=== PATIENT | female | born 1975 | race Caucasian/White ===

== ENCOUNTER 2018-03-07 06:03 | Emergency (ER) | payer OTHER ==
--- OUTSIDE RECORDS SUMMARY | 2018-03-07 06:05 | XMS REPORT ---
:1975 [facility] Address [address] [place] [address] Dr. Ryan [address] [place] [id number] Care Team Providers Name Role Phone ROGELIO ARAYA Primary Care Provider Unavailable Problems This patient has no known problems. Allergies, Adverse Reactions, Alerts This patient has no known allergies or adverse reactions. Medications This patient has no known medications. Encounters Start End Encounter Admission Attending Care Care Encounter Date/Time Date/Time Type Type Clinicians Facility Department ID 2015-05-23 Inpatient C [facility] MED [id number] 13:51:00
--- NOTE | 2018-03-07 06:51 | EKG ---
Test Date: 2018-03-07 Test Time: 06:44:45 Fireman Helper: TIM MEASUREMENT RESULTS: Intervals: Rate: 87 NE: 162 QRSD: 90 QT: 380 QTc: 457 [place]: P: 62 NE: 162 QRS: 17 T: 48 INTERPRETIVE STATEMENTS: Normal sinus rhythm Low voltage QRS Borderline ECG Compared to ECG 12/09/2013 10:42:51 Low QRS voltage now present Electronically Signed On 03-07-18 06:50:21 CDT by Oumar Moeller
[2018-03-07] MEDS ORDERED: DIPHENHYDRAMINE 50 MG/ML VIAL ONE (06:59)
[2018-03-07] MEDS ORDERED: NA CHLORIDE 0.9% 1,000 ML ONE (06:59)
[2018-03-07] MEDS ORDERED: KETOROLAC 30 MG/ML INJ ONE (07:02)
[2018-03-07 07:22] LABS: Absolute Lymphocytes (CBC) 2.7 K/uL (0.7-4.9); Absolute Monocytes 0.5 K/uL (0.1-1.3); Absolute Neutrophil 2.8 K/uL (1.8-8.0); Eosinophils % 2.1 % (0-4.4); Hematocrit 40.7 % (36.0-45.0); MCH 32.5 pg (27.0-35.0); MCV 93.9 fL (80-100); MPV 8.6 fL (7.6-11.3); Monocytes % 8.5 % (3.3-12.3); RBC Red Blood Cell Count 4.33 M/uL (3.86-4.86)
--- NOTE | 2018-03-07 08:05 | EDPHYS ---
Physician Documentation [facility] Name: Suzette Judge Age: 42 yrs Sex: Female : 1975 Arrival Date: 03/07/2018 Time: 06:07 Bed 13 Private MD: ED Physician Tu Nava HPI: 03/07 06:35 This 42 yrs old Female presents to ER via Ambulatory with complaints of Hand cp Pain, Hand Swelling. 06:35 The patient or guardian reports pain, swelling, tenderness, numbness/tingling. The cp complaints affect the right hand and left hand. 06:35 Context: resulted from an unknown cause. Onset: The symptoms/episode began/occurred for cp weeks. Modifying factors: the symptoms are aggravated by nothing. Associated signs and symptoms: Pertinent negatives: cyanosis distally, fever. Severity of symptoms: in the emergency department the symptoms are unchanged, despite home interventions. 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 - Social history:: Smoking status: Patient uses tobacco products, smokes one-half pack cigarettes per day. - Ebola Screening: : No symptoms or risks identified at this time. ROS: 06:40 Constitutional: Negative for body aches, chills, fever, poor PO intake. cp 06:40 Eyes: Negative for injury, pain, redness, and discharge. cp 06:40 ENT: Negative for drainage from ear(s), ear pain, sore throat, difficulty swallowing, difficulty handling secretions. 06:40 Cardiovascular: Negative for chest pain, edema, palpitations. 06:40 Respiratory: Negative for cough, shortness of breath, wheezing. 06:40 Abdomen/GI: Negative for abdominal pain, nausea, vomiting, and diarrhea, constipation. 06:40 Back: Negative for pain at rest, pain with movement, radiated pain. 06:40 MS/extremity: Positive for pain, paresthesias, swelling, tenderness, of the right hand and left hand, Negative for injury or acute deformity, decreased range of motion. 06:40 Skin: Negative for cellulitis, rash. 06:40 All other systems are negative. Exam: 06:45 Constitutional: The patient appears in no acute distress, alert, awake, non-toxic, well cp developed, well nourished. 06:45 Head/Face: Normocephalic, atraumatic. cp 06:45 Eyes: Periorbital structures: appear normal, Conjunctiva: normal, no exudate, no injection, Sclera: no appreciated abnormality, Lids and lashes: appear normal, bilaterally. 06:45 ENT: External ear(s): are unremarkable, Nose: is normal, Mouth: Lips: moist, Oral mucosa: moist, Posterior pharynx: is normal, airway is patent, no erythema, no exudate. 06:45 Chest/axilla: Inspection: normal. 06:45 Cardiovascular: Rate: normal, Rhythm: regular, Edema: is not appreciated, JVD: is not appreciated. 06:45 Respiratory: the patient does not display signs of respiratory distress, Respirations: normal, no use of accessory muscles, no splinting, no tachypnea, labored breathing, is not present. 06:45 Abdomen/GI: Exam negative for discomfort, distension, guarding, Inspection: abdomen appears normal. 06:45 Back: pain, is absent, ROM is normal. 06:45 Musculoskeletal/extremity: Extremities: grossly normal except: noted in the right hand and left hand: pain, There is no evidence of decreased ROM, deformity, injury. 06:45 Skin: cellulitis, is not appreciated, no rash present. 06:53 ECG was reviewed by the Attending Physician. cp Vital Signs: 06:19 BP 114 / 74; Pulse 94; Resp 18; Temp 97.7; Pulse Ox 100% on R/A; Weight 68.04 kg; aa1 Height 5 ft. 11 in. (180.34 cm); Pain 10/10; 07:17 BP 103 / 60; Pulse 72; Resp 18; Pulse Ox 100% on R/A; dh3 08:15 BP 100 / 64; Pulse 80; Resp 16; Pulse Ox 100% on R/A; Pain 6/10; rb1 06:19 Body Mass Index 20.92 (68.04 kg, 180.34 cm) aa1 MDM: 06:16 Patient medically screened. cp 06:40 Differential diagnosis: tendonitis, cellulitis, carpal tunnel, peripheral neuropathy. cp 08:04 Data reviewed: vital signs, nurses notes, lab test result(s), and as a result, I will cp discharge patient. 08:04 Counseling: I had a detailed discussion with the patient and/or guardian regarding: the cp historical points, exam findings, and any diagnostic results supporting the discharge/admit diagnosis, lab results, the need for outpatient follow up, a family practitioner, to return to the emergency department if symptoms worsen or persist or if there are any questions or concerns that arise at home. Response to treatment: the patient's symptoms have markedly improved after treatment, and as a result, I will discharge patient. 03/07 06:33 Order name: CBC with Diff; Complete Time: 07:38 03/07 07:39 Interpretation: Reviewed. 03/07 06:33 Order name: BMP; Complete Time: 07:38 cp 03/07 07:39 Interpretation: Normal except: GLUC 116; BUN 23; GFR 79. cp 03/07 06:52 Order name: Test, Serum; Complete Time: 07:49 aa1 08 07:49 Interpretation: Reviewed. 03/07 07:14 Order name: Urine Dipstick--Ancillary (enter results) [facility] 03/07 06:33 Order name: EKG; Complete Time: 06:33 03/07 06:33 Order name: EKG - Nurse/Tech; Complete Time: 06:52 03/07 06:33 Order name: Urine Dipstick-Ancillary (obtain specimen); Complete Time: 07:09 EC:53 Rate is 87 beats/min. Rhythm is regular. IA interval is normal. QRS interval is normal. cp QT interval is normal. No ST changes noted. Interpreted by me. Reviewed by me. Administered Medications: 06:55 Drug: NS 0.9% 1000 ml Route: IV; Rate: 1 bolus; Site: right jugular; aa1 08:02 Follow up: IV Status: Completed infusion rb1 06:55 Drug: TORadol 30 mg Route: IVP; Site: right jugular; aa1 07:12 Follow up: Response: No adverse reaction; Pain is decreased rb1 06:55 Drug: Benadryl 25 mg Route: IVP; Site: right jugular; aa1 07:12 Follow up: Response: No adverse reaction rb1 Disposition: 13:59 Co-signature as Attending Physician, Tu Nava MD I agree with the assessment and [facility] plan of care. Disposition: 03/07/18 08:05 Discharged to Home. Impression: Pain in unspecified hand - Bilateral. - Condition is Stable. - Discharge Instructions: Hand Pain. - Prescriptions for ketorolac 10 mg Oral tablet - take 1 tablet by ORAL route every 6 hours not to exceed 40 mg in 24hrs; 15 tablet. - Medication Reconciliation Form, Thank You Letter, Antibiotic Education, Prescription Opioid Use form. - Follow up: Private Physician; When: 2 - 3 days; Reason: Recheck today's complaints. - Problem is new. - Symptoms have improved. Signatures: Dispatcher [employer] EDFaith Brown RN RN aa1 Tu Nava MD MD cha Page, Corey, PA PA Patricia Velez, RN RN rb1 Corrections: (The following items were deleted from the chart) 06:52 06:33 Urine Test ordered. cp aa1 08:16 08:05 03/07/2018 08:05 Discharged to Home. Impression: Pain in unspecified hand - rb1 Bilateral. Condition is Stable. Forms are Medication Reconciliation Form, Thank You Letter, Antibiotic Education, Prescription Opioid Use. Follow up: Private Physician; When: 2 - 3 days; Reason: Recheck today's complaints. Problem is new. Symptoms have improved. cp
--- NOTE | 2018-03-07 08:05 | ER ---
Nurse's Notes [facility] Name: Suzette Judge Age: 42 yrs Sex: Female : 1975 Arrival Date: 03/07/2018 Time: 06:07 Bed 13 Private MD: Diagnosis: Pain in unspecified hand-Bilateral Presentation: 03/07 06:14 Presenting complaint: Patient states: she has been having swelling in the fingers of aa1 both hands for past few weeks. States, "It happens every time I go to sleep and sometimes it happens in the day too." Pt continuously shaking hands above her head and states that is the only way to get the swelling to go down. Transition of care: patient was not received from another setting of care. Onset of symptoms was January 2018. Risk Assessment: Do you want to hurt yourself or someone else? Patient reports no desire to harm self or others. Initial Sepsis Screen: Does the patient meet any 2 criteria? No. Patient's initial sepsis screen is negative. Does the patient have a suspected source of infection? No. Patient's initial sepsis screen is negative. Care prior to arrival: None. 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 - Social history:: Smoking status: Patient uses tobacco products, smokes one-half pack cigarettes per day. - Ebola Screening: : No symptoms or risks identified at this time. Screenin:21 Abuse screen: Denies threats or abuse. Denies injuries from another. Nutritional aa1 screening: No deficits noted. Tuberculosis screening: No symptoms or risk factors identified. Fall Risk None identified. Assessment: 06:21 General: Appears in no apparent distress. uncomfortable, Behavior is cooperative, aa1 restless. Pain: Complains of pain in right hand and left hand Pain began several weeks ago. Neuro: Level of Consciousness is awake, alert, obeys commands, Oriented to person, place, time, situation, Moves all extremities. Respiratory: Airway is patent Respiratory effort is even, unlabored, Respiratory pattern is regular, symmetrical. GI: No signs and/or symptoms were reported involving the gastrointestinal system. : No signs and/or symptoms were reported regarding the genitourinary system. EENT: No signs and/or symptoms were reported regarding the EENT system. Derm: Skin is intact, is healthy with good turgor, Skin is pink, warm \\T\\ dry. Musculoskeletal: Circulation, motion, and sensation intact. Capillary refill < 3 seconds, Range of motion: intact in all extremities, pt reports swelling in fingers on morgan hands. Mild swelling noted at this time. 07:00 Reassessment: Patient appears in no apparent distress at this time. No changes from rb1 previously documented assessment. I agree with the above assessment. Call light within reach. 08:00 Reassessment: Patient appears in no apparent distress at this time. Patient and/or rb1 family updated on plan of care and expected duration. Pain level reassessed. Patient is alert, oriented x 3, equal unlabored respirations, skin warm/dry/pink. Vital Signs: 06:19 BP 114 / 74; Pulse 94; Resp 18; Temp 97.7; Pulse Ox 100% on R/A; Weight 68.04 kg; aa1 Height 5 ft. 11 in. (180.34 cm); Pain 10/10; 07:17 BP 103 / 60; Pulse 72; Resp 18; Pulse Ox 100% on R/A; dh3 08:15 BP 100 / 64; Pulse 80; Resp 16; Pulse Ox 100% on R/A; Pain 6/10; rb1 06:19 Body Mass Index 20.92 (68.04 kg, 180.34 cm) aa1 ED Course: 06:07 Patient arrived in ED. al2 06:13 Arm band placed on right wrist. Patient placed in an exam room, on a stretcher. aa1 06:14 Tu Sullivan PA is PHCP. cp 06:14 Tu Nava MD is Attending Physician. cp 06:15 Patient has correct armband on for positive identification. Bed in low position. Call aa1 light in reach. Pulse ox on. NIBP on. 06:18 Triage completed. aa1 06:40 Missed attempt(s): 24 gauge in right upper arm. Bleeding controlled, band aid applied, aa1 catheter tip intact. 06:45 EKG done, by ED staff, reviewed by Tu Nava MD. aa1 06:50 Initial lab(s) drawn, by ma, sent to lab. Inserted saline lock: 20 gauge in right EJ, aa1 using aseptic technique. Blood collected. 07:04 Urine collected: clean catch specimen, ney colored. aa1 07:26 Patricia Dasilva, RN is Primary Nurse. rb1 08:16 No provider procedures requiring assistance completed. IV discontinued, intact, rb1 bleeding controlled, No redness/swelling at site. Pressure dressing applied. Administered Medications: 06:55 Drug: NS 0.9% 1000 ml Route: IV; Rate: 1 bolus; Site: right jugular; aa1 08:02 Follow up: IV Status: Completed infusion rb1 06:55 Drug: TORadol 30 mg Route: IVP; Site: right jugular; aa1 07:12 Follow up: Response: No adverse reaction; Pain is decreased rb1 06:55 Drug: Benadryl 25 mg Route: IVP; Site: right jugular; aa1 07:12 Follow up: Response: No adverse reaction rb1 Outcome: 08:05 Discharge ordered by . cp 08:16 Patient left the ED. rb1 08:16 Discharged to home ambulatory, with family. rb1 08:16 Condition: stable 08:16 Discharge instructions given to patient, Instructed on discharge instructions, follow up and referral plans. medication usage, Demonstrated understanding of instructions, follow-up care, medications, Prescriptions given X 1. Signatures: Faith Ro RN RN aa1 Tu Sullivan PA PA cp Patricia Dasilva, RN RN rb1 Kalli Goldberg formerly [facility] Cindy Vazquez
[2018-03-07 08:26] LABS: Urine Blood TRACE (NEG); Urine Glucose NEGATIVE (NEG); Urine Protein NEGATIVE (NEG)
[2018-03-07 08:31] VITALS: TEMP 97.7; O2SAT 100
[2018-03-07 08:33] VITALS: BP 100/64
== END 2018-03-07 08:16 | disposition home or self-care (01) ==
LOC: ER 06:03
DX: M79.641 Pain in right hand (principal); F31.9 Bipolar disorder, unspecified; F32.9 Major depressive disorder, single episode, unspecified; F43.10 Post-traumatic stress disorder, unspecified; F17.210 Nicotine dependence, cigarettes, uncomplicated; Z88.2 Allergy status to sulfonamides; Z88.6 Allergy status to analgesic agent; Z88.8 Allergy status to other drugs, medicaments and biological substances
CPT/HCPCS: 36415; 80048; 81003; 84703; 85025; 93005; 96361; 96374; 96375; 99284; J7030

== ENCOUNTER 2018-10-31 15:35 | Emergency (ER) | payer OTHER ==
--- OUTSIDE RECORDS SUMMARY | 2018-10-31 15:37 | XMS REPORT ---
:1975 [facility] Address [address] [place] [address] [address] Care Team Providers Name Role Phone ROGELIO ARAYA Primary Care Provider Unavailable Problems This patient has no known problems. Allergies, Adverse Reactions, Alerts This patient has no known allergies or adverse reactions. Medications This patient has no known medications. Encounters Start End Encounter Admission Attending Care Care Encounter Date/Time Date/Time Type Type Clinicians Facility Department ID 2015-05-23 Inpatient C [facility] MED [id number] 13:51:00
--- NOTE | 2018-10-31 16:15 | EDPHYS ---
Physician Documentation [facility] Name: Suzette Judge Age: 43 yrs Sex: Female : 1975 Arrival Date: 10/31/2018 Time: 15:37 Bed 12 Private MD: WALT Physician Tu Nava HPI: 10/31 16:08 This 43 yrs old Female presents to ER via Ambulatory with complaints of jmm Medication Refill. 16:08 The patient presents to the emergency department requesting refill(s) for: Klonopin, jmm Prozac. The patient chronically suffers from depression, anxiety, PTD. Patient states she is waiting for her psychiatric evaluation. Patient states her MD from [place] called in a prescription in August. patient states she has not had her medication in 2 weeks. Patient denies SI or HI. . 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 - Social history:: Smoking status: . - Ebola Screening: : Patient denies travel to an Ebola-affected area in the 21 days before illness onset. ROS: 16:08 Constitutional: Negative for fever, chills, and weight loss, Cardiovascular: Negative jmm for chest pain, palpitations, and edema, Respiratory: Negative for shortness of breath, cough, wheezing, and pleuritic chest pain. 16:08 Psych: Positive for anxiety, Negative for auditory hallucinations, visual hallucinations, homicidal ideation, suicidal ideation. 16:08 All other systems are negative. Exam: 16:08 Head/Face: atraumatic. Eyes: EOMI, no conjunctival erythema appreciated ENT: Moist jmm Mucus Membranes Neck: Trachea midline, Supple Chest/axilla: Normal chest wall appearance and motion. Cardiovascular: Regular rate and rhythm. No edema appreciated Respiratory: Normal respirations, no respiratory distress appreciated Abdomen/GI: Non distended, soft Back: Normal ROM Skin: General appearance color normal MS/ Extremity: Moves all extremities, no obvious deformities appreciated, no edema noted to the lower extremities Neuro: Awake and alert, normal gait 16:08 Constitutional: The patient appears alert, awake, anxious. 16:08 Psych: Behavior/mood is pleasant, cooperative, anxious, Patient has no thoughts/intents to harm self or others. Judgement / Insight is normal. Vital Signs: 15:55 BP 137 / 103; Pulse 69; Resp 19; Temp 96.8(TE); Pulse Ox 98% on R/A; Weight 73.94 kg tw2 (R); Height 5 ft. 11 in. (180.34 cm); Pain 0/10; 15:55 Body Mass Index 22.73 (73.94 kg, 180.34 cm) tw2 MDM: 16:08 Patient medically screened. dara 16:08 ED course: I discussed with the patient the need to follow up with pcp for continuity jm of care. Patient does not appear to express signs of SI or HI. . 16:13 Data reviewed: vital signs, nurses notes. Counseling: I had a detailed discussion with jmm the patient and/or guardian regarding: the historical points, exam findings, and any diagnostic results supporting the discharge/admit diagnosis, lab results, the need for outpatient follow up, to return to the emergency department if symptoms worsen or persist or if there are any questions or concerns that arise at home. Administered Medications: No medications were administered Disposition: 11/01 07:14 Co-signature as Attending Physician, Tu Nava MD I agree with the assessment and [facility] plan of care. Disposition: 10/31/18 16:15 Discharged to Home. Impression: Encounter for issue of repeat prescription. - Condition is Stable. - Discharge Instructions: Medicine Refill at the Emergency Department. - Prescriptions for Klonopin 1 mg Oral Tablet - take 1 tablet by ORAL route every 12 hours As needed; 12 tablet. Prozac 20 mg Oral Capsule - take 1 capsule by ORAL route once daily; 10 capsule. - Medication Reconciliation Form, Thank You Letter, Antibiotic Education, Prescription Opioid Use form. - Follow up: Private Physician; When: 2 - 3 days; Reason: Recheck today's complaints, Continuance of care, Re-evaluation by your physician. Signatures: Yolette Mckenzie RN RN aj1 Tu Nava MD MD cha Mickail, Joel, PA PA jmm Wise, Tara RN RN tw2 Corrections: (The following items were deleted from the chart) 10/31 16:35 16:15 10/31/2018 16:15 Discharged to Home. Impression: Encounter for issue of repeat aj1 prescription. Condition is Stable. Forms are Medication Reconciliation Form, Thank You Letter, Antibiotic Education, Prescription Opioid Use. Follow up: Private Physician; When: 2 - 3 days; Reason: Recheck today's complaints, Continuance of care, Re-evaluation by your physician. yanira
--- NOTE | 2018-10-31 16:15 | ER ---
Nurse's Notes [facility] Name: Suzette Judge Age: 43 yrs Sex: Female : 1975 Arrival Date: 10/31/2018 Time: 15:37 Bed 12 Private MD: Diagnosis: Encounter for issue of repeat prescription Presentation: 10/31 15:53 Presenting complaint: Patient states: i am a long time diagnosed bipolar pt, i need tw2 something for my anxiety and my prozac refilled, i am on the waiting list in [place], but i just need something for my anxiety. Transition of care: patient was not received from another setting of care. Onset of symptoms was October 31, 2018. Risk Assessment: Do you want to hurt yourself or someone else? Patient reports no desire to harm self or others. Initial Sepsis Screen: Does the patient meet any 2 criteria? No. Patient's initial sepsis screen is negative. Does the patient have a suspected source of infection? No. Patient's initial sepsis screen is negative. Care prior to arrival: None. 15:53 Method Of Arrival: Ambulatory tw2 15:53 Acuity: LORI 4 tw2 Triage Assessment: 15:56 General: Appears in no apparent distress. Behavior is anxious. Pain: Denies pain. tw2 DIRECTOR MARKETING: 15:55 LMP 10/16/2018 tw Historical: - Allergies: 15:57 Haldol; tw2 15:57 Sulfa; tw2 15:57 Compazine; tw2 - Home Meds: 15:57 Prozac 20 mg Oral cap 1 cap 2 times per day [Active]; Klonopin 2 mg Oral tab 1 tab 3 tw2 times per day [Active]; amitriptyline 100 mg Oral tab 1 tab once daily [Active]; - PMHx: 15:57 Anxiety; Bipolar disorder; Crohn's; Depression; PTSD; tw2 - PSHx: 15:57 Knee surgery; tw2 - Immunization history:: Adult Immunizations. - Social history:: Smoking status: . - Ebola Screening: : Patient denies travel to an Ebola-affected area in the 21 days before illness onset. Screenin:34 Abuse screen: Denies threats or abuse. Denies injuries from another. Nutritional aj1 screening: No deficits noted. Tuberculosis screening: No symptoms or risk factors identified. 16:35 Fall Risk None identified. aj1 Assessment: 16:34 General: Appears in no apparent distress. comfortable, Behavior is cooperative, aj1 anxious. Pain: Denies pain. Neuro: Level of Consciousness is awake, alert, obeys commands, Oriented to person, place, time, situation. Cardiovascular: Patient's skin is warm and dry. Respiratory: Airway is patent Respiratory effort is even, unlabored, Respiratory pattern is regular, symmetrical. GI: No signs and/or symptoms were reported involving the gastrointestinal system. : No signs and/or symptoms were reported regarding the genitourinary system. EENT: No signs and/or symptoms were reported regarding the EENT system. Derm: No signs and/or symptoms reported regarding the dermatologic system. Skin is pink, warm \T\ dry. normal. Musculoskeletal: No signs and/or symptoms reported regarding the musculoskeletal system. Circulation, motion, and sensation intact. Vital Signs: 15:55 BP 137 / 103; Pulse 69; Resp 19; Temp 96.8(TE); Pulse Ox 98% on R/A; Weight 73.94 kg tw2 (R); Height 5 ft. 11 in. (180.34 cm); Pain 0/10; 15:55 Body Mass Index 22.73 (73.94 kg, 180.34 cm) tw2 ED Course: 15:37 Patient arrived in ED. mr 15:55 Triage completed. tw2 15:55 Arm band placed on. tw2 15:59 [facility]endoza [facility] 15:59 Tu Nava MD is Attending Physician. [facility] 16:34 Yolette Mckenzie RN is Primary Nurse. aj1 16:34 Patient has correct armband on for positive identification. aj1 16:34 No provider procedures requiring assistance completed. aj1 16:35 Patient did not have IV access during this emergency room visit. aj1 Administered Medications: No medications were administered Outcome: 16:15 Discharge ordered by . [facility] 16:34 Discharged to home ambulatory. aj1 16:34 Condition: good 16:34 Discharge instructions given to patient, Instructed on discharge instructions, follow up and referral plans. medication usage, Demonstrated understanding of instructions, follow-up care, medications, Prescriptions given X 2. 16:35 Patient left the ED. aj1 Signatures: Yolette Mckenzie RN RN aj1 Antione Mendoza PA PA jmm Rivera, Ramonita mr Hanna Lechuga, RN RN tw2
[2018-11-01 05:52] VITALS: BP 137/103; TEMP 96.8; O2SAT 98
== END 2018-10-31 16:35 | disposition home or self-care (01) ==
LOC: ER 15:35
DX: Z76.0 Encounter for issue of repeat prescription (principal); F41.9 Anxiety disorder, unspecified; F32.9 Major depressive disorder, single episode, unspecified; F31.9 Bipolar disorder, unspecified; F43.10 Post-traumatic stress disorder, unspecified; Z88.2 Allergy status to sulfonamides; Z88.5 Allergy status to narcotic agent; Z88.8 Allergy status to other drugs, medicaments and biological substances
CPT/HCPCS: 99282

== ENCOUNTER 2018-11-03 04:42 | Observation (INO) | payer OTHER ==
[2018-11-03] MEDS ORDERED: METHYLPREDNISOLONE 125 MG INJ ONE (05:26)
[2018-11-03] MEDS ORDERED: MORPHINE 4 MG/ML SYR ONE ×2 (05:27→06:58)
[2018-11-03] MEDS ORDERED: NA CHLORIDE 0.9% 1,000 ML ONE (05:27)
[2018-11-03] MEDS ORDERED: ONDANSETRON 4 MG/2 ML VIAL ONE ×2 (05:27→06:58)
[2018-11-03 05:40] LABS: Urine Blood 2+ (NEG); Urine Glucose NEGATIVE (NEG); Urine Protein NEGATIVE (NEG)
[2018-11-03 05:58] LABS: Absolute Monocytes 0.6 K/uL (0.1-1.3); Absolute Neutrophil 3.8 K/uL (1.8-8.0); Basophils % 0.6 % (0-1.3); Eosinophils % 0.8 % (0-4.4); Hematocrit 40.6 % (36.0-45.0); Lymphocytes % 30.7 % (15.3-44.8); MPV 7.9 fL (7.6-11.3); Monocytes % 9.2 % (3.3-12.3); RBC Red Blood Cell Count 4.52 M/uL (3.86-4.86)
[2018-11-03 06:06] LABS: Bilirubin Direct 0.1 mg/dL (0-0.2); Bilirubin Total 0.4 mg/dL (0.2-1.0); Potassium 3.6 mmol/L (3.5-5.1); Protein, Total 7.4 g/dL (6.4-8.2)
--- NOTE | 2018-11-03 06:48 | EDPHYS ---
Physician Documentation [facility] Name: Suzette Judge Age: 43 yrs Sex: Female : 1975 Arrival Date: 11/03/2018 Time: 04:47 Bed 15 Private MD: ED Physician Sharon Bang HPI: 11/03 04:57 This 43 yrs old Female presents to ER via Unassigned with complaints of ma2 Abdominal Pain. 04:57 The patient presents with abdominal pain. Onset: The symptoms/episode began/occurred ma2 gradually, 2 month(s) ago. Associated signs and symptoms: Pertinent negatives: anorexia, chest pain, constipation, fever, vaginal discharge, vomiting blood. The symptoms are described as achy. Severity of pain: At its worst the pain was moderate in the emergency department the pain is unchanged. The patient has experienced similar episodes in the past. hx of crohns disease here with similar pain unchanged with diarrhea . 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 - Social history:: Patient/guardian denies using alcohol, street drugs, The patient lives with family, Smoking status: Patient uses tobacco products, vape, Patient uses street drugs, marijuana, Patient/guardian denies using alcohol. - Family history:: not pertinent. - Ebola Screening: : Patient negative for fever greater than or equal to 101.5 degrees Fahrenheit, and additional compatible Ebola Virus Disease symptoms Patient denies exposure to infectious person Patient denies travel to an Ebola-affected area in the 21 days before illness onset. ROS: 04:57 Constitutional: Negative for fever, chills, and weight loss. ma2 04:57 Abdomen/GI: Positive for abdominal pain, Negative for nausea and vomiting, diarrhea, anorexia, rectal pain, bowel incontinence. 04:57 All other systems are negative. Exam: 04:57 Constitutional: This is a well developed, well nourished patient who is awake, alert, ma2 and in no acute distress. Chest/axilla: Normal chest wall appearance and motion. Nontender with no deformity. No lesions are appreciated. Cardiovascular: Regular rate and rhythm with a normal S1 and S2. No gallops, murmurs, or rubs. Normal PMI, no JVD. No pulse deficits. Respiratory: Lungs have equal breath sounds bilaterally, clear to auscultation and percussion. No rales, rhonchi or wheezes noted. No increased work of breathing, no retractions or nasal flaring. 04:57 MS/ Extremity: Pulses equal, no cyanosis. Neurovascular intact. Full, normal range of motion. 04:57 Abdomen/GI: Inspection: abdomen appears normal, scar(s), are noted in the right lower quadrant, Bowel sounds: normal, Palpation: abdomen is soft and non-tender, soft, Rectal exam: Vital Signs: 05:05 BP 107 / 77; Pulse 108; Resp 19; Temp 98.2; Pulse Ox 98% ; Weight 73.94 kg; Height 5 rr5 ft. 11 in. (180.34 cm); Pain 9/10; 05:51 BP 105 / 73; Pulse 95; Resp 17; Pulse Ox 99% ; rr5 06:00 BP 108 / 65; Pulse 90; Resp 19; Pulse Ox 98% ; rr5 06:00 Pain 0/10; rr5 06:30 BP 105 / 76; Pulse 88; Resp 17; Pulse Ox 100% ; Pain 10/10; rr5 06:50 BP 111 / 87; Pulse 93; Resp 17; Pulse Ox 99% ; rr5 08:00 BP 114 / 87; Pulse 103; Resp 16; Pulse Ox 97% ; bp 08:47 BP 112 / 79; Pulse 96; Resp 14; Pulse Ox 97% ; bp 05:05 Body Mass Index 22.73 (73.94 kg, 180.34 cm) rr5 MDM: 04:51 Patient medically screened. ma2 04:57 Differential diagnosis: gastritis, gastroesophageal reflux disease, crohns disease. ma2 05:50 ED course: patient has passive SI for the last few weeks unchanged seen yesterday at [address] in [place] by psych and was released and started on prozac no si now no plan never had plan no gun at home, no active si. now . 06:45 Data reviewed: vital signs, nurses notes. Counseling: I had a detailed discussion with [facility] the patient and/or guardian regarding: the historical points, exam findings, and any diagnostic results supporting the discharge/admit diagnosis, the presence of at least one elevated blood pressure reading (>120/80) during this emergency department visit, the need for outpatient follow up. Response to treatment: the patient's symptoms have mildly improved after treatment. ED course: will admit for intractable pain discussed with dr. mtz. 11/03 04:52 Order name: Basic Metabolic Panel; Complete Time: 06:41 [facility] 11/03 04:52 Order name: CBC with Diff; Complete Time: 06:41 [facility] 11/03 04:52 Order name: Creatinine for Radiology; Complete Time: 06:41 fl11/03 04:52 Order name: Hepatic Function; Complete Time: 06:41 fl11/03 04:52 Order name: Lipase; Complete Time: 06:41 fl11/03 05:18 Order name: Urine Dipstick--Ancillary (enter results); Complete Time: 06:41 cm6 11/03 05:18 Order name: Urine --Ancillary (enter results); Complete Time: 06:41 cm6 11/03 06:58 Order name: CT Abd/Pelvis - W/Contrast [facility] 11/03 04:52 Order name: IV Saline Lock; Complete Time: 05:39 fl11/03 04:52 Order name: Labs collected and sent; Complete Time: 05:39 fl11/03 04:52 Order name: Urine Dipstick-Ancillary (obtain specimen); Complete Time: 05:14 [facility] Administered Medications: 05:28 Drug: NS 0.9% 1000 ml Route: IV; Rate: 1 bolus; Site: left upper arm; rr5 07:00 Follow up: IV Status: Completed infusion; IV Intake: 1000ml bp 05:35 Drug: Zofran 4 mg Route: IVP; Site: left upper arm; rr5 06:56 Follow up: Response: No adverse reaction rr5 05:37 Drug: MethylPrednisoLONE 125 mg Route: IVP; Site: left upper arm; rr5 06:57 Follow up: Response: No adverse reaction rr5 05:38 Drug: morphine 4 mg Route: IVP; Site: left upper arm; rr5 06:56 Follow up: Response: No adverse reaction rr5 06:50 Drug: Zofran 4 mg Route: IVP; Site: left upper arm; rr5 07:14 Follow up: Response: Pain is decreased bp 06:52 Drug: morphine 4 mg Route: IVP; Site: left upper arm; rr5 07:13 Follow up: Response: Pain is decreased bp Disposition: 11/03/18 06:47 Hospitalization ordered by Dieter Mtz for Observation. Preliminary diagnosis is Crohn's disease of both small and large intestine. - Bed requested for Telemetry/MedSurg (observation). - Status is Observation. bp - Condition is Stable. - Problem is new. - Symptoms are unchanged. UTI on Admission? No Signatures: Dispatcher [employer] [facility] Titus Skinner, RN RN bp Sharon Bang MD MD ma2 Radha Elizalde Raymond RN RN rr5 Corrections: (The following items were deleted from the chart) 05:47 04:53 TEST, SERUM+SC.LAB.BRZ ordered. [facility] 07:47 06:47 Hospitalization Ordered by Dieter Mtz DO for Observation. Preliminary eb diagnosis is Crohn's disease of both small and large intestine. Bed requested for Telemetry/MedSurg (observation). Status is Observation. Condition is Stable. Problem is new. Symptoms are unchanged. UTI on Admission? No. ma2 08:56 07:47 11/03/2018 06:47 Hospitalization Ordered by Dieter Mtz DO for Observation. bp Preliminary diagnosis is Crohn's disease of both small and large intestine. Bed requested for Telemetry/MedSurg (observation). Status is Observation. Condition is Stable. Problem is new. Symptoms are unchanged. UTI on Admission? No. eb
--- NOTE | 2018-11-03 06:48 | ER ---
Nurse's Notes [facility] Name: Suzette Judge Age: 43 yrs Sex: Female : 1975 Arrival Date: 11/03/2018 Time: 04:47 Bed 15 Private MD: Diagnosis: Crohn's disease of both small and large intestine Presentation: 11/03 04:55 Presenting complaint: EMS states: complaints of abdominal pain 9/10 pain score. rr5 associated with nausea. patient came here with the same chief complaint and got discharge. 04:55 Transition of care: patient was not received from another setting of care. Onset of rr5 symptoms was November 03, 2018. Risk Assessment: Do you want to hurt yourself or someone else? Patient reports desire/thoughts of hurting themselves or someone else. Provider notified. Initial Sepsis Screen: Does the patient meet any 2 criteria? No. Patient's initial sepsis screen is negative. Does the patient have a suspected source of infection? No. Patient's initial sepsis screen is negative. Note patient verbalized if the pain will not go away I'm thinking to hurt myself. im having unbearable abdominal pain right now. Care prior to arrival: None. 04:55 Method Of Arrival: EMS: [facility] rr5 04:55 Acuity: LORI 2 rr5 Triage Assessment: 07:00 General: Appears in no apparent distress. uncomfortable, Behavior is cooperative, bp appropriate for age, anxious. 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 - Social history:: Patient/guardian denies using alcohol, street drugs, The patient lives with family, Smoking status: Patient uses tobacco products, vape, Patient uses street drugs, marijuana, Patient/guardian denies using alcohol. - Family history:: not pertinent. - Ebola Screening: : Patient negative for fever greater than or equal to 101.5 degrees Fahrenheit, and additional compatible Ebola Virus Disease symptoms Patient denies exposure to infectious person Patient denies travel to an Ebola-affected area in the 21 days before illness onset. Screenin:51 Abuse screen: Denies threats or abuse. Denies injuries from another. Nutritional rr5 screening: No deficits noted. Tuberculosis screening: No symptoms or risk factors identified. Fall Risk IV access (20 points). Total Peterson Fall Scale indicates No Risk (0-24 pts). Assessment: 05:00 General: Appears in no apparent distress. uncomfortable, Behavior is calm, cooperative, rr5 appropriate for age. Pain: Complains of pain in abdomen Pain does not radiate. Pain currently is 9 out of 10 on a pain scale. Quality of pain is described as aching, Pain began gradually, Is intermittent. 05:00 Neuro: Level of Consciousness is awake, alert, obeys commands, Oriented to person, rr5 place, time, situation, Appropriate for age Reports suicidal ideation noted. thinking that she will hurt herself if the pain will not go away.ED provider aware.. Cardiovascular: Capillary refill < 3 seconds Patient's skin is warm and dry. Respiratory: Airway is patent Respiratory effort is even, unlabored, Respiratory pattern is regular, symmetrical. GI: Abdomen is round Bowel sounds present X 4 quads. Abd is soft and non tender Guarding noted in right upper quadrant Reports upper abdominal pain, diarrhea, nausea. : No signs and/or symptoms were reported regarding the genitourinary system. EENT: No signs and/or symptoms were reported regarding the EENT system. Derm: Skin is intact, Skin temperature is warm Wound noted right forearm Wound is cut wound at right forearm noted history suicide. plastic object used to cut herself as verbalized by the patient. Musculoskeletal: No signs and/or symptoms reported regarding the musculoskeletal system. 05:40 Reassessment: reexamine by the ED provider patient went to [facility] yesterday for the rr5 chief complaint of suicidal ideation, prescription given and discharge. she is passive suicidal patient as per ED provider. 06:03 Reassessment: Patient appears in no apparent distress at this time. asleep on bed rr5 comfortably. 06:35 Reassessment: suddenly woke up and complaint of severe abdominal pain. ED provider rr5 aware and assess the patient with order made and carried out. 06:53 Reassessment: dr. roldan at bedside assessing the patient for admission. rr5 07:00 Reassessment: RECD REPORT FROM NUBIA VALENTINO. 43YO WF P/W ABD PAIN. SEEN TWICE FOR SAME bp WITHIN 24 HR. H/O [facility] ADMIT IN PROCESS. Vital Signs: 05:05 BP 107 / 77; Pulse 108; Resp 19; Temp 98.2; Pulse Ox 98% ; Weight 73.94 kg; Height 5 rr5 ft. 11 in. (180.34 cm); Pain 9/10; 05:51 BP 105 / 73; Pulse 95; Resp 17; Pulse Ox 99% ; rr5 06:00 BP 108 / 65; Pulse 90; Resp 19; Pulse Ox 98% ; rr5 06:00 Pain 0/10; rr5 06:30 BP 105 / 76; Pulse 88; Resp 17; Pulse Ox 100% ; Pain 10/10; rr5 06:50 BP 111 / 87; Pulse 93; Resp 17; Pulse Ox 99% ; rr5 08:00 BP 114 / 87; Pulse 103; Resp 16; Pulse Ox 97% ; bp 08:47 BP 112 / 79; Pulse 96; Resp 14; Pulse Ox 97% ; bp 05:05 Body Mass Index 22.73 (73.94 kg, 180.34 cm) rr5 ED Course: 04:47 Patient arrived in ED. fc 04:51 Sharon Bang MD is Attending Physician. ma2 04:59 Nubia Ordonez, RN is Primary Nurse. rr5 05:00 Patient has correct armband on for positive identification. Placed in gown. Bed in low rr5 position. Call light in reach. Side rails up X2. Pulse ox on. NIBP on. 05:02 Triage completed. rr5 05:03 Arm band placed on. rr5 05:25 Inserted saline lock: 22 gauge in left upper arm, using aseptic technique. Blood rr5 collected. 06:46 Dieter Lim DO is Hospitalizing Provider. ma2 07:04 Primary Nurse role handed off by Nubia Ordonez, RN bp 07:04 Titus Skinner, RN is Primary Nurse. bp 07:[address] via stretcher. sj 07:41 CT completed. Patient tolerated procedure well. Patient moved back from CT. sj 07:45 CT Abd/Pelvis - W/Contrast In Process Unspecified. EDMS 08:46 No provider procedures requiring assistance completed. Patient admitted, IV remains in bp place. Administered Medications: 05:28 Drug: NS 0.9% 1000 ml Route: IV; Rate: 1 bolus; Site: left upper arm; rr5 07:00 Follow up: IV Status: Completed infusion; IV Intake: 1000ml bp 05:35 Drug: Zofran 4 mg Route: IVP; Site: left upper arm; rr5 06:56 Follow up: Response: No adverse reaction rr5 05:37 Drug: MethylPrednisoLONE 125 mg Route: IVP; Site: left upper arm; rr5 06:57 Follow up: Response: No adverse reaction rr5 05:38 Drug: morphine 4 mg Route: IVP; Site: left upper arm; rr5 06:56 Follow up: Response: No adverse reaction rr5 06:50 Drug: Zofran 4 mg Route: IVP; Site: left upper arm; rr5 07:14 Follow up: Response: Pain is decreased bp 06:52 Drug: morphine 4 mg Route: IVP; Site: left upper arm; rr5 07:13 Follow up: Response: Pain is decreased bp Intake: 07:00 IV: 1000ml; Total: 1000ml. bp Outcome: 06:47 Decision to Hospitalize by Provider. ma2 08:46 Admitted to Med/surg accompanied by tech, via wheelchair, room 422, with chart, Report bp called to OUSMANE VALENTINO 08:46 Condition: stable 08:46 Instructed on the need for admit. 08:56 Patient left the ED. bp Signatures: Dispatcher [employer] Zara Vivar Felicia, RN CHELSY Titus Skinner, RN RN Sharon Bailey MD MD mt2 Nubia Ordonez, RN RN rr5
--- NOTE | 2018-11-03 08:10 | RAD REPORT ---
EXAM DESCRIPTION: CT - Abdomen Pelvis W Contrast - 11/03/2018 7:45 am CLINICAL HISTORY: Abdominal pain with nausea. COMPARISON: 2014 TECHNIQUE: Computed axial tomography of the abdomen pelvis was obtained. 100 cc Isovue-300 was admin istered intravenously. Oral contrast was not requested which limits evaluation of bowel. All CT scans are performed using dose optimization technique as appropriate and may include automated exposure control or mA/KV adjustment according to patient size. FINDINGS: The liver, spleen, pancreas, adrenal and kidneys appear unremarkable. There is no evidence of diverticulitis. A 2 centimeter right ovarian cyst without significant free fluid IMPRESSION: A 2 centimeter right ovarian cyst without significant free fluid .
[2018-11-03] MEDS ORDERED: ACETAMINOPHEN 650MG/RECT SUPP PR PRN (09:04)
[2018-11-03] MEDS ORDERED: HYDROCODONE/APAP 7.5/325 MG TAB PO PRN (09:04)
[2018-11-03] MEDS ORDERED: ACETAMINOPHEN 500 MG TAB PO PRN (09:04)
[2018-11-03] MEDS: THIAMINE 200 MG/2 ML INJ IVP SCH (09:04)
[2018-11-03] MEDS: ENOXAPARIN 40 MG/0.4 ML SQ SCH ×2 (09:04→09:53)
[2018-11-03] MEDS ORDERED: TRAMADOL HCL 50 MG TAB PO PRN (09:04)
[2018-11-03] MEDS ORDERED: FOLIC ACID 5 MG/ML VIAL IVP SCH (09:04)
[2018-11-03 09:41] VITALS: BMI 22.7
[2018-11-03] MEDS: FOLIC ACID 1 MG in NA CHLORIDE 0.9% 50 ML IV SCH (09:51)
[2018-11-03] MEDS: NA CHLORIDE 0.9% 1,000 ML IV SCH ×2 (09:51→21:02)
[2018-11-03] MEDS: FLUOXETINE 20 MG CAP PO SCH (09:52)
[2018-11-03] MEDS: FAMOTIDINE 20 MG/2 ML VIAL IV SCH ×2 (09:52→21:04)
[2018-11-03] MEDS: ONDANSETRON 4 MG/2 ML VIAL IV PRN ×2 (09:53→16:10)
[2018-11-03] MEDS: METHYLPREDNISOLONE 40 MG INJ IV SCH ×2 (09:57→18:00)
[2018-11-03] MEDS: MORPHINE 2 MG/ML SYR IV PRN ×2 (09:58→16:10)
[2018-11-03 12:39] LABS: Urine Appearance CLEAR; Urine Bilirubin NEGATIVE (NEG); Urine Blood NEGATIVE (NEG); Urine Color YELLOW; Urine Glucose NEGATIVE (NEG); Urine Protein NEGATIVE (NEG); Urine Specific Gravity >=1.030 (1.005-1.030); Urine Urobilinogen 0.2 mg/dL (0.2-1.0); Urine pH 7.5 (5.0-7.0)
[2018-11-03] MEDS: LORazepam 2 MG/ML VIAL IV PRN ×2 (12:40→22:18)
[2018-11-03 12:45] LABS: Urine Microscopic Reflex NO UMIC
--- NOTE | 2018-11-03 14:18 | P.HP ---
Certification for Inpatient Patient admitted to: Observation With expected LOS: <2 Midnights Patient will require the following post-hospital care: None Practitioner: I am a practitioner with admitting privileges, knowledge of patient current condition, hospital course, and medical plan of care. Services: Services provided to patient in accordance with Admission requirements found in Title 42 Section 412.3 of the Code of Federal Regulations Patient History Date of Service: 11/03/18 Primary Care Provider: Al[place] Reason for admission: Nausea, vomiting, abdominal pain History of Present Illness: 43-year-old female presented to the emergency room with nausea, vomiting and abdominal pain. Patient was evaluated the emergency room. Patient reported increased nausea, vomiting and abdominal pain. Abdominal pain was diffuse. This started last night. She also reported some loose diarrhea. Patient reports a history of Crohn's. This was diagnosed in 1997. She is from the [place] area. She has been here in the area since May. In the ER patient evaluated. She was given multiple doses of medication for nausea, pain. Also given IV steroids. No significant change. Patient was admitted for further evaluation. On lab white count 6.5, hemoglobin 14. Urinalysis unremarkable. Sodium 142, potassium 3.6, BUN of 20, creatinine 0.8 with a GFR 72. Glucose 84. CT abdomen showed no acute abdominal abnormality. Patient admitted for observation. When I saw the patient ER, she appeared comfortable. Patient with history of Crohn's use and anxiety. Patient takes Prozac and Klonopin. Patient was requesting medication for anxiety. Allergies haloperidol [From Haldol] Allergy (Verified 12/09/13 20:26) Unknown haloperidol lactate [From Haldol] Allergy (Verified 12/09/13 20:26) Unknown prochlorperazine [From Compazine] Allergy (Verified 11/03/18 09:36) Unknown prochlorperazine edisylate [From Compazine] Allergy (Verified 12/09/13 20:28) Unknown prochlorperazine maleate [From Compazine] Allergy (Verified 12/09/13 20:28) Unknown Sulfa (Sulfonamide Antibiotics) Allergy (Verified 12/09/13 20:25) Unknown SULFA (SULFONAMIDES) Allergy (Uncoded 12/16/13 05:25) Unknown Home medications list reviewed: Yes Home Medications: Amitriptyline HCl 100 mg PO DAILY 11/03/18 Fluoxetine HCl [Prozac] 20 mg PO BID 11/03/18 clonazePAM [Klonopin] 2 tab PO TIDP PRN 11/03/18 - Past Medical/Surgical History Diabetic: No -: Crohn's colitis -: Depression with anxiety -: Right ovarian cyst -: Tubal Ligation -: Appy -: chrons sx -: Hemhrroid removal -: tonsillectomy -: bilateral knee sx Psychosocial/ Personal History: Patient is . She has 3 children. She does not work. She collects disability - Family History Family History: Reviewed- Non-Contributory - Social History Smoking Status: Former smoker Alcohol use: No CD- Drugs: Yes Caffeine use: Yes Place of Residence: Home Review of Systems General: As per HPI Eyes: Unremarkable ENT: Unremarkable Respiratory: Unremarkable Cardiovascular: Unremarkable Gastrointestinal: Nausea, Vomiting, Abdominal Pain, Diarrhea, As per HPI Genitourinary: Unremarkable Musculoskeletal: Unremarkable Integumentary: Unremarkable Neurological: As per HPI Lymphatics: Unremarkable Physical Examination - Vital Signs Temperature: 98.8 F Blood Pressure: 117/67 Pulse: 94 Respirations: 18 Pulse Ox (%): 98 - Physical Exam General: Alert, In no apparent distress, Oriented x3, Cooperative, Other ( Patient with increased anxiety.) HEENT: Atraumatic, Other (Dry mucous membranes) Neck: Supple, No Thyromegaly Respiratory: Clear to auscultation bilaterally, Normal air movement Cardiovascular: Normal pulses, Regular rate/rhythm Gastrointestinal: Normal bowel sounds, Soft and benign, Non-distended, No masses , No rebound, No guarding, Tenderness (Patient reports tenderness to palpation) Musculoskeletal: No erythema, No tenderness, No warmth Integumentary: No tenderness/swelling, No erythema, No warmth, No cyanosis Neurological: Normal speech, Normal strength at 5/5 x4 extr, Normal tone, Abnormal affect (Increased anxiety.) - Studies Laboratory Data (last 24 hrs) 11/03/18 05:35: Creatinine 0.84 11/03/18 05:35: WBC 6.5, Hgb 14.0, Hct 40.6, Plt Count 350 11/03/18 05:35: Sodium 142, Potassium 3.6, BUN 20 H, Creatinine 0.87, Glucose 84 , Total Bilirubin 0.4, AST 12 L, ALT 17, Alkaline Phosphatase 70, Lipase 95 Assessment and Plan - Plan Impression: Nausea, vomiting, abdominal pain, and diarrhea likely related to Crohn's flare up GERD Depression with anxiety Mild dehydration Plan: Nausea, vomiting, abdominal pain, and diarrhea likely related to Crohn's flare up: Will continue with IV fluids. Will also continue with IV steroids. GI consulted to further evaluate. Will slowly advance diet. Anticipate discharge in the next 24 hr. Will limit IV pain medication as the patient may be drug- seeking. Will check stool for C diff. No need for antibiotics at this time. Will discuss with GI. Will check urine drug screen. GERD: Will provide PPI. Depression with anxiety: Will restart Prozac. Will provide Ativan as needed for anxiety. Patient was requesting higher doses of Klonopin. Patient may be drug-seeking. This appears abnormal. Will check urine drug screen. Mild dehydration: Continue IV fluids. Discharge Plan: Home Plan to discharge in: 24 Hours - Advance Directives Does patient have a Living Will: Yes Does patient have a Durable POA for Healthcare: Yes - Code Status/Comfort Care Code Status Assessed: Yes (Patient full code.) Time Spent Managing Pts Care (In Minutes): 55
[2018-11-03] MEDS ORDERED: KETOROLAC 30 MG/ML INJ IV PRN (17:41)
[2018-11-03] MEDS ORDERED: FENTANYL 75 MCG/PATCH TD SCH (20:37)
[2018-11-03] MEDS: Rifaximin 550 MG Tab PO SCH (21:00)
[2018-11-03] MEDS: SIMETHICONE 80 MG TAB PO SCH (21:04)
[2018-11-03] MEDS ORDERED: METHYLPRED NA SUC 40 MG in NA CHLORIDE 0.9% 200 ML IV SCH (23:00)
[2018-11-04] MEDS ORDERED: METHYLPREDNISOLONE 40 MG INJ ONE (00:26)
[2018-11-04] MEDS ORDERED: NA CHLORIDE 0.9% 100 ML IV ONE (00:27)
[2018-11-04] MEDS ORDERED: NA CHLORIDE 0.9% 100 ML ONE (00:27)
[2018-11-04 04:42] LABS: Absolute Lymphocytes (CBC) 1.8 K/uL (0.7-4.9); Absolute Monocytes 0.5 K/uL (0.1-1.3); Absolute Neutrophil 8.3 K/uL (1.8-8.0); Basophils % 0.4 % (0-1.3); Hematocrit 38.1 % (36.0-45.0); Lymphocytes % 17.1 % (15.3-44.8); MPV 7.7 fL (7.6-11.3); Monocytes % 5.1 % (3.3-12.3); RBC Red Blood Cell Count 4.19 M/uL (3.86-4.86)
[2018-11-04 05:01] LABS: Magnesium 2.1 mg/dL (1.8-2.4); Potassium 4.1 mmol/L (3.5-5.1)
[2018-11-04] MEDS: NA CHLORIDE 0.9% 1,000 ML IV SCH (05:04)
[2018-11-04] MEDS: LORazepam 2 MG/ML VIAL IV PRN ×2 (06:08→13:17)
[2018-11-04] MEDS: Rifaximin 550 MG Tab PO SCH (09:00)
[2018-11-04] MEDS ORDERED: GABAPENTIN 300 MG CAP PO SCH (09:00)
[2018-11-04] MEDS ORDERED: METHYLPREDNISOLONE 40 MG INJ IV SCH ×2 (09:00)
[2018-11-04] MEDS: FAMOTIDINE 20 MG/2 ML VIAL IV SCH (10:11)
[2018-11-04] MEDS: FOLIC ACID 1 MG in NA CHLORIDE 0.9% 50 ML IV SCH (10:11)
--- NOTE | 2018-11-04 10:11 | P.DS ---
Admission Date: 11/03/18 Discharge Date: 11/04/18 Primary Care Provider: Alva OK Disposition: ROUTINE DISCHARGE Discharge Condition: GOOD Reason for Admission: Nausea, vomiting, abdominal pain Consultations: GI-Dr. Matias Procedures: CT scan: FINDINGS: The liver, spleen, pancreas, adrenal and kidneys appear unremarkable. There is no evidence of diverticulitis. A 2 centimeter right ovarian cyst without significant free fluid IMPRESSION: A 2 centimeter right ovarian cyst without significant free fluid . Medical problem list: Nausea, vomiting, and abdominal pain likely secondary to Crohn's flare up Depression with anxiety with history of PTSD Chronic pain GERD Brief History of Present Illness: 43-year-old female presented to the emergency room with nausea, vomiting and abdominal pain. Patient was evaluated the emergency room. Patient reported increased nausea, vomiting and abdominal pain. Abdominal pain was diffuse. This started last night. She also reported some loose diarrhea. Patient reports a history of Crohn's. This was diagnosed in 1997. She is from the [place] area. She has been here in the area since May. In the ER patient evaluated. She was given multiple doses of medication for nausea, pain. Also given IV steroids. No significant change. Patient was admitted for further evaluation. On lab white count 6.5, hemoglobin 14. Urinalysis unremarkable. Sodium 142, potassium 3.6, BUN of 20, creatinine 0.8 with a GFR 72. Glucose 84. CT abdomen showed no acute abdominal abnormality. Patient admitted for observation. When I saw the patient ER, she appeared comfortable. Patient with history of Crohn's use and anxiety. Patient takes Prozac and Klonopin. Patient was requesting medication for anxiety. Hospital Course: Patient presented with nausea, vomiting and abdominal pain. Patient with history of Crohn's. Patient is new to the area since May 2018. CT scan unremarkable. Lab unremarkable. Patient had intractable nausea and vomiting therefore patient was admitted for observation. GI consulted to further evaluate. Patient started on steroid medication and Xifaxan. Patient has improved. No significant nausea, vomiting or abdominal pain at discharge. Patient tolerating her current diet. At discharge she will continue with a GI soft diet. At discharge, patient will continue with prednisone 10 mg daily for 7 days along with Xifaxan 550 mg 1 pill twice daily for 14 days. Patient may continue with simethicone 3 times a day as needed. Recommend to follow up with GI in 1-2 weeks to follow up this hospitalization. Patient will likely require colonoscopy in the near future to further evaluate and address her Crohn's disease. Patient with depression with anxiety also with history of PTSD. Patient takes medication-Prozac, amitriptyline and Klonopin. She reports that she has been getting medication refills from the ER. Patient was requesting higher doses of benzodiazepine. Recommend to establish care with psychiatry or PCP. Will provide contact information to PCPs and psychiatry in the area to establish care. Recommend to continue with Prozac, amitriptyline and Klonopin. Will recommend to taper off Klonopin over time. Patient would benefit with counseling. Patient plans to look to [place] to establish care with psychiatry. Options given. Benzodiazepine abuse education provided. Patient with GERD. Patient will continue with Protonix 40 mg daily. Recommend follow up with GI as directed. Patient reports history of chronic pain. Patient requested multiple changes in pain medication during her stay. Appropriate adjustments in pain medication was addressed. Recommend no further use of narcotic medication due to her GI related issues. Patient has taking gabapentin in the past. Gabapentin restarted. Recommend to continue with gabapentin 600 mg 1 pill twice daily. Patient may also take Tylenol as needed for pain. Recommend to establish care with pain management to further monitor and evaluate. Narcotic abuse education provided. Vital Signs/Physical Exam: Temp Pulse Resp BP Pulse Ox 98.2 F 98 H 16 134/64 96 11/04/18 08:00 11/04/18 08:00 11/04/18 08:00 11/04/18 08:00 11/04/18 08:00 General: Alert, In no apparent distress, Oriented x3, Cooperative HEENT: Atraumatic Neck: Supple Respiratory: Clear to auscultation bilaterally, Normal air movement Cardiovascular: Normal pulses, Regular rate/rhythm Gastrointestinal: Normal bowel sounds, Soft and benign, Non-distended Musculoskeletal: No erythema, No tenderness, No warmth Integumentary: No erythema, No warmth, No cyanosis Neurological: Normal speech, Normal strength at 5/5 x4 extr, Normal tone, Normal affect Laboratory Data at Discharge: WBC 10.7 K/uL (4.3-10.9) D 11/04/18 04:25 Hgb 12.9 g/dL (12.0-15.0) 11/04/18 04:25 Hct 38.1 % (36.0-45.0) 11/04/18 04:25 Plt Count 377 K/uL (152-406) 11/04/18 04:25 Sodium 143 mmol/L (136-145) 11/04/18 04:25 Potassium 4.1 mmol/L (3.5-5.1) 11/04/18 04:25 BUN 12 mg/dL (7-18) 11/04/18 04:25 Creatinine 0.78 mg/dL (0.55-1.3) 11/04/18 04:25 Glucose 119 mg/dL (74-106) H 11/04/18 04:25 Magnesium 2.1 mg/dL (1.8-2.4) 11/04/18 04:25 Total Bilirubin 0.4 mg/dL (0.2-1.0) 11/03/18 05:35 AST 12 U/L (15-37) L 11/03/18 05:35 ALT 17 U/L (12-78) 11/03/18 05:35 Alkaline Phosphatase 70 U/L (45-117) 11/03/18 05:35 Lipase 95 U/L (73-393) 11/03/18 05:35 Home Medications: Amitriptyline HCl 100 mg PO DAILY 11/03/18 Fluoxetine HCl [Prozac*] 20 mg PO BID 11/03/18 clonazePAM [Klonopin*] 2 tab PO TIDP PRN 11/03/18 Famotidine [Pepcid] 20 mg PO BID #60 tab 11/04/18 Gabapentin 600 mg PO BID #30 tablet 11/04/18 Rifaximin [Xifaxan] 550 mg PO BID #28 tablet 11/04/18 Simethicone [Mylicon*] 80 mg PO TID #30 tab 11/04/18 predniSONE [Deltasone*] 10 mg PO DAILY #7 tab 11/04/18 New Medications: Famotidine [Pepcid] 20 mg PO BID #60 tab Gabapentin 600 mg PO BID #30 tablet predniSONE [Deltasone*] 10 mg PO DAILY #7 tab Rifaximin [Xifaxan] 550 mg PO BID #28 tablet Simethicone [Mylicon*] 80 mg PO TID #30 tab Patient Discharge Instructions: 1. Patient will follow up with a PCP to establish care. 2. Patient presented with nausea, vomiting and abdominal pain. Patient with history of Crohn's. Patient is new to the area since May 2018. CT scan unremarkable. Lab unremarkable. Patient started on steroid medication and Xifaxan. Patient has improved. No significant nausea, vomiting or abdominal pain at discharge. Patient tolerating her current diet. At discharge she will continue with a GI soft diet. At discharge, patient will continue with prednisone 10 mg daily for 7 days along with Xifaxan 550 mg 1 pill twice daily for 14 days. Patient may continue with simethicone 3 times a day as needed. Recommend to follow up with GI in 1-2 weeks to follow up this hospitalization. Patient will likely require colonoscopy in the near future to further evaluate and address her Crohn's disease. 3. Patient with depression with anxiety also with history of PTSD. Patient takes medication-Prozac, amitriptyline and Klonopin. Recommend to establish care with psychiatry or PCP. Will provide contact information to PCPs and psychiatry in the area to establish care. Recommend to continue with Prozac, amitriptyline and Klonopin. Will recommend to taper off Klonopin over time. Patient would benefit with counseling. Patient plans to look to [place] to establish care with psychiatry. Options given. Benzodiazepine abuse education provided. 4. Patient with GERD. Patient will continue with Pepcid 20 mg 1 pill twice daily. Recommend follow up with GI as directed. 5. Patient reports history of chronic pain. Recommend no further use of narcotic medication due to her GI related issues. Patient has taking gabapentin in the past. Gabapentin restarted. Recommend to continue with gabapentin 600 mg 1 pill twice daily. Patient may also take Tylenol as needed for pain. Recommend to establish care with pain management to further monitor and evaluate. Narcotic abuse education provided. Diet: GI soft diet Activity: Ad gianni Time spent managing pt's care (in minutes): 55
[2018-11-04] MEDS: SIMETHICONE 80 MG TAB PO SCH (10:12)
[2018-11-04] MEDS: ENOXAPARIN 40 MG/0.4 ML SQ SCH (10:12)
[2018-11-04] MEDS: FLUOXETINE 20 MG CAP PO SCH (10:12)
[2018-11-04] MEDS: THIAMINE 200 MG/2 ML INJ IVP SCH (11:04)
[2018-11-04 12:12] VITALS: BP 103/51; TEMP 98.4
[2018-11-04 12:31] VITALS: O2SAT 96
== END 2018-11-04 13:42 | disposition home or self-care (01) ==
LOC: ER 04:42 → 4TH 06:56
PROVIDERS: ADMIT Family Medicine; ATTEND Family Medicine
DX: R11.2 Nausea with vomiting, unspecified (principal); R19.7 Diarrhea, unspecified; K50.90 Crohn's disease, unspecified, without complications; K21.9 Gastro-esophageal reflux disease without esophagitis; F41.8 Other specified anxiety disorders; E86.0 Dehydration; F43.10 Post-traumatic stress disorder, unspecified; Z88.2 Allergy status to sulfonamides; Z88.8 Allergy status to other drugs, medicaments and biological substances; Z87.891 Personal history of nicotine dependence
CPT/HCPCS: 36415; 74177; 80048; 80076; 81003; 81025; 82274; 83690; 83735; 84145; 85025; 86038; 87040; 87045; 87046; 87177; 87209; 87493; 96361; 96374; 96375; 99285; G0378; J1650; J2270; J2405; J2920; J2930; J3411; J7030; Q9967

== ENCOUNTER 2019-01-08 20:25 | Emergency (ER) | payer OTHER ==
--- OUTSIDE RECORDS SUMMARY | 2019-01-08 20:47 | XMS REPORT ---
:1975 [facility] Address [address] [place] [address] [address] Care Team Providers Name Role Phone ROGELIO ARAYA Primary Care Provider Unavailable Problems This patient has no known problems. Allergies, Adverse Reactions, Alerts This patient has no known allergies or adverse reactions. Medications This patient has no known medications. Encounters Start End Encounter Admission Attending Care Care Encounter Date/Time Date/Time Type Type Clinicians Facility Department ID 2015-05-23 Inpatient [facility] [id number] 13:51:00 2018-11-07 2018-11-07 Emergency E [id number] 21:39:00 21:39:00
[2019-01-08 21:37] LABS: Urine Specific Gravity >1.030 (1.005-1.030)
[2019-01-08 21:38] LABS: Urine Blood 2+ (NEG); Urine Glucose NEGATIVE (NEG); Urine Protein 1+ (NEG); Urine Specific Gravity >1.030 (1.005-1.030)
[2019-01-08 22:15] LABS: Hematocrit 41.8 % (36.0-45.0)
[2019-01-08 22:16] LABS: Absolute Lymphocytes (CBC) 1.8 K/uL (0.7-4.9); Absolute Monocytes 0.5 K/uL (0.1-1.3); Absolute Neutrophil 4.3 K/uL (1.8-8.0); Basophils % 0.5 % (0-1.3); Eosinophils % 0.5 % (0-4.4); Lymphocytes % 26.6 % (15.3-44.8); MPV 8.3 fL (7.6-11.3); Monocytes % 7.6 % (3.3-12.3)
[2019-01-08 22:29] LABS: Potassium 3.7 mmol/L (3.5-5.1)
--- NOTE | 2019-01-08 23:06 | EDPHYS ---
Physician Documentation [facility] Name: Suzette Judge Age: 43 yrs Sex: Female : 1975 Arrival Date: 01/08/2019 Time: 20:27 Bed 18 Private MD: ED Physician Sharon Bang HPI: 01/08 21:10 This 43 yrs old Female presents to ER via Ambulatory with complaints of kb Urinary Retention. 21:10 Onset: The symptoms/episode began/occurred 3 day(s) ago. Modifying factors: The kb symptoms are alleviated by nothing, the symptoms are aggravated by nothing. Associated signs and symptoms: Pertinent positives: abdominal pain. Severity of symptoms: At their worst the symptoms were moderate, in the emergency department the symptoms are unchanged. The patient has not experienced similar symptoms in the past. The patient has not recently seen a physician. Pt reports suprapubic and bilateral flank pain, difficulty urinating, weakness and decreased appetite for a few days. . Historical: - Allergies: 20:42 Compazine; aj 20:42 Haldol; aj 20:42 Sulfa; aj - Immunization history:: Adult Immunizations not up to date. - Social history:: Smoking status: Patient uses tobacco products, denies chronic smoking, but will smoke occasionally. - Ebola Screening: : No symptoms or risks identified at this time. ROS: 21:09 Constitutional: Negative for fever, chills, and weight loss, Neck: Negative for injury, kb pain, and swelling, Cardiovascular: Negative for chest pain, palpitations, and edema, Respiratory: Negative for shortness of breath, cough, wheezing, and pleuritic chest pain, Back: Negative for injury and pain, MS/Extremity: Negative for injury and deformity, Skin: Negative for injury, rash, and discoloration. 21:09 Abdomen/GI: Positive for abdominal pain, Negative for nausea, vomiting, and diarrhea. 21:09 : Positive for flank pain, difficulty urinating. 21:09 Neuro: Positive for weakness. Exam: 21:09 Constitutional: This is a well developed, well nourished patient who is awake, alert, kb and in no acute distress. Head/Face: Normocephalic, atraumatic. Chest/axilla: Normal chest wall appearance and motion. Nontender with no deformity. No lesions are appreciated. Cardiovascular: Regular rate and rhythm with a normal S1 and S2. No gallops, murmurs, or rubs. Normal PMI, no JVD. No pulse deficits. Respiratory: Lungs have equal breath sounds bilaterally, clear to auscultation and percussion. No rales, rhonchi or wheezes noted. No increased work of breathing, no retractions or nasal flaring. Skin: Warm, dry with normal turgor. Normal color with no rashes, no lesions, and no evidence of cellulitis. MS/ Extremity: Pulses equal, no cyanosis. Neurovascular intact. Full, normal range of motion. Neuro: Awake and alert, GCS 15, oriented to person, place, time, and situation. Cranial nerves II-XII grossly intact. Motor strength 5/5 in all extremities. Sensory grossly intact. Cerebellar exam normal. Normal gait. 21:09 Abdomen/GI: Inspection: abdomen appears normal, Bowel sounds: normal, in all quadrants, Palpation: soft, nontender, in all quadrants, mild abdominal tenderness, in the suprapubic area. Vital Signs: 20:42 BP 95 / 51; Pulse 87; Resp 20; Temp 97.8; Pulse Ox 99% on R/A; Weight 72.57 kg; Height aj 5 ft. 11 in. (180.34 cm); 21:15 BP 113 / 61; Pulse 65; Resp 18 S; Temp 98(O); Pulse Ox 100% on R/A; cc3 22:15 BP 102 / 55; Pulse 79; Resp 18 S; Temp 98(O); Pulse Ox 100% on R/A; cc3 23:00 BP 110 / 57; Pulse 75; Resp 16 S; Temp 98(O); Pulse Ox 100% on R/A; cc3 20:42 Body Mass Index 22.32 (72.57 kg, 180.34 cm) aj MDM: 20:50 Patient medically screened. kb 21:09 Data reviewed: vital signs, nurses notes. Data interpreted: Pulse oximetry: on room air kb is 99 %. Interpretation: normal. 23:04 Counseling: I had a detailed discussion with the patient and/or guardian regarding: the kb historical points, exam findings, and any diagnostic results supporting the discharge/admit diagnosis, lab results, radiology results, the need for outpatient follow up, a family practitioner, an OB/Gyne specialist, to return to the emergency department if symptoms worsen or persist or if there are any questions or concerns that arise at home. ED course: Educated pt on results. Pt wants to go home. Does not want fluids or toradol. States "I will be more comfortable at home.". 01/08 21:02 Order name: CBC with Diff; Complete Time: 22:19 kb 01/08 21:02 Order name: Basic Metabolic Panel; Complete Time: 22:30 kb 01/08 21:02 Order name: CT Stone Protocol kb 01/08 21:23 Order name: Urine Dipstick--Ancillary (enter results); Complete Time: 21:40 oe 01/08 21:24 Order name: Urine --Ancillary (enter results); Complete Time: 21:40 oe 01/08 21:02 Order name: Urine Dipstick-Ancillary (obtain specimen); Complete Time: 22:12 kb 01/08 21:02 Order name: Urine Test (obtain specimen); Complete Time: 22:12 kb 01/08 21:02 Order name: IV Start; Complete Time: 22:12 kb Administered Medications: 23:15 Not Given (Patient Refused): NS 0.9% 1000 ml IV at 1000 ml once cc3 23:15 Not Given (Patient Refused): TORadol 30 mg IVP once cc3 Disposition: 01/09 02:19 Co-signature as Attending Physician, Sharon Bang MD. ma2 Disposition: 01/08/19 23:05 Discharged to Home. Impression: Other ovarian cysts. - Condition is Stable. - Discharge Instructions: Ovarian Cyst, [id number]. - Medication Reconciliation Form, Thank You Letter, Antibiotic Education, Prescription Opioid Use form. - Follow up: Private Physician; When: 2 - 3 days; Reason: Recheck today's complaints, Continuance of care, Re-evaluation by your physician. Follow up: Emergency Department; When: As needed; Reason: Worsening of condition. Signatures: Dispatcher [employer] Ileana Hylton, JEMIMAC JAVIER-Josephine Fam RN RN aj Alzahri, Mohammad, MD MD ma2 Obdulia Cotton cc3 Corrections: (The following items were deleted from the chart) 01/08 23:18 23:05 01/08/2019 23:05 Discharged to Home. Impression: Other ovarian cysts. Condition cc3 is Stable. Forms are Medication Reconciliation Form, Thank You Letter, Antibiotic Education, Prescription Opioid Use. Follow up: Private Physician; When: 2 - 3 days; Reason: Recheck today's complaints, Continuance of care, Re-evaluation by your physician. Follow up: Emergency Department; When: As needed; Reason: Worsening of condition. kb
--- NOTE | 2019-01-08 23:06 | ER ---
Nurse's Notes [facility] Name: Suzette Judge Age: 43 yrs Sex: Female : 1975 Arrival Date: 01/08/2019 Time: 20:27 Bed 18 Private MD: Diagnosis: Other ovarian cysts Presentation: 01/08 20:41 Presenting complaint: Patient states: Urinary retention and "trickling" urine for 4 aj days. Transition of care: patient was not received from another setting of care. Onset of symptoms was January 04, 2019. Risk Assessment: Do you want to hurt yourself or someone else? Patient reports no desire to harm self or others. Initial Sepsis Screen: Does the patient meet any 2 criteria? Systolic BP < 90 mmHg. Does the patient have a suspected source of infection? No. Patient's initial sepsis screen is negative. Care prior to arrival: None. 20:41 Method Of Arrival: Ambulatory aj 20:41 Acuity: LORI 3 aj Triage Assessment: 20:42 General: Appears in no apparent distress. comfortable, Behavior is calm, cooperative, aj appropriate for age. Pain: Denies pain. Neuro: Level of Consciousness is awake, alert, obeys commands, Oriented to person, place, time, situation, Appropriate for age. Respiratory: Airway is patent Respiratory effort is even, unlabored, Respiratory pattern is regular, symmetrical. : Reports inability to void. Derm: Skin is intact, is healthy with good turgor, Skin is pink, warm \\T\\ dry. normal. Historical: - Allergies: 20:42 Compazine; aj 20:42 Haldol; aj 20:42 Sulfa; aj - Immunization history:: Adult Immunizations not up to date. - Social history:: Smoking status: Patient uses tobacco products, denies chronic smoking, but will smoke occasionally. - Ebola Screening: : No symptoms or risks identified at this time. Screenin:45 Abuse screen: Denies threats or abuse. Denies injuries from another. Nutritional cc3 screening: No deficits noted. Tuberculosis screening: No symptoms or risk factors identified. Fall Risk Ambulatory Aid- None/Bed Rest/Nurse Assist (0 pts). Gait- Normal/Bed Rest/Wheelchair (0 pts) Mental Status- Oriented to own ability (0 pts). Assessment: 20:45 General: Appears in no apparent distress. uncomfortable, Behavior is calm, cooperative, cc3 appropriate for age. Pain: Complains of pain in suprapubic area. Neuro: Level of Consciousness is awake, alert, obeys commands, Oriented to person, place, time, situation, Appropriate for age. Cardiovascular: Denies chest pain, Patient's skin is warm and dry. Respiratory: Airway is patent Respiratory effort is even, unlabored, Respiratory pattern is regular, symmetrical. GI: Abdomen is flat. : Reports urinary retention. EENT: No signs and/or symptoms were reported regarding the EENT system. Derm: Skin is intact, is healthy with good turgor, Skin is pink, warm \\T\\ dry. normal. Musculoskeletal: Circulation, motion, and sensation intact. Range of motion: intact in all extremities. 21:18 Reassessment: Patient appears in no apparent distress at this time. Patient and/or cc3 family updated on plan of care and expected duration. Pain level reassessed. Patient is alert, oriented x 3, equal unlabored respirations, skin warm/dry/pink. 22:45 Reassessment: Patient appears in no apparent distress at this time. Patient and/or cc3 family updated on plan of care and expected duration. Pain level reassessed. Patient is alert, oriented x 3, equal unlabored respirations, skin warm/dry/pink. Patient complains of back and lower abdominal pain, BRYAN Tejeda informed. 23:05 Reassessment: Patient appears in no apparent distress at this time. Patient and/or cc3 family updated on plan of care and expected duration. Pain level reassessed. Patient is alert, oriented x 3, equal unlabored respirations, skin warm/dry/pink. After BRYAN Tejeda explained to the patient her condition the patient refused for pain medication and further treatment, wants her IV cannula be removed and demands to go home; BRYAN Tejeda and charge nurse Laura informed and ordered the patient for discharge home. 23:10 Reassessment: IV cannula removed and patient left ER vitally stable and ambulatory cc3 without signing and refused to take her discharge papers charge nurse Laura and BRYAN Tejeda informed. Vital Signs: 20:42 BP 95 / 51; Pulse 87; Resp 20; Temp 97.8; Pulse Ox 99% on R/A; Weight 72.57 kg; Height aj 5 ft. 11 in. (180.34 cm); 21:15 BP 113 / 61; Pulse 65; Resp 18 S; Temp 98(O); Pulse Ox 100% on R/A; cc3 22:15 BP 102 / 55; Pulse 79; Resp 18 S; Temp 98(O); Pulse Ox 100% on R/A; cc3 23:00 BP 110 / 57; Pulse 75; Resp 16 S; Temp 98(O); Pulse Ox 100% on R/A; cc3 20:42 Body Mass Index 22.32 (72.57 kg, 180.34 cm) aj ED Course: 20:27 Patient arrived in ED. es 20:41 Triage completed. aj 20:42 Arm band placed on right wrist. Patient placed in an exam room. aj 20:45 Obdulia Cotton is Primary Nurse. cc3 20:45 Patient has correct armband on for positive identification. Bed in low position. Call cc3 light in reach. Side rails up X 1. Pulse ox on. NIBP on. 20:50 Ileana Leyva FNP-C is PHCP. kb 20:50 Sharon Bang MD is Attending Physician. kb 21:30 Missed attempt(s): 20 gauge in left antecubital area. cc3 21:56 CT Stone Protocol In Process Unspecified. EDMS 22:00 Initial lab(s) drawn, by me, sent to lab. Inserted 18 gauge 10 cm midline to right fc upper basilic vein on first attempt. Line with good blood return and flushes well. 23:10 No provider procedures requiring assistance completed. IV discontinued, intact, cc3 bleeding controlled, No redness/swelling at site. Pressure dressing applied. Administered Medications: 23:15 Not Given (Patient Refused): NS 0.9% 1000 ml IV at 1000 ml once cc3 23:15 Not Given (Patient Refused): TORadol 30 mg IVP once cc3 Outcome: 23:05 Discharge ordered by . kb 23:10 Discharged to home ambulatory. cc3 23:10 Condition: stable 23:10 Discharge instructions given to patient, Instructed on discharge instructions, follow up and referral plans. Demonstrated understanding of instructions, Patient left without signing her discharge papers. 23:18 Patient left the ED. cc3 Signatures: Dispatcher [employer] EDID Ileana Leyva FNP-C FNP-Ckb Myers, Amanda RN RN Estelle Chin Felicia, RN RN fc Cordel, Charlene cc3 Corrections: (The following items were deleted from the chart) 22:43 22:30 BP 96 / 60; Pulse 84bpm; Resp 18bpm; Spontaneous; Pulse Ox 100% RA; Temp 98F cc3 Oral; cc3 01/09 00:58 06 22:35 Reassessment: Patient appears in no apparent distress at this time. Patient cc3 and/or family updated on plan of care and expected duration. Pain level reassessed. Patient is alert, oriented x 3, equal unlabored respirations, skin warm/dry/pink. cc3
[2019-01-08] MEDS ORDERED: NA CHLORIDE 0.9% 0 ML ONE (23:18)
[2019-01-08] MEDS ORDERED: KETOROLAC 30 MG/ML INJ ONE (23:18)
[2019-01-09 05:50] VITALS: TEMP 98; O2SAT 100
[2019-01-09 05:52] VITALS: BP 102/55
--- NOTE | 2019-01-09 10:58 | RAD REPORT ---
EXAM DESCRIPTION: CT - Stone Protocol - 01/09/2019 1:16 am CLINICAL HISTORY: The patient is 43 years old and is Female; FLANK PAIN TECHNIQUE: Axial computed tomography images of the abdomen and pelvis without intravenous contrast. Sagittal and coronal reformatted images were created and reviewed. This CT exam was performed usi ng one or more of the following dose reduction techniques: automated exposure control, adjustment o f the mA and/or kV according to patient size, and/or use of iterative reconstruction technique. COMPARISON: CT abdomen and pelvis with IV contrast dated November 03, 2018. FINDINGS: LUNG BASES: Unremarkable. No mass. No consolidation. ABDOMEN: LIVER: Unremarkable. GALLBLADDER AND BILE DUCTS: Unremarkable. No calcified stones. No ductal dilation. PANCREAS: Unremarkable. No ductal dilation. SPLEEN: Unremarkable. No splenomegaly. ADRENALS: Unremarkable. No mass. KIDNEYS AND URETERS: Unremarkable. No obstructing stones. No hydronephrosis. STOMACH AND BOWEL: Unremarkable. No obstruction. No mucosal thickening. PELVIS: APPENDIX: The appendix is seen and is within normal limits. BLADDER: Unremarkable. No stones. REPRODUCTIVE: 2.9 cm right ovarian cyst. ABDOMEN and PELVIS: INTRAPERITONEAL SPACE: Unremarkable. No free air. No significant fluid collection. BONES/JOINTS: Straightening of lumbar lordosis. No acute fracture. No dislocation. SOFT TISSUES: Unremarkable. VASCULATURE: Unremarkable. No abdominal aortic aneurysm. LYMPH NODES: Unremarkable. No enlarged lymph nodes. IMPRESSION: 1. No acute abdominal or pelvic abnormality. No obstructive uropathy. 2. 2.9 cm right ovarian cyst. No follow-up imaging is recommended. Reference: US recommendations based on Radiology 2010 Sep;256(3):943-54; CT/MR recommendations based on J Am Narciso Radiol 2013;10:675-681. Electronically signed by: Dev Johnson DO 01/08/2019 10:12 PM CDT Due to temporary technical issues with the PACS/Fluency reporting system, reports are being signed by the in house radiologist as a courtesy to ensure prompt reporting. The interpreting radiologist is ailyn simon responsible for the content of the report.
== END 2019-01-08 23:18 | disposition home or self-care (01) ==
LOC: ER 20:25
DX: N83.299 Other ovarian cyst, unspecified side (principal); Z72.0 Tobacco use; Z88.2 Allergy status to sulfonamides; Z88.5 Allergy status to narcotic agent; Z88.8 Allergy status to other drugs, medicaments and biological substances
CPT/HCPCS: 36415; 74176; 76377; 80048; 81003; 81025; 85025; 99284; J7030

== ENCOUNTER 2019-06-11 05:41 | Emergency (ER) | payer OTHER, SELFPAY ==
[2019-06-11 06:33] LABS: Absolute Lymphocytes (CBC) 1.9 K/uL (0.7-4.9); Basophils % 1.2 % (0-1.3); Hematocrit 40.3 % (36.0-45.0); Lymphocytes % 43.2 % (15.3-44.8); RBC Red Blood Cell Count 4.49 M/uL (3.86-4.86)
[2019-06-11] MEDS ORDERED: NA CHLORIDE 0.9% 1,000 ML ONE (06:37)
[2019-06-11] MEDS ORDERED: FENTANYL CITR 100 MCG/2 ML ONE ×2 (06:37→07:09)
[2019-06-11] MEDS ORDERED: ONDANSETRON 4 MG/2 ML VIAL ONE (06:37)
[2019-06-11 06:51] LABS: Albumin 3.9 g/dL (3.4-5.0); Bilirubin Direct 0.1 mg/dL (0-0.2); Bilirubin Total 0.5 mg/dL (0.2-1.0); Potassium 4.4 mmol/L (3.5-5.1)
--- OUTSIDE RECORDS SUMMARY | 2019-06-11 07:26 | XMS REPORT ---
:1975 [facility] Address [address] [place] [address] Dr. Ryan [address] [place] [id number] Care Team Providers Name Role Phone ROGELIO ARAYA Primary Care Provider Unavailable Problems This patient has no known problems. Allergies, Adverse Reactions, Alerts This patient has no known allergies or adverse reactions. Medications This patient has no known medications. Encounters Start End Encounter Admission Attending Care Care Encounter Date/Time Date/Time Type Type Clinicians Facility Department ID 2015-05-23 Inpatient C [facility] [id number] 13:51:00 2018-11-07 2018-11-07 Emergency E [id number] 21:39:00 21:39:00
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
[2019-06-11] MEDS ORDERED: MORPHINE 4 MG/ML SYR ONE ×2 (07:37→09:08)
--- NOTE | 2019-06-11 08:09 | RAD REPORT ---
EXAM DESCRIPTION: CTAbdomen Pelvis W Contrast - 06/11/2019 7:23 am CLINICAL HISTORY: Abdominal pain. ABD PAIN COMPARISON: Abdomen Pelvis W Contrast dated 11/03/2018; CT ABD PELVIS W CONTRAST dated 06/07/2015; CT ABD PELVIS W CONTRAST dated 11/27/2013; CT ABD PELVIS W CONTRAST dated 10/04/2013 TECHNIQUE: Biphasic CT imaging of the abdomen and pelvis was performed with 100 ml non-ionic IV cont rast. All CT scans are performed using dose optimization technique as appropriate and may include automated exposure control or mA/KV adjustment according to patient size. FINDINGS: The lung bases are clear. The liver, spleen, pancreas, adrenal glands and kidneys are within normal limits. No bowel obstruction, free air, free fluid or abscess. Moderate stool is present throughout the colon . The appendix is not identified as a discrete structure, however, no secondary findings of appendici tis are identified. No evidence of significant lymphadenopathy. No suspicious bony findings. IMPRESSION: No acute intra-abdominal or pelvic finding. Moderate fecal retention in the colon.
--- NOTE | 2019-06-11 08:56 | EDPHYS ---
Physician Documentation [facility] Name: Suzette Judge Age: 43 yrs Sex: Female : 1975 Arrival Date: 06/11/2019 Time: 05:43 Bed 8 Private MD: ED Physician Yrn Glass HPI: 06/11 06:42 This 43 yrs old Female presents to ER via Ambulatory with complaints of kb Vomiting/Diarrhea. 06:42 This 43 yrs old Female presents to ER via Ambulatory with complaints of kb Abdominal Pain. 06:43 The patient presents with abdominal pain in the right upper quadrant, right lower kb quadrant. Onset: The symptoms/episode began/occurred last night. The symptoms do not radiate. The symptoms are described as constant, sharp. Modifying factors: The symptoms are alleviated by nothing, the symptoms are aggravated by nothing. Severity of pain: At its worst the pain was moderate severe in the emergency department the pain is unchanged. The patient has experienced similar episodes in the past, chronically. The patient has not recently seen a physician. 06:43 Associated signs and symptoms: Pertinent positives: nausea, vomiting, and diarrhea. Pt kb reports "crohn's flare" that started last night. Feels similar to previous flares.. 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 - Social history:: Smoking status: Patient/guardian denies using tobacco, Patient/guardian denies using alcohol, street drugs. - Ebola Screening: : Patient negative for fever greater than or equal to 101.5 degrees Fahrenheit, and additional compatible Ebola Virus Disease symptoms Patient denies exposure to infectious person Patient denies travel to an Ebola-affected area in the 21 days before illness onset. ROS: 06:44 Constitutional: Negative for fever, chills, and weight loss, ENT: Negative for injury, kb pain, and discharge, Neck: Negative for injury, pain, and swelling, Cardiovascular: Negative for chest pain, palpitations, and edema, Respiratory: Negative for shortness of breath, cough, wheezing, and pleuritic chest pain, Back: Negative for injury and pain, : Negative for injury, bleeding, discharge, and swelling, MS/Extremity: Negative for injury and deformity, Skin: Negative for injury, rash, and discoloration, Neuro: Negative for headache, weakness, numbness, tingling, and seizure. 06:44 Abdomen/GI: Positive for abdominal pain, nausea, vomiting, and diarrhea. Exam: 07:10 Head/Face: Normocephalic, atraumatic. Neck: Trachea midline, no thyromegaly or masses kb palpated, and no cervical lymphadenopathy. Supple, full range of motion without nuchal rigidity, or vertebral point tenderness. No Meningismus. Chest/axilla: Normal chest wall appearance and motion. Nontender with no deformity. No lesions are appreciated. Cardiovascular: Regular rate and rhythm with a normal S1 and S2. No gallops, murmurs, or rubs. Normal PMI, no JVD. No pulse deficits. Respiratory: Lungs have equal breath sounds bilaterally, clear to auscultation and percussion. No rales, rhonchi or wheezes noted. No increased work of breathing, no retractions or nasal flaring. Abdomen/GI: Soft, non-tender, with normal bowel sounds. No distension or tympany. No guarding or rebound. No evidence of tenderness throughout. Back: No spinal tenderness. No costovertebral tenderness. Full range of motion. Skin: Warm, dry with normal turgor. Normal color with no rashes, no lesions, and no evidence of cellulitis. MS/ Extremity: Pulses equal, no cyanosis. Neurovascular intact. Full, normal range of motion. Neuro: Awake and alert, GCS 15, oriented to person, place, time, and situation. Cranial nerves II-XII grossly intact. Motor strength 5/5 in all extremities. Sensory grossly intact. Cerebellar exam normal. Normal gait. 07:11 Constitutional: The patient appears alert, awake, uncomfortable. kb Vital Signs: 05:54 BP 102 / 78; Pulse 82; Resp 19; Temp 98.7; Pulse Ox 100% ; Weight 79.83 kg; Height 5 rr5 ft. 11 in. (180.34 cm); Pain 10/10; 06:27 BP 105 / 67; Pulse 76; Resp 16; Pulse Ox 98% ; rr5 07:39 BP 114 / 75; Pulse 71; Resp 17; Pulse Ox 99% ; Pain 9/10; tw2 07:59 Pain 8/10; tw2 08:30 BP 106 / 74; Pulse 63; Resp 17; Pulse Ox 96% on R/A; tw2 09:05 BP 128 / 64; Pulse 70; Resp 16 S; Pulse Ox 99% on R/A; aa5 05:54 Body Mass Index 24.55 (79.83 kg, 180.34 cm) rr5 MDM: 05:56 Patient medically screened. kb 06:42 Data reviewed: vital signs, nurses notes. Data interpreted: Pulse oximetry: on room air kb is 98 %. Interpretation: normal. 08:49 Counseling: I had a detailed discussion with the patient and/or guardian regarding: the kb historical points, exam findings, and any diagnostic results supporting the discharge/admit diagnosis, lab results, radiology results, the need for outpatient follow up, an ENT specialist, a family practitioner, to return to the emergency department if symptoms worsen or persist or if there are any questions or concerns that arise at home. 08:54 ED course: Pt reports she is feeling better. Educated to follow up with [facility] for crohns kb treatment. 06/11 05:56 Order name: Basic Metabolic Panel; Complete Time: 06:52 kb 06/11 05:56 Order name: CBC with Diff; Complete Time: 06:35 kb 06/11 05:56 Order name: Hepatic Function; Complete Time: 06:52 kb 06/11 05:56 Order name: Lipase; Complete Time: 06:52 kb 06/11 07:02 Order name: CT Abd/Pelvis - IV Contrast Only; Complete Time: 09:05 kb 06/11 05:56 Order name: IV Saline Lock; Complete Time: 06:26 kb 06/11 05:56 Order name: Labs collected and sent; Complete Time: 06:27 kb Administered Medications: 06:40 Drug: NS 0.9% 1000 ml Route: IV; Rate: 1000 ml; Site: left forearm; rr5 08:00 Follow up: Response: No adverse reaction; IV Status: Completed infusion; IV Intake: tw2 1000ml 06:41 Drug: Zofran 4 mg Route: IVP; Site: left forearm; rr5 07:10 Follow up: Response: No adverse reaction tw2 06:43 Drug: fentaNYL (PF) 25 mcg {Note: rass 0.} Route: IVP; Site: left forearm; rr5 07:06 Follow up: Response: No adverse reaction; Pain is unchanged, physician notified; RASS: tw2 Alert and Calm (0) 07:10 Drug: fentaNYL (PF) 25 mcg {Note: RASS 0.} Route: IVP; Site: left forearm; tw2 07:32 Follow up: Response: No adverse reaction; Pain is unchanged, physician notified; RASS: tw2 Alert and Calm (0) 07:38 Drug: morphine 4 mg {Note: RASS 0.} Route: IVP; Site: left forearm; tw2 07:59 Follow up: Pain 8/10 Adult; Response: No adverse reaction; Pain is decreased; RASS: tw2 Alert and Calm (0) 09:00 Drug: SOLU-Medrol 125 mg Route: IVP; Site: left forearm; aa5 09:15 Follow up: Response: No adverse reaction aa5 09:09 Drug: morphine 4 mg Route: IVP; Site: left forearm; aa5 09:15 Follow up: Response: No adverse reaction aa5 Disposition: 06/12 00:29 Co-signature as Attending Physician, Yrn Glass MD I agree with the assessment and tw4 plan of care. Disposition: 06/11/19 08:55 Discharged to Home. Impression: Generalized abdominal pain. - Condition is Stable. - Discharge Instructions: Crohn Disease, Abdominal Pain, Adult, [id number]. - Prescriptions for Bentyl 20 mg Oral Tablet - take 1 tablet by ORAL route every 6 hours As needed; 20 tablet. Zofran 4 mg Oral Tablet - take 1 tablet by ORAL route every 6 hours As needed; 20 tablet. Diclofenac Sodium 75 mg Oral Tablet, Delayed Release (E.C.) - take 1 tablet by ORAL route 2 times per day As needed; 30 tablet. Medrol (Mino) 4 mg Oral Tablets, Dose Pack - take 1 tablet by ORAL route as directed - follow package instructions; 1 packet. - Medication Reconciliation Form, Thank You Letter, Antibiotic Education, Prescription Opioid Use form. - Follow up: Emergency Department; When: As needed; Reason: Worsening of condition. Follow up: Private Physician; When: 2 - 3 days; Reason: Recheck today's complaints, Continuance of care, Re-evaluation by your physician. Signatures: Dispatcher [employer] EDMS Ileana Leyva, JAVIER-Joy BILINGUAL EXECUTIVE ASSISTANT-Emely Morel, RN RN aa5 Hanna Lechuga RN RN tw2 Yrn Glass MD MD tw4 Jerry Ordonez RN RN rr5 Corrections: (The following items were deleted from the chart) 06/11 07:11 07:10 Constitutional: This is a well developed, well nourished patient who is awake, kb alert, and in no acute distress. Head/Face: Normocephalic, atraumatic. Neck: Trachea midline, no thyromegaly or masses palpated, and no cervical lymphadenopathy. Supple, full range of motion without nuchal rigidity, or vertebral point tenderness. No Meningismus. Chest/axilla: Normal chest wall appearance and motion. Nontender with no deformity. No lesions are appreciated. Cardiovascular: Regular rate and rhythm with a normal S1 and S2. No gallops, murmurs, or rubs. Normal PMI, no JVD. No pulse deficits. Respiratory: Lungs have equal breath sounds bilaterally, clear to auscultation and percussion. No rales, rhonchi or wheezes noted. No increased work of breathing, no retractions or nasal flaring. Abdomen/GI: Soft, non-tender, with normal bowel sounds. No distension or tympany. No guarding or rebound. No evidence of tenderness throughout. Back: No spinal tenderness. No costovertebral tenderness. Full range of motion. Skin: Warm, dry with normal turgor. Normal color with no rashes, no lesions, and no evidence of cellulitis. MS/ Extremity: Pulses equal, no cyanosis. Neurovascular intact. Full, normal range of motion. Neuro: Awake and alert, GCS 15, oriented to person, place, time, and situation. Cranial nerves II-XII grossly intact. Motor strength 5/5 in all extremities. Sensory grossly intact. Cerebellar exam normal. Normal gait. kb 09:18 08:55 06/11/2019 08:55 Discharged to Home. Impression: Generalized abdominal pain. aa5 Condition is Stable. Forms are Medication Reconciliation Form, Thank You Letter, Antibiotic Education, Prescription Opioid Use. Follow up: Emergency Department; When: As needed; Reason: Worsening of condition. Follow up: Private Physician; When: 2 - 3 days; Reason: Recheck today's complaints, Continuance of care, Re-evaluation by your physician. kb
--- NOTE | 2019-06-11 08:56 | ER ---
Nurse's Notes [facility] Name: Suzette Judge Age: 43 yrs Sex: Female : 1975 Arrival Date: 06/11/2019 Time: 05:43 Bed 8 Private MD: Diagnosis: Generalized abdominal pain Presentation: 06/11 05:52 Presenting complaint: Patient states: last night started to have severe abdominal pain rr5 with vomiting and diarrhea. pain score of 10/10. i have Crohns' disease since had surgery 3x for blockage and adhesions. Transition of care: patient was not received from another setting of care. Onset of symptoms was June 10, 2019. Risk Assessment: Do you want to hurt yourself or someone else? Patient reports no desire to harm self or others. Initial Sepsis Screen: Does the patient meet any 2 criteria? No. Patient's initial sepsis screen is negative. Does the patient have a suspected source of infection? No. Patient's initial sepsis screen is negative. Care prior to arrival: None. 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 - Social history:: Smoking status: Patient/guardian denies using tobacco, Patient/guardian denies using alcohol, street drugs. - Ebola Screening: : Patient negative for fever greater than or equal to 101.5 degrees Fahrenheit, and additional compatible Ebola Virus Disease symptoms Patient denies exposure to infectious person Patient denies travel to an Ebola-affected area in the 21 days before illness onset. Screenin:56 Abuse screen: Denies threats or abuse. Denies injuries from another. Nutritional rr5 screening: No deficits noted. Tuberculosis screening: No symptoms or risk factors identified. Fall Risk None identified. Total Peterson Fall Scale indicates No Risk (0-24 pts). Assessment: 05:57 General: Appears in no apparent distress. uncomfortable, Behavior is calm, cooperative. rr5 Pain: Complains of pain in right lower quadrant Pain does not radiate. Pain currently is 10 out of 10 on a pain scale. Quality of pain is described as aching, Pain began gradually, Is intermittent. Neuro: Level of Consciousness is awake, alert, obeys commands, Oriented to person, place, time, situation, Appropriate for age. Cardiovascular: Capillary refill < 3 seconds Patient's skin is warm and dry. Respiratory: Airway is patent Respiratory effort is even, unlabored, Respiratory pattern is regular, symmetrical. GI: Abdomen is round Abd is soft and non tender Reports lower abdominal pain, diarrhea, vomiting. : No signs and/or symptoms were reported regarding the genitourinary system. EENT: No signs and/or symptoms were reported regarding the EENT system. Derm: Skin is intact, is healthy with good turgor, Skin temperature is warm. Musculoskeletal: Circulation, motion, and sensation intact. Capillary refill < 3 seconds. 06:30 Reassessment: Patient appears in no apparent distress at this time. Patient is alert, rr5 oriented x 3, equal unlabored respirations, skin warm/dry/pink. awaiting for review. Patient states symptoms have improved. 07:39 Reassessment: Patient and/or family updated on plan of care and expected duration. Pain tw2 level reassessed. Patient is alert, oriented x 3, equal unlabored respirations, skin warm/dry/pink. Patient states symptoms have not improved. 08:30 Reassessment: Patient and/or family updated on plan of care and expected duration. Pain tw2 level reassessed. Patient is alert, oriented x 3, equal unlabored respirations, skin warm/dry/pink. Reassessment:. 09:05 Reassessment: Patient is alert, oriented x 3, equal unlabored respirations, skin aa5 warm/dry/pink. Pt states "can I get some more pain medicine for the ride home please?". Pt notified that I will notify WARM IN of request. WARM IN was notified. . 09:15 Reassessment: Patient is alert, oriented x 3, equal unlabored respirations, skin aa5 warm/dry/pink. Vital Signs: 05:54 BP 102 / 78; Pulse 82; Resp 19; Temp 98.7; Pulse Ox 100% ; Weight 79.83 kg; Height 5 rr5 ft. 11 in. (180.34 cm); Pain 10/10; 06:27 BP 105 / 67; Pulse 76; Resp 16; Pulse Ox 98% ; rr5 07:39 BP 114 / 75; Pulse 71; Resp 17; Pulse Ox 99% ; Pain 9/10; tw2 07:59 Pain 8/10; tw2 08:30 BP 106 / 74; Pulse 63; Resp 17; Pulse Ox 96% on R/A; tw2 09:05 BP 128 / 64; Pulse 70; Resp 16 S; Pulse Ox 99% on R/A; aa5 05:54 Body Mass Index 24.55 (79.83 kg, 180.34 cm) rr5 ED Course: 05:43 Patient arrived in ED. ag3 05:44 Jerry Ordonez, RN is Primary Nurse. rr5 05:54 Triage completed. rr5 05:56 Ileana Leyva FNP-C is PHCP. kb 05:56 Yrn Glass MD is Attending Physician. kb 05:56 Arm band placed on right wrist. rr5 05:58 Patient has correct armband on for positive identification. Placed in gown. Bed in low rr5 position. Call light in reach. Side rails up X2. Pulse ox on. NIBP on. 06:09 Missed attempt(s): 20 gauge in right antecubital area. cm6 06:25 Inserted saline lock: 22 gauge in left forearm, using aseptic technique. Blood rr5 collected. 07:01 Primary Nurse role handed off by Jerry Ordonez RN tw2 07:01 Hanna Lechuga RN is Primary Nurse. tw2 07:[address] via wheelchair. md1 07:20 CT completed. Patient tolerated procedure well. md1 07:22 Patient moved back from CT. md1 07:23 CT Abd/Pelvis - IV Contrast Only In Process Unspecified. EDMS 09:13 No provider procedures requiring assistance completed. Pt states "My IV got got with my aa5 jacket so I pulled it out". Catheter intact, no swelling or redness noted to IV site, bleeding controlled. Administered Medications: 06:40 Drug: NS 0.9% 1000 ml Route: IV; Rate: 1000 ml; Site: left forearm; rr5 08:00 Follow up: Response: No adverse reaction; IV Status: Completed infusion; IV Intake: tw2 1000ml 06:41 Drug: Zofran 4 mg Route: IVP; Site: left forearm; rr5 07:10 Follow up: Response: No adverse reaction tw2 06:43 Drug: fentaNYL (PF) 25 mcg {Note: rass 0.} Route: IVP; Site: left forearm; rr5 07:06 Follow up: Response: No adverse reaction; Pain is unchanged, physician notified; RASS: tw2 Alert and Calm (0) 07:10 Drug: fentaNYL (PF) 25 mcg {Note: RASS 0.} Route: IVP; Site: left forearm; tw2 07:32 Follow up: Response: No adverse reaction; Pain is unchanged, physician notified; RASS: tw2 Alert and Calm (0) 07:38 Drug: morphine 4 mg {Note: RASS 0.} Route: IVP; Site: left forearm; tw2 07:59 Follow up: Pain 8/10 Adult; Response: No adverse reaction; Pain is decreased; RASS: tw2 Alert and Calm (0) 09:00 Drug: SOLU-Medrol 125 mg Route: IVP; Site: left forearm; aa5 09:15 Follow up: Response: No adverse reaction aa5 09:09 Drug: morphine 4 mg Route: IVP; Site: left forearm; aa5 09:15 Follow up: Response: No adverse reaction aa5 Intake: 08:00 IV: 1000ml; Total: 1000ml. tw2 Outcome: 08:55 Discharge ordered by . lisa 09:15 Discharged to home ambulatory, with significant other. aa5 09:15 Condition: stable 09:15 Discharge instructions given to patient, Instructed on discharge instructions, follow up and referral plans. medication usage, Demonstrated understanding of instructions, follow-up care, medications, Prescriptions given X 4. 09:18 Patient left the ED. aa5 Signatures: Dispatcher [employer] EDIleana Redmond, JAVIER-C JAVIER-Emely Morel, RN RN aa5 Hanna Lechuga RN RN tw2 Tamiko Ferrari ag3 Jerry Ordonez, RN RN rr5 Hilda Mancia cm6 Munira Espinoza md1 Corrections: (The following items were deleted from the chart) 08:30 07:39 Reassessment: Patient appears in no apparent distress at this time. Patient tw2 and/or family updated on plan of care and expected duration. Pain level reassessed. Patient is alert, oriented x 3, equal unlabored respirations, skin warm/dry/pink. Patient states symptoms have not improved. tw2
[2019-06-11] MEDS ORDERED: METHYLPREDNISOLONE 125 MG INJ ONE (09:00)
[2019-06-11 09:34] VITALS: TEMP 98.7
[2019-06-11 09:48] VITALS: BP 128/64; O2SAT 99
== END 2019-06-11 09:18 | disposition home or self-care (01) ==
LOC: ER 05:41
DX: R10.84 Generalized abdominal pain (principal); F41.9 Anxiety disorder, unspecified; F32.9 Major depressive disorder, single episode, unspecified; Z88.2 Allergy status to sulfonamides; Z88.5 Allergy status to narcotic agent; Z88.8 Allergy status to other drugs, medicaments and biological substances
CPT/HCPCS: 36415; 74177; 80048; 80076; 83690; 85025; 96361; 96374; 96375; 99284; J2405; J2930; J3010; J7030; Q9967

== ENCOUNTER 2019-07-10 10:42 | Emergency (ER) | payer OTHER, SELFPAY ==
--- OUTSIDE RECORDS SUMMARY | 2019-07-10 10:53 | XMS REPORT ---
:1975 [facility] Address [address] [place] [address] Dr. Ryan [address] [place] [id number] Care Team Providers Name Role Phone ROGELIO ARAYA Primary Care Provider Unavailable Problems This patient has no known problems. Allergies, Adverse Reactions, Alerts This patient has no known allergies or adverse reactions. Medications This patient has no known medications. Encounters Start End Encounter Admission Attending Care Care Encounter Date/Time Date/Time Type Type Clinicians Facility Department ID 2015-05-23 Inpatient [facility] [id number] 13:51:00 2018-11-07 2018-11-07 Emergency E [id number] 21:39:00 21:39:00
[2019-07-10] MEDS ORDERED: NA CHLORIDE 0.9% 1,000 ML ONE ×2 (11:24→12:19)
[2019-07-10] MEDS ORDERED: dexAMETHasone 10 MG/ML VIAL ONE (11:24)
[2019-07-10 11:56] LABS: Basophils % 0.5 % (0-1.3); Hematocrit 36.7 % (36.0-45.0); Lymphocytes % 8.5 % (15.3-44.8); MPV 7.9 fL (7.6-11.3); RBC Red Blood Cell Count 4.16 M/uL (3.86-4.86)
[2019-07-10 12:10] LABS: Potassium 3.6 mmol/L (3.5-5.1)
[2019-07-10] MEDS ORDERED: KETOROLAC 30 MG/ML INJ ONE (12:14)
[2019-07-10] MEDS ORDERED: CEFTRIAXONE/SWI 1gm 1 GM/10 ML SYR ONE (12:15)
[2019-07-10] MEDS ORDERED: ACETAMINOPHEN 500 MG TAB ONE (12:40)
--- NOTE | 2019-07-10 13:12 | RAD REPORT ---
EXAM DESCRIPTION: CT - Stone Protocol - 07/10/2019 12:52 pm CLINICAL HISTORY: Difficulty urinating, back and flank pain COMPARISON: CT June 11 TECHNIQUE: Axial 5 mm thick images were obtained without oral or IV contrast. The [id number] span s the entirety of the system partially obscuring uppermost abdomen and lung bases. All CT scans are performed using dose optimization technique as appropriate and may include automated exposure control or mA/KV adjustment according to patient size. FINDINGS: No hydronephrosis is present and no obstructing ureteral calculi. No suspicious renal mass es. Isodense masses and pyelonephritis are not excluded on a stone protocol CT scan. No urinary bladd er suspicious finding. No significant adrenal finding. Imaged portions of the liver, spleen and pancreas show no suspicious findings on non-contrast imaging . No gallbladder or biliary tree abnormality identified. No stomach or small bowel acute finding seen. Large amount of stool fills but does not dilate the col on from cecum through descending colon. An acute colon process is not seen. No hernia, mass or bulky lymphadenopathy noted. No free air, free fluid or inflammatory stranding. No significant bony abnormality. IMPRESSION: Noncontrast CT abdomen and pelvis imaging shows no acute or suspicious finding. Exam is limited by the small amount of intra-abdominal fat, absence of IV contrast, and absence of or al contrast. Isodense masses and pyelonephritis are not excluded on stone protocol technique. Exam does not appear to be significantly different from the June 11 imaging.
[2019-07-10 14:22] LABS: Urine Blood 1+ (NEG); Urine Glucose NEGATIVE (NEG); Urine Protein NEGATIVE (NEG)
[2019-07-10 14:27] LABS: Urine Bacteria >50 /HPF (<20); Urine Culture Reflex Order NOT NEEDED; Urine RBC <5 /HPF (NONE SEEN)
--- NOTE | 2019-07-10 15:13 | RAD REPORT ---
EXAM DESCRIPTION: CT - Soft Tissue Neck W/Contr - 07/10/2019 2:25 pm CLINICAL HISTORY: Difficulty swallowing, throat pain, swelling, positive strep diagnosis TECHNIQUE: During dynamic enhancement using 100 milliliters nonionic IV contrast, axial 5 millimeter thick images of the neck were obtained. All CT scans are performed using dose optimization technique as appropriate and may include automated exposure control or mA/KV adjustment according to patient size. FINDINGS: Motion degradation is present. Contrast bolus is poor. Only a portion of the contrast for received by the patient. Adenoid tissue is prominent up to 13 mm in thickness. Tonsillar tissue is prominent but symmetric. Pe ritonsillar abscess is not suspected. Parapharyngeal fat is normal. No pharyngeal mass or asymmetry i dentified. Soft palate within normal limits. No epiglottis thickening. Laryngeal structures are arcelia l range. Small nonspecific cervical lymph nodes are present. No bulky lymphadenopathy. Parotid, submandibular and thyroid gland tissue show no suspicious findings. IMPRESSION: No retropharyngeal or peritonsillar mass or abscess identifiable. Small nonspecific bilateral cervical lymph nodes.
--- NOTE | 2019-07-10 15:40 | ER ---
Nurse's Notes [facility] Name: Suzette Judge Age: 43 yrs Sex: Female : 1975 Arrival Date: 07/10/2019 Time: 10:43 Bed 13 Private MD: Diagnosis: Streptococcal pharyngitis;Urinary tract infection, site not specified Presentation: 07/10 10:53 Presenting complaint: Sore throat, difficulty swallowing, bilateral hip and low back hb pain x 2 days. Transition of care: patient was not received from another setting of care. Onset of symptoms was July 09, 2019. Risk Assessment: Do you want to hurt yourself or someone else? Patient reports no desire to harm self or others. Initial Sepsis Screen: Does the patient meet any 2 criteria? HR > 90 bpm. No. Patient's initial sepsis screen is negative. Care prior to arrival: None. 10:53 Method Of Arrival: Ambulatory hb 10:53 Acuity: LORI 3 hb 10:55 Initial Sepsis Screen: Does the patient have a suspected source of infection? Yes: rb1 Other: fever. 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 - Ebola Screening: : Patient negative for fever greater than or equal to 101.5 degrees Fahrenheit, and additional compatible Ebola Virus Disease symptoms. Screenin:56 Abuse screen: Denies threats or abuse. Nutritional screening: No deficits noted. rb1 Tuberculosis screening: No symptoms or risk factors identified. Fall Risk None identified. Assessment: 10:56 General: Appears uncomfortable, Behavior is calm, cooperative, Reports chills for fever rb1 for feeling ill for x 2 days. Pain: Complains of pain in throat Pain currently is 10 out of 10 on a pain scale. Pain began 2-3 days ago. Pain: Complains of pain in bilateral hips and low back. Neuro: Level of Consciousness is awake, alert, obeys commands, Oriented to person, place, time, situation. Cardiovascular: Capillary refill < 3 seconds is brisk in bilateral fingers. Respiratory: Reports cough that is Airway is patent Respiratory effort is even, unlabored, Respiratory pattern is regular, symmetrical. GI: No signs and/or symptoms were reported involving the gastrointestinal system. : Reports inability to void, since urinated at 0400 today. EENT: Reports difficulty swallowing pain when swallowing. EENT: Throat is reddened swollen. Derm: Skin is pink, warm \T\ dry. 12:10 Reassessment: Patient appears in no apparent distress at this time. Patient and/or rb1 family updated on plan of care and expected duration. Pain level reassessed. Patient is alert, oriented x 3, equal unlabored respirations, skin warm/dry/pink. 13:00 Reassessment: Pt. is resting with eyes closed, respirations even, unlabored. rb1 14:01 Reassessment: Ambulated the pt. to the restroom and was able to urinate without rb1 difficulty. Vital Signs: 10:55 BP 106 / 62; Pulse 129; Resp 16; Temp 99.8(O); Pulse Ox 100% on R/A; Weight 74.84 kg; hb Height 5 ft. 8 in. (172.72 cm); Pain 7/10; 11:57 BP 134 / 86; Pulse 105; Resp 17; Temp 101.1(O); Pulse Ox 95% on R/A; mh5 13:36 BP 121 / 86; Pulse 105; Resp 17; Temp 98.3(O); Pulse Ox 100% on R/A; rb1 15:17 BP 97 / 57; Pulse 91; Resp 18; Temp 98.2(O); Pulse Ox 100% on R/A; mh5 16:09 BP 109 / 80; Pulse 88; Resp 17; Temp 98.9(O); Pulse Ox 100% on R/A; Pain 6/10; rb1 10:55 Body Mass Index 25.09 (74.84 kg, 172.72 cm) hb ED Course: 10:43 Patient arrived in ED. as 10:44 [facility]le[facility] Leyva, [facility] kb 10:44 Murphy Underwood MD is Attending Physician. kb 10:54 Triage completed. hb 10:55 Arm band placed on. hb 10:59 Patricia Dasilva, RN is Primary Nurse. rb1 11:07 Patient has correct armband on for positive identification. Bed in low position. Call mh5 light in reach. Side rails up X 1. Adult w/ patient. Pulse ox on. NIBP on. 11:07 Bladder scan completed. 365ml. mh5 11:35 Inserted saline lock: 18 gauge in right EJ, using aseptic technique. ,using aseptic rb1 technique. IV inserted by BRYAN Tejeda Blood collected. 12:00 Straight cath inserted, using sterile technique, 16 Fr. Specimen obtained. Returned 600 rb1 ml. Patient tolerated well. 12:48 CT completed. Patient tolerated procedure well. Patient moved to CT via wheelchair. Patient moved back from CT. 12:53 CT Stone Protocol In Process Unspecified. EDMS 14:17 CT completed. Patient tolerated procedure well. Patient moved to CT via wheelchair. Patient moved back from CT. 14:23 CT Soft Tissue Neck W/contr In Process Unspecified. EDMS 14:49 Note: CT TECHS STARTED NEW IV LINE FOR CT SOFT TISSUE NECK, LINE WAS PATENT AND GOOD, sw TECH STOOD IN ROOM WITH PT DURING INJECTION, PT STARTED SCREAMING AND TRYING TO PULL IV LINE OUT, SCAN WAS ABORTED DUE TO PATIENTS INABILITY TO HOLD STILL. BEST IMAGES OBTAINED. THERE WAS NO ABNORMALITY WITH PATIENTS SECOND IV LINE THAT ECHO TECHNICIAN INSERTED FOR SCAN, PT JUST DID NOT LIKE THE LOCATION OF IV LINE. 16:09 No provider procedures requiring assistance completed. IV discontinued, intact, rb1 bleeding controlled, No redness/swelling at site. Pressure dressing applied. Administered Medications: 11:40 Drug: Decadron - Dexamethasone 10 mg Route: IVP; Site: right jugular; rb1 11:55 Follow up: Response: No adverse reaction rb1 11:40 Drug: NS 0.9% 1000 ml Route: IV; Rate: 1000 ml; Site: right jugular; rb1 12:19 Drug: Rocephin 1 grams Route: IV; Rate: calculated rate; Site: right jugular; rb1 13:15 Follow up: Response: No adverse reaction; IV Status: Completed infusion rb1 12:19 Drug: TORadol - Ketorolac 15 mg Route: IVP; Site: right jugular; rb1 12:33 Follow up: Response: No adverse reaction; Pain is unchanged, physician notified rb1 12:30 Drug: NS 0.9% 1000 ml Route: IV; Rate: 1000 ml; Site: right jugular; rb1 12:43 Drug: Tylenol 1000 mg Route: PO; rb1 13:30 Follow up: Response: No adverse reaction; Temperature is decreased rb1 Outcome: 15:40 Discharge ordered by . kb 16:09 Patient left the ED. rb1 16:09 Discharged to home ambulatory, with family. rb1 16:09 Condition: stable 16:09 Discharge instructions given to patient, Instructed on discharge instructions, follow up and referral plans. medication usage, Demonstrated understanding of instructions, follow-up care, medications, Prescriptions given X 2. Addendum: 07/13/2019 07:50 Addendum: Culture Results: Positive urine culture. No further action required. Bacteria s s sensitive to prescribed antibiotic. Signatures: Dispatcher [employer] EDMS Ileana Leyva, CORE RESCUER-C CORE RESCUER-Sheila Powell Shelby, CHELSY RN ss Joseline Marin Rebecca, RN RN rb1 Yesi Meeks RN RN Deirdre Lazar [facility] Corrections: (The following items were deleted from the chart) 12 12:08 11:57 BP 134 / 86; Pulse 105bpm; Resp 17bpm; Pulse Ox 95% RA; [place] [id number] 13:52 13:36 BP 121 / 86; Pulse 105bpm; Resp 17bpm; Pulse Ox 100% RA; [facility] rb1 16:13 16:04 Patient left the ED. rb1 rb1
--- NOTE | 2019-07-10 15:41 | EDPHYS ---
Physician Documentation [facility] Name: Suzette Judge Age: 43 yrs Sex: Female : 1975 Arrival Date: 07/10/2019 Time: 10:43 Bed 13 Private MD: ED Physician Murphy Underwood HPI: 07/10 11:11 This 43 yrs old Female presents to ER via Ambulatory with complaints of Sore kb Throat, Hip Pain, Urinary Retention. 11:11 The patient presents with sore throat. The patient describes throat pain as constant. kb Onset: The symptoms/episode began/occurred 3 day(s) ago. Severity of symptoms: At their worst the symptoms were moderate, in the emergency department the symptoms are unchanged. Modifying factors: The symptoms are alleviated by nothing, the symptoms are aggravated by swallowing, Patient's oral intake status: limited fluid intake, limited food intake. Associated signs and symptoms: Pertinent positives: Sore throat. The patient has not experienced similar symptoms in the past. The patient has not recently seen a physician. Pt reports sore throat and swelling for 3 days. Reports strong urine and decreased urination today. 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 - Ebola Screening: : Patient negative for fever greater than or equal to 101.5 degrees Fahrenheit, and additional compatible Ebola Virus Disease symptoms. ROS: 11:09 Constitutional: Negative for fever, chills, and weight loss, Cardiovascular: Negative kb for chest pain, palpitations, and edema, Respiratory: Negative for shortness of breath, cough, wheezing, and pleuritic chest pain, Abdomen/GI: Negative for abdominal pain, nausea, vomiting, diarrhea, and constipation, Back: Negative for injury and pain, MS/Extremity: Negative for injury and deformity, Skin: Negative for injury, rash, and discoloration, Neuro: Negative for headache, weakness, numbness, tingling, and seizure. 11:09 ENT: Positive for sore throat. 11:09 : Positive for small amounts, difficulty urinating, foul smelling urine. 11:10 Neck: Positive for swollen nodes. kb Exam: 11:09 Constitutional: This is a well developed, well nourished patient who is awake, alert, kb and in no acute distress. Head/Face: Normocephalic, atraumatic. Chest/axilla: Normal chest wall appearance and motion. Nontender with no deformity. No lesions are appreciated. Cardiovascular: Regular rate and rhythm with a normal S1 and S2. No gallops, murmurs, or rubs. Normal PMI, no JVD. No pulse deficits. Respiratory: Lungs have equal breath sounds bilaterally, clear to auscultation and percussion. No rales, rhonchi or wheezes noted. No increased work of breathing, no retractions or nasal flaring. Abdomen/GI: Soft, non-tender, with normal bowel sounds. No distension or tympany. No guarding or rebound. No evidence of tenderness throughout. Back: No spinal tenderness. No costovertebral tenderness. Full range of motion. Skin: Warm, dry with normal turgor. Normal color with no rashes, no lesions, and no evidence of cellulitis. MS/ Extremity: Pulses equal, no cyanosis. Neurovascular intact. Full, normal range of motion. Neuro: Awake and alert, GCS 15, oriented to person, place, time, and situation. Cranial nerves II-XII grossly intact. Motor strength 5/5 in all extremities. Sensory grossly intact. Cerebellar exam normal. Normal gait. 11:09 ENT: External ear(s): are unremarkable, Ear canal(s): are normal, TM's: are normal, Nose: is normal, Mouth: is normal, Posterior pharynx: Airway: normal, no evidence of obstruction, Uvula: edematous, erythema, swelling, that is moderate, erythema, that is moderate, exudate, is not appreciated. 11:10 Neck: Lymph nodes: lymphadenopathy is appreciated, anterior cervical nodes. kb Vital Signs: 10:55 BP 106 / 62; Pulse 129; Resp 16; Temp 99.8(O); Pulse Ox 100% on R/A; Weight 74.84 kg; hb Height 5 ft. 8 in. (172.72 cm); Pain 7/10; 11:57 BP 134 / 86; Pulse 105; Resp 17; Temp 101.1(O); Pulse Ox 95% on R/A; mh5 13:36 BP 121 / 86; Pulse 105; Resp 17; Temp 98.3(O); Pulse Ox 100% on R/A; rb1 15:17 BP 97 / 57; Pulse 91; Resp 18; Temp 98.2(O); Pulse Ox 100% on R/A; mh5 16:09 BP 109 / 80; Pulse 88; Resp 17; Temp 98.9(O); Pulse Ox 100% on R/A; Pain 6/10; rb1 10:55 Body Mass Index 25.09 (74.84 kg, 172.72 cm) hb Procedures: 11:26 Peripheral line: by aseptic technique a peripheral line was placed in the right kb external jugular vein. MDM: 10:50 Patient medically screened. kb 11:09 Data reviewed: vital signs, nurses notes. Data interpreted: Pulse oximetry: on room air kb is 100 %. Interpretation: normal. 15:38 Counseling: I had a detailed discussion with the patient and/or guardian regarding: the kb historical points, exam findings, and any diagnostic results supporting the discharge/admit diagnosis, lab results, radiology results, the need for outpatient follow up, a family practitioner, to return to the emergency department if symptoms worsen or persist or if there are any questions or concerns that arise at home. 15:41 ED course: CT soft tissue neck completed to rule out abscess formation related to kb swelling that pt is complaining of. CT negative for abscess formation or other significant swelling. Pt able to urinate. Will discharge home with antibiotics for strep and UTI. 07/10 10:54 Order name: Strep; Complete Time: 11:43 kb 07/10 10:56 Order name: CBC with Diff; Complete Time: 12:00 kb 07/10 10:56 Order name: Basic Metabolic Panel; Complete Time: 12:12 kb 07/10 12:26 Order name: Urine Culture rb1 07/10 12:26 Order name: Urine Microscopic Only; Complete Time: 14:37 rb1 07/10 12:57 Order name: Urine Dipstick--Ancillary (enter results); Complete Time: 14:22 bd 07/10 12:16 Order name: CT Stone Protocol; Complete Time: 13:15 kb 07/10 12:58 Order name: Urine --Ancillary (enter results); Complete Time: 14:23 bd 07/10 13:54 Order name: CT Soft Tissue Neck W/contr; Complete Time: 15:38 kb 07/10 10:54 Order name: Urine Dipstick-Ancillary (obtain specimen); Complete Time: 12:22 kb 07/10 10:56 Order name: IV Start; Complete Time: 12:22 kb 07/10 10:56 Order name: Bladder Scanner; Complete Time: 11:08 kb 07/10 11:49 Order name: Straight Cath; Complete Time: 12:11 kb Administered Medications: 11:40 Drug: Decadron - Dexamethasone 10 mg Route: IVP; Site: right jugular; rb1 11:55 Follow up: Response: No adverse reaction rb1 11:40 Drug: NS 0.9% 1000 ml Route: IV; Rate: 1000 ml; Site: right jugular; rb1 12:19 Drug: Rocephin 1 grams Route: IV; Rate: calculated rate; Site: right jugular; rb1 13:15 Follow up: Response: No adverse reaction; IV Status: Completed infusion rb1 12:19 Drug: TORadol - Ketorolac 15 mg Route: IVP; Site: right jugular; rb1 12:33 Follow up: Response: No adverse reaction; Pain is unchanged, physician notified rb1 12:30 Drug: NS 0.9% 1000 ml Route: IV; Rate: 1000 ml; Site: right jugular; rb1 12:43 Drug: Tylenol 1000 mg Route: PO; rb1 13:30 Follow up: Response: No adverse reaction; Temperature is decreased rb1 Disposition: 17:00 Co-signature as Attending Physician, Murphy Underwood MD. rn Disposition: 07/10/19 15:40 Discharged to Home. Impression: Streptococcal pharyngitis, Urinary tract infection, site not specified. - Condition is Stable. - Discharge Instructions: Strep Throat, [id number], Urinary Tract Infection, Adult, [id number]. - Prescriptions for Augmentin 875- 125 mg Oral Tablet - take 1 tablet by ORAL route every 12 hours for 10 days; 20 tablet. Prednisone 20 mg Oral Tablet - take 1 tablet by ORAL route once daily for 5 days; 5 tablet. - Medication Reconciliation Form, Thank You Letter, Antibiotic Education, Prescription Opioid Use form. - Follow up: Emergency Department; When: As needed; Reason: Worsening of condition. Follow up: Private Physician; When: 2 - 3 days; Reason: Recheck today's complaints, Continuance of care, Re-evaluation by your physician. Signatures: Dispatcher [employer] EDMS Ileana Leyva, RN RECOVERY-C RN RECOVERY-CkMurphy Madrid MD MD rn Barber, Rebecca, RN RN rb1 Baxter, Heather, RN RN Corrections: (The following items were deleted from the chart) 11:10 11:09 Constitutional: Negative for fever, chills, and weight loss, Neck: Negative for kb injury, pain, and swelling, Cardiovascular: Negative for chest pain, palpitations, and edema, Respiratory: Negative for shortness of breath, cough, wheezing, and pleuritic chest pain, Abdomen/GI: Negative for abdominal pain, nausea, vomiting, diarrhea, and constipation, Back: Negative for injury and pain, MS/Extremity: Negative for injury and deformity, Skin: Negative for injury, rash, and discoloration, Neuro: Negative for headache, weakness, numbness, tingling, and seizure, kb 11:11 11:09 Constitutional: This is a well developed, well nourished patient who is awake, kb alert, and in no acute distress. Head/Face: Normocephalic, atraumatic. Neck: Trachea midline, no thyromegaly or masses palpated, and no cervical lymphadenopathy. Supple, full range of motion without nuchal rigidity, or vertebral point tenderness. No Meningismus. Chest/axilla: Normal chest wall appearance and motion. Nontender with no deformity. No lesions are appreciated. Cardiovascular: Regular rate and rhythm with a normal S1 and S2. No gallops, murmurs, or rubs. Normal PMI, no JVD. No pulse deficits. Respiratory: Lungs have equal breath sounds bilaterally, clear to auscultation and percussion. No rales, rhonchi or wheezes noted. No increased work of breathing, no retractions or nasal flaring. Abdomen/GI: Soft, non-tender, with normal bowel sounds. No distension or tympany. No guarding or rebound. No evidence of tenderness throughout. Back: No spinal tenderness. No costovertebral tenderness. Full range of motion. Skin: Warm, dry with normal turgor. Normal color with no rashes, no lesions, and no evidence of cellulitis. MS/ Extremity: Pulses equal, no cyanosis. Neurovascular intact. Full, normal range of motion. Neuro: Awake and alert, GCS 15, oriented to person, place, time, and situation. Cranial nerves II-XII grossly intact. Motor strength 5/5 in all extremities. Sensory grossly intact. Cerebellar exam normal. Normal gait. kb 16:04 15:40 07/10/2019 15:40 Discharged to Home. Impression: Streptococcal pharyngitis; rb1 Urinary tract infection, site not specified. Condition is Stable. Forms are Medication Reconciliation Form, Thank You Letter, Antibiotic Education, Prescription Opioid Use. Follow up: Emergency Department; When: As needed; Reason: Worsening of condition. Follow up: Private Physician; When: 2 - 3 days; Reason: Recheck today's complaints, Continuance of care, Re-evaluation by your physician. kb
[2019-07-10 19:07] VITALS: O2SAT 100
[2019-07-10 19:09] VITALS: BP 97/57; TEMP 98.2
== END 2019-07-10 16:04 | disposition home or self-care (01) ==
LOC: ER 10:42
PROC: 05HP33Z Insertion of Infusion Device into Right External Jugular Vein, Percutaneous Approach (ICD-10-PCS; principal; 2019-07-10)
DX: J02.0 Streptococcal pharyngitis (principal); N39.0 Urinary tract infection, site not specified; F31.9 Bipolar disorder, unspecified; F43.10 Post-traumatic stress disorder, unspecified; Z88.2 Allergy status to sulfonamides; Z88.5 Allergy status to narcotic agent; Z88.8 Allergy status to other drugs, medicaments and biological substances
CPT/HCPCS: 96365; 87088; 85025; 87086; 80048; 36415; 81025; 87081; 87077; 87186; 70491; 76377; 74176; 51702; 96375; 99284; 36569; Q9967; J1100; J0696; J7030 ×2; 81003; 81015

== ENCOUNTER 2019-07-15 23:19 | Emergency (ER) | payer OTHER ==
--- OUTSIDE RECORDS SUMMARY | 2019-07-15 23:22 | XMS REPORT ---
:1975 [facility] Address [address] [place] [address] [address] [address] Care Team Providers Name Role Phone ROGELIO ARAYA Primary Care Provider Unavailable Problems This patient has no known problems. Allergies, Adverse Reactions, Alerts This patient has no known allergies or adverse reactions. Medications This patient has no known medications. Encounters Start End Encounter Admission Attending Care Care Encounter Date/Time Date/Time Type Type Clinicians Facility Department ID 2015-05-23 Inpatient C [facility] MED [id number] 13:51:00 2018-11-07 2018-11-07 Emergency E [id number] 21:39:00 21:39:00
[2019-07-15] MEDS ORDERED: dexAMETHasone 10 MG/ML VIAL ONE (23:47)
--- NOTE | 2019-07-16 00:01 | ER ---
Nurse's Notes [facility] Name: Suzette Judge Age: 43 yrs Sex: Female : 1975 Arrival Date: 07/15/2019 Time: 23:22 Bed 15 Private MD: Diagnosis: Adverse effect of penicillins Presentation: 07/15 23:35 Presenting complaint: Patient states: SHe was seen in ER a few days ago diagnosed with Strep Throat and prescribed Augmentin. Pt states she developed allergic reaction and now has tongue swelling. Transition of care: patient was not received from another setting of care. Onset of symptoms was July 14, 2019. Risk Assessment: Do you want to hurt yourself or someone else? Patient reports no desire to harm self or others. Initial Sepsis Screen: Does the patient meet any 2 criteria? HR > 90 bpm. Does the patient have a suspected source of infection? No. Patient's initial sepsis screen is negative. Care prior to arrival: None. 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 - Social history:: Smoking status: Patient/guardian denies using tobacco, Patient uses Vape. - Ebola Screening: : Patient negative for fever greater than or equal to 101.5 degrees Fahrenheit, and additional compatible Ebola Virus Disease symptoms Patient denies exposure to infectious person. Screenin:40 Abuse screen: Denies threats or abuse. Denies injuries from another. Nutritional screening: No deficits noted. Tuberculosis screening: No symptoms or risk factors identified. Fall Risk None identified. Assessment: 23:39 General: Appears in no apparent distress. Behavior is calm, cooperative, appropriate wh for age. Pain: Denies pain. Neuro: Level of Consciousness is awake, alert, obeys commands, Oriented to person, place, time, situation, Appropriate for age. Cardiovascular: Heart tones S1 S2. Respiratory: Airway is patent Respiratory effort is even, unlabored, Respiratory pattern is regular, symmetrical, Breath sounds are clear bilaterally. GI: Abdomen is flat, non-distended. : No signs and/or symptoms were reported regarding the genitourinary system. EENT: Tongue swollen. Derm: Skin is intact, is healthy with good turgor, Skin is pink, warm \T\ dry. normal. Musculoskeletal: Circulation, motion, and sensation intact. 07/16 00:18 Reassessment: Patient appears in no apparent distress at this time. No changes from previously documented assessment. Patient and/or family updated on plan of care and expected duration. Pain level reassessed. Patient is alert, oriented x 3, equal unlabored respirations, skin warm/dry/pink. Vital Signs: 07/15 23:42 BP 121 / 88; Pulse 96; Resp 18; Temp 98.2; Pulse Ox 100% ; Weight 72.57 kg; Height 5 wh ft. 11 in. (180.34 cm); 07/16 00:18 BP 125 / 91; Pulse 92; Resp 18; Pulse Ox 99% on R/A; wh 07/15 23:42 Body Mass Index 22.32 (72.57 kg, 180.34 cm) ED Course: 07/15 23:22 Patient arrived in ED. jg7 23:25 Migue Mckeon PA is PHCP. jr8 23:25 Murphy Underwood MD is Attending Physician. jr8 23:32 Rashida Steward is Primary Nurse. 23:37 Triage completed. 23:41 Arm band placed on right wrist. 23:41 Patient has correct armband on for positive identification. Bed in low position. Call light in reach. Side rails up X 1. Pulse ox on. NIBP on. 07/16 00:19 No provider procedures requiring assistance completed. Patient did not have IV access during this emergency room visit. Administered Medications: 07/15 23:50 Drug: Decadron 10 mg Route: IM; Site: left gluteus; 07/16 00:19 Follow up: Response: No adverse reaction Outcome: 07/15 23:59 Discharge ordered by MD. johnston 07/16 00:20 Discharged to home ambulatory, with family. Condition: stable Discharge instructions given to patient, family, Instructed on discharge instructions, follow up and referral plans. medication usage, POC Demonstrated understanding of instructions, follow-up care, medications, POC Prescriptions given X 2. 00:21 Patient left the ED. Signatures: Migue Mckeon PA PA jr8 Rashida Steward Princess Severino jg7 Corrections: (The following items were deleted from the chart) 07/15 23:42 23:35 Initial Sepsis Screen: Does the patient meet any 2 criteria? No. Patient's initial sepsis screen is negative. Does the patient have a suspected source of infection? No. Patient's initial sepsis screen is negative.
--- NOTE | 2019-07-16 00:02 | EDPHYS ---
Physician Documentation [facility] Name: Suzette Judge Age: 43 yrs Sex: Female : 1975 Arrival Date: 07/15/2019 Time: 23:22 Bed 15 Private MD: ED Physician Murphy Underwood HPI: 07/15 23:31 This 43 yrs old Female presents to ER via Unassigned with complaints of jr8 Swelling Of Tongue. 23:31 Onset: The symptoms/episode began/occurred gradually, 3 day(s) ago. Associated signs jr8 and symptoms: The patient has no apparent associated signs or symptoms. Modifying factors: The patient symptoms are alleviated by nothing, the patient symptoms are aggravated by nothing. The patient has not experienced similar symptoms in the past. The patient has been recently seen by a physician:. Patient recently diagnosed with strep throat and was started on augmentin. Stated that a few days ago after starting the abx noticed that her tongue was enlarging. Stated that now it is substantially worsening. 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 - Social history:: Smoking status: Patient/guardian denies using tobacco, Patient uses Vape. - Ebola Screening: : Patient negative for fever greater than or equal to 101.5 degrees Fahrenheit, and additional compatible Ebola Virus Disease symptoms Patient denies exposure to infectious person. ROS: 23:55 Constitutional: Negative for fever, chills, and weight loss. jr8 23:55 ENT: Positive for tongue swelling, Negative for difficulty swallowing, difficulty handling secretions, hoarseness. 23:55 All other systems are negative. Exam: 23:55 Eyes: Pupils equal round and reactive to light, extra-ocular motions intact. Lids and jr8 lashes normal. Conjunctiva and sclera are non-icteric and not injected. Cornea within normal limits. Periorbital areas with no swelling, redness, or edema. ENT: Nares patent. No nasal discharge, no septal abnormalities noted. Tympanic membranes are normal and external auditory canals are clear. Oropharynx with no redness, or masses, exudates, or evidence of obstruction, uvula midline. Mucous membranes moist. Tongue mildly swollen. Neck: Trachea midline, no thyromegaly or masses palpated, and no cervical lymphadenopathy. Supple, full range of motion without nuchal rigidity, or vertebral point tenderness. No Meningismus. Cardiovascular: Regular rate and rhythm with a normal S1 and S2. No gallops, murmurs, or rubs. Normal PMI, no JVD. No pulse deficits. Respiratory: Lungs have equal breath sounds bilaterally, clear to auscultation and percussion. No rales, rhonchi or wheezes noted. No increased work of breathing, no retractions or nasal flaring. Abdomen/GI: Soft, non-tender, with normal bowel sounds. No distension or tympany. No guarding or rebound. No evidence of tenderness throughout. Back: No spinal tenderness. No costovertebral tenderness. Full range of motion. Skin: Warm, dry with normal turgor. Normal color with no rashes, no lesions, and no evidence of cellulitis. MS/ Extremity: Pulses equal, no cyanosis. Neurovascular intact. Full, normal range of motion. Neuro: Awake and alert, GCS 15, oriented to person, place, time, and situation. Cranial nerves II-XII grossly intact. Motor strength 5/5 in all extremities. Sensory grossly intact. Cerebellar exam normal. Normal gait. Vital Signs: 23:42 BP 121 / 88; Pulse 96; Resp 18; Temp 98.2; Pulse Ox 100% ; Weight 72.57 kg; Height 5 wh ft. 11 in. (180.34 cm); 07/16 00:18 BP 125 / 91; Pulse 92; Resp 18; Pulse Ox 99% on R/A; wh 07/15 23:42 Body Mass Index 22.32 (72.57 kg, 180.34 cm) [facility]: 07/15 23:25 Patient medically screened. jr8 23:55 Data reviewed: vital signs, nurses notes, and as a result, I will discharge patient. vickie Data interpreted: Pulse oximetry: on room air is 100 %. Interpretation: normal. Counseling: I had a detailed discussion with the patient and/or guardian regarding: the historical points, exam findings, and any diagnostic results supporting the discharge/admit diagnosis, the need for outpatient follow up, a family practitioner, to return to the emergency department if symptoms worsen or persist or if there are any questions or concerns that arise at home. ED course: Explained to patient that she needed to immediately stop the PCN. Will put her on zithromax for strep throat and steroids for next 5 days. Close return precautions given . Administered Medications: 23:50 Drug: Decadron 10 mg Route: IM; Site: left gluteus; 07/16 00:19 Follow up: Response: No adverse reaction Disposition: 01:22 Co-signature as Attending Physician, Murphy Underwood MD. rn Disposition: 07/15/19 23:59 Discharged to Home. Impression: Adverse effect of penicillins. - Condition is Stable. - Discharge Instructions: Anaphylactic Reaction, Adult. - Prescriptions for Prednisone 20 mg Oral Tablet - take 3 tablet by ORAL route once daily for 5 days; 15 tablet. Zithromax Z- Mino 250 mg Oral Tablet - take 1 tablet by ORAL route as directed for 5 days Day 1 - take two (2) tablets one time. Day 2, 3, 4 , 5 take one (1) tablet once daily.; 6 tablet. - Medication Reconciliation Form, Thank You Letter, Antibiotic Education, Prescription Opioid Use form. - Follow up: Private Physician; When: 2 - 3 days; Reason: Recheck today's complaints, Continuance of care, Re-evaluation by your physician. - Problem is new. - Symptoms have improved. Signatures: Murphy Underwood MD MD rn Migue Mckeon PA PA jr8 Rashida Steward Corrections: (The following items were deleted from the chart) 07/15 23:59 23:55 ED course: Explained to patient that she needed to immediately stop the PCN. Will jr8 put her on zithromax for strep throat and steroids for next 5 days . jr8 07/16 00:21 07/15 23:59 07/15/2019 23:59 Discharged to Home. Impression: Adverse effect of wh penicillins. Condition is Stable. Forms are Medication Reconciliation Form, Thank You Letter, Antibiotic Education, Prescription Opioid Use. Follow up: Private Physician; When: 2 - 3 days; Reason: Recheck today's complaints, Continuance of care, Re-evaluation by your physician. Problem is new. Symptoms have improved. jr8
[2019-07-16 03:36] VITALS: TEMP 98.2
[2019-07-16 04:17] VITALS: BP 125/91; O2SAT 99
== END 2019-07-16 00:21 | disposition home or self-care (01) ==
LOC: ER 23:19
DX: R22.9 Localized swelling, mass and lump, unspecified (principal); T36.0X5A Adverse effect of penicillins, initial encounter; F31.9 Bipolar disorder, unspecified; F43.10 Post-traumatic stress disorder, unspecified; Z88.0 Allergy status to penicillin; Z88.2 Allergy status to sulfonamides; Z88.5 Allergy status to narcotic agent; Z88.8 Allergy status to other drugs, medicaments and biological substances
CPT/HCPCS: 96372; 99283; J1100

== ENCOUNTER 2020-08-17 23:25 | Emergency (ER) | payer OTHER ==
--- OUTSIDE RECORDS SUMMARY | 2020-08-17 23:28 | XMS REPORT | Continuity of Care Document ---
:1975 Author Organization [facility] t Address [address] [place] [address] Care Team Providers Name Role Phone QUIANAThee Primary Care Physician Unavailable Danielle NIÑO, L Attending Clinician Problems This patient has no known problems. Allergies, Adverse Reactions, Alerts This patient has no known allergies or adverse reactions. Medications This patient has no known medications. Procedures This patient has no known procedures. Encounters Start End Encounter Admission Attending Care Care Encounter Source Date/Time Date/Time Type Type Clinicians Facility Department ID 2015-05-23 Inpatient C [facility] MED [id number] [facility] 13:51:00 2020-07-04 2020-07-04 Office DARRYL Santos [id number] 10:14:34 10:52:53 Visit [facility] [id number] Surgical [id number] Specialti [id number] [address] 2018-11-07 2018-11-07 Emergency E [facility] [id number] [facility] 21:39:00 21:39:00 Results This patient has no known results.
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
--- OUTSIDE RECORDS SUMMARY | 2020-08-17 23:28 | XMS REPORT | Summary of Care ---
:1975 Author Organization [facility] - [facility] Address [address] [place] [address] Care Team Providers Name Role Phone Minal Ocasio Primary Care Provider Reason for Referral Radiology Services (Routine) Status Reason Specialty Diagnoses / Referred By Referred To Procedures Contact Contact New Request Diagnostic Diagnoses Pain Jeremy Maza S, Radiology Procedures XR ELBOW >3 VW RIGHT PAC [address] [place] [address] Reason for Visit Reason Comments New Patient Elbow Pain right Encounter Details Date Type Department Care Team Description 07/04/2020 Office Visit [facility] Orthopaedic Alexis Santos ight elbow pain (Primary Dx); Surgery- Adrien Hamilton MD Pain [address], [address] [place] [place] [address] [place] [address] [address] [place], [place] [phone] Allergies Active Allergy Reactions Severity Noted [...] Added automatically from request for pito mariano [id number] Schizoaffective disorder, depressive type 05/14/2015 Drug overdose [...] with No / Unsure 07/04/2020 10:14 AM ECHO TECHNICIAN someone who was confirmed or suspected to have Coronavirus / COVID-19? documented as of this encounter Last Filed Vital Signs Vital Sign Reading Time Taken Comments Blood Pressure 118/80 07/04/2020 10:23 AM ECHO TECHNICIAN Pulse - - Temperature - - Respiratory Rate 18 07/04/2020 10:23 AM ECHO TECHNICIAN Oxygen Saturation - - Inhaled Oxygen Concentration - - Weight 77.1 kg (170 lb) 07/04/2020 10:23 AM ECHO TECHNICIAN Height 180.3 cm (5' 11") 07/04/2020 10:23 AM ECHO TECHNICIAN Body Mass Index 23.71 07/04/2020 10:23 AM ECHO TECHNICIAN documented in this encounter Progress Notes Alexis [...] file Gets together: Not on file Attends christianity service: Not on file Active member of [...] pain [M25.521] Medrol dosepak Follow up prn TECHNICIAN documented in this encounter Plan of Treatment Date Type Specialty Care Team Description 09/24/2020 Office Visit Orthopedic Surgery Manish Brown MD [address] [place] [address] Health Maintenance Due Date Last Done Comments PNEUMOCOCCAL 0-64 YEARS COMBINED SERIES (1 of - 1983 PPSV23) DTaP,Tdap,and Td Vaccines (1 - Tdap) 1996 PAP SMEAR 11/11/2006 11/12/2003 Breast Cancer Screening (MAMMOGRAM) 2017 INFLUENZA VACCINE (#1) 2020 Depression Screening 01/24/2021 01/25/2020 documented as of this encounter Results XR ELBOW >3 VW RIGHT (07/04/2020 10:28 AM ECHO TECHNICIAN) Specimen Narrative Performed At This result has [...] Effective Dates Phone Addre ss Type Group [facility] [id number] 2018-Present Medicaid COMM PLAN - PLUS MANAGED MEDICAID documented as of this encounter
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
[2020-08-18 00:47] LABS: Urine Bacteria >50 /HPF (<20); Urine RBC <5 /HPF (NONE SEEN)
[2020-08-18 00:57] LABS: Absolute Lymphocytes (CBC) 1.9 K/uL (0.7-4.9); Basophils % 1.7 % (0-1.3); Hematocrit 37.9 % (36.0-45.0); Lymphocytes % 33.9 % (15.3-44.8); MPV 7.6 fL (7.6-11.3); RBC Red Blood Cell Count 4.23 M/uL (3.86-4.86)
[2020-08-18 01:12] LABS: ALT/SGPT 18 U/L (12-78); AST/SGOT 15 U/L (15-37); Albumin 3.7 g/dL (3.4-5.0); Alkaline Phosphatase 81 U/L (45-117); BUN Blood Urea Nitrogen 19 mg/dL (7-18); Bicarbonate 27 mmol/L (21-32); Bilirubin Direct 0.1 mg/dL (0-0.2); Bilirubin Total 0.4 mg/dL (0.2-1.0); Glucose Level 140 mg/dL (74-106); Magnesium 2.2 mg/dL (1.8-2.4); NT PRO-BNP 35 pg/mL (<125); Potassium 3.7 mmol/L (3.5-5.1); Protein, Total 6.8 g/dL (6.4-8.2); Sodium Level 142 mmol/L (136-145); Troponin (Emerg Dept Use Only) < 0.02 ng/mL (0.0-0.045)
[2020-08-18 02:48] LABS: Barbiturates NEGATIVE (NEGATIVE); Benzodiazepines NEGATIVE (NEGATIVE); Cocaine NEGATIVE (NEGATIVE); METHAMPHETAM POSITIVE (NEGATIVE); Methadone NEGATIVE (NEGATIVE); Opiates NEGATIVE (NEGATIVE); Phencyclidine NEGATIVE (NEGATIVE); THC Cannibis POSITIVE (NEGATIVE)
--- NOTE | 2020-08-18 03:04 | EDPHYS ---
Physician Documentation [facility] Name: Suzette Judge Age: 45 yrs Sex: Female : 1975 Arrival Date: 08/17/2020 Time: 23:30 Bed 6 Private MD: ED Physician Jarvis Frederick HPI: 08/18 01:35 This 45 yrs old Female presents to ER via Ambulatory with complaints of Leg mh7 Swelling. 01:35 The patient presents with swelling. The complaints affect the right leg and left leg. mh7 Context: The problem was sustained at home, resulted from an unknown cause, the patient can fully bear weight, the patient is able to ambulate, without difficulty. Onset: The symptoms/episode began/occurred 3 day(s) ago. Modifying factors: The symptoms are alleviated by nothing. the symptoms are aggravated by nothing. Associated signs and symptoms: Pertinent negatives calf tenderness, fever, nausea, numbness, rash, tingling, vomiting, warmth, weakness. Treatment prior to arrival includes: no previous treatment. Severity of symptoms: At their worst the symptoms were moderate, yesterday, in the emergency department the symptoms are unchanged. 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 - Social history:: Smoking status: Patient reports the use of cigarette tobacco products, smokes one-half pack cigarettes per day. ROS: 08/18 01:35 Constitutional: Negative for fever, chills, and weight loss, Eyes: Negative for injury, mh7 pain, redness, and discharge, ENT: Negative for injury, pain, and discharge, Neck: Negative for injury, pain, and swelling, Cardiovascular: Negative for chest pain, palpitations, and edema, Respiratory: Negative for shortness of breath, cough, wheezing, and pleuritic chest pain, Abdomen/GI: Negative for abdominal pain, nausea, vomiting, diarrhea, and constipation, Back: Negative for injury and pain, : Negative for injury, bleeding, discharge, and swelling, Skin: Negative for injury, rash, and discoloration, Neuro: Negative for headache, weakness, numbness, tingling, and seizure, Psych: Negative for depression, anxiety, suicide ideation, homicidal ideation, and hallucinations, Allergy/Immunology: Negative for hives, rash, and allergies, Endocrine: Negative for neck swelling, polydipsia, polyuria, polyphagia, and marked weight changes, Hematologic/Lymphatic: Negative for swollen nodes, abnormal bleeding, and unusual bruising. Exam: 01:35 Constitutional: This is a well developed, well nourished patient who is awake, alert, mh7 and in no acute distress. Head/Face: Normocephalic, atraumatic. Eyes: Pupils equal round and reactive to light, extra-ocular motions intact. Lids and lashes normal. Conjunctiva and sclera are non-icteric and not injected. Cornea within normal limits. Periorbital areas with no swelling, redness, or edema. Neck: Trachea midline, no thyromegaly or masses palpated, and no cervical lymphadenopathy. Supple, full range of motion without nuchal rigidity, or vertebral point tenderness. No Meningismus. Chest/axilla: Normal chest wall appearance and motion. Nontender with no deformity. No lesions are appreciated. Cardiovascular: Regular rate and rhythm with a normal S1 and S2. No gallops, murmurs, or rubs. Normal PMI, no JVD. No pulse deficits. Respiratory: Lungs have equal breath sounds bilaterally, clear to auscultation and percussion. No rales, rhonchi or wheezes noted. No increased work of breathing, no retractions or nasal flaring. Abdomen/GI: Soft, non-tender, with normal bowel sounds. No distension or tympany. No guarding or rebound. No evidence of tenderness throughout. Back: No spinal tenderness. No costovertebral tenderness. Full range of motion. Skin: Warm, dry with normal turgor. Normal color with no rashes, no lesions, and no evidence of cellulitis. MS/ Extremity: Pulses equal, no cyanosis. Neurovascular intact. Full, normal range of motion. Neuro: Awake and alert, GCS 15, oriented to person, place, time, and situation. Cranial nerves II-XII grossly intact. Motor strength 5/5 in all extremities. Sensory grossly intact. Cerebellar exam normal. Normal gait. Psych: Awake, alert, with orientation to person, place and time. Behavior, mood, and affect are within normal limits. 03:14 Musculoskeletal/extremity: Compartment Syndrome exam of affected extremity: is normal. [facility] no pain, no numbness, no tingling, no sensation deficit, no palor, no weak pulses, Weight bearing: able to fully bear weight, without difficulty, DVT Exam: no pain, no swelling, no tenderness, negative Homans' sign noted on exam, no appreciated bluish discoloration, no erythema, no increased warmth, Calves: are non-tender, have equal circumference. Vital Signs: 08/17 23:49 BP 124 / 94; Pulse 98; Resp 18; Temp 98.2(TE); Pulse Ox 99% on R/A; Height 5 ft. 11 in. lp1 (180.34 cm); Pain 0/10; 23:59 Weight 72.3 kg (M); lp1 08/18 01:00 BP 105 / 62; Pulse 95; Resp 19; Pulse Ox 99% ; rr5 02:14 BP 110 / 64; Pulse 98; Resp 18; Pulse Ox 100% on R/A; mg2 03:21 BP 100 / 59; Pulse 90; Resp 18; Pulse Ox 100% on R/A; mg2 08/17 23:59 Body Mass Index 22.23 (72.30 kg, 180.34 cm) lp1 MDM: 03:01 Differential diagnosis: contusion, abrasion, Pedal Edema. Data reviewed: vital signs, [facility] nurses notes. Data interpreted: Pulse oximetry: on room air is 100 %. Interpretation: normal. Counseling: I had a detailed discussion with the patient and/or guardian regarding: the historical points, exam findings, and any diagnostic results supporting the discharge/admit diagnosis, lab results, radiology results, the need for outpatient follow up, to return to the emergency department if symptoms worsen or persist or if there are any questions or concerns that arise at home. Response to treatment: the patient's symptoms have markedly improved after treatment. 03:04 Patient medically screened. 7 08/18 00:17 Order name: Urine Culture rr5 08/18 00:17 Order name: Urine Microscopic Only; Complete Time: 01:38 5 08/18 00:19 Order name: Basic Metabolic Panel; Complete Time: 01:38 7 08/18 00:19 Order name: CBC with Diff; Complete Time: 01:38 7 08/18 00:19 Order name: LFT's; Complete Time: 01:38 7 08/18 00:19 Order name: Magnesium; Complete Time: 01:38 7 08/18 00:19 Order name: NT PRO-BNP; Complete Time: 01:38 7 08/18 00:19 Order name: PT-INR; Complete Time: 02:14 7 08/18 00:19 Order name: Troponin (emerg Dept Use Only); Complete Time: 01:38 [facility] 08/18 00:24 Order name: Urine Dipstick--Ancillary (enter results); Complete Time: 03:21 2 08/18 00:24 Order name: Urine --Ancillary (enter results); Complete Time: 03:21 [facility] 08/18 01:40 Order name: UDS; Complete Time: 02:55 7 08/18 01:51 Order name: D-Dimer; Complete Time: 02:14 EDMS 08/18 00:17 Order name: Urine Test (obtain specimen); Complete Time: 00:17 5 08/18 00:17 Order name: Urine Dipstick-Ancillary (obtain specimen); Complete Time: 00:17 [facility] 08/18 00:19 Order name: XRAY Chest (1 view) [facility] 08/18 00:19 Order name: EKG; Complete Time: 00:20 [facility] 08/18 00:19 Order name: Cardiac monitoring; Complete Time: 00:39 [facility] 08/18 00:19 Order name: EKG - Nurse/Tech; Complete Time: 00:39 7 08/18 00:19 Order name: IV Saline Lock; Complete Time: 00:39 [facility] 08/18 00:19 Order name: Labs collected and sent; Complete Time: 00:39 [facility] 08/18 00:19 Order name: O2 Per Protocol; Complete Time: 00:19 7 08/18 00:19 Order name: O2 Sat Monitoring; Complete Time: 00:19 mh7 Administered Medications: No medications were administered Disposition: 08/18/20 03:04 Discharged to Home. Impression: Leg Swelling, UTI, Methamphetamine Abuse, Marijuana Use. - Condition is Stable. - Discharge Instructions: Leg Cramps, Cannabis Use Disorder, Urinary Tract Infection, Adult, [id number], Stimulant Use Disorder-Methamphetamines. - Prescriptions for Cipro 500 mg Oral Tablet - take 1 tablet by ORAL route every 12 hours for 7 days; 14 tablet. - Medication Reconciliation Form, Thank You Letter, Antibiotic Education, Prescription Opioid Use form. - Follow up: Private Physician; When: 1 - 2 days; Reason: Worsening of condition, Recheck today's complaints, Continuance of care, Re-evaluation by your physician. - Problem is new. - Symptoms have improved. Signatures: Dispatcher [employer] [facility] Astrid Billy RN RN lp1 Ant Kumar RN RN mg2 Jerry Ordonez RN RN rr5 Jarvis Frederick MD MD mh7 Corrections: (The following items were deleted from the chart) 01:51 01:40 D-DIMER+COAG.LAB.BRZ ordered. [facility] 03:06 03:04 08/18/2020 03:04 Discharged to Home. Impression: Leg Swelling; UTI. Condition is mh7 Stable. Forms are Medication Reconciliation Form, Thank You Letter, Antibiotic Education, Prescription Opioid Use. Follow up: Private Physician; When: 1 - 2 days; Reason: Worsening of condition, Recheck today's complaints, Continuance of care, Re-evaluation by your physician. Problem is new. Symptoms have improved. [facility] 03:22 03:06 08/18/2020 03:04 Discharged to Home. Impression: Leg Swelling; UTI; mg2 Methamphetamine Abuse; Marijuana Use. Condition is Stable. Forms are Medication Reconciliation Form, Thank You Letter, Antibiotic Education, Prescription Opioid Use. Follow up: Private Physician; When: 1 - 2 days; Reason: Worsening of condition, Recheck today's complaints, Continuance of care, Re-evaluation by your physician. Problem is new. Symptoms have improved. 7
--- NOTE | 2020-08-18 03:04 | ER ---
Nurse's Notes [facility] Name: Suzette Judge Age: 45 yrs Sex: Female : 1975 Arrival Date: 08/17/2020 Time: 23:30 Bed 6 Private MD: Diagnosis: Leg Swelling;UTI;Methamphetamine Abuse;Marijuana Use Presentation: 08/17 23:49 Chief complaint: Patient states: Bilateral leg swelling x 2 days; patient reports hx of lp1 stage 3 renal failure, previously not receiving any treatment by choice, states "I changed my mind"; Denies shortness of breath. Coronavirus screen: Client denies travel out of the [place] in the last 14 days. At this time, the client does not indicate any symptoms associated with coronavirus-19. Ebola Screen: No symptoms or risks identified at this time. Initial Sepsis Screen: Does the patient meet any 2 criteria? No. Patient's initial sepsis screen is negative. Does the patient have a suspected source of infection? No. Patient's initial sepsis screen is negative. Risk Assessment: Do you want to hurt yourself or someone else? Patient reports no desire to harm self or others. Onset of symptoms was August 17, 2020. 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 - Social history:: Smoking status: Patient reports the use of cigarette tobacco products, smokes one-half pack cigarettes per day. Screenin:59 Abuse screen: Denies threats or abuse. Denies injuries from another. Nutritional lp1 screening: No deficits noted. Tuberculosis screening: No symptoms or risk factors identified. Fall Risk None identified. Assessment: 08/18 00:10 General: Appears in no apparent distress. uncomfortable, Behavior is calm, cooperative, rr5 appropriate for age. Pain: Denies pain. Neuro: Level of Consciousness is awake, alert, obeys commands, Oriented to person, place, time. Cardiovascular: Capillary refill < 3 seconds Patient's skin is warm and dry. Respiratory: Airway is patent Respiratory effort is even, unlabored, Respiratory pattern is regular, symmetrical. GI: No signs and/or symptoms were reported involving the gastrointestinal system. : Reports bilateral leg swelling. EENT: No signs and/or symptoms were reported regarding the EENT system. Derm: Skin is intact, is healthy with good turgor, Skin temperature is warm. Musculoskeletal: Circulation, motion, and sensation intact. Capillary refill < 3 seconds. 00:25 Reassessment: patient took her night dose of clonipine ( pt's med). advised to wait for rr5 the provider what is the advised, patient opted to take it right now. 01:28 Reassessment: Patient appears in no apparent distress at this time. Patient is alert, rr5 oriented x 3, equal unlabored respirations, skin warm/dry/pink. 02:14 Reassessment: Barry- (friend)- updated- [id number]. mg2 02:14 Reassessment: patient sleeping now. mg2 02:14 Reassessment: Patient appears in no apparent distress at this time. rr5 03:27 Reassessment: Patient appears in no apparent distress at this time. discharge rr5 instruction given and explained to patient and last inserter without complaints made. Vital Signs: 08/17 23:49 BP 124 / 94; Pulse 98; Resp 18; Temp 98.2(TE); Pulse Ox 99% on R/A; Height 5 ft. 11 in. lp1 (180.34 cm); Pain 0/10; 23:59 Weight 72.3 kg (M); lp1 08/18 01:00 BP 105 / 62; Pulse 95; Resp 19; Pulse Ox 99% ; rr5 02:14 BP 110 / 64; Pulse 98; Resp 18; Pulse Ox 100% on R/A; mg2 03:21 BP 100 / 59; Pulse 90; Resp 18; Pulse Ox 100% on R/A; mg2 08/17 23:59 Body Mass Index 22.23 (72.30 kg, 180.34 cm) lp1 ED Course: 08/17 23:30 Patient arrived in ED. cf2 23:50 Ant Kumar, RN is Primary Nurse. mg2 23:52 Triage completed. lp1 23:52 Arm band placed on. lp1 23:59 Jarvis Frederick MD is Attending Physician. 7 08/18 00:17 Urine collected: clean catch specimen, clear. rr5 00:19 Patient has correct armband on for positive identification. Placed in gown. Bed in low rr5 position. Call light in reach. Side rails up X2. Pulse ox on. NIBP on. 00:39 No provider procedures requiring assistance completed. Inserted saline lock: 22 gauge mg2 in left ,using aseptic technique. thumb Blood collected. by CHELSY Edwards. 00:45 EKG done, by ED staff, reviewed by Jarvis Frederick MD. rr5 01:01 XRAY Chest (1 view) In Process Unspecified. EDMS 03:22 IV discontinued, intact, bleeding controlled, No redness/swelling at site. Pressure mg2 dressing applied. Administered Medications: No medications were administered Outcome: 03:04 Discharge ordered by . [facility] 03:22 Discharged to home via wheelchair. mg2 03:22 Condition: stable 03:22 Discharge instructions given to patient, Instructed on discharge instructions, follow up and referral plans. medication usage, Demonstrated understanding of instructions, follow-up care, medications, Prescriptions given X 1. 03:22 Patient left the ED. mg2 Signatures: Dispatcher [employer] ED[facility] Astrid Billy RN CHELSY lp1 Ant Kumar, CHELSY VALENTINO mg2 Jerry Ordonez RN RN rr5 Patsy Lemus cf2 Jarvis Frederick MD MD [facility]
[2020-08-18 03:12] LABS: Urine Blood 2+ (NEG); Urine Glucose NEGATIVE (NEG); Urine Protein NEGATIVE (NEG); Urine Specific Gravity >1.030 (1.005-1.030)
[2020-08-18 03:28] VITALS: TEMP 98.2
[2020-08-18 03:29] VITALS: O2SAT 100
[2020-08-18 03:30] VITALS: BP 100/59
--- NOTE | 2020-08-18 09:00 | RAD REPORT ---
EXAM DESCRIPTION: RAD - Chest Single View - 08/18/2020 1:01 am CLINICAL HISTORY: SWELLING, shortness of breath COMPARISON: Portable November 2013 TECHNIQUE: AP portable chest image was obtained 08/18/2020 1:01 am . FINDINGS: Lungs are clear. Nipple shadows overlie each lower lung field. Heart and vasculature are n ormal. No measurable pleural effusion and no pneumothorax. No acute bony abnormality seen. No acute a ortic findings suspected. IMPRESSION: No acute cardiopulmonary process. No significant change from comparison study.
== END 2020-08-18 03:22 | disposition home or self-care (01) ==
LOC: ER 23:25
DX: R22.43 Localized swelling, mass and lump, lower limb, bilateral (principal); N39.0 Urinary tract infection, site not specified; F15.10 Other stimulant abuse, uncomplicated; F12.90 Cannabis use, unspecified, uncomplicated; F17.210 Nicotine dependence, cigarettes, uncomplicated; F31.9 Bipolar disorder, unspecified; F41.9 Anxiety disorder, unspecified; K50.90 Crohn's disease, unspecified, without complications; F43.10 Post-traumatic stress disorder, unspecified; F20.9 Schizophrenia, unspecified
CPT/HCPCS: 36415; 71045; 80048; 80076; 80307; 81003; 81015; 81025; 83735; 83880; 84484; 85025; 85379; 85610; 87077; 87086; 87088; 87186; 93005; 99284

== ENCOUNTER 2021-01-15 21:40 | Emergency (ER) | payer OTHER ==
--- OUTSIDE RECORDS SUMMARY | 2021-01-15 21:42 | XMS REPORT | Continuity of Care Document ---
:1975 Author Organization [facility] t Address [address] [place] [address] Care Team Providers Name Role Phone Thee ARAYA Primary Care Physician Unavailable Jero SALMERON Attending Clinician Alfonso Santos MD Attending Clinician Problems This patient has no known problems. Allergies, Adverse Reactions, Alerts This patient has no known allergies or adverse reactions. Medications This patient has no known medications. Procedures This patient has no known procedures. Encounters Start End Encounter Admission Attending Care Care Encounter Source Date/Time Date/Time Type Type Clinicians Facility Department ID 2015-05-23 Inpatient C [facility] [id number] [facility] 13:51:00 [facility] 2020-12-23 2020-12-23 Telephone DARRYL Nogueira [id number] 00:00:00 00:00:00 Prachi Jurado [id number] [place] [id number] Professmckenna [id number] [address] 2020-07-04 2020-07-04 Office DARRYL Santos [id number] 10:14:34 10:52:53 Visit [facility] [id number] Surgical [id number] Specialti [id number] shaan Jurado 2018-11-07 2018-11-07 Emergency E [id number] [facility] 21:39:00 21:39:00 Results This patient has no known results.
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
--- NOTE | 2021-01-15 23:18 | ER ---
Nurse's Notes [facility] Name: Suzette Judge Age: 45 yrs Sex: Female : 1975 Arrival Date: 01/15/2021 Time: 21:44 Bed 15 Private MD: Diagnosis: Pain in left wrist Presentation: 01/15 21:52 Chief complaint: Patient states: L wrist pain since earlier today. Coronavirus screen: ca1 Client denies travel out of the [place] in the last 14 days. At this time, the client does not indicate any symptoms associated with coronavirus-19. Ebola Screen: Patient negative for fever greater than or equal to 101.5 degrees Fahrenheit, and additional compatible Ebola Virus Disease symptoms Patient denies exposure to infectious person. Patient denies travel to an Ebola-affected area in the 21 days before illness onset. No symptoms or risks identified at this time. Initial Sepsis Screen: Does the patient meet any 2 criteria? No. Patient's initial sepsis screen is negative. Does the patient have a suspected source of infection? No. Patient's initial sepsis screen is negative. Risk Assessment: Do you want to hurt yourself or someone else? Patient reports no desire to harm self or others. 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 Flu vaccine is not up to date. - Social history:: Smoking status: Patient reports the use of cigarette tobacco products, smokes one pack cigarettes per day. Screenin:55 Abuse screen: Denies threats or abuse. Nutritional screening: No deficits noted. ea Tuberculosis screening: No symptoms or risk factors identified. Fall Risk None identified. Assessment: 21:55 General: Appears in no apparent distress. Behavior is calm, cooperative, appropriate ea for age. Pain: Complains of pain in left wrist. Neuro: Level of Consciousness is awake, alert, obeys commands, Oriented to person, place, time. Cardiovascular: Patient's skin is warm and dry. Respiratory: Airway is patent Respiratory effort is even, unlabored, Respiratory pattern is regular, symmetrical. Derm: Skin is pink, warm \T\ dry. 23:28 Reassessment: Patient and/or family updated on plan of care and expected duration. Pain ea level reassessed. Patient is alert, oriented x 3, equal unlabored respirations, skin warm/dry/pink. Discharge instruction given to patient verbalized the understanding of instruction. Vital Signs: 21:52 BP 123 / 78; Pulse 98; Resp 15 S; Temp 97.7(TE); Pulse Ox 100% on R/A; Weight 70.31 kg ca1 (R); Height 5 ft. 11 in. (180.34 cm) (R); Pain 5/10; 23:29 BP 122 / 70; Pulse 88; Resp 16; Pulse Ox 99% ; ea 21:52 Body Mass Index 21.62 (70.31 kg, 180.34 cm) ca1 ED Course: 21:44 Patient arrived in ED. am4 21:53 Triage completed. ca1 21:53 Arm band placed on right wrist. ca1 21:54 Tu Sullivan PA is PHCP. cp 21:54 Tu Nava MD is Attending Physician. cp 21:54 Zuleyka Lloyd, CHELSY is Primary Nurse. ea 21:55 Patient has correct armband on for positive identification. Call light in reach. ea 22:41 XRAY Wrist LEFT 3 view In Process Unspecified. EDMS 23:17 Ron Becerra MD is Referral Physician. cp 23:28 No provider procedures requiring assistance completed. Patient did not have IV access ea during this emergency room visit. 23:36 Orthoglass splint: Thumb spica splint applied on right forearm. dh4 Administered Medications: 23:06 Drug: HYDROcodone-acetaminophen 5 mg-325 mg 1 tabs Route: PO; ea 23:44 Follow up: Response: No adverse reaction ea 23:06 Drug: Ibuprofen 800 mg Route: PO; ea :44 Follow up: Response: No adverse reaction ea 23:44 CANCELLED (Other Intervention Used): morphine 4 mg IM once; RASS on ADMIN: Combtv4, ea Very Agttd3, Agttd2, Rstlss1, AlertClm0, Drwsy-1, Lt Sdtn-2, Mod Sdtn-3, Dp Sdtn-4, UnArsble-5 Outcome: 23:18 Discharge ordered by . cp 23:28 Discharge instructions given to patient, Instructed on discharge instructions, follow ea up and referral plans. medication usage, Demonstrated understanding of instructions, follow-up care, medications, Prescriptions given X 2. 23:44 Discharged to home ambulatory, with family. ea 23:44 Condition: stable 23:44 Patient left the ED. ea Signatures: Dispatcher [employer] EDMS Tu Sullivan PA PA cp Antunez, Elena, RN RN Oralia Reed RN RN [facility] Smith Daley [facility] Vonda Lazar am
[2021-01-15] MEDS ORDERED: HYDROCODONE/APAP 5/325 MG TAB ONE (23:20)
[2021-01-15] MEDS ORDERED: IBUPROFEN 400 MG TAB ONE (23:20)
[2021-01-15 23:58] VITALS: TEMP 97.7
[2021-01-16] VITALS: BP 122/70; O2SAT 99
[2021-01-16] MEDS ORDERED: MORPHINE 4 MG/ML SYR ONE (00:01)
--- NOTE | 2021-01-16 08:41 | RAD REPORT ---
EXAM DESCRIPTION: RAD - Wrist Left 3 View - 01/15/2021 10:41 pm CLINICAL HISTORY: PAIN Pain COMPARISON: No comparisons FINDINGS: No fracture or dislocation seen. No foreign body or other soft tissue abnormality. IMPRESSION: Negative examination.
== END 2021-01-15 23:44 | disposition home or self-care (01) ==
LOC: ER 21:40
DX: M25.532 Pain in left wrist (principal); F31.9 Bipolar disorder, unspecified; F17.210 Nicotine dependence, cigarettes, uncomplicated; Z88.0 Allergy status to penicillin; Z88.2 Allergy status to sulfonamides; Z88.8 Allergy status to other drugs, medicaments and biological substances
CPT/HCPCS: 99284

== ENCOUNTER 2021-07-16 21:09 | Emergency (ER) | payer OTHER ==
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
[2021-07-16 22:49] VITALS: BP 103/60; TEMP 97.6; O2SAT 100
== END 2021-07-16 22:05 | disposition left against medical advice (07) ==
LOC: ER 21:09
DX: Z53.21 Procedure and treatment not carried out due to patient leaving prior to being seen by health care provider (principal)
CPT/HCPCS: 99283

== ENCOUNTER 2021-10-26 12:30 | Inpatient (IN) | payer OTHER ==
--- OUTSIDE RECORDS SUMMARY | 2021-10-26 12:33 | XMS REPORT | Continuity of Care Document ---
:1975 Author Organization [facility] t Address [address] [place] [address] Care Team Providers Name Role Phone QUIANA, [...] Number Effective Date Expiration Date Chirag stone [facility] [id number] 2018 00:00:00 PLUS Problems Condition Condition Condition Status Onset Resolution Last Treating Co mments Source Name Details Category Date Date Treatment Clinician Date Left wrist Left wrist Disease Active U nivers pain pain - ity of 00:00: [place] 00 Medical Branch Decreased Decreased Disease Active Uni vers activities activities 8- it y of of daily of daily 00:00: [place] living living 00 Medical (ADL) (ADL) Branch [...] Added automatic ally from request for surgery [id number] 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 U nivers [...] s INS Class 1-23 ity of 00:00: 00 Medical Branch Penicill Drug Active Swelling [...] Quantity Comments Source Exposure to Not sure [facility] SARS-CoV-2 [facility] [place] (event) [place] Alcohol intake 2021-03-18 2021-03-18 Current drinker of Un iversity of 00:00:00 00:00:00 alcohol (finding) [facility] Tobacco use and 2021-03-18 2021-03-18 Never used Universit y of exposure 00:00:00 00:00:00 [facility] [place] Tobacco Comment 2020-01-22 2020-01-22 ADVISED TO SPEAK W/ University of 00:00:00 00:00:00 RE RX/PROGRAMS [facility] Alcohol Comment 2019-05-04 2019-05-04 occassionally Univer sity of 00:00:00 00:00:00 [facility] [place] Sex Ass[birth year] At [birth year] Universit y of 00:00:00 00:00:00 [facility] [place] Smoking Status Start Date Stop Date Source Current every day smoker 2021-03-18 00:00:00 Uni versity of [facility] [place] Medications Ordered Filled Start Stop Current Ordering Indication Dosage Frequency Signature Comments Components Source Medication Medication Date Date Medication? Clinician (SIG) Name Name tamikokingangelita 202- No [id number] 20mg Univers ne 03-23 9109 ity of acetonide 19:15: 18:05 [place] (KENALOG) 00 :00 Medical injection Branch 20 mg triamcinolo 2020- No [id number] 20mg 20 mg, Univers ne 03-23 9109 Intrasynov ity of acetonide 19:15: 18:05 ial[place] ONCE, [place] (KE[place] 00 :00 1 dose, Medical injection Mon Branch 20 mg 03/23/21 at 1415, Routine gabapentin 2020- No [id number] Take 1 Univers 100 mg 03-23 9109 capsule by ity of capsule 00:00: 04:59 mouth at [place] 00 :00 bedtime Medical for 7 Branch days, THEN 2 capsules at bedtime for 7 days, THEN 3 capsules at bedtime for 30 days. Diclofenac Yes [id number] Apply to [facility] Sodium 03-18 area(s) 4 ity of (VOLTAREN) 00:00: (four) [place] 1 % gel 00 times Medical daily as Branch needed for Pain (scale 1-3), Pain (scale 4-6) or Pain (scale 7-10). methocarbam Yes [id number] 500mg Take 1 Univers oL 500 mg 7-21 tablet by ity o f tablet 00:00: mouth at [place] 00 bedtime as Medical needed Branch (muscle spasms). methylPREDN 2019-08 Yes [id number] 84mg Take 21 Univers ISolone 2-04 tablets [...] [place] 56 daily. Medical Branch furosemide Yes [id number] 20mg Take 1 Univers 20 mg 9-15 tablet by ity of tablet 00:00: mouth [place] 00 every Medical morning. Branch sulfamethox Yes [id number] 1{tbl} Take 1 Univers azole-trime 9-13 [id number] tablet by i ty of thoprim 00:00: mouth 2 [place] (BACTRIM 00 (two) Medical DS) 800-160 times Branch mg per daily. tablet FLUoxetine 2014-08 Yes 20mg Take 1 Cap U nivers (PROZAC) 20 0-20 by mouth ity of mg capsule 00:00: daily. [address] Branch clonazePAM Yes 1mg Take 1 Tab [...] Immunizations Ordered Filled Immunization Date Status Comments [facility] e Immunization Name Name SARS-COV-2 COVID-19 2021-03-03 [facility] PFIZER VACCINE 00:00:00 [facility] Vital Signs Vital Name Observation Time Observation Value Comments Source Body temperature 2021-03-23 16:37:00 36.67 [facility]zen[facility] Body weight 2021-03-23 16:37:00 71.85 kg [facility] BMI 2021-03-23 16:37:00 22.09 kg/m2 [facility] Procedures This patient has no known procedures. Encounters Start End Encounter Admission Attending Care Care Encounter Source Date/Time Date/Time Type Type Clinicians Facility Department ID 2021-05-29 Emergency [facility] [id number] [facility]-29 Emergency [facility] [id number] Univers 17:15:43 [facility] 2021-05-29 Outpatient STEPHANIE [facility] [id number] Univers 00:50:20 [facility] 2015-05-23 In[facility] C [facility] [id number] [facility]. 13:51:00 [facility] 2021-05-06 2021-05-06 Outpatient Ish TORRES [facility] [id number] Univers 12:30:00 12:30:00 [facility] [id number] [facility] 2021-05-06 2021-05-06 Outpatient Ish TORRES [facility] [id number] Univers 12:30:00 12:30:00 CHRIS [facility] 2021-04-10 2021-04-10 Outpatient [facility] [id number] Univers 20:00:00 20:00:00 [id number] ity [facility] 2021-04-10 2021-04-10 Outpatient R [facility] [id number] Univers 20:00:00 20:00:00 [facility] 2021-03-26 2021-03-26 Outpatient R [facility] [id number] Univers 15:15:00 15:15:00 [id number] [facility] 2021-03-24 2021-03-24 [facility] [id number] Univers 11:00:00 11:00:00 SEGUNDO [facility] 2021-03-23 2021-03-23 [facility] [id number] Univers 11:30:52 11:40:52 Visit Chris HEARN [id number] y of CARE [id number] Darek LOMELI [id number] [address] 2021-03-23 2021-03-23 [facility] [id number] Univers 11:10:00 11:10:00 CHRIS [id number] [facility] 2021-03-23 2021-03-23 Outpatient R FAILLACE, [facility] [id number] Univers 11:10:00 11:10:00 CHRIS [facility] 2021-03-18 2021-03-18 Outpatient R LAMPHERE, [facility] [id number] Univers 14:45:00 14:45:00 BENJAMÍN [id number] [facility] 2021-03-18 2021-03-18 Outpatient R LAMPHERE, [facility] [id number] Univers 14:45:00 14:45:00 BENJAMÍN [facility] 2021-03-03 2021-03-03 [facility] [id number] Univers 15:40:00 15:40:00 SEGUNDO [facility] 2021-03-03 2021-03-03 Outpatient R [facility] [id number] Univers 14:45:00 14:45:00 [id number] [facility] 2021-03-03 2021-03-03 Outpatient R [facility] [id number] Univers 14:45:00 14:45:00 ity [facility] 2021-02-18 2021-02-18 Outpatient R LANG, [facility] [id number] Univers 09:30:00 09:30:00 ERIKA [facility] 2021-02-18 2021-02-18 Outpatient R LAMPMATILDA, [facility] [id number] Univers 09:00:00 09:00:00 BENJAMÍN [id number] [facility] 2021-02-18 2021-02-18 Outpatient R LAMPMATILDA, [facility] [id number] Univers 09:00:00 09:00:00 BENJAMÍN [facility] 2021-02-04 2021-02-04 Outpatient R IGNACIO, [facility] [id number] Univers 11:00:00 11:00:00 BENJAMÍN [id number] [facility] 2021-02-03 2021-02-03 Outpatient R JAMES, [facility] [id number] Univers 10:15:00 10:15:00 HEATHER [id number] [facility] 2021-02-03 2021-02-03 Outpatient R JAMES [facility] [id number] Univers 10:15:00 10:15:00 HEATHER [facility] 2021-01-19 2021-01-19 Outpatient R JAMES [facility] [id number] Univers 14:30:00 14:30:00 HEATHER [id number] [facility] 2021-01-19 2021-01-19 Outpatient R JAMES [facility] [id number] Univers 14:30:00 14:30:00 HEATHER [facility] 2020-12-23 2020-12-23 Telephone [facility] [id number] 00:00:00 00:00:00 Prachi Jurado [id number] [place] [id number] [facility] [id number] [facility] [address] Building 2020-09-24 2020-09-24 Outpatient R STEPHANIE [facility] [id number] Univers 13:30:00 13:30:00 CHRIS [id number] [facility] 2020-09-24 2020-09-24 Outpatient R STEPHANIE [facility] [id number] Univers 13:30:00 13:30:00 CHRIS [facility] 2020-07-04 2020-07-04 Office [facility] [id number] 10:14:34 10:52:53 Visit [facility] [id number] Surgical [id number] [facility] [id number] Sreedhar Jurado 2020-07-04 2020-07-04 [facility] [id number] Univers 10:15:00 10:15:00 SONALI [facility] 2020-07-04 2020-07-04 [facility] [id number] Univers 10:15:00 10:15:00 SONALI [facility] 2020-05-06 2020-05-06 Outpatient R MAGALY, [facility] [id number] Univers 14:30:00 14:30:00 PRACHI [facility] 2020-04-21 2020-04-21 Outpatient R [facility] [id number] Univers 12:30:00 12:30:00 [id number] [facility] 2020-04-21 2020-04-21 Outpatient R CAPO [facility] [id number] Univers 12:30:00 12:30:00 SEGUNDO [facility] 2020-03-19 2020-03-19 Outpatient R BETYNIRALI [facility] [id number] Univers 15:40:00 15:40:00 CHRIS [id number] [facility] 2020-03-19 2020-03-19 [facility] [id number] Univers 15:40:00 15:40:00 CHRIS [facility] 2020-02-27 2020-02-27 Outpatient R FAILLAALICIA, [facility] [id number] Univers 13:20:00 13:20:00 CHRIS [id number] [facility] 2020-02-27 2020-02-27 Outpatient R FAILLACE, [facility] [id number] Univers 13:20:00 13:20:00 CHRIS [facility] 2020-01-24 2020-01-24 Outpatient [facility] [id number] Univers 11:30:00 11:30:00 Chicho [facility] 2020-01-24 2020-01-24 Outpatient R FAILLACE, [facility] [id number] Univers 11:30:00 11:30:00 CHRIS [facility] 2019-10-08 2019-10-08 Outpatient R FAILLAALICIA, [facility] [id number] Univers 15:30:00 15:30:00 CHRIS [facility] 2018-11-07 2018-11-07 Emergency E [facility]BL [id number] [id number] 21:39:00 21:39:00 Results This patient has no known results.
--- NOTE | 2021-10-26 14:06 | ER ---
Nurse's Notes [facility] Name: Suzette Judge Age: 46 yrs Sex: Female : 1975 Arrival Date: 10/26/2021 Time: 12:32 Bed 15 Private MD: Diagnosis: Cellulitis and acute lymphangitis of other parts of limb-bilateal lower extremities;Edema, unspecified Presentation: 10/26 12:40 Chief complaint: Patient states: Bilateral lower extremity swelling x 3 days, reports jl7 pain, reports previous history of this happening and it was my kidneys. Coronavirus screen: At this time, the client does not indicate any symptoms associated with coronavirus-19. Ebola Screen: No symptoms or risks identified at this time. Initial Sepsis Screen: Does the patient meet any 2 criteria? No. Patient's initial sepsis screen is negative. Does the patient have a suspected source of infection? No. Patient's initial sepsis screen is negative. Risk Assessment: Do you want to hurt yourself or someone else? Patient reports no desire to harm self or others. Onset of symptoms was October 23, 2021. Care prior to arrival: None. 12:40 Method Of Arrival: Ambulatory jl7 12:40 Acuity: LORI 3 jl7 Triage Assessment: 12:40 General: Appears in no apparent distress. uncomfortable, Behavior is cooperative, jl7 crying. Pain: Complains of pain in right leg and left leg Pain currently is 8 out of 10 on a pain scale. Neuro: Level of Consciousness is awake, alert, obeys commands, Oriented to person, place, time, situation. Cardiovascular: Denies chest pain, shortness of breath, Patient's skin is warm and dry. Chest pain is denied. Respiratory: Airway is patent Respiratory effort is even, unlabored, Respiratory pattern is regular, symmetrical, Denies shortness of breath. Derm: Skin is pink, warm \T\ dry. Musculoskeletal: Swelling present in right leg and left leg. 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 - Social history:: Smoking status: . - Family history:: not pertinent. Screenin:36 Abuse screen: Denies threats or abuse. Nutritional screening: No deficits noted. tw2 Tuberculosis screening: No symptoms or risk factors identified. 13:30 Fall Risk IV access (20 points). Total Peterson Fall Scale indicates No Risk (0-24 pts). [facility] Assessment: 12:40 General: see triage. 7 13:30 Reassessment: Patient appears in no apparent distress at this time. No changes from 7 previously documented assessment. Patient and/or family updated on plan of care and expected duration. Pain level reassessed. Patient is alert, oriented x 3, equal unlabored respirations, skin warm/dry/pink. 15:00 Reassessment: Patient appears in no apparent distress at this time. No changes from 7 previously documented assessment. Patient and/or family updated on plan of care and expected duration. Pain level reassessed. Patient is alert, oriented x 3, equal unlabored respirations, skin warm/dry/pink. 16:00 Reassessment: Patient appears in no apparent distress at this time. No changes from 7 previously documented assessment. Patient and/or family updated on plan of care and expected duration. Pain level reassessed. Patient is alert, oriented x 3, equal unlabored respirations, skin warm/dry/pink. 17:00 Reassessment: Patient appears in no apparent distress at this time. No changes from [facility] previously documented assessment. Patient and/or family updated on plan of care and expected duration. Pain level reassessed. Patient is alert, oriented x 3, equal unlabored respirations, skin warm/dry/pink. Vital Signs: 12:40 BP 135 / 72; Pulse 103; Resp 19; Temp 97.9; Pulse Ox 100% on R/A; Weight 73.94 kg; 7 Height 5 ft. 11 in. (180.34 cm); Pain 8/10; 14:30 BP 134 / 81; Pulse 90; Resp 15; Pulse Ox 100% ; jl7 15:45 BP 132 / 79; Pulse 98; Resp 17; Pulse Ox 100% ; jl7 17:11 BP 132 / 83; Pulse 102; Resp 17; Pulse Ox 100% ; jl7 12:40 Body Mass Index 22.73 (73.94 kg, 180.34 cm) jl7 ED Course: 12:32 Patient arrived in ED. as 12:37 Arm band placed on. tw2 12:40 Arturo Sanchez RN is Primary Nurse. jl7 12:41 Tu Nava MD is Attending Physician. dara 12:42 Triage completed. jl7 13:30 Patient has correct armband on for positive identification. Placed in gown. Bed in low jl7 position. Call light in reach. Side rails up X2. hospital monitor on. Pulse ox on. NIBP on. Warm blanket given. 14:03 Megan Giron MD is Hospitalizing Provider. dara 14:19 Bart Bauer MD is Hospitalizing Provider. dara 14:29 COVID swab sent to lab. vg1 14:45 XRAY Chest (1 view) In Process Unspecified. EDMS 14:51 US Extremity Venous W Compression Asher In Process Unspecified. EDMS 14:54 Initial lab(s) drawn, by ED staff, sent to lab. First set of blood cultures drawn by [facility] physician. Second set of blood cultures drawn by physician. Inserted saline lock: 18 gauge in left EJ, using aseptic technique. Blood collected. 17:17 No provider procedures requiring assistance completed. Patient admitted, IV remains in jl7 place. intact, No redness/swelling at site. 17:17 EKG done, by ED staff, reviewed by Tu Nava MD. mh5 Administered Medications: 14:22 Drug: NS 0.9% 1000 ml Route: IV; Rate: 1 bolus; Site: left jugular; vg1 15:30 Follow up: Response: No adverse reaction; IV Status: Completed infusion; IV Intake: jl7 1000ml 14:22 Drug: Zofran (Ondansetron) 4 mg Route: IVP; Site: left jugular; vg1 14:45 Follow up: Response: No adverse reaction jl7 14:24 Drug: morphine 4 mg Route: IVP; Site: left jugular; vg1 14:45 Follow up: Response: No adverse reaction; Pain is decreased jl7 14:27 Drug: levofloxacin 750 mg Volume: 150 ml; Route: IVPB; Infused Over: 90 mins; Site: vg1 left jugular; 15:57 Follow up: Response: No adverse reaction; IV Status: Completed infusion; IV Intake: jl7 150ml 16:00 Drug: vancoMYCIN 1 grams Route: IVPB; Infused Over: 2 hrs; Site: left jugular; jl7 17:13 Follow up: Response: No adverse reaction; IV Status: Infusion continued upon admission jl7 Intake: 15:30 IV: 1000ml; Total: 1000ml. jl7 15:57 IV: 150ml; Total: 1150ml. jl7 Outcome: 14:06 Decision to Hospitalize by Provider. dara 18:19 Admitted to Tele accompanied by tech, via stretcher, room 218, with chart, Report jl7 called to [facility] Block 18:19 Condition: stable 18:19 Discharge instructions given to patient, family, Instructed on the need for admit, Demonstrated understanding of instructions. 18:30 Patient left the ED. jl7 Signatures: Dispatcher [employer] Tu Umanzor MD MD cha Martinez, Amelia as Wise, Tara, RN RN tw2 Deirdre Lazar Jahala, RN RN jl7 Eryn Morales, RN RN vg1
--- NOTE | 2021-10-26 14:06 | EDPHYS ---
Physician Documentation [facility] Name: Suzette Judge Age: 46 yrs Sex: Female : 1975 Arrival Date: 10/26/2021 Time: 12:32 Bed 15 Private MD: WALT Physician Tu Nava HPI: 10/26 13:55 This 46 yrs old Female presents to ER via Ambulatory with complaints of Leg dara Swelling. 13:55 The patient presents with decreased range of motion, pain, swelling, tenderness. The dara complaints affect the right leg and left leg. Context: The problem was sustained at an unknown site, resulted from an unknown cause, the patient can fully bear weight. Onset: The symptoms/episode began/occurred 3 day(s) ago. Modifying factors: The symptoms are alleviated by nothing. elevating leg, the symptoms are aggravated by movement, bending knee. Associated signs and symptoms: Pertinent positives: nausea, weakness. Treatment prior to arrival includes: no previous treatment. The patient has not experienced similar symptoms in the past. [employer]: 12:40 LMP 2019 Historical: - Allergies: 12:37 Compazine; tw2 12:37 Haldol; tw2 12:37 PENICILLINS; tw2 12:37 Sulfa; tw2 - PMHx: 12:37 Anxiety; Bipolar disorder; Crohn's; Depression; PTSD; Schizophrenia; tw2 - Immunization history:: Adult Immunizations. - Social history:: Smoking status: . - Family history:: not pertinent. ROS: 13:55 Constitutional: Negative for fever, chills, and weight loss, Eyes: Negative for injury, dara pain, redness, and discharge, ENT: Negative for injury, pain, and discharge, Neck: Negative for injury, pain, and swelling, Cardiovascular: Negative for chest pain, palpitations, and edema, Respiratory: Negative for shortness of breath, cough, wheezing, and pleuritic chest pain, Abdomen/GI: Negative for abdominal pain, nausea, vomiting, diarrhea, and constipation, Back: Negative for injury and pain, : Negative for injury, bleeding, discharge, and swelling, Neuro: Negative for headache, weakness, numbness, tingling, and seizure, Psych: Negative for depression, anxiety, suicide ideation, homicidal ideation, and hallucinations, Allergy/Immunology: Negative for hives, rash, and allergies, Endocrine: Negative for neck swelling, polydipsia, polyuria, polyphagia, and marked weight changes, Hematologic/Lymphatic: Negative for swollen nodes, abnormal bleeding, and unusual bruising. 13:55 MS/extremity: Positive for decreased range of motion, erythema, pain, swelling, tenderness, of the right leg and left leg. Exam: 13:55 Constitutional: This is a well developed, well nourished patient who is awake, alert, dara and in no acute distress. Head/Face: Normocephalic, atraumatic. Eyes: Pupils equal round and reactive to light, extra-ocular motions intact. Lids and lashes normal. Conjunctiva and sclera are non-icteric and not injected. Cornea within normal limits. Periorbital areas with no swelling, redness, or edema. ENT: Nares patent. No nasal discharge, no septal abnormalities noted. Tympanic membranes are normal and external auditory canals are clear. Oropharynx with no redness, swelling, or masses, exudates, or evidence of obstruction, uvula midline. Mucous membranes moist. Neck: Trachea midline, no thyromegaly or masses palpated, and no cervical lymphadenopathy. Supple, full range of motion without nuchal rigidity, or vertebral point tenderness. No Meningismus. Chest/axilla: Normal chest wall appearance and motion. Nontender with no deformity. No lesions are appreciated. Cardiovascular: Regular rate and rhythm with a normal S1 and S2. No gallops, murmurs, or rubs. Normal PMI, no JVD. No pulse deficits. Respiratory: Lungs have equal breath sounds bilaterally, clear to auscultation and percussion. No rales, rhonchi or wheezes noted. No increased work of breathing, no retractions or nasal flaring. Abdomen/GI: Soft, non-tender, with normal bowel sounds. No distension or tympany. No guarding or rebound. No evidence of tenderness throughout. Back: No spinal tenderness. No costovertebral tenderness. Full range of motion. Skin: Warm, dry with normal turgor. Normal color with no rashes, no lesions, and no evidence of cellulitis. Neuro: Awake and alert, GCS 15, oriented to person, place, time, and situation. Cranial nerves II-XII grossly intact. Motor strength 5/5 in all extremities. Sensory grossly intact. Cerebellar exam normal. Normal gait. Psych: Awake, alert, with orientation to person, place and time. Behavior, mood, and affect are within normal limits. 13:55 Musculoskeletal/extremity: Extremities: grossly normal except: erythema, pain, swelling, tenderness, ROM: full active range of motion, full passive range of motion, Pulses: Sensation intact. DVT Exam: negative Homans' sign noted on exam, no appreciated bluish discoloration, pain, swelling, tenderness, erythema, increased warmth. 17:16 ECG was reviewed by the Attending Physician. [facility] Vital Signs: 12:40 BP 135 / 72; Pulse 103; Resp 19; Temp 97.9; Pulse Ox 100% on R/A; Weight 73.94 kg; jl7 Height 5 ft. 11 in. (180.34 cm); Pain 8/10; 14:30 BP 134 / 81; Pulse 90; Resp 15; Pulse Ox 100% ; jl7 15:45 BP 132 / 79; Pulse 98; Resp 17; Pulse Ox 100% ; jl7 17:11 BP 132 / 83; Pulse 102; Resp 17; Pulse Ox 100% ; jl7 12:40 Body Mass Index 22.73 (73.94 kg, 180.34 cm) jl7 Procedures: 14:03 Peripheral line: by aseptic technique a peripheral line was placed in the left external [facility] jugular vein. MDM: 12:41 Patient medically screened. [facility] 14:01 Differential diagnosis: contusion, tendonitis. Data reviewed: vital signs, nurses [facility] notes, lab test result(s), EKG, radiologic studies, doppler, plain films. Data interpreted: lithographic etcher: rate is 103 beats/min, rhythm is regular, Pulse oximetry: on room air is 100 %. Test interpretation: by ED physician or midlevel provider: ECG, plain radiologic studies. Counseling: I had a detailed discussion with the patient and/or guardian regarding: the historical points, exam findings, and any diagnostic results supporting the discharge/admit diagnosis, lab results, radiology results, the need for further work-up and treatment in the hospital. 10/26 13:50 Order name: Basic Metabolic Panel; Complete Time: 15:20 [facility] 10/26 13:50 Order name: CBC with Diff; Complete Time: 14:18 [facility] 10/26 13:50 Order name: LFT's; Complete Time: 15:20 [facility] 10/26 13:50 Order name: Magnesium; Complete Time: 15:20 [facility] 10/26 13:50 Order name: NT PRO-BNP; Complete Time: 15:20 [facility] 10/26 13:50 Order name: PT-INR; Complete Time: 14:18 [facility] 10/26 13:50 Order name: Troponin HS; Complete Time: 15:20 [facility] 10/26 13:50 Order name: SARS-COV-2 RT PCR (Document "Date of Onset" if Symptomatic) [facility] 10/26 13:50 Order name: Blood Culture Adult (2) [facility] 10/26 13:50 Order name: Lactate; Complete Time: 15:20 [facility] 10/26 13:50 Order name: Procalcitonin; Complete Time: 15:20 [facility] 10/26 13:50 Order name: Lipase; Complete Time: 15:20 [facility] 10/26 13:56 Order name: Sed Rate; Complete Time: 14:35 10/26 14:02 Order name: UDS [facility] 10/26 13:50 Order name: XRAY Chest (1 view); Complete Time: 15:20 [facility] 10/26 13:50 Order name: EKG; Complete Time: 13:52 [facility] 10/26 13:50 Order name: Cardiac monitoring; Complete Time: 14:30 [facility] 10/26 13:50 Order name: EKG - Nurse/Tech; Complete Time: 15:12 [facility] 10/26 13:50 Order name: IV Saline Lock; Complete Time: 14:30 [facility] 10/26 13:50 Order name: US Extremity Venous W Compression Asher; Complete Time: 15:20 [facility] 10/26 14:55 Order name: Regular [facility] 10/26 15:12 Order name: HCG, Quantitative [facility] 10/26 15:12 Order name: Test Serum, Qualitat [facility] 10/26 15:47 Order name: Urine Dipstick-Ancillary [facility] 10/26 15:48 Order name: Urine --Ancillary (enter results) 10/26 13:50 Order name: Labs collected and sent; Complete Time: 14:30 [facility] 10/26 13:50 Order name: O2 Per Protocol; Complete Time: 14:30 [facility] 10/26 13:50 Order name: O2 Sat Monitoring; Complete Time: 14:30 [facility] 10/26 13:50 Order name: Urine Dipstick-Ancillary (obtain specimen); Complete Time: 16:16 [facility] 10/26 13:50 Order name: Urine Test (obtain specimen); Complete Time: 16:16 dara EC:16 Rate is 97 beats/min. Rhythm is regular. QRS [place] is Normal. VA interval is normal. QRS dara interval is normal. QT interval is normal. No Q waves. T waves are Normal. No ST changes noted. Clinical impression: Normal ECG and No evidence of ischemia. Interpreted by me. Reviewed by me. Administered Medications: 14:22 Drug: NS 0.9% 1000 ml Route: IV; Rate: 1 bolus; Site: left jugular; vg1 15:30 Follow up: Response: No adverse reaction; IV Status: Completed infusion; IV Intake: jl7 1000ml 14:22 Drug: Zofran (Ondansetron) 4 mg Route: IVP; Site: left jugular; vg1 14:45 Follow up: Response: No adverse reaction jl7 14:24 Drug: morphine 4 mg Route: IVP; Site: left jugular; vg1 14:45 Follow up: Response: No adverse reaction; Pain is decreased jl7 14:27 Drug: levofloxacin 750 mg Volume: 150 ml; Route: IVPB; Infused Over: 90 mins; Site: vg1 left jugular; 15:57 Follow up: Response: No adverse reaction; IV Status: Completed infusion; IV Intake: jl7 150ml 16:00 Drug: vancoMYCIN 1 grams Route: IVPB; Infused Over: 2 hrs; Site: left jugular; jl7 17:13 Follow up: Response: No adverse reaction; IV Status: Infusion continued upon admission jl7 Disposition Summary: 10/26/21 14:06 Hospitalization Ordered Hospitalization Status: Inpatient Admission dara Location: Telemetry/[facility] (Inpatient) dara Condition: Fair dara Problem: new dara Symptoms: have improved dara Bed/Room Type: Standard dara Provider: Bart Bauer(10/26/21 14:20) dara Room Assignment: [id number](10/26/21 17:41) bd Diagnosis - Cellulitis and acute lymphangitis of other parts of limb - bilateal lower dara extremities - Edema, unspecified dara Forms: - Medication Reconciliation Form dara - SBAR form dara Signatures: Dispatcher [employer] EDMS Denae Nichols Corey, MD MD cha Calderon, Audri RN RN aa5 Hanna Lechuga RN RN tw2 Arturo Sanchez, RN RN jl7 Eryn Morales, RN RN vg1 Corrections: (The following items were deleted from the chart) 14: 14:06 Megan Giron cha dara 16:57 14:06 dara aa5 17:41 16:57 [facility] aa5
[2021-10-26 14:12] LABS: Absolute Lymphocytes (CBC) 1.3 K/uL (0.7-4.9); Hematocrit 38.1 % (36.0-45.0); Lymphocytes % 26.5 % (15.3-44.8); MPV 7.7 fL (7.6-11.3); RBC Red Blood Cell Count 4.43 M/uL (3.86-4.86)
[2021-10-26 14:13] LABS: Protime INR 0.93
[2021-10-26] MEDS ORDERED: MORPHINE 4 MG/ML SYR ONE (14:17)
[2021-10-26] MEDS ORDERED: Levofloxacin 750mg IV 750 MG/150 ML BAG IV ONE (14:18)
[2021-10-26] MEDS ORDERED: VANCOMYCIN 1 GM/VIAL ONE (14:18)
[2021-10-26] MEDS ORDERED: NA CHLORIDE 0.9% 250 ML ONE (14:18)
[2021-10-26] MEDS ORDERED: ONDANSETRON 4 MG/2 ML VIAL ONE (14:18)
[2021-10-26] MEDS ORDERED: NA CHLORIDE 0.9% 1,000 ML ONE (14:18)
[2021-10-26 14:30] LABS: ALT/SGPT 21 U/L (12-78); AST/SGOT 13 U/L (15-37); Albumin 3.7 g/dL (3.4-5.0); Alkaline Phosphatase 82 U/L (45-117); BUN Blood Urea Nitrogen 22 mg/dL (7-18); Bicarbonate 28 mmol/L (21-32); Bilirubin Total 0.4 mg/dL (0.2-1.0); Glucose Level 104 mg/dL (74-106); Lipase 119 U/L (73-393); Magnesium 2.2 mg/dL (1.8-2.4); NT PRO-BNP 10 pg/mL (<125); Potassium 3.9 mmol/L (3.5-5.1); Protein, Total 7.2 g/dL (6.4-8.2); Sodium Level 136 mmol/L (136-145); Troponin High Sensitivity 3.3 pg/mL (<58.9)
[2021-10-26 14:39] LABS: Bilirubin Direct < 0.1 mg/dL (0-0.2)
[2021-10-26] MEDS ORDERED: ONDANSETRON 4 MG/2 ML VIAL IV PRN (14:50)
[2021-10-26] MEDS ORDERED: ACETAMINOPHEN 500 MG TAB PO PRN (14:50)
--- NOTE | 2021-10-26 14:57 | RAD REPORT ---
EXAM DESCRIPTION: RAD - Chest Single View - 10/26/2021 2:43 pm CLINICAL HISTORY: COUGH COMPARISON: Portable 08/18/2020 TECHNIQUE: AP portable chest image was obtained 10/26/2021 2:43 pm . FINDINGS: Lungs are clear. Heart and vasculature are normal. No measurable pleural effusion and no p neumothorax. No acute bony abnormality seen. No acute aortic findings suspected. IMPRESSION: No acute cardiopulmonary process. No significant change from comparison study.
--- NOTE | 2021-10-26 15:01 | P.HP ---
Certification for Inpatient With expected LOS: >2 Midnights Patient will require the following post-hospital care: None Practitioner: I am a practitioner with admitting privileges, knowledge of patient current condition, hospital course, and medical plan of care. Services: Services provided to patient in accordance with Admission requirements found in Title 42 Section 412.3 of the Code of Federal Regulations Patient History Date of Service: 10/26/21 History of Present Illness: 46-year-old female patient with medical history significant for PTSD, bipolar disorder, anxiety disorder was evaluated in the emergency room for bilateral lower extremity swelling and pain. She also had redness. She reported the pain started about 3 days ago and got worse and she is in significant discomfort so she decided to come to the emergency room. She also had fever with also nausea but no vomiting. In the ED she had lower extremity cellulitis spreading up to upper third of the legs with area of hyperemia and punctate redness all over concerning for significant soft tissue infection. She was asked to be admitted for inpatient care. She reports blood present injury to the extremity however there are scratch menon on the upper extremity which she reported as scratch menon from her cat. Allergies haloperidol [From Haldol] Allergy (Verified 12/09/13 20:26) Unknown haloperidol lactate [From Haldol] Allergy (Verified 12/09/13 20:26) Unknown prochlorperazine [From Compazine] Allergy (Verified 11/03/18 09:36) Unknown prochlorperazine edisylate [From Compazine] Allergy (Verified 12/09/13 20:28) Unknown prochlorperazine maleate [From Compazine] Allergy (Verified 12/09/13 20:28) Unknown Sulfa (Sulfonamide Antibiotics) Allergy (Verified 12/09/13 20:25) Unknown SULFA (SULFONAMIDES) Allergy (Uncoded 12/16/13 05:25) Unknown Home Medications: Amitriptyline HCl 100 mg PO DAILY 11/03/18 Fluoxetine HCl [Prozac*] 20 mg PO BID 11/03/18 clonazePAM [Klonopin*] 2 tab PO TIDP PRN 11/03/18 Famotidine [Pepcid] 20 mg PO BID #60 tab 11/04/18 Gabapentin 600 mg PO BID #30 tablet 11/04/18 Rifaximin [Xifaxan] 550 mg PO BID #28 tablet 11/04/18 Simethicone [Mylicon*] 80 mg PO TID #30 tab 11/04/18 predniSONE [Deltasone*] 10 mg PO DAILY #7 tab 11/04/18 - Past Medical/Surgical History Diabetic: No -: Crohn's colitis -: Depression with anxiety -: Right ovarian cyst -: Chrons -: Tubal Ligation -: Appy -: chrons sx -: Hemhrroid removal -: tonsillectomy -: bilateral knee sx Psychosocial/ Personal History: Patient is . She has 3 children. She does not work. She collects disability - Social History Alcohol use: No CD- Drugs: Yes Caffeine use: Yes Review of Systems General: Fever, Chills Eyes: Unremarkable ENT: Unremarkable Respiratory: Unremarkable Cardiovascular: Unremarkable Gastrointestinal: Unremarkable Genitourinary: Unremarkable Musculoskeletal: Unremarkable Integumentary: Rash, Lesions Neurological: Unremarkable Physical Examination - Physical Exam General: Alert, Oriented x3 HEENT: Atraumatic, Normocephalic Neck: Supple Respiratory: Clear to auscultation bilaterally Cardiovascular: Normal pulses, Regular rate/rhythm Gastrointestinal: Soft and benign Integumentary: Rash(es), Erythema, Warmth Neurological: Normal speech, Normal strength at 5/5 x4 extr, Normal tone - Studies Laboratory Data (last 24 hrs) 10/26/21 13:54: PT 10.2, INR 0.93 10/26/21 13:54: WBC 4.9, Hgb 13.4, Hct 38.1, Plt Count 280 10/26/21 13:54: Sodium 136, Potassium 3.9, BUN 22 H, Creatinine 0.91, Glucose 104, Magnesium 2.2, Total Bilirubin 0.4, AST 13 L, ALT 21, Alkaline Phosphatase 82, Lipase 119 Assessment and Plan - Plan 1.Cellulitis of lower extremities bilaterally: Etiology of cellulitis is ultimately determined however there is concern for hematology spread. There is significant rash in both lower extremity. We will start empiric antibiotic with vancomycin and cefepime for management pending review of cultures. We will follow symptomatology closely. We will start pain control. 2.History of bipolar disorder: We will continue outpatient prescribed medication for management of bipolar disorder. 3.History of anxiety disorder: We will continue patient prescribed medication for management of anxiety disorder. Prophylaxis: Lovenox for DVT prophylaxis CODE STATUS: Full code Disposition: For possible discharge in the next 48 hours. - Advance Directives Does patient have a Living Will: Yes Does patient have a Durable POA for Healthcare: Yes
--- NOTE | 2021-10-26 15:02 | RAD REPORT ---
EXAM DESCRIPTION: US - Extrem Venous W Compress Asher - 10/26/2021 2:50 pm CLINICAL HISTORY: Pain;Swelling COMPARISON: None. TECHNIQUE: Real-time sonographic evaluation of the bilateral lower extremity common femoral, superfi cial femoral, popliteal and posterior tibial veins was performed. FINDINGS: Normal compressibility, flow augmentation, phasic flow and spontaneous flow are identified in the left and right lower extremity common femoral, superficial femoral, popliteal and posterior t ibial veins. No intraluminal filling defects seen. IMPRESSION: No DVT in either lower extremity.
[2021-10-26 15:47] LABS: Urine Blood Trace-intact (Negative); Urine Glucose Negative (Negative); Urine Protein Negative (Negative)
[2021-10-26 16:28] LABS: Barbiturates NEGATIVE (NEGATIVE); Benzodiazepines NEGATIVE (NEGATIVE); Cocaine NEGATIVE (NEGATIVE); METHAMPHETAM POSITIVE (NEGATIVE); Methadone NEGATIVE (NEGATIVE); Opiates NEGATIVE (NEGATIVE); Phencyclidine NEGATIVE (NEGATIVE); THC Cannibis NEGATIVE (NEGATIVE)
[2021-10-26] MEDS: ENOXAPARIN 40 MG/0.4 ML SQ SCH (17:00)
[2021-10-26 18:56] VITALS: O2SAT 100
[2021-10-26] MEDS: MORPHINE 2 MG/ML SYR IV PRN (19:30)
[2021-10-26] MEDS: NA CHLORIDE 0.9% 1,000 ML IV SCH (19:31)
[2021-10-26] MEDS: CEFEPIME 1 GM in NA CHLORIDE 0.9% 100 ML IV SCH ×2 (20:44→20:51)
[2021-10-26] MEDS: GABAPENTIN 300 MG CAP PO SCH (20:45)
[2021-10-26] MEDS: FAMOTIDINE 20 MG TAB PO SCH (20:45)
[2021-10-26] MEDS ORDERED: HOME MED 1 EA UNK (Gabapentin [Gabapentin] 600 MG Tablet) PO SCH (21:00)
[2021-10-27] MEDS: clonazePAM 1 MG TAB PO PRN ×3 (00:01→20:01)
[2021-10-27] MEDS: MORPHINE 2 MG/ML SYR IV PRN ×2 (00:01→07:38)
[2021-10-27] MEDS: NA CHLORIDE 0.9% 1,000 ML IV SCH ×4 (01:00→22:27)
[2021-10-27] MEDS: VANCOMYCIN 1.25 GM in NA CHLORIDE 0.9% 250 ML IVPB SCH ×2 (01:44→18:00)
--- NOTE | 2021-10-27 07:21 | P.PN ---
Subjective Date of Service: 10/28/21 Chief Complaint: leg pain. Subjective: No new changes, Improving Physical Examination - Vital Signs Temperature: 98.4 F Blood Pressure: 110/64 Pulse: 81 Respirations: 19 Pulse Ox (%): 100 - Physical Exam General: Alert HEENT: Normocephalic Neck: Supple Respiratory: Normal air movement Cardiovascular: Regular rate/rhythm, Normal S1 S2 Gastrointestinal: Soft and benign Musculoskeletal: Erythema (Improved significantly.) Neurological: Normal speech, Normal strength at 5/5 x4 extr - Studies Laboratory Data (last 24 hrs) 10/26/21 13:54: PT 10.2, INR 0.93 10/26/21 13:54: WBC 4.9, Hgb 13.4, Hct 38.1, Plt Count 280 10/26/21 13:54: Sodium 136, Potassium 3.9, BUN 22 H, Creatinine 0.91, Glucose 104, Magnesium 2.2, Total Bilirubin 0.4, AST 13 L, ALT 21, Alkaline Phosphatase 82, Lipase 119 Assessment And Plan - Plan 1.Cellulitis of lower extremities bilaterally: Erythema of the lower extremity is much improved significantly. There is a thought process for hematologic spread of infectious agent from scratch episode related to her own pets. We will follow blood cultures closely. 2.History of bipolar disorder: We will continue outpatient prescribed medication for management of bipolar disorder. 3.History of anxiety disorder: We will continue patient prescribed medication for management of anxiety disorder. .
[2021-10-27] MEDS: GABAPENTIN 300 MG CAP PO SCH ×2 (07:38→20:02)
[2021-10-27] MEDS: FAMOTIDINE 20 MG TAB PO SCH ×2 (07:38→20:02)
[2021-10-27] MEDS: FLUOXETINE 20 MG CAP PO SCH (07:38)
[2021-10-27] MEDS: CEFEPIME 1 GM in NA CHLORIDE 0.9% 100 ML IV SCH ×2 (07:39→20:02)
[2021-10-27] MEDS: AMITRIPTYLINE 50 MG TAB PO SCH (07:39)
[2021-10-27] MEDS ORDERED: INFLUENZA VACCINE (for 6+ mo) 0.5 ML DOSE IMVAC ONE (08:00)
[2021-10-27] MEDS ORDERED: HOME MED 1 EA UNK (Amitriptyline Hcl [Amitriptyline Hcl] 100 MG Tablet) PO SCH (09:00)
--- NOTE | 2021-10-27 12:35 | EKG ---
Test Date: 2021-10-26 Test Time: 17:14:54 [employer] Supervisor: KEE MEASUREMENT RESULTS: Intervals: Rate: 97 OH: 156 QRSD: 86 QT: 368 QTc: 467 [place]: P: 81 OH: 156 QRS: 80 T: 74 INTERPRETIVE STATEMENTS: Normal sinus rhythm Normal ECG Compared to ECG 08/18/2020 00:43:00 No significant changes Electronically Signed On 10-27-21 12:33:13 CDT by Ephraim Rausch
[2021-10-27] MEDS: ENOXAPARIN 40 MG/0.4 ML SQ SCH (16:02)
[2021-10-28] MEDS: VANCOMYCIN 1.25 GM in NA CHLORIDE 0.9% 250 ML IVPB SCH (01:37)
[2021-10-28] MEDS ORDERED: clonazePAM 0.5 MG TAB PO PRN (08:19)
[2021-10-28 08:23] VITALS: BP 110/64; TEMP 98.4
[2021-10-28] MEDS: NA CHLORIDE 0.9% 1,000 ML IV SCH (08:55)
[2021-10-28] MEDS: FLUOXETINE 20 MG CAP PO SCH (08:56)
[2021-10-28] MEDS: AMITRIPTYLINE 50 MG TAB PO SCH (08:56)
[2021-10-28] MEDS: FAMOTIDINE 20 MG TAB PO SCH (08:57)
[2021-10-28] MEDS: GABAPENTIN 300 MG CAP PO SCH (08:57)
[2021-10-28] MEDS ORDERED: DOXYCYCLINE 100 MG CAP PO SCH (09:00)
[2021-10-28] MEDS ORDERED: AMOX/K CLAV 875 MG TAB PO SCH (09:00)
--- NOTE | 2021-10-28 13:42 | P.DS ---
Admission Date: 10/26/21 Discharge Date: 10/28/21 Disposition: AMA-LEFT AGAINST MEDICAL ADVIC Discharge Condition: FAIR Reason for Admission: leg pain. Consultations: None. Brief History of Present Illness: 46-year-old female patient with medical history significant for PTSD, bipolar disorder, anxiety disorder was evaluated in the emergency room for bilateral lower extremity swelling and pain. She also had redness. She reported the pain started about 3 days ago and got worse and she is in significant discomfort so she decided to come to the emergency room. She also had fever with also nausea but no vomiting. In the ED she had lower extremity cellulitis spreading up to upper third of the legs with area of hyperemia and punctate redness all over concerning for significant soft tissue infection. She was asked to be admitted for inpatient care. She reports blood present injury to the extremity however there are scratch menon on the upper extremity which she reported as scratch menon from her cat. Hospital Course: Over the course of hospital stay she stabilized with administration of antibiotic of vancomycin and cefepime. Lower extremity rash improved and his sy mptoms also improved greatly. She also was noted to be lethargic and somnolent and there was concern for use of substances. On the day of a.m. discharge AGAINST MEDICAL ADVICE from patient she had stated that she wants BP medication and if she is not given she was seeking on the street. Treating physician F evaluate the situation and did not see any significant reason for continuation of narcotic analgesics so this was discontinued. She decided to leave AGAINST MEDICAL ADVICE stating that if she is now treated with pain meds she will have to leave because of the major reason why she came for admission. On examination: Pertinent condition fair. Cardiovascular system: Regular with rhythm, S1, S2. Chest: Good air entry noted bilaterally. Musculoskeletal: Hyperemia in lower extremities much improved. Neurologic: Patient is alert and oriented to time, place and person. Vital Signs/Physical Exam: Temp Pulse Resp BP Pulse Ox 98.4 F 81 19 110/64 100 10/28/21 08:23 10/28/21 08:23 10/28/21 08:23 10/28/21 08:23 10/28/21 08:23 Laboratory Data at Discharge: WBC 4.9 K/uL (4.3-10.9) 10/26/21 13:54 Hgb 13.4 g/dL (12.0-15.0) 10/26/21 13:54 Hct 38.1 % (36.0-45.0) 10/26/21 13:54 Plt Count 280 K/uL (152-406) 10/26/21 13:54 PT 10.2 SECONDS (9.5-12.5) 10/26/21 13:54 INR 0.93 10/26/21 13:54 Sodium 136 mmol/L (136-145) 10/26/21 13:54 Potassium 3.9 mmol/L (3.5-5.1) 10/26/21 13:54 BUN 22 mg/dL (7-18) H 10/26/21 13:54 Creatinine 0.91 mg/dL (0.55-1.3) 10/26/21 13:54 Glucose 104 mg/dL (74-106) 10/26/21 13:54 Magnesium 2.2 mg/dL (1.8-2.4) 10/26/21 13:54 Total Bilirubin 0.4 mg/dL (0.2-1.0) 10/26/21 13:54 AST 13 U/L (15-37) L 10/26/21 13:54 ALT 21 U/L (12-78) 10/26/21 13:54 Alkaline Phosphatase 82 U/L (45-117) 10/26/21 13:54 Lipase 119 U/L (73-393) 10/26/21 13:54 Home Medications: RX: Fluoxetine HCl [Prozac*] 20 mg PO BID 11/03/18 RX: clonazePAM [Klonopin*] 2 tab PO TID 11/03/18 RX: Famotidine [Pepcid*] 20 mg PO BID #60 tab 11/04/18 RX: Simethicone [Mylicon*] 80 mg PO TID #30 tab 11/04/18 Amoxicillin/Potassium Clav [Augmentin 500-125 Tablet] 1 each PO TID 7 Days #21 tablet 10/28/21 RX: Doxycycline [Vibramycin IV*] 100 mg PO BID 7 Days #14 cap 10/28/21 New Medications: Amoxicillin/Potassium Clav [Augmentin 500-125 Tablet] 1 each PO TID 7 Days #21 tablet RX: Doxycycline [Vibramycin IV*] 100 mg PO BID 7 Days #14 cap Followup: NONE,NONE [Primary Care Provider] -
[2021-10-28] MEDS ORDERED: VANCOMYCIN 1 GM in NA CHLORIDE 0.9% 250 ML IVPB SCH (14:00)
== END 2021-10-28 11:30 | disposition left against medical advice (07) | DRG 603 ==
LOC: ER 12:30 → ERHOLD 14:51 → 2ND 18:14
PROVIDERS: ADMIT Internal Medicine Nephrology; ATTEND Internal Medicine Nephrology
DX: L03.116 Cellulitis of left lower limb (principal); L03.115 Cellulitis of right lower limb; W55.03XA Scratched by cat, initial encounter; Y92.009 Unspecified place in unspecified non-institutional (private) residence as the place of occurrence of the external cause; F31.9 Bipolar disorder, unspecified; Z53.29 Procedure and treatment not carried out because of patient's decision for other reasons; F43.10 Post-traumatic stress disorder, unspecified; F41.9 Anxiety disorder, unspecified; Z88.2 Allergy status to sulfonamides; F15.10 Other stimulant abuse, uncomplicated; Z20.822 Contact with and (suspected) exposure to COVID-19
CPT/HCPCS: 36415; 71045; 80048; 80076; 80202; 80307; 81003; 81025; 83605; 83690; 83735; 83880; 84145; 84484; 84703; 85025; 85610; 85652; 87040; 93005; 93970; 96365; 96366; 96367; 96375; 99285; J0692; J1650; J2270; J2405; J3370; J7030; J7050; U0003

== ENCOUNTER 2021-11-26 14:15 | Emergency (ER) | payer OTHER ==
--- OUTSIDE RECORDS SUMMARY | 2021-11-26 14:18 | XMS REPORT | Continuity of Care Document ---
:1975 Author Organization [facility] t Address [address] [place] [address] Care Team Providers Name Role Phone Thee ARAYA Primary Care Physician Unavailable STEPHANIE Attending Clinician [...] Number Effective Date Expiration Date Chirag stone [facility] [id number] 2018 00:00:00 PLUS Problems Condition Condition Condition Status Onset Resolution Last Treating Co mments Source Name Details Category Date Date Treatment Clinician Date Left wrist Left wrist Disease Active U nivers pain pain 8-03 ity of 00:00: 00 Medical Branch Decreased Decreased Disease Active Uni vers activities activities 8-03 it y of of daily of daily 00:00: [place] living living 00 Medical (ADL) (ADL) Branch Limitation Limitation Disease Active U nivers of joint of joint 8-03 ity of motion of motion of 00:00: [...] Added automatic ally from request for surgery [id number] 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 U nivers ctive ctive 0-14 [place] of disorder[place] depressive 00 Me dical type type Branch Overdose Overdose Disease Active 2014-08 Unive rs 0-13 ity of 00:00: Medical Branch Endotrache Endotrache Disease Active 2014-08 U nivers ally ally 0-13 ity of intub[place] Sexual Sexual Disease Active 2014-08 [...] 2014-08 Univers INGREDI 0-15 ity of 00:00: Medical Branch Tramadol Propensi Active Hives 2014-08 [...] Quantity Comments Source Exposure to Not sure [facility] SARS-CoV-2 [facility] (event) [place] Alcohol intake 2021-03-18 2021-03-18 Current drinker of Un iversity of 00:00:00 00:00:00 alcohol (finding) [facility] Tobacco use and 2021-03-18 2021-03-18 Never used Universit y of exposure 00:00:00 00:00:00 [facility] Tobacco Comment 2020-01-22 2020-01-22 ADVISED TO SPEAK W/ University of 00:00:00 00:00:00 RE RX/PROGRAMS [facility] Alcohol Comment 2019-05-04 2019-05-04 occassionally Univer sity of 00:00:00 00:00:00 [facility] Sex Assigned At [birth year] Universit y of 00:00:00 00:00:00 [facility] Smoking Status Start Date Stop Date Source Current every day smoker 2021-03-18 00:00:00 Uni versity of [facility] Medications Ordered Filled Start Stop Current Ordering Indication Dosage Frequency Signature Comments Components Source Medication Medication Date Date Medication? Clinician (SIG) Name Name hilary 2020- No [id number] 20mg Univers ne 03-23 9109 ity of acetonide 19:15: 18:05 [place] (KENALOG) 00 :00 Medical injection Branch 20 mg triamcinolo 2020- No [id number] 20mg 20 mg, Univers ne 03-23 9109 Intrasynov ity of acetonide 19:15: 18:05 ial, ONCE, [place] (KE[place]LOG[place] 00 :00 1 dose, Medical injection Mon Branch 20 mg 03/23/21 at 1415, Routine gabapentin 2020- No [id number] Take 1 Univers 100 mg 03-23 9109 capsule by ity of capsule 00:00: 04:59 mouth at [place] 00 :00 bedtime Medical for 7 Branch days, THEN 2 capsules at bedtime for 7 days, THEN 3 capsules at bedtime for 30 days. Diclofenac Yes [id number] Apply to [facility] Sodium 03-18 area(s) 4 ity of (VOLTAREN) 00:00: (four) [place] 1 % gel 00 times Medical daily as Branch needed for Pain (scale 1-3), Pain (scale 4-6) or Pain (scale 7-10). methocarbam Yes [id number] 500mg Take 1 Univers oL 500 mg 7-21 tablet by ity o f tablet 00:00: mouth at [place] 00 bedtime as Medical needed Branch (muscle spasms). methylPREDN 2019-08 Yes [id number] 84mg Take 21 Univers ISolone 2-04 tablets [...] [place] 56 daily. Medical Branch furosemide Yes [id number] 20mg Take 1 Univers 20 mg 9-15 tablet by ity of tablet 00:00: mouth [place] 00 every Medical morning. Branch sulfamethox Yes [id number] 1{tbl} Take 1 Univers azole-trime 9-13 [id number] tablet by i ty of thoprim 00:00: mouth 2 [place] (BACTRIM 00 (two) Medical DS) 800-160 times Branch mg per daily. tablet FLUoxetine 2014-08 Yes 20mg Take 1 Cap U nivers (PROZAC) 20 0-20 by mouth ity of mg capsule 00:00: daily. [address] clonazePAM Yes 1mg Take 1 Tab U nivers (KLONOPIN) 5-21 by mouth 3 ity of 1 mg tablet 00:00: (three) Jagjit as 00 times Medical daily. Branch zolpidem Yes 10mg Take 1 Tab Uni vers (AMBIEN) 10 5-21 by mouth ity of mg tablet 00:00: at bedtime [place] 00 as needed Medical for Sleep. Branch Immunizations Ordered Filled Immunization Date Status Comments Sour e Immunization Name Name SARS-COV-2 COVID-19 2021-03-03 Completed Unive rsity of PFIZER VACCINE 00:00:00 [facility] Vital Signs Vital Name Observation Time Observation Value Comments Source Body temperature 2021-03-23 16:37:00 36.67 Bozena [facility] Body weight 2021-03-23 16:37:00 71.85 kg [facility] BMI 2021-03-23 16:37:00 22.09 kg/m2 [facility] Procedures This patient has no known procedures. Encounters Start End Encounter Admission Attending Care Care Encounter Source Date/Time Date/Time Type Type Clinicians Facility Department ID 2021-05-29 Emergency [facility] [id number] [facility] [id number] Univers 17:15:43 [facility] 2021-05-29 Outpatient STEPHANIE [facility] [id number] Univers 00:50:20 CHRIS [facility] 2015-05-23 Inpatient C [facility] [id number] St. 13:51:00 [facility] 2021-05-06 2021-05-06 Outpatient Ish TORRES [facility] [id number] Univers 12:30:00 12:30:00 [facility] [id number] [facility] 2021-05-06 2021-05-06 Outpatient R STEPHANIE [facility] [id number] Univers 12:30:00 12:30:00 CHRIS [facility] 2021-04-10 2021-04-10 Outpatient [facility] [id number] Univers 20:00:00 20:00:00 [id number] [facility] 2021-04-10 2021-04-10 Outpatient R [facility] [id number] Univers 20:00:00 20:00:00 [facility] 2021-03-26 2021-03-26 Outpatient R [facility] [id number] Univers 15:15:00 15:15:00 [id number] [facility] 2021-03-24 2021-03-24 [facility] [id number] Univers 11:00:00 [facility]:00:00 [facility] 2021-03-23 2021-03-23 [facility] [id number] Univers 11:30:52 11:40:[address] [facility] [id number] it y of CARE [id number] Darek LOMELI [id number] [address] 2021-03-23 2021-03-23 Outpatient R [facility] [id number] Univers 11:10:00 11:10:00 CHRIS [id number] [facility] 2021-03-23 2021-03-23 Outpatient R FAILLAAL[facility] [id number] Univers 11:10:00 11:10:00 CHRIS [facility] 2021-03-18 2021-03-18 Outpatient R LAMPHERE, [facility] [id number] Univers 14:45:00 14:45:00 BENJAMÍN [id number] [facility] 2021-03-18 2021-03-18 Outpatient R LAMPHERE, [facility] [id number] Univers 14:45:00 14:45:00 BENJAMÍN [facility] 2021-03-03 2021-03-03 Outpatient [facility] [id number] Univers 15:40:00 15:40:00 [facility] 2021-03-03 2021-03-03 Outpatient R [facility] [id number] Univers 14:45:00 14:45:00 [id number] [facility] 2021-03-03 2021-03-03 Outpatient R [facility] [id number] Univers 14:45:00 14:45:00 [facility] 2021-02-18 2021-02-18 Outpatient R RICKEY, [facility] [id number] Univers 09:30:00 09:30:00 ERIKA [facility] 2021-02-18 2021-02-18 Outpatient R IGNACIO, [facility] [id number] Univers 09:00:00 09:00:00 BENJAMÍN [id number] [facility] 2021-02-18 2021-02-18 Outpatient R IGNACIO, [facility] [id number] Univers 09:00:00 09:00:00 BENJAMÍN [facility] 2021-02-04 2021-02-04 Outpatient R IGNACIO, [facility] [id number] Univers 11:00:00 11:00:00 BENJAMÍN [id number] [facility] 2021-02-03 2021-02-03 Outpatient R JAMES [facility] [id number] Univers 10:15:00 10:15:00 HEATHER [id number] [facility] 2021-02-03 2021-02-03 Outpatient R JAMES [facility] [id number] Univers 10:15:00 10:15:00 HEATHER [facility] 2021-01-19 2021-01-19 Outpatient R JAMES [facility] [id number] Univers 14:30:00 14:30:00 HEATHER [id number] [facility] 2021-01-19 2021-01-19 Outpatient R LANDYSTU [facility] [id number] Univers 14:30:00 14:30:00 HEATHER [facility] 2020-12-23 2020-12-23 Telephone [facility] [id number] 00:00:00 00:00:00 Prachi Jurado [id number] Polina [id number] [facility] [id number] [facility] [address] [facility] 2020-09-24 2020-09-24 Outpatient R BETYNIRALI [facility] [id number] Univers 13:30:00 13:30:00 CHRIS [id number] [facility] 2020-09-24 2020-09-24 Outpatient R [facility] [id number] Univers 13:30:00 13:30:00 CHRIS [facility] 2020-07-04 2020-07-04 Office [facility] [id number] 10:14:34 10:52:53 Visit [place] [id number] Surgical [id number] Specialti [id number] [place] 2020-07-04 2020-07-04 Outpatient R [facility] [id number] Univers 10:15:00 10:15:00 SONALI [facility] 2020-07-04 2020-07-04 Outpatient R [facility] [id number] Univers 10:15:00 10:15:00 SONALI [facility] 2020-05-06 2020-05-06 Outpatient R [facility] [id number] Univers 14:30:00 14:30:00 PRACHI [facility] 2020-04-21 2020-04-21 Outpatient R [facility] [id number] Univers 12:30:00 12:30:00 [id number] [facility] 2020-04-21 2020-04-21 Outpatient R CAPO [facility] [id number] Univers 12:30:00 12:30:00 SEGUNDO [facility] 2020-03-19 2020-03-19 Outpatient R [facility] [id number] Univers 15:40:00 15:40:00 CHRIS [id number] [facility] 2020-03-19 2020-03-19 Outpatient R [facility] [id number] Univers 15:40:00 15:40:00 CHRIS [facility] 2020-02-27 2020-02-27 Outpatient R STEPHANIE, [facility] [id number] Univers 13:20:00 13:20:00 CHRIS [id number] [facility] 2020-02-27 2020-02-27 Outpatient R STEPHANIE [facility] [id number] Univers 13:20:00 13:20:00 CHRIS [facility] 2020-01-24 2020-01-24 Outpatient [facility] [id number] Univers 11:30:00 11:30:[id number] [place] [address] 2020-01-24 2020-01-24 Outpatient Ish TORRES [facility] [id number] Univers 11:30:00 11:30:00 CHRIS [facility] 2019-10-08 2019-10-08 Outpatient Ish [facility] [id number] Univers 15:30:00 15:30:00 CHRIS [facility] 2018-11-07 2018-11-07 Emergency E MHBL [id number] MHBL 21:39:00 21:39:00 Results This patient has no known results.
[2021-11-26] MEDS ORDERED: MORPHINE 4 MG/ML SYR ONE (14:55)
[2021-11-26] MEDS ORDERED: ONDANSETRON 4 MG (ODT) TAB ONE (14:56)
--- NOTE | 2021-11-26 15:30 | RAD REPORT ---
EXAM DESCRIPTION: RAD - Knee Left 3 View - 11/26/2021 3:12 pm CLINICAL HISTORY: fall Fall, pain and swelling COMPARISON: Knee Left 3 View dated 07/20/2016 FINDINGS: No acute fracture or dislocation. Moderate soft tissue swelling affects the patellar tendo n. No joint effusion.
--- NOTE | 2021-11-26 15:31 | RAD REPORT ---
EXAM DESCRIPTION: RAD - Tib Fib Left - 11/26/2021 3:12 pm CLINICAL HISTORY: fall COMPARISON: No comparisons FINDINGS: No acute fracture or dislocation. Hardware present tibial tuberosity.
--- NOTE | 2021-11-26 15:31 | RAD REPORT ---
EXAM DESCRIPTION: RAD - Ankle Left 3 View - 11/26/2021 3:12 pm CLINICAL HISTORY: fall COMPARISON: Ankle Left 3 View dated 07/20/2016 FINDINGS: Soft tissue swelling about the ankle. No acute fracture or dislocation.
--- NOTE | 2021-11-26 15:32 | RAD REPORT ---
EXAM DESCRIPTION: RAD - Foot Left 3 View - 11/26/2021 3:12 pm CLINICAL HISTORY: fall COMPARISON: No comparisons FINDINGS: Soft tissue swelling is seen along the dorsum of the forefoot. Small fracture is likely pr esent involving the medial base of the distal phalanx of the great toe.
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
[2021-11-26 19:12] VITALS: TEMP 97.8
[2021-11-26 19:14] VITALS: BP 138/90; O2SAT 99
== END 2021-11-26 17:15 | disposition home or self-care (01) ==
LOC: ER 14:15
DX: M23.8X2 Other internal derangements of left knee (principal); S93.402A Sprain of unspecified ligament of left ankle, initial encounter; S92.422A Displaced fracture of distal phalanx of left great toe, initial encounter for closed fracture; V19.9XXA Pedal cyclist (driver) (passenger) injured in unspecified traffic accident, initial encounter; F20.9 Schizophrenia, unspecified; Z88.0 Allergy status to penicillin; Z88.1 Allergy status to other antibiotic agents; Z88.2 Allergy status to sulfonamides; Z88.5 Allergy status to narcotic agent
CPT/HCPCS: 96372; 99284

== ENCOUNTER 2021-12-14 13:42 | Emergency (ER) | payer OTHER ==
--- OUTSIDE RECORDS SUMMARY | 2021-12-14 13:46 | XMS REPORT | Continuity of Care Document ---
:1975 Author Organization [facility] t Address [address] [place] [address] Care Team Providers Name Role Phone QUIANA, [...] Number Effective Date Expiration Date Chirag stone [facility] [id number] 2018 00:00:00 PLUS Problems Condition Condition Condition Status Onset Resolution Last Treating Co mments Source Name Details Category Date Date Treatment Clinician Date Left wrist Left wrist Disease Active U nivers pain pain - ity of 00:00: [place] 00 Medical Branch Decreased Decreased Disease Active Uni vers activities activities 8- it y of of daily of daily 00:00: [place] living living 00 Medical (ADL) (ADL) Branch [...] Added automatic ally from request for surgery [id number] 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 (event) [place] Alcohol intake 2021-03-18 2021-03-18 Current drinker of Un iversity of 00:00:00 00:00:00 alcohol (finding) [facility] Tobacco use and 2021-03-18 2021-03-18 Never used Universit y of exposure 00:00:00 00:00:00 [facility] Tobacco Comment 2020-01-22 2020-01-22 ADVISED TO SPEAK W/ University of 00:00:00 00:00:00 RE RX/PROGRAMS [facility] Alcohol Comment 2019-05-04 2019-05-04 occassionally Univer sity of 00:00:00 00:00:00 [facility] Sex Assigned At [birth year] Universit y of 00:00:00 00:00:00 [facility] Smoking Status Start Date Stop Date Source Current every day smoker 2021-03-18 00:00:00 Uni versity of [facility] Medications Ordered Filled Start Stop Current Ordering Indication Dosage Frequency Signature Comments Components Source Medication Medication Date Date Medication? Clinician (SIG) Name Name tamikokingangelita 202- No [id number] 20mg Univers ne 03-23 9109 ity of acetonide 19:15: 18:05 [place] (KENALOG) 00 :00 Medical injection Branch 20 mg triamcinolo 2020- No [id number] 20mg 20 mg, Univers ne 03-23 9109 Intrasynov ity of acetonide 19:15: 18:05 ial, ONCE, [place] (KE[place]LOG[place] 00 :00 1 dose, Medical injection Mon Branch 20 mg 03/23/21 at 1415, Routine gabapentin 2020- No [id number] Take 1 Univers 100 mg 03-23 9109 capsule by ity of capsule 00:00: 04:59 mouth at [place] 00 :00 bedtime Medical for 7 Branch days, THEN 2 capsules at bedtime for 7 days, THEN 3 capsules at bedtime for 30 days. Diclofenac Yes [id number] Apply to [facility] Sodium 03-18 area(s) 4 ity of (VOLTAREN) 00:00: (four) [place] 1 % gel 00 times Medical daily as Branch needed for Pain (scale 1-3), Pain (scale 4-6) or Pain (scale 7-10). methocarbam Yes [id number] 500mg Take 1 Univers oL 500 mg 7-21 tablet by ity o f tablet 00:00: mouth at [place] 00 bedtime as Medical needed Branch (muscle spasms). methylPREDN 2019-08 Yes [id number] 84mg Take 21 Univers ISolone 2-04 tablets [...] [place] 56 daily. Medical Branch furosemide Yes [id number] 20mg Take 1 Univers 20 mg 9-15 tablet by ity of tablet 00:00: mouth [place] 00 every Medical morning. Branch sulfamethox Yes [id number] 1{tbl} Take 1 Univers azole-trime 9-13 [id number] tablet by i ty of thoprim 00:00: mouth 2 [place] (BACTRIM 00 (two) Medical DS) 800-160 times Branch mg per daily. tablet FLUoxetine 2014-08 Yes 20mg Take 1 Cap U nivers (PROZAC) 20 0-20 by mouth ity of mg capsule 00:00: daily. [address] Branch clonazePAM Yes 1mg Take 1 [...] Immunizations Ordered Filled Immunization Date Status Comments [facility] e Immunization Name Name SARS-COV-2 COVID-19 2021-03-03 Completed [facility] P[facility]ER VACCINE 00:00:00 [facility] Vital Signs Vital Name Observation Time Observation Value Comments Source Body temperature 2021-03-23 16:37:00 36.67 [facility] [place] [facility] Body weight 2021-03-23 16:37:00 71.85 kg [facility] BMI 2021-03-23 16:37:00 22.09 kg/m2 [facility] Procedures This patient has no known procedures. Encounters Start End Encounter Admission Attending Care Care Encounter Source Date/Time Date/Time Type Type Clinicians Facility Department ID 2021-05-29 Emergency [facility] [id number] [facility]29 Emergency [facility] [id number] Univers 17:15:43 [facility] [place] [facility] 2021-05-29 Outpatient STEPHANIE [facility] [id number] Univers 00:50:20 [facility] 2015-05-23 Inpatient C [facility] [id number] [facility]. 13:51:00 [facility] 2021-05-06 2021-05-06 Outpatient Ish TORRES [facility] [id number] Univers 12:30:00 12:30:00 [facility] [id number] [facility] 2021-05-06 2021-05-06 Outpatient Ish TORRES [facility] [id number] Univers 12:30:00 12:30:00 CHRIS [facility] [place] [facility] 2021-04-10 2021-04-10 Outpatient [facility] [id number] Univers 20:00:00 20:00:00 [id number] ity [facility] 2021-04-10 2021-04-10 Outpatient R [facility] [id number] Univers 20:00:00 20:00:00 [facility] [place] [facility] 2021-03-26 2021-03-26 Outpatient R [facility] [id number] Univers 15:15:00 15:15:00 [id number] [facility] [place] [facility] 2021-03-24 2021-03-24 [facility] [id number] Univers 11:00:00 11:00:00 SEGUNDO [facility] [place] [facility] 2021-03-23 2021-03-23 Office [facility] [id number] Univers 11:30:52 11:40:52 Visit Chris HEARN [id number] y of CARE [id number] Darek LOMELI [id number] [address] 2021-03-23 2021-03-23 [facility] [id number] Univers 11:10:00 11:10:00 CHRIS [id number] [facility] [place] [facility] 2021-03-23 2021-03-23 Outpatient R FAILLACE, [facility] [id number] Univers 11:10:00 11:10:00 CHRIS [facility] [place] [facility] 2021-03-18 2021-03-18 Outpatient R LAMPHERE, [facility] [id number] Univers 14:45:00 14:45:00 BENJAMÍN [id number] [facility] [place] [facility] 2021-03-18 2021-03-18 Outpatient R LAMPHERE, [facility] [id number] Univers 14:45:00 14:45:00 BENJAMÍN [facility] [place] [facility] 2021-03-03 2021-03-03 [facility] [id number] Univers 15:40:00 15:40:00 SEGUNDO [facility] [place] [facility] 2021-03-03 2021-03-03 Outpatient R [facility] [id number] Univers 14:45:00 14:45:00 [id number] [facility] [place] [facility] 2021-03-03 2021-03-03 Outpatient R [facility] [id number] Univers 14:45:00 14:45:00 ity [facility] 2021-02-18 2021-02-18 Outpatient R LANG, [facility] [id number] Univers 09:30:00 09:30:00 ERIKA [facility] [place] [facility] 2021-02-18 2021-02-18 Outpatient R LAMPMATILDA, [facility] [id number] Univers 09:00:00 09:00:00 BENJAMÍN [id number] [facility] [place] [facility] 2021-02-18 2021-02-18 Outpatient R LAMPMATILDA, [facility] [id number] Univers 09:00:00 09:00:00 BENJAMÍN [facility] [place] [facility] 2021-02-04 2021-02-04 Outpatient R IGNACIO, [facility] [id number] Univers 11:00:00 11:00:00 BENJAMÍN [id number] [facility] [place] [facility] 2021-02-03 2021-02-03 Outpatient R JAMES, [facility] [id number] Univers 10:15:00 10:15:00 HEATHER [id number] [facility] [place] [facility] 2021-02-03 2021-02-03 Outpatient R JAMES [facility] [id number] Univers 10:15:00 10:15:00 HEATHER [facility] [place] [facility] 2021-01-19 2021-01-19 Outpatient R JAMES [facility] [id number] Univers 14:30:00 14:30:00 HEATHER [id number] [facility] [place] [facility] 2021-01-19 2021-01-19 Outpatient R JAMES [facility] [id number] Univers 14:30:00 14:30:00 HEATHER [facility] [place] [facility] 2020-12-23 2020-12-23 Telephone [facility] [id number] 00:00:00 00:00:00 Prachi Jurado [id number] [place] [id number] [facility] [id number] [facility] [address] 2020-09-24 2020-09-24 Outpatient R STEPHANIE [facility] [id number] Univers 13:30:00 13:30:00 CHRIS [id number] [facility] [place] [facility] 2020-09-24 2020-09-24 Outpatient R STEPHANIE [facility] [id number] Univers 13:30:00 13:30:00 CHRIS [facility] [place] [facility] 2020-07-04 2020-07-04 Office [facility] [id number] 10:14:34 10:52:53 Visit [facility] [id number] Surgical [id number] [facility] [id number] Sreedhar Jurado 2020-07-04 2020-07-04 [facility] [id number] Univers 10:15:00 10:15:00 SONALI [facility] 2020-07-04 2020-07-04 [facility] [id number] Univers 10:15:00 10:15:00 SONALI [facility] [place] [facility] 2020-05-06 2020-05-06 Outpatient R MAGALY, [facility] [id number] Univers 14:30:00 14:30:00 PRACHI [facility] [place] [facility] 2020-04-21 2020-04-21 Outpatient R [facility] [id number] Univers 12:30:00 12:30:00 [id number] [facility] [place] [facility] 2020-04-21 2020-04-21 Outpatient R CAPO [facility] [id number] Univers 12:30:00 12:30:00 SEGUNDO [facility] [place] [facility] 2020-03-19 2020-03-19 Outpatient R BETYNIRALI [facility] [id number] Univers 15:40:00 15:40:00 CHRIS [id number] [facility] [place] [facility] 2020-03-19 2020-03-19 [facility] [id number] Univers 15:40:00 15:40:00 CHRIS [facility] [place] [facility] 2020-02-27 2020-02-27 Outpatient R FAILLAALICIA, [facility] [id number] Univers 13:20:00 13:20:00 CHRIS [id number] [facility] [place] [facility] 2020-02-27 2020-02-27 Outpatient R FAILLACE, [facility] [id number] Univers 13:20:00 13:20:00 CHRIS [facility] [place] [facility] 2020-01-24 2020-01-24 Outpatient [facility] [id number] Univers 11:30:00 11:30:00 Chicho [facility] 2020-01-24 2020-01-24 Outpatient R FAILLACE, [facility] [id number] Univers 11:30:00 11:30:00 CHRIS [facility] 2019-10-08 2019-10-08 Outpatient R FAILLAALICIA, [facility] [id number] Univers 15:30:00 15:30:00 CHRIS [facility] 2018-11-07 2018-11-07 Emergency E MHBL MHBL [id number] MHBL 21:39:00 21:39:00 Results This patient has no known results.
[2021-12-14] MEDS ORDERED: MORPHINE 4 MG/ML SYR ONE (16:34)
[2021-12-14] MEDS ORDERED: ONDANSETRON 4 MG (ODT) TAB ONE (16:34)
[2021-12-14] MEDS ORDERED: LIDOCAINE 1% W/EPI 1:100,000 MDV 20 ML VIAL ONE (16:34)
--- NOTE | 2021-12-14 17:47 | RAD REPORT ---
EXAM DESCRIPTION: RAD - Ankle Left 3 View - 12/14/2021 5:39 pm CLINICAL HISTORY: PAIN COMPARISON: Ankle Left 3 View dated 11/26/2021 FINDINGS: No fracture or dislocation.
--- NOTE | 2021-12-14 17:49 | RAD REPORT ---
EXAM DESCRIPTION: RAD - Foot Left 3 View - 12/14/2021 5:39 pm CLINICAL HISTORY: PAIN COMPARISON: Foot Left 3 View dated 11/26/2021 FINDINGS: Soft tissue swelling is seen along the dorsum of the forefoot. No acute fractures seen.
--- NOTE | 2021-12-14 18:12 | ER ---
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 ll1 <2 cm laceration, bleeding controlled. States blood was spurting out earlier. Coronavirus screen: Vaccine status: Patient reports receiving the 2nd dose of the covid vaccine. Client denies travel out of the [place] in the last 14 days. At this time, the client does not indicate any symptoms associated with coronavirus-19. Ebola Screen: Patient denies travel to an Ebola-affected area in the 21 days before illness onset. Complicating Factors: There are no complicating factors for this patient. Initial Sepsis Screen: Does the patient meet any 2 criteria? No. Patient's initial sepsis screen is negative. Does the patient have a suspected source of infection? Yes: Skin breakdown/wound. Risk Assessment: Do you want to hurt yourself or someone else? Patient reports no desire to harm self or others. Onset of symptoms was December 14, 2021. 14:27 Method Of Arrival: Ambulatory ll1 14:27 Acuity: LORI 3 ll1 Triage Assessment: 14:29 General: Appears uncomfortable, Behavior is cooperative, appropriate for age. Pain: ll1 Complains of pain in foot. Neuro: No deficits noted. Cardiovascular: No deficits noted. Respiratory: No deficits noted. Derm: Reports laceration to top of L foot. Injury Description: Laceration. 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 - Social history:: Smoking status: Patient reports the use of cigarette tobacco products, smokes one pack cigarettes per day. Screenin:19 Abuse screen: Denies threats or abuse. Nutritional screening: No deficits noted. ll1 Tuberculosis screening: No symptoms or risk factors identified. Fall Risk Gait- Weak (10 pts.). Total Peterson Fall Scale indicates No Risk (0-24 pts). Assessment: 16:18 Reassessment: No changes from previously documented assessment. Patient and/or family ll1 updated on plan of care and expected duration. Pain level reassessed. Patient is alert, oriented x 3, equal unlabored respirations, skin warm/dry/pink. Musculoskeletal: Circulation, motion, and sensation intact. Capillary refill < 3 seconds. 17:15 Reassessment: No changes from previously documented assessment. Patient and/or family ll1 updated on plan of care and expected duration. Pain level reassessed. Patient is alert, oriented x 3, equal unlabored respirations, skin warm/dry/pink. 18:15 Reassessment: No changes from previously documented assessment. Patient and/or family ll1 updated on plan of care and expected duration. Pain level reassessed. Patient is alert, oriented x 3, equal unlabored respirations, skin warm/dry/pink. 18:58 Injury Description: Laceration is clean, 0.5 to 2.5 cm long. ll1 Vital Signs: 14:27 BP 135 / 105; Pulse 89; Resp 22; Temp 97.6; Pulse Ox 100% ; Weight 77.11 kg; Height 5 ll1 ft. 11 in. (180.34 cm); Pain 10/10; 18:45 BP 121 / 81; Pulse 84; Resp 16; Pulse Ox 100% ; ll1 14:27 Body Mass Index 23.71 (77.11 kg, 180.34 cm) ll1 ED Course: 13:43 Patient arrived in ED. ds1 13:54 Tu Sullivan PA is PHCP. cp 13:54 Tu Nava MD is Attending Physician. cp 14:28 Triage completed. ll1 14:29 Arm band placed on. ll1 16:18 Marry Currie, CHELSY is Primary Nurse. ll1 16:18 Patient placed in an exam room, on a stretcher. ll1 16:20 Patient has correct armband on for positive identification. Call light in reach. Side ll1 rails up X 1. Cardiac monitoring not applicable on this patient. 17:41 XRAY Foot LEFT 3 View In Process Unspecified. EDMS 17:41 XRAY Ankle LEFT 3 view In Process Unspecified. EDMS 18:11 Alexis Dixon MD is Referral Physician. cp 18:40 Dressings: non-adherent dressing x 1 left foot secured with mikey wrap. ll1 18:48 No provider procedures requiring assistance completed. Patient did not have IV access ll1 during this emergency room visit. Administered Medications: 16:30 Drug: Lidocaine-Epinephrine -1%: (1:100,000) 10 ml {Note: by Chago Sullivan during suture ll1 repair.} Volume: 20 ml; Route: Infiltration; 19:00 Follow up: Response: No adverse reaction ll1 16:36 Drug: morphine 4 mg {Note: R vastus lateralis.} Route: IVP; Site: Other; ll1 19:00 Follow up: Response: No adverse reaction ll1 16:36 Drug: Ondansetron 4 mg Route: PO; ll1 18:59 Follow up: Response: No adverse reaction ll1 18:40 Not Given (Patient Refused): Ancef (cefazolin) 1 grams IM once ll1 18:41 Drug: Cephalexin 500 mg Route: PO; ll1 18:59 Follow up: Response: No adverse reaction ll1 Medication: 18:59 VIS not applicable for this client. ll1 Outcome: 18:11 Discharge ordered by . cp 18:48 Patient left the ED. ll1 18:48 Discharged to home ambulatory. ll1 18:48 Condition: stable 18:48 Discharge instructions given to patient, family, Instructed on discharge instructions, follow up and referral plans. medication usage, wound care, Demonstrated understanding of instructions, follow-up care, medications, wound care, Prescriptions given X 3. Signatures: Dispatcher [employer] [facility] Karoline Hand ds1 Tu Sullivan PA PA cp Lewis, Lynsay, RN RN ll1
--- NOTE | 2021-12-14 18:12 | EDPHYS ---
Physician Documentation [facility] Name: Suzette Judge Age: 46 yrs Sex: Female : 1975 Arrival Date: 12/14/2021 Time: 13:43 Bed 11 Private MD: ED Physician Tu Nava HPI: 12/14 16:30 This 46 yrs old Female presents to ER via Ambulatory with complaints of Laceration To cp Foot. 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 Onset: The symptoms/episode began/occurred just prior to arrival. Associated signs and symptoms: Pertinent positives: difficulty extending left foot, difficulty flexing and extending toes, marked pain, swelling, Pertinent negatives: heavy bleeding. 16:30 Patient reports she was seen in this ED about 2 weeks ago and diagnosed with left great cp toe fracture. 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 - Social history:: Smoking status: Patient reports the use of cigarette tobacco products, smokes one pack cigarettes per day. ROS: 16:35 Constitutional: Negative for body aches, chills, fever, poor PO intake. cp 16:35 Eyes: Negative for injury, pain, redness, and discharge. cp 16:35 Neck: Negative for pain with movement, pain at rest, stiffness. 16:35 Cardiovascular: Negative for chest pain, palpitations. 16:35 Respiratory: Negative for cough, shortness of breath, wheezing. 16:35 Abdomen/GI: Negative for abdominal pain, nausea, vomiting, and diarrhea. 16:35 Back: Negative for pain at rest, pain with movement. 16:35 MS/extremity: Positive for decreased range of motion, pain, swelling, tenderness, of the left foot, Negative for numbness. 16:35 Skin: Positive for laceration(s), of the dorsum left foot. 16:35 All other systems are negative. Exam: 16:40 Constitutional: The patient appears in no acute distress, alert, awake, non-toxic, well cp developed, well nourished. 16:40 Head/Face: Normocephalic, atraumatic. cp 16:40 Cardiovascular: Rate: normal. 16:40 Respiratory: the patient does not display signs of respiratory distress, Respirations: normal, no use of accessory muscles, no retractions, labored breathing, is not present. 16:40 Abdomen/GI: Exam negative for discomfort, distension, guarding, Inspection: abdomen appears normal. 16:40 Back: pain, is absent, ROM is normal. 16:40 Musculoskeletal/extremity: Extremities: noted in the dorsum left foot: laceration, pain, swelling, tenderness, ROM: limited passive range of motion due to pain, in the left foot, flexion and extension, Pulses: noted to be 2+ in the left dorsalis pedis artery, Severe pain noted. Tendon exam: unable to examine due to patient being uncooperative. palpation of extensor tendons feel intact, no observed defect of tendon upon evaluation of laceration. Vital Signs: 14:27 BP 135 / 105; Pulse 89; Resp 22; Temp 97.6; Pulse Ox 100% ; Weight 77.11 kg; Height 5 ll1 ft. 11 in. (180.34 cm); Pain 10/10; 18:45 BP 121 / 81; Pulse 84; Resp 16; Pulse Ox 100% ; ll1 14:27 Body Mass Index 23.71 (77.11 kg, 180.34 cm) ll1 Laceration: 18:15 Wound Repair of 2.5cm ( 1.0in ) subcutaneous laceration to dorsum of left foot. Linear cp shaped.. Distal neuro/vascular/tendon intact. Anesthesia: Wound infiltrated with 3 mls of 1% lidocaine w/ Epi. Wound prep: Moderate cleansing by word processor technician, Wound irrigation by me. Skin closed with 3 4-0 Prolene using interrupted sutures and sterile technique. Dressed with 4x4's. Patient tolerated well. MDM: 16:21 Patient medically screened. dara 18:10 Data reviewed: vital signs, nurses notes, radiologic studies, plain films. cp 18:10 Differential diagnosis: superficial laceration, tendon injury, vascular injury. cp Counseling: I had a detailed discussion with the patient and/or guardian regarding: the historical points, exam findings, and any diagnostic results supporting the discharge/admit diagnosis, radiology results, the need for outpatient follow up, a orthopedic surgeon, to return to the emergency department if symptoms worsen or persist or if there are any questions or concerns that arise at home. Response to treatment: the patient's symptoms have mildly improved after treatment, and as a result, I will discharge patient. ED course: Discussed results of xrays and exam. With complaints to decreased range of motion, patient instructed on need for ortho f/u. 12/14 16:59 Order name: XRAY Foot LEFT 3 View; Complete Time: 18:02 cp 12/14 18:03 Interpretation: Reviewed report. cp 12/14 16:59 Order name: XRAY Ankle LEFT 3 view; Complete Time: 18:02 cp 12/14 18:03 Interpretation: Report reviewed. cp 12/14 16:19 Order name: Wound Care: please clean and irrigate wound; Complete Time: 16:35 cp 12/14 16:19 Order name: Dressing - Wound; Complete Time: 19:00 cp 12/14 16:19 Order name: Gloves, Sterile; Complete Time: 19:00 cp 12/14 16:19 Order name: Setup Suture Tray; Complete Time: 19:01 cp 12/14 18:10 Order name: Wound dressing: please dress wound and wrap with mikey; Complete Time: 18:41 cp Administered Medications: 16:30 Drug: Lidocaine-Epinephrine -1%: (1:100,000) 10 ml {Note: by Chago Sullivan during suture ll1 repair.} Volume: 20 ml; Route: Infiltration; 19:00 Follow up: Response: No adverse reaction ll1 16:36 Drug: morphine 4 mg {Note: R vastus lateralis.} Route: IVP; Site: Other; ll1 19:00 Follow up: Response: No adverse reaction ll1 16:36 Drug: Ondansetron 4 mg Route: PO; ll1 18:59 Follow up: Response: No adverse reaction ll1 18:40 Not Given (Patient Refused): Ancef (cefazolin) 1 grams IM once ll1 18:41 Drug: Cephalexin 500 mg Route: PO; ll1 18:59 Follow up: Response: No adverse reaction ll1 Disposition Summary: 12/14/21 18:11 Discharge Ordered Location: Home cp Problem: new cp Symptoms: have improved cp Condition: Stable cp Diagnosis - Laceration without foreign body of foot - left foot cp Followup: cp - With: Alexis Dixon MD - When: 2 - 3 days - Reason: Wound Recheck Discharge Instructions: - Discharge Summary Sheet cp - Laceration Care, Adult cp Forms: - Medication Reconciliation Form cp - Thank You Letter cp - Antibiotic Education cp - Prescription Opioid Use cp Prescriptions: - Cephalexin 500 mg Oral Capsule - take 1 capsule by ORAL route every 6 hours for 10 days; 40 capsule; Refills: 0, cp Product Selection Permitted - Diclofenac Sodium 75 mg Oral Tablet Sustained Release - take 1 tablet by ORAL route 2 times per day; 30 tablet; Refills: 0, Product cp Selection Permitted - Tylenol-Codeine #3 300 mg-30 mg Oral - take 2 tablet by ORAL route every 6-8 hours; 14 tablet; Refills: 0, Product cp Selection Permitted Signatures: Dispatcher [employer] Tu Umanzor MD MD cha Page, Corey, PA PA Marry Jenkins, RN RN ll1
[2021-12-14] MEDS ORDERED: WATER FOR INJ,STERILE 10 ML ONE (18:27)
[2021-12-14] MEDS ORDERED: CEFAZOLIN SODIUM 1 GM/VIAL ONE (18:27)
[2021-12-14] MEDS ORDERED: CEPHALEXIN 250 MG CAP ONE (18:32)
[2021-12-14 19:10] VITALS: BP 135/105; TEMP 97.6; O2SAT 100
== END 2021-12-14 18:48 | disposition home or self-care (01) ==
LOC: ER 13:42
PROC: 0JQR0ZZ Repair Left Foot Subcutaneous Tissue and Fascia, Open Approach (ICD-10-PCS; principal; 2021-12-14)
DX: S91.312A Laceration without foreign body, left foot, initial encounter (principal); W26.0XXA Contact with knife, initial encounter; Y93.89 Activity, other specified; Y92.9 Unspecified place or not applicable; Z88.0 Allergy status to penicillin; Z88.2 Allergy status to sulfonamides; Z88.8 Allergy status to other drugs, medicaments and biological substances; F41.9 Anxiety disorder, unspecified; F43.10 Post-traumatic stress disorder, unspecified; K50.90 Crohn's disease, unspecified, without complications; F17.210 Nicotine dependence, cigarettes, uncomplicated
CPT/HCPCS: 73630; 73610; 96374; 99283; 12001; J0690

== ENCOUNTER 2022-02-11 19:07 | Emergency (ER) | payer OTHER ==
--- NOTE | 2022-02-11 20:46 | RAD REPORT ---
EXAM DESCRIPTION: RAD - Chest Single View - 02/11/2022 8:40 pm CLINICAL HISTORY: CHEST PAIN Chest pain. COMPARISON: Chest Single View dated 10/26/2021; Chest Single View dated 08/18/2020; ABDOMEN 1 VIEW KUB dated 12/10/2013; CHEST SINGLE VIEW dated 12/09/2013 FINDINGS: Portable technique limits examination quality. The lungs are grossly clear. The heart is normal in size. No displaced fractures. IMPRESSION: No acute intrathoracic process suspected.
[2022-02-11] MEDS ORDERED: KETOROLAC 30 MG/ML INJ ONE (21:59)
--- NOTE | 2022-02-12 01:07 | EDPHYS ---
Physician Documentation [facility] Name: Suzette Judge Age: 46 yrs Sex: Female : 1975 Arrival Date: 02/11/2022 Time: 19:08 Bed 20 Private MD: ED Physician Jarvis Frederick HPI: 02/11 19:55 This 46 yrs old Female presents to ER via Ambulatory with complaints of Chest Pain. cp 19:55 The patient or guardian reports chest pain that is located primarily in the substernal cp area. 19:55 Onset: 2-3 days ago pain was intermittent, today pain has been persistent. The pain cp radiates to back. Associated signs and symptoms: Pertinent positives: lower extremity pain, lower extremity swelling, shortness of breath, Pertinent negatives: abdominal pain, cough, diaphoresis, headache, palpitations, recent travel, syncope. The chest pain is described as sharp. Duration: The patient or guardian reports multiple episodes, that are intermittent. Modifying factors: the symptoms are aggravated by breathing. Historical: - Allergies: 19:25 Compazine; iw 19:25 Haldol; iw 19:25 PENICILLINS; iw 19:25 Sulfa; iw - Home Meds: 19:25 None [Active]; iw - PMHx: 19:25 Anxiety; Bipolar disorder; Crohn's; Depression; PTSD; Schizophrenia; iw - PSHx: 19:25 knee; iw - Immunization history:: Client reports receiving the 1st dose of the Covid vaccine. - Social history:: Smoking status: . ROS: 20:00 Constitutional: Negative for body aches, chills, fever, poor PO intake. cp 20:00 Eyes: Negative for injury, pain, redness, and discharge. cp 20:00 ENT: Negative for drainage from ear(s), ear pain, sore throat, difficulty swallowing, difficulty handling secretions. 20:00 Cardiovascular: Positive for chest pain, edema, Negative for palpitations. 20:00 Respiratory: Negative for cough, wheezing. 20:00 Abdomen/GI: Negative for abdominal pain, vomiting, diarrhea, constipation. 20:00 Back: Positive for radiated pain. 20:00 : Negative for urinary symptoms. 20:00 Neuro: Negative for altered mental status, headache, syncope, weakness. 20:00 All other systems are negative. Exam: 20:05 ECG was reviewed by the Attending Physician. cp 20:07 Constitutional: The patient appears in no acute distress, alert, awake, cp non-diaphoretic, non-toxic, well developed, well nourished, uncomfortable. 20:07 Head/Face: Normocephalic, atraumatic. cp 20:07 Eyes: Periorbital structures: appear normal, Conjunctiva: normal, no exudate, no injection, Sclera: no appreciated abnormality, Lids and lashes: appear normal, bilaterally. 20:07 ENT: External ear(s): are unremarkable, Nose: is normal, Mouth: Lips: moist, Oral mucosa: pink and intact, moist, Posterior pharynx: Airway: no evidence of obstruction, patent. 20:07 Neck: ROM/movement: is normal, is supple, without pain, no range of motions limitations, no nuchal rigidity. 20:07 Chest/axilla: Inspection: normal, Palpation: crepitus, is not appreciated, tenderness, that is moderate, of the mid-sternal area. 20:07 Cardiovascular: Rate: tachycardic, Rhythm: regular, Edema: ankle edema, that is mild, JVD: is not appreciated. 20:07 Respiratory: the patient does not display signs of respiratory distress, Respirations: labored breathing, is not present, shallow respirations, that is mild, Breath sounds: are clear throughout, no decreased breath sounds, no stridor, no wheezing. 20:07 Abdomen/GI: Inspection: abdomen appears normal, Palpation: abdomen is soft and non-tender, in all quadrants. 20:07 Back: pain, that is mild, of the mid upper back, ROM is normal. 20:07 Skin: no rash present. 20:07 Neuro: Orientation: to person, place \T\ time. Mentation: is normal, Motor: moves all fours, strength is normal, Sensation: is normal. Vital Signs: 19:23 BP 127 / 95; Pulse 103; Resp 16; Temp 98.2; Pulse Ox 100% on R/A; Weight 76.2 kg; iw Height 5 ft. 11 in. (180.34 cm); 22:02 BP 116 / 71; Pulse 89; Resp 17 S; Pulse Ox 100% on R/A; lg3 23:30 BP 118 / 74; Pulse 88; Resp 17; Pulse Ox 100% on R/A; 3 02/12 01:00 BP 124 / 82; Pulse 86; Resp 18; Pulse Ox 100% on R/A; [facility] 02/11 19:23 Body Mass Index 23.43 (76.20 kg, 180.34 cm) iw MDM: 02/11 20:00 Differential diagnosis: acute myocardial infarction, acute pericarditis, cp costochondritis, pericarditis, pleurisy, pneumonia, pneumothorax, pulmonary embolus, stable angina, thoracic aortic disection, unstable angina. 20:10 Patient medically screened. 22:51 Data reviewed: vital signs, nurses notes, lab test result(s), EKG, radiologic studies, cp plain films. 22:51 Test interpretation: by ED physician or midlevel provider: ECG, plain radiologic cp studies. 23:00 ED course: Patient requesting to leave due to length of stay and request from lab for cp redraw of blood to run remaining tests. Spoke with lab, and previous drawn blood unusable at this time due to misplacement of specimen. 02/11 20:21 Order name: D-Dimer; Complete Time: 22:51 02/11 22:51 Interpretation: Reviewed. 02/11 20:21 Order name: BNP; Complete Time: 21:47 02/11 19:52 Order name: XRAY Chest (1 view); Complete Time: 20:52 [facility] 02/11 20:52 Interpretation: Report review. 02/11 19:52 Order name: EKG; Complete Time: 19:53 [facility] 02/11 19:52 Order name: Cardiac monitoring; Complete Time: 20:03 [facility] 02/11 19:52 Order name: EKG - Nurse/Tech; Complete Time: 20:03 [facility] 02/11 19:52 Order name: IV Saline Lock; Complete Time: 21:49 [facility] 02/11 21:47 Order name: US Extremity Venous W Compression Asher 02/11 19:52 Order name: Labs collected and sent; Complete Time: 21:49 [facility] 02/11 19:52 Order name: O2 Per Protocol; Complete Time: 20:03 [facility] 02/11 19:52 Order name: O2 Sat Monitoring; Complete Time: 20:03 [facility] 02/11 20:21 Order name: Urine Dipstick-Ancillary (obtain specimen) 02/11 20:21 Order name: Urine Test (obtain specimen) EC:05 Rate is 98 beats/min. Rhythm is regular. VA interval is normal. QRS interval is normal. cp QT interval is normal. T waves are Inverted in leads aVL, aVR. Interpreted by me. Reviewed by me. Administered Medications: 21:54 Drug: Ketorolac 15 mg Route: IVP; Site: right upper arm; lg3 21:55 Follow up: Response: No adverse reaction lg3 Disposition: 02/12 03:58 Co-signature as Attending Physician, Jarvis Frederick MD. [facility] Disposition Summary: 02/12/22 01:06 Left Against Medical Advice Location: Home lg3 Condition: Stable(02/12/22 01:06) lg3 Signatures: Dispatcher [employer] EDMS Ivette Granado, RN RN Tu Sullivan PA PA cp Millie Yu RN RN 3 Jarvis Frederick MD MD [id number] Lluvia Morales RN RN [id number] Corrections: (The following items were deleted from the chart) 01:05 02/11 19:53 BASIC METABOLIC PANEL+C.LAB.BRZ ordered. EDAL EDMS 02/12 01:05 02/11 19:53 Troponin High Sensitivity+C.LAB.BRZ ordered. EDAL EDMS 02/12 01:06 01:06 Undetermined lg3 lg3
--- NOTE | 2022-02-12 01:07 | ER ---
Nurse's Notes [facility] Name: Suzette Judge Age: 46 yrs Sex: Female : 1975 Arrival Date: 02/11/2022 Time: 19:08 Bed 20 Private MD: Diagnosis: Presentation: 02/11 19:23 Chief complaint: Patient states: couple days having stabbing pain in mid chest, 3-4 iw stabs that happened 2-3 times per day but it's constant today , hurts any time I breathe. Coronavirus screen: At this time, the client does not indicate any symptoms associated with coronavirus-19. Ebola Screen: Patient negative for fever greater than or equal to 101.5 degrees Fahrenheit, and additional compatible Ebola Virus Disease symptoms Patient denies exposure to infectious person. Patient denies travel to an Ebola-affected area in the 21 days before illness onset. No symptoms or risks identified at this time. Initial Sepsis Screen: Does the patient meet any 2 criteria? No. Patient's initial sepsis screen is negative. Does the patient have a suspected source of infection? No. Patient's initial sepsis screen is negative. Risk Assessment: Do you want to hurt yourself or someone else? Patient reports no desire to harm self or others. Onset of symptoms was February 09, 2022. 19:23 Method Of Arrival: Ambulatory iw 19:23 Acuity: LORI 3 iw Historical: - Allergies: 19:25 Compazine; iw 19:25 Haldol; iw 19:25 PENICILLINS; iw 19:25 Sulfa; iw - Home Meds: 19:25 None [Active]; iw - PMHx: 19:25 Anxiety; Bipolar disorder; Crohn's; Depression; PTSD; Schizophrenia; iw - PSHx: 19:25 knee; iw - Immunization history:: Client reports receiving the 1st dose of the Covid vaccine. - Social history:: Smoking status: . Screenin:57 Abuse screen: Denies threats or abuse. Denies injuries from another. Nutritional lg3 screening: No deficits noted. Tuberculosis screening: No symptoms or risk factors identified. Fall Risk None identified. Assessment: 21:57 General: Appears in no apparent distress. comfortable, Behavior is cooperative, lg3 agitated. Pain: Complains of pain in chest Pain does not radiate. Pain began 2-3 days ago. Neuro: No deficits noted. Level of Consciousness is awake, alert, obeys commands, Oriented to person, place, time, situation. Cardiovascular: No deficits noted. Reports chest pain, Capillary refill < 3 seconds Clubbing of nail beds is absent JVD is absent Patient's skin is warm and dry. Respiratory: No deficits noted. Airway is patent Trachea midline Respiratory effort is even, unlabored, Respiratory pattern is regular, symmetrical, Breath sounds are clear bilaterally. GI: No deficits noted. No signs and/or symptoms were reported involving the gastrointestinal system. Abdomen is flat, non-distended, Bowel sounds present X 4 quads. Abd is soft and non tender X 4 quads. GI: Reports HX of crohn's disease. : No deficits noted. No signs and/or symptoms were reported regarding the genitourinary system. EENT: No deficits noted. No signs and/or symptoms were reported regarding the EENT system. Derm: No deficits noted. No signs and/or symptoms reported regarding the dermatologic system. Skin is intact, is healthy with good turgor, Skin is dry, Skin temperature is warm. Musculoskeletal: No deficits noted. No signs and/or symptoms reported regarding the musculoskeletal system. Circulation, motion, and sensation intact. Range of motion: intact in all extremities. 23:41 Reassessment: Patient appears in no apparent distress at this time. No changes from 3 previously documented assessment. Patient and/or family updated on plan of care and expected duration. Pain level reassessed. Patient is alert, oriented x 3, equal unlabored respirations, skin warm/dry/pink. 02/12 00:27 General: notified lab of need of blood draw . lg3 00:41 General: notified maid housekeeper of pt request to speak with supervision. lg3 01:00 General: pt pulled IV out, refused to sign AMA paperwork and left the emergency lg3 department. Vital Signs: 02/11 19:23 BP 127 / 95; Pulse 103; Resp 16; Temp 98.2; Pulse Ox 100% on R/A; Weight 76.2 kg; iw Height 5 ft. 11 in. (180.34 cm); 22:02 BP 116 / 71; Pulse 89; Resp 17 S; Pulse Ox 100% on R/A; lg3 23:30 BP 118 / 74; Pulse 88; Resp 17; Pulse Ox 100% on R/A; lg3 02/12 01:00 BP 124 / 82; Pulse 86; Resp 18; Pulse Ox 100% on R/A; lg3 02/11 19:23 Body Mass Index 23.43 (76.20 kg, 180.34 cm) ED Course: 02/11 19:08 Patient arrived in ED. am2 19:25 Triage completed. iw 19:25 Arm band placed on. 19:58 Tu Sullivan PA is PHCP. cp 19:58 Jarvis Frederick MD is Attending Physician. cp 20:16 Millie Yu, RN is Primary Nurse. lg3 20:42 XRAY Chest (1 view) In Process Unspecified. EDMS 21:45 Initial lab(s) drawn, by me, sent to lab. Inserted saline lock: 20 gauge in right upper tw5 arm, using aseptic technique. Blood collected. Ultrasound guided IV. 21:49 D-Dimer Sent. lg3 21:49 CBC with Diff Sent. lg3 21:57 Patient has correct armband on for positive identification. Bed in low position. Call lg3 light in reach. Side rails up X 1. Client placed on continuous cardiac and pulse oximetry monitoring. NIBP monitoring applied. manager monitoring on. Door closed. Noise minimized. Warm blanket given. 21:57 Patient maintains SpO2 saturation greater than 95% on room air. lg3 22:04 D-Dimer Sent. lg3 22:21 US Extremity Venous W Compression Asher In Process Unspecified. EDMS 02/12 01:01 No provider procedures requiring assistance completed. pt removed IV and left lg3 department AMA. Administered Medications: 02/11 21:54 Drug: Ketorolac 15 mg Route: IVP; Site: right upper arm; lg3 21:55 Follow up: Response: No adverse reaction lg3 Medication: 02/12 01:03 VIS not applicable for this client. lg3 Outcome: 01:02 AMA Other pt refused to sign lg3 01:02 Condition: stable 01:06 Patient left the ED. lg3 Signatures: Dispatcher [employer] EDWV Ivette Granado RN RN Tu Sullivan PA PA cp Josephine Ac am2 Millie Yu RN RN 3 Billie Green tw5 Corrections: (The following items were deleted from the chart) 01:00 00:57 General: notified maid housekeeper of pt request to speak with supervision. lg3 lg3 01:02/11 21:49 BASIC METABOLIC PANEL+C.LAB.BRZ drawn and sent. lg3 EDMS 02/12 01:02/11 22:04 Troponin High Sensitivity+C.LAB.BRZ drawn and sent. lg3 EDMS
[2022-02-12 01:11] VITALS: TEMP 98.2; O2SAT 100
[2022-02-12 01:17] VITALS: BP 124/82
--- NOTE | 2022-02-12 10:01 | RAD REPORT ---
EXAM DESCRIPTION: US - Extrem Venous W Compress Asher - 02/11/2022 11:25 pm CLINICAL HISTORY: 46 years Female Pain COMPARISON: None TECHNIQUE: Real-time and Doppler sonography of the deep venous systems of the lower extremities was performed bilaterally. Grayscale, color, and spectral analysis was utilized. FINDINGS: No intraluminal thrombus is seen at any level. Satisfactory compressibility all levels. No popliteal cysts. IMPRESSION: Negative study. No sonographic evidence for deep venous thrombosis involving the lower e xtremities bilaterally. Electronically signed by: Shanthi Parra MD 02/11/2022 10:37 PM CDT Due to temporary technical issues with the PACS/Fluency reporting system, reports are being signed by the in house radiologists without review as a courtesy to insure prompt reporting. The interpreting radiologist is fully responsible for the content of the report.
--- NOTE | 2022-02-13 09:04 | EKG ---
Test Date: 2022-02-11 Test Time: 20:00:33 Retail Event And Sales Assistant: JESUS MEASUREMENT RESULTS: Intervals: Rate: 98 NM: 144 QRSD: 94 QT: 364 QTc: 464 [place]: P: 77 NM: 144 QRS: 69 T: 74 INTERPRETIVE STATEMENTS: Normal sinus rhythm Possible Left atrial enlargement Borderline ECG Compared to ECG 10/26/2021 17:14:54 No significant changes Electronically Signed On 02-13-22 09:02:55 CDT by Ephraim Rausch
== END 2022-02-12 01:06 | disposition left against medical advice (07) ==
LOC: ER 19:07
DX: R07.9 Chest pain, unspecified (principal); Z88.0 Allergy status to penicillin; Z88.1 Allergy status to other antibiotic agents; Z88.2 Allergy status to sulfonamides; Z88.5 Allergy status to narcotic agent
CPT/HCPCS: 36415; 71045; 83880; 85379; 93005; 93970; 96374; 99285

== ENCOUNTER 2022-03-17 13:10 | Emergency (ER) | payer OTHER ==
--- OUTSIDE RECORDS SUMMARY | 2022-03-17 13:13 | XMS REPORT | Continuity of Care Document ---
:1975 Author Organization [facility] t Address [address] [place] [address] Care Team Providers Name Role Phone ROGELIO ARAYA Thee Primary Care Physician Unavailable CHRIS BROWN Attending Clinician Unavailable WILMER CANALES Attending Clinician Unavailable SEGUNDO PAN Attending Clinician Unavailable Chris Brown MD Attending Clinician BENJAMÍN PIERRE Attending Clinician Unavailable ERIKA LANG Attending Clinician Unavailable HEATHER RAMIREZ Attending Clinician Unavailable Prachi Mckenzie PA-C Attending Clinician Sonali Kim MD Attending Clinician SONALI KIM Attending Clinician Unavailable PRACHI MCKENZIE Attending Clinician Unavailable SEGUNDO SCANLON Attending Clinician Unavailable CHRIS BROWN Admitting Clinician Unavailable Payers Payer Name Policy Type Policy Number Effective Date Expiration Date Chirag stone [facility] RADHA [id number] 2018 00:00:00 PLUS Problems Condition Condition Condition Status Onset Resolution Last Treating Co mments Source Name Details Category Date Date Treatment Clinician Date Left wrist Left wrist Disease Active U nivers pain pain 8-03 ity of 00:00: [place] 00 Medical Branch Decreased Decreased Disease Active Uni vers activities activities 8-03 it y of of daily of daily 00:00: [place] living living 00 Medical (ADL) (ADL) Branch Limitation Limitation Disease Active U nivers of joint of joint 8 it[place] of motion [place] wrist 00 Me dical Branch Left hand Left hand Disease Active Uni vers pain pain 7- ity of 00:00: 00 Medical Branch Ear mass, Ear mass, Disease Active Overview: Univers left left 02-26 Formattin ity of 00:00: g of this note Medical might be Branch different from the original. 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 U nivers [...] Date Date Clinician ACETAMIN DRUG Active ITCHING 2020-0 Univers OPHEN-CO 6-23 ity of DEINE 00:00: 00 Medical Branch Acetamin Propensi Active Itching 2019-0 Unive rs ophen-Co ty to 6-23 ity of deine adverse 00:00: [place] reaction 00 Medical s to Branch drug PENICILL Drug Active High Swelling 2020-0 Univer s INS Class 1-23 ity of 00:00: [place] 00 Medical Branch Penicill Drug Active Swelling 2020-0 Tongue Univer s ins Allergy 1-23 and ity of 00:00: throat [place] swelling Medical Branch HALOPERI DRUG Active Other-Cmnt Univ ers DOL INGREDI 6-23 ity of LACTATE 00:00: [place] 00 Medical Branch Haloperi Propensi Active Other - [...] Quantity Comments Source Exposure to Not sure [place] of SARS-CoV-2 [facility] (event) [place] Alcohol intake 2021-03-18 2021-03-18 Current drinker of Un iversity of 00:00:00 00:00:00 alcohol (finding) [facility] Tobacco use and 2021-03-18 2021-03-18 Never used Universit y of exposure 00:00:00 00:00:00 [facility] Tobacco Comment 2020-01-22 2020-01-22 ADVISED TO SPEAK W/ University of 00:00:00 00:00:00 RE RX/PROGRAMS [facility] Alcohol Comment 2019-05-04 2019-05-04 occassionally Univer sity of 00:00:00 00:00:00 [facility] Sex Assigned At [birth year] Universit y of 00:00:00 00:00:00 [facility] Smoking Status Start Date Stop Date Source Current every day smoker 2021-03-18 00:00:00 Uni versity of [facility] Medications Ordered Filled Start Stop Current Ordering Indication Dosage Frequency Signature Comments Components Source Medication Medication Date Date Medication? Clinician (SIG) Name Name hilary 2020- No [id number] 20mg Univers ne 03-23 9109 ity of acetonide 19:15: 18:05 [place] (KENALOG) 00 :00 Medical injection Branch 20 mg triamcinolo 2020- No [id number] 20mg 20 mg, Univers ne 03-23 9109 Intrasynov ity of acetonide 19:15: 18:05 ial, ONCE, [place] (KE[place]LOG) 00 :00 1 dose, Medical injection Mon Branch 20 mg 03/23/21 at 1415, Routine gabapentin 2020- No [id number] Take 1 Univers 100 mg 03-23 9109 capsule by ity of capsule 00:00: 04:59 mouth at [place] 00 :00 bedtime Medical for 7 Branch days, THEN 2 capsules at bedtime for 7 days, THEN 3 capsules at bedtime for 30 days. Diclofenac Yes [id number] Apply to Univers Sodium 03-18 area(s) 4 ity of (VOLTAREN) 00:00: (four) [place] 1 % gel 00 times Medical daily as Branch needed for Pain (scale 1-3), Pain (scale 4-6) or Pain (scale 7-10). methocarbam Yes [id number] 500mg Take 1 Univers oL 500 mg 7-21 tablet by ity o f tablet 00:00: mouth at [place] 00 bedtime as Medical needed Branch (muscle spasms). methylPREDN 2019-08 Yes [id number] 84mg Take 21 Univers ISolone 2-04 tablets [...] [place] 56 daily. Medical Branch furosemide Yes [id number] 20mg Take 1 Univers 20 mg 9-15 tablet by ity of tablet 00:00: mouth [place] 00 every Medical morning. Branch sulfamethox Yes [id number] 1{tbl} Take 1 Univers azole-trime -13 [id number] tablet by i ty of thoprim 00:00: mouth 2 [place] (BACTRIM 00 (two) Medical DS) 800-160 times Branch mg per daily. tablet FLUoxetine 2014-08 Yes 20mg Take 1 Cap U nivers (PROZAC) 20 0-20 by mouth ity of mg capsule 00:00: daily. [place] [address] Medical Branch clonazePAM Yes 1mg Take 1 [...] Immunizations Ordered Filled Immunization Date Status Comments [facility] e Immunization Name Name SARS-COV-2 COVID-19 2021-03-03 [facility] PFIZER VACC[facility] 00:00:00 [facility] Vital Signs Vital Name Observation Time Observation Value Comments Source Body temperature 2021-03-23 16:37:00 36.67 [facility] weight 2021-03-23 16:37:00 71.85 kg [facility] BMI 2021-03-23 16:37:00 22.09 kg/m2 [facility] Procedures This patient has no known procedures. Encounters Start End Encounter Admission Attending Care Care Encounter Source Date/Time Date/Time Type Type Clinicians Facility Department ID 2021-05-29 Emergency [facility] [id number] Univers 17:30:[facility] [place] [facility] 2021-05-29 Emergency [facility] [id number] Univers 17:15:43 [facility] 2021-05-29 Outpatient STEPHANIE [facility] [id number] Univers 00:50:20 CHRIS [facility] 2015-05-23 Inpatient C [facility] [id number] St. 13:51:00 [facility] 2021-12-24 2021-12-24 Outpatient Ish CANALES [facility] [id number] Univers 16:15:00 16:15:00 WILMER [id number] [facility] 2021-12-24 2021-12-24 Outpatient R PARKER [facility] [id number] Univers 16:15:00 16:15:00 WILMER [facility] 2021-05-06 2021-05-06 Outpatient R STEPHANIE, [facility] [id number] Univers 12:30:00 12:30:00 CHRIS [id number] [facility] 2021-05-06 2021-05-06 Outpatient R STEPHANIE, [facility] [id number] Univers 12:30:00 12:30:00 CHRIS [facility] 2021-04-10 2021-04-10 Outpatient [facility] [id number] Univers 20:00:00 20:00:00 [id number] [facility] 2021-04-10 2021-04-10 Outpatient R [facility] [id number] Univers 20:00:00 20:00:00 [facility] 2021-03-26 2021-03-26 Outpatient R [facility] [id number] Univers 15:15:00 15:15:00 [id number] [facility] 2021-03-24 2021-03-24 Outpatient R MAXIM [facility] [id number] Univers 11:00:00 11:00:00 SEGUNDO [facility] 2021-03-23 2021-03-23 [facility] [id number] Univers 11:30:52 11:40:52 Visit Chris HEARN [id number] it y of CARE [id number] Darek LOMELI [id number] [address] 2021-03-23 2021-03-23 Outpatient R STEPHANIE [facility] [id number] Univers 11:10:00 11:10:00 CHRIS [id number] [facility] 2021-03-23 2021-03-23 [facility] [id number] Univers 11:10:00 11:10:00 CHRIS [facility] 2021-03-18 2021-03-18 Outpatient R LAMPHERE, [facility] [id number] Univers 14:55:32 23:59:00 BENJAMÍN [facility] 2021-03-18 2021-03-18 Outpatient R LAMPHERE, [facility] [id number] Univers 14:45:00 14:45:00 BENJAMÍN [id number] ity [facility] 2021-03-03 2021-03-03 Outpatient R MAXIM, [facility] [id number] Univers 15:40:00 15:40:00 SEGUNDO [facility] 2021-03-03 2021-03-03 Outpatient R [facility] [id number] Univers 14:45:00 14:45:00 [id number] [facility] 2021-03-03 2021-03-03 Outpatient R [facility] [id number] Univers 14:45:00 14:45:00 [facility] [place] [facility] 2021-02-18 2021-02-18 Outpatient R LAMPHERE, [facility] [id number] Univers 09:00:44 23:59:00 BENJAMÍN [facility] 2021-02-18 2021-02-18 Outpatient R LANG, [facility] [id number] Univers 09:30:00 09:30:00 ERIKA [facility] 2021-02-18 2021-02-18 Outpatient R LAMPHERE, [facility] [id number] Univers 09:00:00 09:00:00 BENJAMÍN [id number] [facility] 2021-02-04 2021-02-04 Outpatient R LAMPHERE, [facility] [id number] Univers 11:00:00 11:00:00 BENJAMÍN [id number] [facility] 2021-02-03 2021-02-03 Outpatient R JAMES, [facility] [id number] Univers 10:19:08 23:59:00 HEATHER [facility] 2021-02-03 2021-02-03 Outpatient R JAMES, [facility] [id number] Univers 10:15:00 10:15:00 HEATHER [id number] [facility] 2021-01-19 2021-01-19 Outpatient R JAMES [facility] [id number] Univers 00:00:00 23:59:00 HEATHER [facility] 2021-01-19 2021-01-19 Outpatient R JAMES [facility] [id number] Univers 14:30:00 14:30:00 HEATHER [id number] [facility] 2020-12-23 2020-12-23 Telephone [facility] [id number] 00:00:00 00:00:00 Prachi Jurado [id number] [place] [id number] Professio [id number] [address] 2020-09-24 2020-09-24 Outpatient R STEPHANIE [facility] [id number] Univers 13:30:00 13:30:00 CHRIS [id number] [facility] 2020-09-24 2020-09-24 [facility] [id number] Univers 13:30:00 13:30:00 CHRIS [facility] 2020-07-04 2020-07-04 Office [facility] [id number] 10:14:34 10:52:53 Visit Sonali Vazquez [id number] Surgical [id number] Specialti [id number] shaan Jurado 2020-07-04 2020-07-04 [facility] [id number] Univers 10:15:00 10:15:00 SONALI [id number] [facility] 2020-07-04 2020-07-04 Outpatient R JUDY [facility] [id number] Univers 10:15:00 10:15:00 SONALI [facility] 2020-05-06 2020-05-06 [facility] [id number] Univers 14:30:00 14:30:00 PRACHI [facility] 2020-04-21 2020-04-21 Outpatient R [facility] [id number] Univers 12:30:00 12:30:00 [id number] [facility] 2020-04-21 2020-04-21 Outpatient R SCANLON, [facility] [id number] Univers 12:30:00 12:30:00 SEGUNDO [facility] 2020-03-19 2020-03-19 Outpatient R FAILLACE, [facility] [id number] Univers 15:40:00 15:40:00 CHRIS [id number] [facility] 2020-03-19 2020-03-19 Outpatient R FAILLACE, [facility] [id number] Univers 15:40:00 15:40:00 CHRIS [facility] 2020-02-27 2020-02-27 Outpatient R FAILLACE, [facility] [id number] Univers 13:20:00 13:20:00 CHRIS [id number] [facility] 2020-02-27 2020-02-27 Outpatient R FAILLACE, [facility] [id number] Univers 13:20:00 13:20:00 CHRIS [facility] 2020-01-24 2020-01-24 Outpatient [facility] [id number] Univers 11:30:00 11:30:[id number] [place] [address] 2020-01-24 2020-01-24 Outpatient R FAILLACE, [facility] [id number] Univers 11:30:00 11:30:00 CHRIS [facility] 2019-10-08 2019-10-08 Outpatient R FAILLACE, [facility] [id number] Univers 15:30:00 15:30:00 CHRIS [facility] 2018-11-07 2018-11-07 Emergency E [id number] [id number] [facility]BL 21:39:00 21:39:00 Results This patient has no known results.
--- NOTE | 2022-03-17 13:29 | EDPHYS ---
Physician Documentation [facility] Name: Suzette Judge Age: 46 yrs Sex: Female : 1975 Arrival Date: 03/17/2022 Time: 13:13 Bed 17 Private MD: ED Physician Darwin Harris HPI: 03/17 13:20 This 46 yrs old Female presents to ER via EMS with complaints of None stated. jl9 Patient was kimmie in by EMS for a possibly syncopal episode while mowing. . 13:20 Onset: The symptoms/episode began/occurred just prior to arrival. Severity of symptoms: jl9 Pain is currently a 0 / 10. The patient has not experienced similar symptoms in the past. 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 - Social history:: Smoking status: Patient reports the use of cigarette tobacco products, smokes one-half pack cigarettes per day. ROS: 13:26 Constitutional: Negative for fever, chills, and weight loss, Eyes: Negative for injury, jl9 pain, redness, and discharge, ENT: Negative for injury, pain, and discharge, Neck: Negative for injury, pain, and swelling, Cardiovascular: Negative for chest pain, palpitations, and edema, Respiratory: Negative for shortness of breath, cough, wheezing, and pleuritic chest pain, Abdomen/GI: Negative for abdominal pain, nausea, vomiting, diarrhea, and constipation, Back: Negative for injury and pain, : Negative for injury, bleeding, discharge, and swelling, MS/Extremity: Negative for injury and deformity, Skin: Negative for injury, rash, and discoloration. 13:26 Psych: Negative for depression, anxiety, suicide ideation, homicidal ideation, and hallucinations, Allergy/Immunology: Negative for hives, rash, and allergies, Endocrine: Negative for neck swelling, polydipsia, polyuria, polyphagia, and marked weight changes, Hematologic/Lymphatic: Negative for swollen nodes, abnormal bleeding, and unusual bruising. 13:26 Neuro: Positive for near syncope. Exam: 13:23 Head/Face: Normocephalic, atraumatic. jl9 13:23 ENT: Mucous membranes moist. Neck: Trachea midline, no thyromegaly or masses palpated, and no cervical lymphadenopathy. Supple, full range of motion without nuchal rigidity, or vertebral point tenderness. No Meningismus. Chest/axilla: Normal chest wall appearance and motion. Nontender with no deformity. No lesions are appreciated. Cardiovascular: Regular rate and rhythm with a normal S1 and S2. No gallops, murmurs, or rubs. Normal PMI, no JVD. No pulse deficits. Respiratory: Lungs have equal breath sounds bilaterally, clear to auscultation and percussion. No rales, rhonchi or wheezes noted. No increased work of breathing, no retractions or nasal flaring. Abdomen/GI: Soft, non-tender, with normal bowel sounds. No distension or tympany. No guarding or rebound. No evidence of tenderness throughout. Back: No spinal tenderness. No costovertebral tenderness. Full range of motion. Skin: Warm, dry with normal turgor. Normal color with no rashes, no lesions, and no evidence of cellulitis. MS/ Extremity: Pulses equal, no cyanosis. Neurovascular intact. Full, normal range of motion. Neuro: Awake and alert, GCS 15, oriented to person, place, time, and situation. Cranial nerves II-XII grossly intact. Motor strength 5/5 in all extremities. Sensory grossly intact. Cerebellar exam normal. Normal gait. Psych: Awake, alert, with orientation to person, place and time. Behavior, mood, and affect are within normal limits. 13:23 Constitutional: The patient appears awake, agitated, Slow to respond. 13:23 Eyes: Pupils: constricted, bilaterally. Vital Signs: 13:14 BP 126 / 89; Pulse 101; Resp 16; Temp 97.3; Pulse Ox 100% on R/A; Weight 77.11 kg; kr3 Height 5 ft. 11 in. (180.34 cm); 13:26 BP 126 / 89; Pulse 101; Resp 16; Temp 97.3(TE); Pulse Ox 100% on R/A; kr3 13:14 Body Mass Index 23.71 (77.11 kg, 180.34 cm) kr3 MDM: 13:15 Patient medically screened. jl9 13:26 Data reviewed: vital signs, nurses notes. Special discussion: Patient got agitated and jl9 demanded IV in her neck. Patient told we would try 1 peripheral elsewhere before we attempted her neck due to her having visible veins. Patient got hostile and left AMA. . 13:29 Counseling: I had a detailed discussion with the patient and/or guardian regarding: to jl9 return to the emergency department if symptoms worsen or persist or if there are any questions or concerns that arise at home. Administered Medications: No medications were administered Disposition: 18:55 Co-signature as Attending Physician, Darwin Harris DO I was immediately available on-site ms3 in the Emergency Department for consultation in the care of the patient.. Disposition Summary: 03/17/22 13:28 Discharge Ordered Location: Home jl9 Condition: Stable jl9 Diagnosis - Syncope Near jl9 Followup: jl9 - With: Private Physician - When: 1 - 2 days - Reason: Recheck today's complaints, Continuance of care, Re-evaluation by your physician Discharge Instructions: - Discharge Summary Sheet jl9 - Near-Syncope jl9 Forms: - Medication Reconciliation Form jl9 - Thank You Letter jl9 - Antibiotic Education jl9 - Prescription Opioid Use jl9 Signatures: Darwin Harris DO DO ms3 Baron Barroso jl9 Trini Frias, RN RN kr3
--- NOTE | 2022-03-17 13:29 | ER ---
Nurse's Notes [facility] Name: Suzette Judge Age: 46 yrs Sex: Female : 1975 Arrival Date: 03/17/2022 Time: 13:13 Bed 17 Private MD: Diagnosis: Syncope Near Presentation: 03/17 13:14 Chief complaint: Patient states: outside doing yard work found passed out on ground. kr3 Coronavirus screen: Vaccine status: Patient reports receiving the 2nd dose of the covid vaccine. Ebola Screen: Patient denies travel to an Ebola-affected area in the 21 days before illness onset. Initial Sepsis Screen: Does the patient meet any 2 criteria? No. Patient's initial sepsis screen is negative. Does the patient have a suspected source of infection? No. Patient's initial sepsis screen is negative. Risk Assessment: Do you want to hurt yourself or someone else? Patient reports no desire to harm self or others. Onset of symptoms was March 17, 2022. 13:14 Method Of Arrival: EMS: [facility] kr3 13:14 Acuity: LORI 3 kr3 Triage Assessment: 13:25 General: Appears distressed, uncomfortable, Behavior is uncooperative. Pain: Denies kr3 pain. 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 - Social history:: Smoking status: Patient reports the use of cigarette tobacco products, smokes one-half pack cigarettes per day. Screenin:28 Abuse screen: Denies threats or abuse. Nutritional screening: No deficits noted. kr3 Tuberculosis screening: No symptoms or risk factors identified. Fall Risk None identified. Vital Signs: 13:14 BP 126 / 89; Pulse 101; Resp 16; Temp 97.3; Pulse Ox 100% on R/A; Weight 77.11 kg; kr3 Height 5 ft. 11 in. (180.34 cm); 13:26 BP 126 / 89; Pulse 101; Resp 16; Temp 97.3(TE); Pulse Ox 100% on R/A; kr3 13:14 Body Mass Index 23.71 (77.11 kg, 180.34 cm) kr3 ED Course: 13:10 Arm band placed on Patient placed in an exam room, on a stretcher. ll1 13:13 Patient arrived in ED. ll1 13:14 Trini Frias, RN is Primary Nurse. kr3 13:15 Baron Barroso is PHCP. jl9 13:15 Darwin Harris DO is Attending Physician. jl9 13:24 Triage completed. kr3 13:28 No provider procedures requiring assistance completed. Patient did not have IV access kr3 during this emergency room visit. 13:32 Bed in low position. Call light in reach. Side rails up X 1. kr3 Administered Medications: No medications were administered Medication: 13:32 VIS not applicable for this client. kr3 Outcome: 13:28 Discharge ordered by . jl9 13:28 AMA kr3 13:28 Condition: stable 13:28 Instructed on AMA form released [facility]/ MD Tita from any ill effects from leaving AMA. Pt verbalized understanding, no questions at this time, A\\T\\ O x 3. gait steady out of the ER. Pt signed form "fuck off" instead of her name. 13:32 Patient left the ED. kr3 Signatures: Marry Currie RN RN ll1 Baron Barroso jl9 Trini Frias, CHELSY RN kr3
[2022-03-17 13:46] VITALS: BP 126/89; TEMP 97.3; O2SAT 100
== END 2022-03-17 13:32 | disposition home or self-care (01) ==
LOC: ER 13:10
DX: R55 Syncope and collapse (principal); F20.9 Schizophrenia, unspecified; F17.210 Nicotine dependence, cigarettes, uncomplicated; Z88.0 Allergy status to penicillin; Z88.1 Allergy status to other antibiotic agents; Z88.5 Allergy status to narcotic agent; Z88.2 Allergy status to sulfonamides

== ENCOUNTER 2022-08-18 12:38 | Emergency (ER) | payer OTHER ==
--- OUTSIDE RECORDS SUMMARY | 2022-08-18 12:42 | XMS REPORT | Continuity of Care Document ---
:1975 Author Organization [facility] t Address [address] [place] [address] Care Team Providers Name Role Phone ROGELIO ARAYA Primary Care Physician Unavailable CHRIS BROWN Attending Clinician Unavailable Ben Coulter Attending Clinician Unavailable WILMER CANALES Attending Clinician Unavailable SEGUNDO PAN Attending Clinician Unavailable Chris Brown MD Attending Clinician BENJAMÍN PIERRE Attending Clinician Unavailable ERIKA LANG Attending Clinician Unavailable HEATHER RAMIREZ Attending Clinician Unavailable Prachi Mckenzie PA-C Attending Clinician Alexis Santos MD Attending Clinician PRACHI MCKENZIE Attending Clinician Unavailable SEGUNDO SCANLON Attending Clinician Unavailable CHRIS BROWN Admitting Clinician Unavailable Payers Payer Name Policy Type Policy Number Effective Date Expiration Date S bertha [facility] [id number] 2018 00:00:00 PLUS Problems Condition Condition Condition Status Onset Resolution Last Treating Co mments Source Name Details Category Date Date Treatment Clinician Date Left wrist Left wrist Disease Active U nivers pain pain 8-03 ity of 00:00: [place] [id number] Medical Branch Decreased Decreased Disease Active Uni vers activities activities 8- it y of of daily of daily 00:00: [place] living living 00 Medical (ADL) (ADL) Branch Limitation Limitation Disease Active U nivers of joint of joint 03-03 ity of motion of [place] wrist 00 Me dical Branch Left hand Left hand Disease Active Uni vers pain pain 7- ity of 00:00: Medical Branch Ear mass, Ear mass, Disease Active Overview: Univers left left 02-26 Formattin ity of 00:00: g of this note Medical might be Branch different from the original. 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 U nivers [...] distension distension 5-18 it y of 00:00: 00 Medical Branch Allergies, Adverse Reactions, Alerts Allergy Allergy Status Severity Reaction(s) Onset Inactive Treating Comm ents Source Name Type Date Date Clinician Unable DA Active U 2021-08 [facility] to 2-08 Assess 00:00: 00 Sulfa DA Active U Rash 2021-08 [facility] (Sulfona 2-08 mide 00:00: Antibiot 00 ics) prochlor DA Active U Swelling of 2021-08 [facility] Cm perazine Lip/Tongue/T 2-08 hroat 00:00: 00 ACETAMIN DRUG Active ITCHING Univers OPHEN-CO 6-23 ity of DEINE 00:00: [place] 00 Medical Branch Acetamin Propensi Active Itching Unive rs ophen-Co ty to 6-23 ity of deine adverse 00:00: [place] reaction 00 Medical s to Branch drug PENICILL Drug Active High Swelling 2019- Univer s INS Class 1-23 ity of 00:00: [place] 00 Medical Branch Penicill Drug Active Swelling 2019- Tongue Univer s ins Allergy 1-23 and ity of 00:00: throat [place] 00 swelling Medical Branch HALOPERI DRUG Active Other-Cmnt [...] Quantity Comments Source Exposure to Not sure [facility] SARS-CoV-2 [facility] (event) [place] Alcohol intake 2021-03-18 2021-03-18 Current drinker of Un iversity of 00:00:00 00:00:00 alcohol (finding) [facility] Tobacco use and 2021-03-18 2021-03-18 Never used Universit y of exposure 00:00:00 00:00:00 [facility] Tobacco Comment 2020-01-22 2020-01-22 ADVISED TO SPEAK W/ University of 00:00:00 00:00:00 RE RX/PROGRAMS [facility] Alcohol Comment 2019-05-04 2019-05-04 occassionally Univer sity of 00:00:00 00:00:00 [facility] Sex Assigned At [birth year] BLAS [place] 00:00:00 00:00:00 [facility] Smoking Status Start Date Stop Date Source Current every day smoker 2021-03-18 00:00:00 Uni versity of [facility] Medications Ordered Filled Start Stop Current Ordering Indication Dosage Frequency Signature Comments Components Source Medication Medication Date Date Medication? Clinician (SIG) Name Name triamcinolo 2020- No [id number] 20mg Univers ne 03-23 9109 ity of acetonide 19:15: 18:05 [place] (KENALOG) 00 :00 Medical injection Branch 20 mg triamcinolo 2020- No [id number] 20mg 20 mg, Univers ne 03-23 9109 Intrasynov ity of acetonide 19:15: 18:05 ial, ONCE, [place] ([place] 00 :00 1 dose, Medical injection Mon Branch 20 mg 03/23/21 at 1415, Routine gabapentin 2020- No [id number] Take 1 Univers 100 mg 03-23 1007 9109 capsule by ity of capsule 00:00: 04:59 mouth at [place] 00 :00 bedtime Medical for 7 Branch days, THEN 2 capsules at bedtime for 7 days, THEN 3 capsules at bedtime for 30 days. Diclofenac Yes [id number] Apply to Univers Sodium 18 area(s) 4 ity of (VOLTAREN) 00:00: (four) [place] 1 % gel 00 times Medical daily as Branch needed for Pain (scale 1-3), Pain (scale 4-6) or Pain (scale 7-10). methocarbam Yes [id number] 500mg Take 1 Univers oL 500 mg 7-21 tablet by ity o f tablet 00:00: mouth at [place] 00 bedtime as Medical needed Branch (muscle spasms). methylPREDN 2019-08 Yes [id number] 84mg Take 21 Univers ISolone 2-04 tablets by ity of (MEDROL, 00:00: mouth [place] FABIAN,) 4 mg 00 SEE-INSTRU Med ical tablets CTIONS. Branch follow package directions venlafaxine 2020-0 Yes 150mg Take 150 U nivers HCl 9-15 mg by ity of (EFFEXOR 04:28: mouth [place] ORAL) 56 daily. Medical Branch buspirone Yes 1{tbl} Take 1 Univ ers HCl (BUSPAR 9-15 tablet by ity of ORAL) 04:28: mouth [place] 56 daily. Medical Branch furosemide Yes [id number] 20mg Take 1 Univers 20 mg 9-15 tablet by ity of tablet 00:00: mouth [place] 00 every Medical morning. Branch sulfamethox Yes [id number] 1{tbl} Take 1 Univers azole-trime 9-13 [id number] tablet by i ty of thoprim 00:00: mouth 2 [place] (BACTRIM 00 (two) Medical DS) 800-160 times Branch mg per daily. tablet FLUoxetine 2014-08 Yes 20mg Take 1 Cap U nivers (PROZAC) 20 0-20 by mouth ity of mg capsule 00:00: daily. [place] 00 [facility] Branch clonazePAM Yes 1mg Take 1 Tab [...] Immunizations Ordered Filled Immunization Date Status Comments [facility] e Immunization Name Name SARS-COV-2 COVID-19 2021-03-03 Completed Unive rsity of PFIZER VACCINE 00:00:00 [facility] Vital Signs Vital Name Observation Time Observation Value Comments Source Body temperature 2021-03-23 16:37:00 36.67 Bozena Univ ersity [facility] [place] [facility] Body weight 2021-03-23 16:37:00 71.85 kg [facility] BMI 2021-03-23 16:37:00 22.09 kg/m2 [facility] Procedures This patient has no known procedures. Encounters Start End Encounter Admission Attending Care Care Encounter Source Date/Time Date/Time Type Type Clinicians Facility Department ID 2021-05-29 Emergency [facility] [id number] Univers 17:30:16 ity of [facility] 2021-05-29 Emergency [facility] [id number] Univers 17:15:43 [facility] 2021-05-29 Outpatient MELISSA [facility] [id number] Univers 00:50:[address] [facility] 2015-05-23 Inpatient C [facility] MED [id number] St. 13:51:00 [facility] 2022-07-08 2022-07-08 Emergency [facility] [id number] [facility] 22:17:00 22:17:00 62 2022-07-08 2022-07-08 Emergency Emergency [place], [facility] [id number] [facility] 22:17:00 22:17:00 Ben 62 2021-12-24 2021-12-24 Outpatient R PARKER [facility] [id number] Univers 16:15:00 16:15:[address] [facility] 2021-05-06 2021-05-06 Outpatient R MELISSA [facility] [id number] Univers 12:30:00 12:30:[address] [facility] 2021-04-10 2021-04-10 Outpatient R [facility] [id number] Univers 20:00:00 20:00:00 [facility] 2021-03-24 2021-03-24 Outpatient R MAXIM [facility] [id number] Univers 11:00:00 11:00:[address] [facility] 2021-03-23 2021-03-23 Office [facility] [id number] Univers 11:30:52 11:40:52 Visit Chris [facility] [id number] it y of CARE [id number] Darek LOMELI [id number] [address] 2021-03-23 2021-03-23 Outpatient R MELISSA [facility] [id number] Univers 11:10:00 11:10:[address] [facility] 2021-03-18 2021-03-18 Outpatient R IGNACIO, [facility] [id number] Univers 14:55:32 23:59:00 BENJAMÍN ity [facility] [place] [facility] 2021-03-03 2021-03-03 Outpatient R MAXIM, [facility] [id number] Univers 15:40:00 15:40:00 SEGUNDO fox [facility] [place] [facility] 2021-03-03 2021-03-03 Outpatient R [facility] [id number] Univers 14:45:00 [facility]:45[facility] 2021-[facility] 2021-02-18 Outpatient R IGNACIO, [facility] [id number] Univers 09:00:44 23:59:00 BENJAMÍN pelon [facility] [place] [facility] 2021-02-18 2021-02-18 Outpatient R RICKEY [facility] [id number] Univers 09:30:00 09:30:00 ERIKA pelon [facility] [place] [facility] 2021-02-03 2021-02-03 [facility] [id number] Univers 10:19:08 23:59:00 HEATHER pelon [facility] [place] [facility] 2021-01-19 2021-01-19 [facility] [id number] Univers 00:00:00 23:59:[address] [facility] 2020-12-23 2020-12-23 [facility]phone [facility] [id number] 00:00:00 00:00:00 Prachi Jurado [id number] [place] [id number] Professio [id number] [place] [address] Building 2020-09-24 2020-09-24 Outpatient R MELISSA [facility] [id number] Univers 13:30:00 13:30:[address] [facility] 2020-07-04 2020-07-04 [facility] [id number] Univers 10:28:52 23:59:[address] [facility] 2020-07-04 2020-07-04 Office [facility] [id number] 10:14:34 10:52:53 Visit [facility] [id number] Surgical [id number] Specialti [id number] shaan Jurado 2020-05-06 2020-05-06 Outpatient R MAGALY, [facility] [id number] Univers 14:30:00 14:30:[address] [facility] 2020-04-21 2020-04-21 Outpatient R CAPO, [facility] [id number] Univers 12:30:00 12:30:[address] [facility] 2020-03-19 2020-03-19 Outpatient R MELISSA, [facility] [id number] Univers 15:40:00 15:40:[address] [facility] 2020-02-27 2020-02-27 Outpatient R MELISSA, [facility] [id number] Univers 13:20:00 13:20:[address] [facility] 2020-01-24 2020-01-24 Outpatient R MELISSA [facility] [id number] Univers 11:30:00 11:30:[address] [facility] 2019-10-08 2019-10-08 Outpatient R MELISSA [facility] [id number] Univers 15:30:00 15:30:[address] [facility] 2018-11-07 2018-11-07 Emergency E MHBL [id number] [id number] 21:39:00 21:39:00 Results Test Description Test Time Test Comments Results Result Comments Source UA, Urinalysis Rflx Cult/Sedmt 2022-07-09 00:45:00 Test Item Value Reference Range Interpretation Comme nts Color,Urine (test code = UCOL) Yellow Yellow Clarity,Urine (test code = UCLAR) Clear Clear Ph, Urine (test code = UPH) 6.0 5.0-9.0 N Specific [place],Urine (test code = USG) 1.020 1.005-1.030 N Blood,Urine (test code = UBLD) Small mg/dL Negative A Protein,Urine (test code = UPRO) Negative mg/dL Negative Glucose,Urine (UA) (test code = UGLU) Negative mg/dL Negative Ketones,Urine (test code = UKET) Negative mg/dL Negative Nitrate,Urine (test code = UNIT) Negative Negative Bilirubin,Urine (test code = UBIL) Negative mg/dL Negative Urobilinogen,Urine (test code = UURO) 0.2 E.U./dL Normal Leukocyte Esterase,Urine (test code = ULEU) Trace mg/dL Negative A UF REFLEXUF REFLEXUrine [id number] 00:45:00 Test Item Value Reference Range Interpretation Comments RBC,Urine (test code = URBCUF) 0-2 /HPF 0-2 WBC,Urine (test code = UWBCUF) 0-5 /HPF 0-5 Epithelial Cell,Urine (test None Seen /HPF 0-5 code = UECUF) Casts,Urine (test code = None Seen /LPF None Seen UCASTUF) Bacteria,Urine (test code = None Seen /hpf None Seen UBACTUF) UF REFLEXUF REFLEXCoronavirus PCR, COVID19 [id number] 23:21:00 Test Item Value Reference Range Interpretation Comments Coronavirus PCR, For use under Emergency COVID19 Rapid (test Use Authorization (EUA) code = SARSCOV2) only. Coronavirus PCR, Reference Range: COVID19 Rapid (test Negative code = RQBIMDG83.1) SARS-CoV-2 PCR Result: Negative by RT-PCR (test code = SARS-CoV-2 PCR Result:) COVID-19 Status: AsymptomaticComplete Blood Count Auto [id number] 23:04:00 Test Item Value Reference Range Interpretation Comments White Blood Count (test code = 5.3 x10 3/uL 4.4-10.5 N WBCT) Red Blood Count (test code = 4.28 x10 6/uL 3.75-5.20 N RBC) Hemoglobin (test code = HGBT) 12.9 g/dL 12.2-14.8 N Hematocrit (test code = HCTT) 38.0 % 36.5-44.4 N Mean Corpuscular Volume (test 88.80 fL 80.00-100.00 N code = MCV) Mean Corpuscular Hemoglobin 30.1 pg 27.0-32.5 N (test code = MCH) Mean Corpuscular HGB Conc 33.90 g/dL 32.00-37.50 N (test code = MCHC) RDW Coefficient of Variation 13.2 % 11.5-14.5 N (test code = RDWCV) Platelet Count (test code = 290.0 x10 3/uL 140.0-440.0 N PLTT) Mean Platelet Volume (test 9.5 fL code = MPV) Immature Granulocytes % (Auto) 0.0 % 0.0-5.0 N (test code = IMMGRAN%) Neutrophils % (Auto) (test 49.8 % 36.0-70.0 N code = NE%) Lymphocytes % (Auto) (test 38.7 % 12.0-44.0 N code = LY%) Monocytes % (Auto) (test code 9.8 % 0.0-11.0 N = MO%) Eosinophils % (Auto) (test 0.8 % 0.0-7.0 N code = EO%) Basophils % (Auto) (test code 0.9 % 0.0-2.0 N = BA%) Immature Granulocytes # (Auto) 0.00 x10 3/uL (test code = IMMGRAN#) Neutrophils # (Auto) (test 2.6 x10 3/uL 1.6-7.4 N code = NE#) Lymphocytes # (Auto) (test 2.05 x10 3/uL 0.50-4.60 N code = LY#) Monocytes # (Auto) (test code 0.52 x10 3/uL 0.00-1.20 N = MO#) Eosinophils # (Auto) (test 0.04 x10 3/uL 0.00-0.74 N code = EO#) Basophils # (Auto) (test code 0.05 x10 3/uL 0.00-0.21 N = BA#) nRBC Abs (test code = NRBCA) 0 nRBC Pct (test code = NRBCP) 0 % Comprehensive Metabolic [id number] 23:04:00 Test Item Value Reference Range Interpretation Comments SODIUM (test code = NA) 143.0 mmol/L 136.0-145.0 N Potassium,K (test code = 3.3 mmol/L 3.0-5.1 N K) Chloride (test code = 103 mmol/L 98-107 N CL) Carbon Dioxide (test 31 mmol/L 20-31 N code = CO2) Anion Gap (test code = 9 mmol/L 5-15 N GAP) Blood Urea Nitrogen 19 mg/dL 9-23 N (test code = BUN) Creatinine (test code = 0.89 mg/dL 0.55-1.02 N CREATT) Creatinine Clr Calc 90.16 mL/min Pharmacy (test code = CRCLPHA) Estimated Glomerular 82 See_Comment L Reporte d eGFR is Filt Rate (test code = based on the EGFR.XX) CKD-EPI 2020 equation thatdo es not use a race coefficient. Additional information can be found at:[id number] cb_ egfr_summary_fl mariama 5.pdf (kidney.o rg) [Automated message] The system which generated this result transmit eyad reference range : >=90 ml/min/1.73m2. The reference range was not used to interpret this result as normal/abnormal . BUN/Creatinine Ratio 21 ratio 10-20 H (test code = BCRATIO) Glucose (test code = 103 mg/dL 74-106 N GLU) Osmolality,Calculated 297.7 (test code = OSMOC) Calcium (test code = CA) 9.3 mg/dL 8.3-10.6 N Bilirubin,Total (test 0.5 mg/dL 0.2-1.1 N code = BILIT) Aspartate Amino 17 U/L 0-34 N Transferase (test code = AST) Alanine Aminotransferase 15 U/L 10-49 N (test code = ALT) Total Protein (test code 7.3 g/dL 5.7-8.2 N = TP) Albumin Level (test code 5.1 g/dL 3.2-4.8 H = ALB) Globulin (test code = 2.2 mg/dL 2.3-3.5 L GLOB) Albumin/Globulin Ratio 2.3 ratio 0.8-2.0 H (test code = AGRATIO) Alkaline Phosphatase 93 U/L 46-116 N (test code = ALP) Ethanol [id number] 23:04:00 Test Item Value Reference Range Interpretation Comments Ethanol (test code < 3 mg/dL The pharm acological = ETOH) response to blo od alcohol levels mayvary from individual to i ndividual. The fatal mirella ntrationhas been reported t o be >400mg/dL. HCG, Serum Qual (LAB)2022-07-08 23:04:00 Test Item Value Reference Range Interpretation Comments HCG, Serum Qual (LAB) (test code = Negative Negative HCGQ)
[2022-08-18] MEDS ORDERED: DIPHENHYDRAMINE 12.5MG/5ML LIQ ONE (13:03)
[2022-08-18] MEDS ORDERED: MAGNES/ALUMIN/SIMET 30ML UCUP ONE (13:04)
[2022-08-18] MEDS ORDERED: FLUCONAZOLE 100 MG TAB ONE (13:04)
[2022-08-18] MEDS ORDERED: LIDOCAINE VISCOUS 2% SOLN 15 ML UDC ONE (13:04)
--- NOTE | 2022-08-18 13:42 | ER ---
Nurse's Notes [facility] Name: Suzette Judeg Age: 47 yrs Sex: Female : 1975 Arrival Date: 08/18/2022 Time: 12:42 Bed 12 Private MD: Diagnosis: Candidiasis of vulva and vagina;Candidal stomatitis Presentation: 08/18 12:58 Chief complaint: Patient states: mouth pain from sores, states she now has a genital eh3 yeast infection and athlete's foot. Also c/o of headache and fever. Coronavirus screen: Vaccine status: Patient reports receiving the 2nd dose of the covid vaccine. Ebola Screen: No symptoms or risks identified at this time. Initial Sepsis Screen: Does the patient meet any 2 criteria? No. Patient's initial sepsis screen is negative. Does the patient have a suspected source of infection? No. Patient's initial sepsis screen is negative. Risk Assessment: Do you want to hurt yourself or someone else? Patient reports no desire to harm self or others. Onset of symptoms was August 18, 2022. 12:58 Method Of Arrival: Ambulatory [facility] 12:58 Acuity: LORI 3 eh3 Triage Assessment: 13:13 General: Appears distressed, uncomfortable, Behavior is cooperative, appropriate for [facility] age, crying. Pain: Complains of pain in mouth. EENT: Oral mucosa is moist. Lesions noted. Neuro: Level of Consciousness is awake, alert, obeys commands, Oriented to person, place, time, situation. Cardiovascular: Capillary refill < 3 seconds Patient's skin is warm and dry. Respiratory: Airway is patent Respiratory effort is even, unlabored, Respiratory pattern is regular, symmetrical. GI: No signs and/or symptoms were reported involving the gastrointestinal system. Abdomen is flat, non-distended. : No signs and/or symptoms were reported regarding the genitourinary system. Derm: Reports itching, pain. Musculoskeletal: No signs and/or symptoms reported regarding the musculoskeletal system. Circulation, motion, and sensation intact. Range of motion: intact in all extremities. 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 - Social history:: Smoking status: Reported history of juuling and/or vaping. Patient/guardian denies using alcohol. Screenin:16 [facility] ED Fall Risk Assessment (Adult) History of falling in the last 3 months, 3 including since admission No falls in past 3 months (0 pts) Confusion or Disorientation No (0 pts) Intoxicated or Sedated No (0 pts) Impaired Gait No (0 pts) Mobility Assist Device Used No (0 pt) Altered Elimination No (0 pt) Score/Fall Risk Level 0 - 2 = Low Risk. Abuse screen: Denies threats or abuse. Denies injuries from another. Nutritional screening: No deficits noted. Tuberculosis screening: No symptoms or risk factors identified. Assessment: 13:16 Reassessment: No changes from previously documented assessment. See triage assessment. 3 Vital Signs: 12:58 BP 120 / 84; Pulse 92; Resp 18; Temp 97.1(TE); Pulse Ox 100% on R/A; Weight 77.11 kg; eh3 Height 5 ft. 11 in. (180.34 cm); Pain 10/10; 12:58 Body Mass Index 23.71 (77.11 kg, 180.34 cm) 3 ED Course: 12:42 Patient arrived in ED. rg4 12:47 Ileana Leyva FNP-C is [facility]. kb 12:48 Dominic Rosario MD is Attending Physician. kb 12:58 Mary Suarez RN is Primary Nurse. 3 13:13 Triage completed. 3 13:13 Arm band placed on. 3 13:16 Patient has correct armband on for positive identification. Bed in low position. Call [facility] light in reach. Pulse ox on. NIBP on. Door closed. Noise minimized. Lights dimmed. Warm blanket given. 13:47 No provider procedures requiring assistance completed. Patient did not have IV access 3 during this emergency room visit. Administered Medications: 13:08 Drug: Benadryl (diphenhydrAMINE) 12.5 mg Route: PO; 3 13:53 Follow up: Response: Pain is decreased eh3 13:08 Drug: GI Cocktail without - (Maalox Suspension 30 ml, Lidocaine Liquid 2 % 15 eh3 ml) Route: PO; 13:53 Follow up: Response: Pain is decreased eh3 13:08 Drug: DiFLUcan (fluconazole) 150 mg Route: PO; eh3 13:53 Follow up: Response: No adverse reaction eh3 Medication: 13:47 VIS not applicable for this client. eh3 Outcome: 13:42 Discharge ordered by MD. gonzalez 13:47 Discharged to home ambulatory. eh3 13:47 Condition: stable 13:47 Discharge instructions given to patient, Instructed on discharge instructions, follow up and referral plans. medication usage, Demonstrated understanding of instructions, follow-up care, medications, Prescriptions given X 2. 13:53 Patient left the ED. 3 Signatures: Ileana Leyva, VEST MAKER-C VEST MAKER-Malia Conklin rg4 Mary Suarez, RN RN eh3
--- NOTE | 2022-08-18 13:42 | EDPHYS ---
Physician Documentation [facility] Name: Suzette Judge Age: 47 yrs Sex: Female : 1975 Arrival Date: 08/18/2022 Time: 12:42 Bed 12 Private MD: ED Physician Dominic Rosario HPI: 08/18 17:43 This 47 yrs old Female presents to ER via Ambulatory with complaints of Sores In Mouth. kb 17:43 The patient presents with pain. The problem is located in the mouth. Onset: The kb symptoms/episode began/occurred 2 week(s) ago. Duration: The symptoms are continuous. Modifying factors: The symptoms are alleviated by nothing, the symptoms are aggravated by cold fluids, hot fluids. Associated signs and symptoms: Pertinent positives: pain. Severity of symptoms: At their worst the symptoms were moderate, in the emergency department the symptoms are unchanged. The patient has experienced a previous episode. The patient has not recently seen a physician. Pt reports the inside of her mouth has been raw for about 2 weeks. Reports she has had yeast in her mouth before and it feels the same. Now has a vaginal yeast infection as well. 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 - Social history:: Smoking status: Reported history of juuling and/or vaping. Patient/guardian denies using alcohol. ROS: 15:40 Constitutional: Negative for fever, chills, and weight loss. kb 15:40 ENT: Positive for mouth raw due to yeast infection. 15:40 : Positive for vaginal itching. 15:40 All other systems are negative. Exam: 15:40 Constitutional: This is a well developed, well nourished patient who is awake, alert, kb and in no acute distress. Head/Face: Normocephalic, atraumatic. Cardiovascular: Regular rate and rhythm with a normal S1 and S2. No gallops, murmurs, or rubs. No pulse deficits. Respiratory: Respirations even and unlabored. No increased work of breathing. Talking in full sentences Abdomen/GI: Soft, non-tender. No distention Skin: Warm, dry with normal turgor. Normal color. MS/ Extremity: Pulses equal, no cyanosis. Neurovascular intact. Full, normal range of motion. Neuro: Awake and alert, GCS 15, oriented to person, place, time, and situation. Moves all extremities. Normal gait. 15:40 ENT: Mouth: Oral mucosa: noted to have obvious stomatitis. Vital Signs: 12:58 BP 120 / 84; Pulse 92; Resp 18; Temp 97.1(TE); Pulse Ox 100% on R/A; Weight 77.11 kg; eh3 Height 5 ft. 11 in. (180.34 cm); Pain 10/10; 12:58 Body Mass Index 23.71 (77.11 kg, 180.34 cm) eh3 MDM: 12:48 Patient medically screened. kb 13:08 Data reviewed: vital signs, nurses notes. kb 17:42 Differential diagnosis: candidiasis, stomatitis. Counseling: I had a detailed kb discussion with the patient and/or guardian regarding: the historical points, exam findings, and any diagnostic results supporting the discharge/admit diagnosis, lab results, the need for outpatient follow up, a family practitioner, to return to the emergency department if symptoms worsen or persist or if there are any questions or concerns that arise at home. 08/18 12:56 Order name: Strep; Complete Time: 13:29 kb 08/18 13:30 Order name: Throat Culture EDMS Administered Medications: 13:08 Drug: Benadryl (diphenhydrAMINE) 12.5 mg Route: PO; eh3 13:53 Follow up: Response: Pain is decreased eh3 13:08 Drug: GI Cocktail without - (Maalox Suspension 30 ml, Lidocaine Liquid 2 % 15 eh3 ml) Route: PO; 13:53 Follow up: Response: Pain is decreased eh3 13:08 Drug: DiFLUcan (fluconazole) 150 mg Route: PO; eh3 13:53 Follow up: Response: No adverse reaction eh3 Disposition: 15:04 Co-signature as Attending Physician, Dominic Rosario MD I agree with the assessment and kdr plan of care. Disposition Summary: 08/18/22 13:42 Discharge Ordered Location: Home kb Condition: Stable kb Diagnosis - Candidiasis of vulva and vagina kb - Candidal stomatitis kb Followup: kb - With: Emergency Department - When: As needed - Reason: Worsening of condition Followup: kb - With: Private Physician - When: 2 - 3 days - Reason: Recheck today's complaints, Continuance of care, Re-evaluation by your physician Discharge Instructions: - Discharge Summary Sheet kb - Vaginal Yeast Infection, Adult kb - Oral Thrush, Adult, [id number] kb Forms: - Medication Reconciliation Form kb - Thank You Letter kb - Antibiotic Education kb - Prescription Opioid Use kb Prescriptions: - Diflucan 150 mg Oral Tablet - take 1 tablet by ORAL route one time for 1 day; 1 tablet; Refills: 0, Product kb Selection Permitted - Nystatin 100,000 unit/mL Oral Suspension - take 5 milliliters by ORAL route every 6 hours; 120 milliliter; Refills: 0, kb Product Selection Permitted Signatures: Dispatcher [employer] EDMS Ileana Leyva, PACKAGING MACHINE OPERATOR-C JAVIER-Dominic Lincoln MD MD kdr Hall, Erin, RN RN eh3
[2022-08-18 14:09] VITALS: BP 120/84; TEMP 97.1; O2SAT 100
== END 2022-08-18 13:53 | disposition home or self-care (01) ==
LOC: ER 12:38
DX: B37.0 Candidal stomatitis (principal); B37.31 Acute candidiasis of vulva and vagina; Z88.0 Allergy status to penicillin; Z88.1 Allergy status to other antibiotic agents; Z88.2 Allergy status to sulfonamides; Z88.5 Allergy status to narcotic agent
CPT/HCPCS: 87070; 87081; Q0163; 99283

== ENCOUNTER 2022-12-23 15:57 | Emergency (ER) | payer OTHER ==
--- OUTSIDE RECORDS SUMMARY | 2022-12-23 16:16 | XMS REPORT | Continuity of Care Document ---
:1975 Author Organization [facility] t Address [address] [place] [address] Care Team Providers Name Role Phone ROGELIO [...] Number Effective Date Expiration Date S bertha [facility] [id number] 2018 00:00:00 PLUS Problems Condition Condition Condition Status Onset Resolution Last Treating Co mments Source Name Details Category Date Date Treatment Clinician Date Left wrist Left wrist Disease Active U nivers pain pain 8-03 ity of 00:00: [place] [address] Medical Branch Decreased Decreased Disease Active Uni vers activities activities 03-03 it y of of daily of daily [...] Added automatic ally from request for surgery [id number] 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 (event) [place] Alcohol intake 2021-03-18 2021-03-18 Current drinker of Un iversity of 00:00:00 00:00:00 alcohol (finding) [facility] [place] [facility] Tobacco use and 2021-03-18 2021-03-18 Never used Universit y of exposure 00:00:00 00:00:00 [facility] Tobacco Comment 2020-01-22 2020-01-22 ADVISED TO SPEAK W/ University of 00:00:00 00:00:00 RE RX/PROGRAMS [facility] [place] [facility] Alcohol Comment 2019-05-04 2019-05-04 occassionally Univer sity of 00:00:00 00:00:00 [facility] Sex Assigned At [birth year] BLAS [place] 00:00:00 00:00:00 [facility] Smoking Status Start Date Stop Date Source Current every day smoker 2021-03-18 00:00:00 Uni versity of [facility] Medications Ordered Filled Start Stop Current Ordering Indication Dosage Frequency Signature Comments Components Source Medication Medication Date Date Medication? Clinician (SIG) Name Name triamcinolo 2020- No [id number] 20mg Univers ne 03-23 9109 ity of acetonide 19:15: 18:05 [place] (KENALOG) 00 :00 Medical injection Branch 20 mg triamcinolo 2020- No [id number] 20mg 20 mg, Univers ne 03-23 9109 Intrasynov ity of acetonide 19:15: 18:05 ial, ONCE, [place] (KENALOG[place] 00 :00 1 dose, Medical injection Mon Branch 20 mg 03/23/21 at 1415, Routine gabapentin 2020- No [id number] Take 1 Univers 100 mg 03-23 9109 capsule by ity of capsule 00:00: 04:59 mouth at [place] 00 :00 bedtime Medical for 7 Branch days, THEN 2 capsules at bedtime for 7 days, THEN 3 capsules at bedtime for 30 days. Diclofenac Yes [id number] Apply to Univers Sodium 03-18 area(s) 4 ity of (VOLTAREN) 00:00: (four) [place] 1 % gel 00 times Medical daily as Branch needed for Pain (scale 1-3), Pain (scale 4-6) or Pain (scale 7-10). methocarbam Yes [id number] 500mg Take 1 Univers oL 500 mg 7-21 tablet by ity o f tablet 00:00: mouth at [place] 00 bedtime as Medical needed Branch (muscle spasms). methylPREDN 2019-08 Yes [id number] 84mg Take 21 Univers ISolone 2-04 tablets [...] [place] 56 daily. Medical Branch furosemide Yes [id number] 20mg Take 1 Univers 20 mg 9-15 tablet by ity of tablet 00:00: mouth [place] 00 every Medical morning. Branch sulfamethox Yes [id number] 1{tbl} Take 1 Univers azole-trime 9-13 [id number] tablet by i ty of thoprim 00:00: mouth 2 [place] (BACTRIM 00 (two) Medical DS) 800-160 times Branch mg per daily. tablet FLUoxetine 2014-08 Yes 20mg Take 1 Cap U nivers (PROZAC) 20 0-20 by mouth ity of mg capsule 00:00: daily. [place] 00 [facility] Branch clonazePAM Yes 1mg Take 1 Tab [...] Immunizations Ordered Filled Immunization Date Status Comments [facility] e Immunization Name Name SARS-COV-2 COVID-19 2021-03-03 Completed Unive rsity of PFIZER VACCINE 00:00:00 [facility] Vital Signs Vital Name Observation Time Observation Value Comments Source Body temperature 2021-03-23 16:37:00 36.67 Bozena Univ ersity [facility] Body weight 2021-03-23 16:37:00 71.85 kg [facility] BMI 2021-03-23 16:37:00 22.09 kg/m2 [facility] Procedures This patient has no known procedures. Encounters Start End Encounter Admission Attending Care Care Encounter Source Date/Time Date/Time Type Type Clinicians Facility Department ID 2021-05-29 Emergency [facility] [id number] [facility] [place] [facility] 17:30:16 ity of [facility] 2021-05-29 Emergency [facility] [id number] Univers 17:15:43 [facility] 2021-05-29 Outpatient MELISSA [facility] [id number] Univers 00:50:20 CHRIS [facility] 2015-05-23 Inpatient C [facility] [id number] [facility]. 13:51:00 [facility] 2022-07-08 2022-07-08 Emergency Emergency [place], [facility] [id number] [facility] 22:17:00 22:17:00 Lukliliam 62 2022-07-08 2022-07-08 Emergency [facility] [id number] [facility] 22:17:00 22:17:00 62 2021-12-24 2021-12-24 Outpatient R PARKER [facility] [id number] Univers 16:15:00 16:15:00 WILMER [facility] 2021-05-06 2021-05-06 Outpatient R MELISSA [facility] [id number] Univers 12:30:00 12:30:00 CHRIS [facility] 2021-04-10 2021-04-10 Outpatient R [facility] [id number] Univers 20:00:00 20:00:00 [facility] 2021-03-24 2021-03-24 [facility] [id number] Univers 11:00:00 11:00:00 SEGUNDO [facility] 2021-03-23 2021-03-23 [facility] [id number] Univers 11:30:52 11:40:52 Visit Chris [facility] [id number] it y of CARE [id number] Darek LOMELI [id number] [address] 2021-03-23 2021-03-23 Outpatient R MELISSA [facility] [id number] Univers 11:10:00 11:10:00 CHRIS [facility] 2021-03-18 2021-03-18 Outpatient R IGNACIO [facility] [id number] Univers 14:55:32 23:59:00 BENJAMÍN ity [facility] 2021-03-03 2021-03-03 Outpatient R MAXIM [facility] [id number] Univers 15:40:00 15:40:00 SEGUNDO pelon [facility] 2021-03-03 2021-03-03 Outpatient R [facility] [id number] Univers 14:45:00 14:45:00 [facility] 2021-02-18 2021-02-18 Outpatient R IGNACIO, [facility] [id number] Univers 09:00:44 23:59:00 BENJAMÍN [facility] 2021-02-18 2021-02-18 Outpatient R RICKEY [facility] [id number] Univers 09:30:00 09:30:00 ERIKA [facility] 2021-02-03 2021-02-03 [facility] [id number] Univers 10:19:08 23:59:00 HEATHER pelon [facility] 2021-01-19 2021-01-19 [facility] [id number] Univers 00:00:00 23:59:00 HEATHER [facility] 2020-12-23 2020-12-23 [facility]phone [facility] [id number] 00:00:00 00:00:00 Prachi Jurado [id number] [place] [id number] Professio [id number] [address] 2020-09-24 2020-09-24 Outpatient R MELISSA, [facility] [id number] Univers 13:30:00 13:30:00 CHRIS [facility] 2020-07-04 2020-07-04 [facility] [id number] Univers 10:28:52 23:59:00 WILMER [facility] 2020-07-04 2020-07-04 Office [facility] [id number] 10:14:34 10:52:53 Visit [facility] [id number] Surgical [id number] Specialti [id number] shaan Juraod 2020-05-06 2020-05-06 Outpatient R MAGALY, [facility] [id number] Univers 14:30:00 14:30:00 PRACHI [facility] 2020-04-21 2020-04-21 Outpatient R CAPO, [facility] [id number] Univers 12:30:00 12:30:00 SEGUNDO [facility] 2020-03-19 2020-03-19 Outpatient R MELISSA, [facility] [id number] Univers 15:40:00 15:40:00 CHRIS [facility] 2020-02-27 2020-02-27 Outpatient R MELISSA, [facility] [id number] Univers 13:20:00 13:20:00 CHRIS [facility] 2020-01-24 2020-01-24 Outpatient R MELISSA, [facility] [id number] Univers 11:30:00 11:30:00 CHRIS [facility] 2019-10-08 2019-10-08 Outpatient R MELISSA, [facility] [id number] Univers 15:30:00 15:30:00 CHRIS [facility] 2018-11-07 2018-11-07 Emergency E MHBL [id number] 21:39:00 21:39:00 Results Test Description Test Time Test Comments Results Result Comments Source UA, Urinalysis Rflx Cult/Sedmt 2022-07-09 00:45:00 Test Item Value Reference Range Interpretation Comme nts Color,Urine (test code = UCOL) Yellow Yellow Clarity,Urine (test code = UCLAR) Clear Clear Ph, Urine (test code = UPH) 6.0 5.0-9.0 N Specific Ivins,Urine (test code = USG) 1.020 1.005-1.030 N [...] Trace mg/dL Negative A UF REFLEXUF REFLEXUrine [id number] 00:45:00 Test Item Value Reference Range Interpretation Comments RBC,Urine (test code = URBCUF) 0-2 /HPF 0-2 WBC,Urine (test code = UWBCUF) 0-5 /HPF 0-5 Epithelial Cell,Urine (test None Seen /HPF 0-5 code = UECUF) Casts,Urine (test code = None Seen /LPF None Seen UCASTUF) Bacteria,Urine (test code = None Seen /hpf None Seen UBACTUF) UF REFLEXUF REFLEXCoronavirus PCR, COVID19 [id number] 23:21:00 Test Item Value Reference Range Interpretation Comments Coronavirus PCR, For use under Emergency COVID19 Rapid (test Use Authorization (EUA) code = SARSCOV2) only. Coronavirus PCR, Reference Range: COVID19 Rapid (test Negative code = HLRYSXG45.1) SARS-CoV-2 PCR Result: Negative by RT-PCR (test code = SARS-CoV-2 PCR Result:) COVID-19 Status: AsymptomaticComplete Blood Count Auto [id number] 23:04:00 Test Item Value Reference Range Interpretation [...] code = NRBCP) 0 % Comprehensive Metabolic [id number] 23:04:00 Test Item Value Reference Range Interpretation [...] race coefficient. Additional information can be found at:[id number] cb_ egfr_summary_fl mariama 5.pdf (kidney.o rg) [Automated [...] 46-116 N (test code = ALP) Ethanol [id number] 23:04:00 Test Item Value Reference Range Interpretation [...]
[2022-12-23 17:41] LABS: Absolute Lymphocytes (CBC) 1.8 K/uL (0.7-4.9); Hematocrit 37.6 % (36.0-45.0); Lymphocytes % 34.4 % (15.3-44.8); MCV 86.2 fL (80-100); MPV 7.1 fL (7.6-11.3); RBC Red Blood Cell Count 4.36 M/uL (3.86-4.86)
[2022-12-23 18:00] LABS: Albumin 3.8 g/dL (3.4-5.0); Bilirubin Total 0.3 mg/dL (0.2-1.0); Potassium 3.6 mEq/L (3.5-5.1); Protein, Total 7.1 g/dL (6.4-8.2)
--- NOTE | 2022-12-23 18:39 | RAD REPORT ---
EXAM DESCRIPTION: USExtrem Venous W Compress Bil12/23/2022 6:19 pm CLINICAL HISTORY: Leg swelling COMPARISON: 2021 FINDINGS: The common femoral, superficial femoral, greater saphenous, popliteal and posterior tibial veins bilaterally are compressible and demonstrate augmentation. Doppler demonstrates good flow. Grayscale, color and spectral analysis performed on all vessels IMPRESSION: No evidence of deep venous thrombosis involving either lower extremity.
[2022-12-23 20:26] LABS: Specific Gravity 1.023 (1.005-1.030)
--- NOTE | 2022-12-23 20:31 | RAD REPORT ---
EXAM DESCRIPTION: CT - Abdomen Pelvis Wo Contrast - 12/23/2022 8:12 pm CLINICAL HISTORY: Abdominal pain /right flank pain COMPARISON: 2019 TECHNIQUE: Computed axial tomography of the abdomen and pelvis was obtained. IV and oral contrast we re not requested. All CT scans are performed using dose optimization technique as appropriate and may include automated exposure control or mA/KV adjustment according to patient size. FINDINGS: The evaluation of solid organs, vessels, appendix and bowel is limited secondary to the l ack of contrast administration. The liver, spleen, pancreas, adrenals and kidneys appear grossly normal. There is no evidence of diverticulitis. No adnexal mass Moderate amount stool within the colon IMPRESSION: Moderate amount stool within the colon
[2022-12-23 20:40] LABS: Specific Gravity 1.023 (1.005-1.030); Urine Bacteria None Seen /HPF (<20); Urine Bilirubin NEGATIVE (Negative); Urine Blood Negative (Negative); Urine Clarity Extremely Turbid (Clear); Urine Color Light-Yellow (Yellow); Urine Glucose NEGATIVE (Negative); Urine Mucus 1+ /HPF (None Seen); Urine Protein NEGATIVE (Negative); Urine Urobilinogen Normal (Normal)
[2022-12-23 20:42] LABS: Barbiturates NEGATIVE (NEGATIVE); Benzodiazepines NEGATIVE (NEGATIVE); Cocaine NEGATIVE (NEGATIVE); METHAMPHETAM POSITIVE (NEGATIVE); Methadone NEGATIVE (NEGATIVE); Opiates NEGATIVE (NEGATIVE); Phencyclidine NEGATIVE (NEGATIVE); THC Cannibis NEGATIVE (NEGATIVE)
--- NOTE | 2022-12-23 21:12 | ER ---
Nurse's Notes [facility] Name: Suzette Judge Age: 47 yrs Sex: Female : 1975 Arrival Date: 12/23/2022 Time: 15:57 Bed 11 Private MD: Diagnosis: Bilateral lower extremity swelling. Right lower back pain. Acute lower back pain. Musculoskeletal pain. Presentation: 12/23 16:17 Chief complaint: Patient states: "I have kidney pain" Right lower back/flank pain since nj1 yesterday. Also states she has a spider bite to her face "it happened yesterday". Coronavirus screen: Vaccine status: Patient reports receiving the 1st dose of the Covid vaccine. Ebola Screen: Patient denies travel to an Ebola-affected area in the 21 days before illness onset. Initial Sepsis Screen: Does the patient meet any 2 criteria? No. Patient's initial sepsis screen is negative. Does the patient have a suspected source of infection? No. Patient's initial sepsis screen is negative. Risk Assessment: Do you want to hurt yourself or someone else? Patient reports no desire to harm self or others. Onset of symptoms was December 22, 2022. 16:17 Method Of Arrival: Ambulatory [facility] 16:17 Acuity: LORI 3 nj1 Triage Assessment: 16:30 Bite description: bite sustained to face by an unknown animal, animal information: bp vaccination(s) is not applicable. General: Appears in no apparent distress. Behavior is calm, cooperative, appropriate for age. Pain: Complains of pain in face and back. EENT: No deficits noted. Neuro: No deficits noted. Cardiovascular: No deficits noted. Respiratory: No deficits noted. GI: No signs and/or symptoms were reported involving the gastrointestinal system. : No signs and/or symptoms were reported regarding the genitourinary system. Derm: No deficits noted. Musculoskeletal: No deficits noted. Historical: - Allergies: 16:20 Compazine; nj1 16:20 Haldol; nj1 16:20 PENICILLINS; nj1 16:20 Sulfa; nj1 - PMHx: 16:20 Anxiety; Bipolar disorder; Crohn's; Depression; PTSD; Schizophrenia; nj1 - PSHx: 16:20 knee; nj1 - Immunization history:: Client reports receiving the 1st dose of the Covid vaccine. - Social history:: Smoking status: Reported history of juuling and/or vaping. Screenin:30 [facility] ED Fall Risk Assessment (Adult) History of falling in the last 3 months, bp including since admission No falls in past 3 months (0 pts). Abuse screen: Denies threats or abuse. Denies injuries from another. Nutritional screening: No deficits noted. Tuberculosis screening: No symptoms or risk factors identified. Assessment: 16:30 General: SEE TRIAGE NOTE. bp 19:22 General: Appears in no apparent distress. comfortable, Behavior is calm, cooperative, lg3 flat. Pain: Complains of pain in back. Neuro: Mantilla Agitation-Sedation Scale (RASS): -1 Drowsy Level of Consciousness is awake, alert, obeys commands, Oriented to person, place, time, situation. Cardiovascular: No deficits noted. Denies chest pain, shortness of breath, Capillary refill < 3 seconds Clubbing of nail beds is absent JVD is absent Patient's skin is warm and dry. Respiratory: No deficits noted. Airway is patent Respiratory effort is even, unlabored, Respiratory pattern is regular, symmetrical. GI: No deficits noted. No signs and/or symptoms were reported involving the gastrointestinal system. Abdomen is round non-distended. : No deficits noted. No signs and/or symptoms were reported regarding the genitourinary system. EENT: No deficits noted. No signs and/or symptoms were reported regarding the EENT system. Derm: Skin is intact, is healthy with good turgor, Skin is dry, Skin is normal. Musculoskeletal: No deficits noted. No signs and/or symptoms reported regarding the musculoskeletal system. Circulation, motion, and sensation intact. Range of motion: intact in all extremities. Vital Signs: 16:17 BP 134 / 81; Pulse 97; Resp 18; Temp 97.8(O); Pulse Ox 100% ; Weight 77.7 kg; Height 5 nj1 ft. 11 in. ; Pain 3/10; 19:22 BP 131 / 84; Pulse 89; Resp 17 S; Pulse Ox 100% on R/A; lg3 21:26 BP 129 / ???; Pulse 87; Resp 18; Pulse Ox 98% on R/A; Pain 3/10; pf1 16:17 Body Mass Index 23.89 (77.70 kg, 180.34 cm) nj1 16:17 Pain Scale: Adult nj1 21:26 Pain Scale: Adult pf1 ED Course: 15:59 Patient arrived in ED. ts1 16:01 Hernandez Anton MD is Attending Physician. bs3 16:20 Triage completed. nj1 16:20 Arm band placed on right wrist. nj1 16:30 Patient has correct armband on for positive identification. Call light in reach. bp 16:43 Titus Skinner, RN is Primary Nurse. bp 17:34 Inserted saline lock: 22 gauge in right hand, using aseptic technique. bp 18:20 US Extremity Venous W Compression Asher In Process Unspecified. EDMS 19:59 Radiology exam delayed due to test not completed at this time. ls3 20:04 Urine Drug Screen Sent. lg3 20:04 Test, Urine Sent. lg3 20:04 Urinalysis w/ reflexes Sent. lg3 20:14 CT Abd/Pelvis - Without Contrast In Process Unspecified. EDMS 20:26 Attending Physician role handed off by Hernandez Anton MD sp4 20:26 Alvarado Peter MD is Attending Physician. sp4 21:27 No provider procedures requiring assistance completed. IV discontinued, intact, pf1 bleeding controlled, No redness/swelling at site. Pressure dressing applied. Administered Medications: No medications were administered Medication: 21:27 VIS not applicable for this client. pf1 Outcome: 21:11 Discharge ordered by . sp4 21:27 Discharged to home ambulatory, with family. pf1 21:27 Condition: improved 21:27 Discharge instructions given to patient, family, Instructed on discharge instructions, follow up and referral plans. Demonstrated understanding of instructions, follow-up care. 21:27 Patient left the ED. pf1 Signatures: Dispatcher [employer] EDFL Titus Skinner, RN RN Georgia Gore ls3 Millie Yu RN RN lg3 Hernandez Anton MD MD bs3 Fanny Zuniga RN RN pf1 Alvarado Peter MD MD sp4 Bridgette Sinclair RN RN nj1 Darshana Robb PAS PAS ts1 Corrections: (The following items were deleted from the chart) 16:22 16:17 BP 134 / 81; Pulse 97bpm; Resp 18bpm; Pulse Ox 100%; Temp 97.8F Oral; Height 5 nj1 ft. 11 in.; Pain 3/10, Adult; nj1
--- NOTE | 2022-12-23 21:12 | EDPHYS ---
Physician Documentation [facility] Name: Suzette Judge Age: 47 yrs Sex: Female : 1975 Arrival Date: 12/23/2022 Time: 15:57 Bed 11 Private MD: ED Physician Alvarado Peter HPI: 12/23 16:49 This 47 yrs old Female presents to ER via Ambulatory with complaints of bs3 KIDNEY PAIN, Other, Insect Bite. 16:49 47-year-old female history of anxiety bipolar disease Crohn's depression schizophrenia, bs3 polysubstance abuse last used methamphetamines and marijuana yesterday presents with 2 complaints she notes that she got bit by something on her left cheek and has been picking at it she thinks it was a spider and is concerned for infection in addition she notes kidney pain and swelling in her legs since 1 week ago she notes a history of kidney disorder but stopped following up with doctors a year ago, she denies fever or chills, cp, sob, or anything else bothering her she feels like both of her kidneys hurt but denies pain in her urine. . Historical: - Allergies: 16:20 Compazine; nj1 16:20 Haldol; nj1 16:20 PENICILLINS; nj1 16:20 Sulfa; nj1 - PMHx: 16:20 Anxiety; Bipolar disorder; Crohn's; Depression; PTSD; Schizophrenia; nj1 - PSHx: 16:20 knee; nj1 - Immunization history:: Client reports receiving the 1st dose of the Covid vaccine. - Social history:: Smoking status: Reported history of juuling and/or vaping. ROS: 19:13 Constitutional: Negative for fever, chills bs3 19:13 All other systems are negative. Exam: 19:13 Constitutional: This is a well developed, well nourished patient who is awake, alert, bs3 and in no acute distress. Head/Face: Normocephalic, atraumatic. On the left side of her face just lateral to her nose is an area of induration red and tender Eyes: Pupils equal round and reactive to light, extra-ocular motions intact. Lids and lashes normal. ENT: mmm, no posterior phyarngeal erythema Neck: Trachea midline, no thyromegaly, no neck stiffness Chest/axilla: Normal chest wall appearance and motion. Nontender with no deformity. No lesions are appreciated. Cardiovascular: Regular rate and rhythm with a normal S1 and S2. symmetric pulses in upper extremities Respiratory: Lungs have equal breath sounds bilaterally, clear to auscultation, no respiratory distress Abdomen/GI: Soft, non-tender, no rebound or guarding Skin: Warm, dry with normal turgor. Normal color with no rashes, no lesions, and no evidence of cellulitis. MS/ Extremity: Pulses equal, no cyanosis. Neurovascular intact. Full, normal range of motion. She does have mild nonpitting edema bilaterally Neuro: Awake and alert, GCS 15, oriented to person, place, time, and situation. Cranial nerves II-XII grossly intact. Motor strength 5/5 in all extremities. Sensory grossly intact. Psych: Awake, alert, with orientation to person, place and time. Behavior, mood, and affect are within normal limits. Vital Signs: 16:17 BP 134 / 81; Pulse 97; Resp 18; Temp 97.8(O); Pulse Ox 100% ; Weight 77.7 kg; Height 5 nj1 ft. 11 in. ; Pain 3/10; 19:22 BP 131 / 84; Pulse 89; Resp 17 S; Pulse Ox 100% on R/A; lg3 21:26 BP 129 / ???; Pulse 87; Resp 18; Pulse Ox 98% on R/A; Pain 3/10; pf1 16:17 Body Mass Index 23.89 (77.70 kg, 180.34 cm) nj1 16:17 Pain Scale: Adult nj1 21:26 Pain Scale: Adult pf1 MDM: 16:00 Patient medically screened. bs3 19:13 Data reviewed: vital signs, nurses notes. ED course: Will evaluate for renal failure bs3 will evaluate for UTI her EKG here is normal sinus rhythm at [address] elevations or depressions QTc 456 as interpreted by myself no peak T waves unclear etiology of "kidney pain" We will cover with antibiotics for the facial infection as she is she reportedly required surgery in the past there is no signs of a drainable abscess at this point in time. 21:09 Differential Diagnosis Kidney pains, UTI, renal stones. Data reviewed: lab test sp4 result(s), radiologic studies, CT scan, ultrasound. ED course: CT abdomen pelvis revealed mild constipation. Bilateral lower extremity ultrasound revealed no signs of DVT. The lab work today is unremarkable. Patient is stable for discharge home. Pain corresponds to a right lower erector spinae musculature indicative of musculoskeletal back. Will advise Tylenol or ibuprofen as needed for pain at home. . 12/23 16:06 Order name: Urinalysis w/ reflexes; Complete Time: 20:56 bs3 12/23 16:06 Order name: Test, Urine; Complete Time: 20:56 bs3 12/23 16:16 Order name: CBC with Diff; Complete Time: 18:34 bs3 12/23 16:16 Order name: Comprehensive Metabolic Panel; Complete Time: 18:34 bs3 12/23 16:19 Order name: Urine Drug Screen; Complete Time: 20:56 bs3 12/23 20:44 Order name: Urine Culture [facility] 12/23 16:19 Order name: US Extremity Venous W Compression Asher; Complete Time: 18:54 bs3 12/23 19:51 Order name: CT Abd/Pelvis - Without Contrast; Complete Time: 20:56 bs3 12/23 16:16 Order name: EKG - Nurse/Tech; Complete Time: 17:34 bs3 Administered Medications: No medications were administered Disposition Summary: 12/23/22 21:11 Discharge Ordered Location: Home sp4 Problem: new sp4 Symptoms: have improved sp4 Condition: Stable sp4 Diagnosis - Bilateral lower extremity swelling. Right lower back pain. Acute lower back pain. sp4 Musculoskeletal pain. Followup: sp4 - With: Private Physician - When: 7 - 10 days - Reason: Recheck today's complaints Discharge Instructions: - Discharge Summary Sheet sp4 - Musculoskeletal Pain sp4 Forms: - Thank You Letter sp4 Signatures: Dispatcher [employer] Hernandez Darby MD MD bs3 Alvarado Peter MD MD sp4 Bridgette Sinclair, RN RN nj1
[2022-12-23 21:52] VITALS: TEMP 97.8
[2022-12-23 21:53] VITALS: BP 131/84
[2022-12-23 21:55] VITALS: O2SAT 98
== END 2022-12-23 21:27 | disposition home or self-care (01) ==
LOC: ER 15:57
DX: M54.50 Low back pain, unspecified (principal); M79.18 Myalgia, other site; F20.9 Schizophrenia, unspecified; Z88.0 Allergy status to penicillin; Z88.1 Allergy status to other antibiotic agents; Z88.2 Allergy status to sulfonamides; Z88.5 Allergy status to narcotic agent
CPT/HCPCS: 36415; 74176; 80053; 80307; 81001; 81025; 85025; 87086; 87088; 93970; 99284

== ENCOUNTER 2023-01-15 20:15 | Emergency (ER) | payer OTHER ==
--- OUTSIDE RECORDS SUMMARY | 2023-01-15 20:19 | XMS REPORT | Continuity of Care Document ---
:1975 Author Organization [facility] t Address [address] [place] [address] Care Team Providers Name Role Phone ROGELIO [...] Number Effective Date Expiration Date S bertha [facility] [id number] 2018 00:00:00 PLUS Problems Condition Condition Condition Status Onset Resolution Last Treating Co mments Source Name Details Category Date Date Treatment Clinician Date Left wrist Left wrist Disease Active U nivers pain pain 8-03 ity of 00:00: [place] [id number] Medical Branch Decreased Decreased Disease Active Uni [...] Added automatic ally from request for surgery [id number] 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 U nivers [...] Quantity Comments Source Exposure to Not sure [place] of SARS-CoV-2 [facility] (event) [place] Alcohol intake 2021-03-18 2021-03-18 Current drinker of Un iversity of 00:00:00 00:00:00 alcohol (finding) [facility] Tobacco use and 2021-03-18 2021-03-18 Never used Universit y of exposure 00:00:00 00:00:00 [facility] Tobacco Comment 2020-01-22 2020-01-22 ADVISED TO SPEAK W/ University of 00:00:00 00:00:00 RE RX/PROGRAMS [facility] Alcohol Comment 2019-05-04 2019-05-04 occassionally Univer sity of 00:00:00 00:00:00 [facility] Sex Assigned At [birth year] BLAS [place] 00:00:00 00:00:00 [facility] Smoking Status Start Date Stop Date Source Current every day smoker 2021-03-18 00:00:[address] [facility] Medications Ordered Filled Start Stop Current Ordering Indication Dosage Frequency Signature Comments Components Source Medication Medication Date Date Medication? Clinician (SIG) Name Name triamcinolo 2020- No [id number] 20mg Univers ne 03-23 9109 ity of acetonide 19:15: 18:05 [place] (KENALOG) 00 :00 Medical injection Branch 20 mg triamcinolo 2020- No [id number] 20mg 20 mg, Univers ne 03-23 9109 Intrasynov ity of acetonide 19:15: 18:05 ial, ONCE, [place] ([place] 00 :00 1 dose, Medical injection Mon Branch 20 mg 03/23/21 at 1415, Routine gabapentin 2020- No [id number] Take 1 Univers 100 mg 03-23 9109 capsule by ity of capsule 00:00: 04:59 mouth at [place] 00 :00 bedtime Medical for 7 Branch days, THEN 2 capsules at bedtime for 7 days, THEN 3 capsules at bedtime for 30 days. Diclofenac Yes [id number] Apply to Univers Sodium 03-18 area(s) 4 ity of (VOLTAREN) 00:00: (four) [place] 1 % gel 00 times Medical daily as Branch needed for Pain (scale 1-3), Pain (scale 4-6) or Pain (scale 7-10). methocarbam Yes [id number] 500mg Take 1 Univers oL 500 mg 7-21 tablet by ity o f tablet 00:00: mouth at [place] 00 bedtime as Medical needed Branch (muscle spasms). methylPREDN 2019-08 Yes [id number] 84mg Take 21 Univers ISolone 2-04 tablets [...] [place] 56 daily. Medical Branch furosemide Yes [id number] 20mg Take 1 Univers 20 mg 9-15 tablet by ity of tablet 00:00: mouth [place] 00 every Medical morning. Branch sulfamethox Yes [id number] 1{tbl} Take 1 Univers azole-trime 9-13 [id number] tablet by i ty of thoprim 00:00: mouth 2 [place] (BACTRIM 00 (two) Medical DS) 800-160 times Branch mg per daily. tablet FLUoxetine 2014-08 Yes 20mg Take 1 Cap U nivers (PROZAC) 20 0-20 by mouth ity of mg capsule 00:00: daily. [place] 00 [facility] Branch clonazePAM Yes 1mg Take 1 Tab [...] Immunizations Ordered Filled Immunization Date Status Comments [facility] e Immunization Name Name SARS-COV-2 COVID-19 2021-03-03 Completed Unive rsity of PFIZER VACCINE 00:00:00 [facility] Vital Signs Vital Name Observation Time Observation Value Comments Source Body temperature 2021-03-23 16:37:00 36.67 [place] Univ ersity [facility] Body weight 2021-03-23 16:37:00 71.85 kg [facility] BMI 2021-03-23 16:37:00 22.09 kg/m2 [facility] Procedures This patient has no known procedures. Encounters Start End Encounter Admission Attending Care Care Encounter Source Date/Time Date/Time Type Type Clinicians Facility Department ID 2021-05-29 Emergency [facility] [id number] [facility] 17:30:[address] [facility] 2021-05-29 Emergency [facility] [id number] Univers 17:15:43 [facility] 2021-05-29 Outpatient MELISSA [facility] [id number] Univers 00:50:20 CHRIS [facility] 2015-05-23 Inpatient C [facility] [id number] [facility]. 13:51:00 [facility] 2022-07-08 2022-07-08 Emergency [facility] [id number] [facility] 22:17:00 22:17:00 62 2022-07-08 2022-07-08 Emergency Emergency [place], [facility] [id number] [facility] 22:17:00 22:17:00 Ben 62 2021-12-24 2021-12-24 Outpatient R PARKER [facility] [id number] Univers 16:15:00 16:15:00 WILMER [facility] 2021-05-06 2021-05-06 [facility] [id number] Univers 12:30:00 12:30:00 CHRIS [facility] 2021-04-10 2021-04-10 Outpatient R [facility] [id number] Univers 20:00:00 20:00:00 [facility] 2021-03-24 2021-03-24 [facility] [id number] Univers 11:00:00 11:00:00 SEGUNDO [facility] 2021-03-23 2021-03-23 [facility] [id number] Univers 11:30:52 11:40:52 Visit Chris [facility] [id number] it y of CARE [id number] Darek LOMELI [id number] [address] 2021-03-23 2021-03-23 Outpatient R MELISSA [facility] [id number] Univers 11:10:00 11:10:00 CHRIS [facility] 2021-03-18 2021-03-18 Outpatient R IGNACIO, [facility] [id number] Univers 14:55:32 23:59:00 BENJAMÍN ity [facility] 2021-03-03 2021-03-03 Outpatient R MAXIM [facility] [id number] Univers 15:40:00 15:40:00 SEGUNDO pelon [facility] 2021-03-03 2021-03-03 Outpatient R [facility] [id number] Univers 14:45:00 14:45:00 [facility] 2021-02-18 2021-02-18 Outpatient R IGNACIO, [facility] [id number] Univers 09:00:44 23:59:00 BENJAMÍN [facility] 2021-02-18 2021-02-18 Outpatient R RICKEY [facility] [id number] Univers 09:30:00 09:30:00 ERIKA [facility] 2021-02-03 2021-02-03 [facility] [id number] Univers 10:19:08 23:59:00 HEATHER pelon [facility] 2021-01-19 2021-01-19 [facility] [id number] Univers 00:00:00 23:59:00 HEATHER [facility] 2020-12-23 2020-12-23 [facility]phone [facility] [id number] 00:00:00 00:00:00 Prachi Jurado [id number] [place] [id number] Professio [id number] [address] 2020-09-24 2020-09-24 Outpatient R MELISSA, [facility] [id number] Univers 13:30:00 13:30:00 CHRIS [facility] 2020-07-04 2020-07-04 [facility] [id number] Univers 10:28:52 23:59:00 WILMER [facility] 2020-07-04 2020-07-04 Office [facility] [id number] 10:14:34 10:52:53 Visit [facility] [id number] Surgical [id number] Specialti [id number] shaan Jurado 2020-05-06 2020-05-06 Outpatient R MAGALY, [facility] [id number] Univers 14:30:00 14:30:00 PRACHI [facility] 2020-04-21 2020-04-21 Outpatient R CAPO, [facility] [id number] Univers 12:30:00 12:30:00 SEGUNDO [facility] 2020-03-19 2020-03-19 Outpatient R MELISSA, [facility] [id number] Univers 15:40:00 15:40:00 CHRIS [facility] 2020-02-27 2020-02-27 Outpatient R MELISSA, [facility] [id number] Univers 13:20:00 13:20:00 CHRIS [facility] 2020-01-24 2020-01-24 Outpatient R MELISSA, [facility] [id number] Univers 11:30:00 11:30:00 CHRIS [facility] 2019-10-08 2019-10-08 Outpatient R MELISSA, [facility] [id number] Univers 15:30:00 15:30:00 CHRIS [facility] 2018-11-07 2018-11-07 Emergency E [facility]BL [id number] 21:39:00 21:39:00 Results Test Description Test Time Test Comments Results Result Comments Source UA, Urinalysis Rflx Cult/Sedmt 2022-07-09 00:45:00 Test Item Value Reference Range Interpretation Comme nts Color,Urine (test code = UCOL) Yellow Yellow Clarity,Urine (test code = UCLAR) Clear Clear Ph, Urine (test code = UPH) 6.0 5.0-9.0 N Specific [place],Urine (test code = USG) 1.020 1.005-1.030 N [...] Trace mg/dL Negative A UF REFLEXUF REFLEXUrine [id number] 00:45:00 Test Item Value Reference Range Interpretation Comments RBC,Urine (test code = URBCUF) 0-2 /HPF 0-2 WBC,Urine (test code = UWBCUF) 0-5 /HPF 0-5 Epithelial Cell,Urine (test None Seen /HPF 0-5 code = UECUF) Casts,Urine (test code = None Seen /LPF None Seen UCASTUF) Bacteria,Urine (test code = None Seen /hpf None Seen UBACTUF) UF REFLEXUF REFLEXCoronavirus PCR, COVID19 [id number] 23:21:00 Test Item Value Reference Range Interpretation Comments Coronavirus PCR, For use under Emergency COVID19 Rapid (test Use Authorization (EUA) code = SARSCOV2) only. Coronavirus PCR, Reference Range: COVID19 Rapid (test Negative code = UOPPDMK52.1) SARS-CoV-2 PCR Result: Negative by RT-PCR (test code = SARS-CoV-2 PCR Result:) COVID-19 Status: AsymptomaticComplete Blood Count Auto [id number] 23:04:00 Test Item Value Reference Range Interpretation [...] code = NRBCP) 0 % Comprehensive Metabolic [id number] 23:04:00 Test Item Value Reference Range Interpretation [...] race coefficient. Additional information can be found at:[id number] cb_ egfr_summary_fl mariama 5.pdf (kidney.o rg) [Automated [...] 46-116 N (test code = ALP) Ethanol [id number] 23:04:00 Test Item Value Reference Range Interpretation [...]
[2023-01-15] MEDS ORDERED: IBUPROFEN 400 MG TAB ONE (20:56)
[2023-01-15] MEDS ORDERED: HYDROCODONE/APAP 5/325 MG TAB ONE (20:56)
--- NOTE | 2023-01-15 21:33 | RAD REPORT ---
EXAM DESCRIPTION: RAD - Hand Right 3 View - 01/15/2023 9:20 pm CLINICAL HISTORY: PAIN COMPARISON: Hand Right 3 View dated 08/21/2013 FINDINGS: No acute fracture or dislocation seen.
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
== END 2023-01-15 22:07 | disposition home or self-care (01) ==
LOC: ER 20:15
DX: S60.221A Contusion of right hand, initial encounter (principal)
CPT/HCPCS: 99284

== ENCOUNTER → 2023-08-10 | Emergency (ER) | payer OTHER ==
[~2023-08-10] MED LIST: ACETAMINOPHEN 500 MG TAB ONE; MORPHINE 4 MG/ML SYR ONE; NA CHLORIDE 0.9% 1,000 ML ONE; ONDANSETRON 4 MG/2 ML VIAL ONE
--- NOTE | 2023-08-10 12:38 | RAD REPORT ---
EXAM DESCRIPTION: RADChest Single View08/10/2023 12:31 pm CLINICAL HISTORY: COUGH COMPARISON: Chest Single View dated 02/11/2022; Chest Single View dated 10/26/2021; Chest Single View dated 08/18/2020; ABDOMEN 1 VIEW KUB dated 12/10/2013 TECHNIQUE: Portable AP view of the chest. FINDINGS: The lungs are clear. No pneumothorax or effusion. The cardiomediastinal contours are unre markable. IMPRESSION: No acute cardiopulmonary process.
--- NOTE | 2023-08-10 12:54 | RAD REPORT ---
EXAM DESCRIPTION: CT - Head Brain Wo Cont - 08/10/2023 12:22 pm CLINICAL HISTORY: Headache COMPARISON: none TECHNIQUE: Computed axial tomography of the head was obtained. IV contrast was not requested. All CT scans are performed using dose optimization technique as appropriate and may include automated exposure control or mA/KV adjustment according to patient size. FINDINGS: An intracranial bleed is not seen The ventricles are normal in caliber No significant hypodense areas within the brain visualized No extra-axial fluid collection is noted. Fluid within the sinuses/ mastoids is not seen IMPRESSION: No acute intracranial abnormality is seen If patient's symptoms persist MRI of the brain would be recommended
[2023-08-10 13:31] LABS: SARS-CoV-2 Antigen Rapid Res Positive (Negative)
[2023-08-10 14:07] LABS: Absolute Lymphocytes (CBC) 0.5 K/uL (0.7-4.9); Hematocrit 37.2 % (36.0-45.0); Lymphocytes % 9.8 % (15.3-44.8); MCV 85.6 fL (80-100); MPV 7.4 fL (7.6-11.3); Platelets 243 thou/uL (152-406); RBC Red Blood Cell Count 4.35 M/uL (3.86-4.86)
[2023-08-10 14:23] LABS: Potassium 3.3 mEq/L (3.5-5.1)
--- NOTE | 2023-08-10 14:36 | EDPHYS ---
Physician Documentation [facility] Name: Suzette Judge Age: 48 yrs Sex: Female : 1975 Arrival Date: 08/10/2023 Time: 11:52 Bed 14 Private MD: ED Physician Raza Ocasio HPI: 08/10 12:02 This 48 yrs old Female presents to ER via EMS with complaints of Headache. sp3 12:02 48-year-old female with history of bipolar disease, anxiety, Crohn's, schizophrenia, sp3 migraine headache who presents to the ED with headache, cough, congestion, sore throat and other URI symptoms for 2 to 3 days. Patient denies thunderclap headache, trauma, neck pain, chest pain, shortness of breath, abdominal pain, nausea, vomiting, diarrhea, rash, known sick contacts, travel history, or any other signs or symptoms on ROS at this time.. 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 - Social history:: Smoking status: Patient denies any tobacco usage or history of. ROS: 12:03 Constitutional: Negative for fever, chills, and weight loss, Eyes: Negative for injury, sp3 pain, redness, and discharge, Neck: Negative for injury, pain, and swelling, Cardiovascular: Negative for chest pain, palpitations, and edema, Respiratory: Negative for shortness of breath, cough, wheezing, and pleuritic chest pain, Back: Negative for injury and pain, MS/Extremity: Negative for injury and deformity, Skin: Negative for injury, rash, and discoloration, Psych: Negative for depression, anxiety, suicide ideation, homicidal ideation, and hallucinations, Allergy/Immunology: Negative for hives, rash, and allergies, Endocrine: Negative for neck swelling, polydipsia, polyuria, polyphagia, and marked weight changes, Hematologic/Lymphatic: Negative for swollen nodes, abnormal bleeding, and unusual bruising, 12:03 All other systems are negative, Exam: 12:03 Head/Face: Normocephalic, atraumatic. Eyes: Pupils equal round and reactive to light, sp3 extra-ocular motions intact. Lids and lashes normal. Conjunctiva and sclera are non-icteric and not injected. Cornea within normal limits. Periorbital areas with no swelling, redness, or edema. Neck: Trachea midline, no thyromegaly or masses palpated, and no cervical lymphadenopathy. Supple, full range of motion without nuchal rigidity, or vertebral point tenderness. No Meningismus. Chest/axilla: Normal chest wall appearance and motion. Nontender with no deformity. No lesions are appreciated. Cardiovascular: Regular rate and rhythm with a normal S1 and S2. No gallops, murmurs, or rubs. Normal PMI, no JVD. No pulse deficits. Abdomen/GI: Soft, non-tender, with normal bowel sounds. No distension or tympany. No guarding or rebound. No evidence of tenderness throughout. Back: No spinal tenderness. No costovertebral tenderness. Full range of motion. Skin: Warm, dry with normal turgor. Normal color with no rashes, no lesions, and no evidence of cellulitis. MS/ Extremity: Pulses equal, no cyanosis. Neurovascular intact. Full, normal range of motion. Neuro: Awake and alert, GCS 15, oriented to person, place, time, and situation. Cranial nerves II-XII grossly intact. Motor strength 5/5 in all extremities. Sensory grossly intact. Cerebellar exam normal. Normal gait. 12:03 ENT: Active cough, mild erythema posterior oropharynx and rhinorrhea. No neck stiffness with full range of motion without pain. Temperature 103.3 noted.. Vital Signs: 11:48 BP 125 / 73; Pulse 106; Resp 18; Temp 100.3; Pulse Ox 99% ; Weight 79.38 kg; Height 5 db ft. 11 in. ; Pain 9/10; 12:00 BP 136 / 79; Pulse 102; Resp 18; Pulse Ox 99% on R/A; Pain 4/10; tl4 12:30 BP 135 / 86; Pulse 86; Resp 18; Pulse Ox 99% on R/A; tl4 13:30 BP 140 / 86; Pulse 105; Resp 17; Pulse Ox 99% on R/A; tl4 14:30 BP 135 / 88; Pulse 88; Resp 17; Pulse Ox 99% on R/A; tl4 14:30 BP 131 / 88; Pulse 87; Resp 18; Pulse Ox 99% on R/A; Pain 5/10; tl4 11:48 Body Mass Index 24.41 (79.38 kg, 180.34 cm) db 11:48 Pain Scale: Adult db 12:00 Pain Scale: Adult tl4 14:30 Pain Scale: Adult tl4 MDM: 12:02 Patient medically screened. sp3 12:04 Data reviewed: vital signs, nurses notes, old medical records, lab test result(s), sp3 radiologic studies. ED course: . 12:05 ED course: 48-year-old female with URI symptoms and exacerbation of migraine headache. sp3 Differential diagnosis includes viral URI, COVID-19, influenza, other virus, bronchitis, pneumonia, sinusitis, among others. I am not highly suspicious for primary cranial pathology including ICH, meningitis, encephalitis, sepsis, shock, or any other critical pathology at this time. Workup will include CT scan of the head, chest x-ray, swabs, lab work and administration of Tylenol PO, morphine IV, ondansetron IV. Disposition probable discharge with any indicated medications.. 14:35 ED course: All workup reviewed. Patient is positive for COVID-19. We will safely sp3 discharged home at this time.. 08/10 12:00 Order name: Basic Metabolic Panel; Complete Time: 14:27 sp3 08/10 12:00 Order name: CBC with Diff; Complete Time: 14:27 sp3 08/10 12:00 Order name: SARS RAPID; Complete Time: 13:40 sp3 08/10 12:00 Order name: Flu; Complete Time: 13:40 sp3 08/10 12:00 Order name: Strep; Complete Time: 13:20 sp3 08/10 13:14 Order name: Throat Culture EDMS 08/10 12:00 Order name: XRAY Chest (1 view); Complete Time: 13:20 sp3 08/10 12:00 Order name: CT Head Brain wo Cont; Complete Time: 13:20 sp3 08/10 12:00 Order name: IV Saline Lock; Complete Time: 13:54 sp3 08/10 12:00 Order name: Labs collected and sent; Complete Time: 13:54 sp3 08/10 12:00 Order name: O2 Sat Monitoring; Complete Time: 12:51 sp3 Administered Medications: 12:47 Drug: Acetaminophen PO 1000 mg PO once Route: PO; tl4 13:54 Follow up: Response: No adverse reaction; Temperature is decreased tl4 13:54 Drug: morphine IVP or IV 4 mg IVP once over 4 mins Route: IVP; Infused Over: 4 mins; tl4 Site: left antecubital; 15:25 Follow up: Response: Pain is decreased tl4 13:54 Drug: Ondansetron IVP 4 mg IVP once; over 2 minutes Route: IVP; Site: left antecubital; tl4 15:25 Follow up: Response: Nausea is decreased tl4 13:54 Drug: NS 0.9% IV 500 ml IV at bolus once Route: IV; Rate: bolus; Site: left antecubital;tl4 15:24 Follow up: Response: No adverse reaction; IV Status: Completed infusion; IV Intake: tl4 500ml Disposition Summary: 08/10/23 14:36 Discharge Ordered Notes: Location: Home sp3 Condition: Stable sp3 Diagnosis - COVID-19, headache, dehydration sp3 Followup: sp3 - With: Private Physician - When: Upon discharge from the Emergency Department - Reason: Continuance of care Discharge Instructions: - Discharge Summary Sheet sp3 - COVID-19 sp3 - 10 Things You Can Do to Manage Your COVID-19 Symptoms at Home - [facility] (02/13/2021) sp3 Forms: - Medication Reconciliation Form sp3 - Thank You Letter sp3 - Antibiotic Education sp3 - Prescription Opioid Use sp3 - Patient Portal Instructions sp3 - Leadership Thank You Letter sp3 Signatures: Dispatcher [employer] Raza Rogers MD MD sp3 Halle Mensah RN RN Prem Feliz tl4
--- NOTE | 2023-08-10 14:36 | ER ---
Nurse's Notes [facility] Name: Suzette Judge Age: 48 yrs Sex: Female : 1975 Arrival Date: 08/10/2023 Time: 11:52 Bed 14 Private MD: Diagnosis: COVID-19, headache, dehydration Presentation: 08/10 11:48 Chief complaint: EMS states: PATIENT COMPLAINS OF HEADACHE, MIGRAINE AND FEVER. TYLENOL db TAKEN BY PT PRIOR TO EMS ARRIVAL. Coronavirus screen: Vaccine status: Patient reports receiving the 2nd dose of the covid vaccine. Client denies travel out of the [place] in the last 14 days. At this time, the client does not indicate any symptoms associated with coronavirus-19. Ebola Screen: Patient negative for fever greater than or equal to 101.5 degrees Fahrenheit, and additional compatible Ebola Virus Disease symptoms Patient denies exposure to infectious person. Patient denies travel to an Ebola-affected area in the 21 days before illness onset. No symptoms or risks identified at this time. Initial Sepsis Screen: Does the patient meet any 2 criteria? HR > 90 bpm. Does the patient have a suspected source of infection? No. Patient's initial sepsis screen is negative. Risk Assessment: Do you want to hurt yourself or someone else? Patient reports no desire to harm self or others. Onset of symptoms was August 10, 2023. 11:48 Method Of Arrival: EMS: [facility] db 11:48 Acuity: LORI 3 db Triage Assessment: 12:01 Headache History: The patient has had previous headaches and this one is similar to db previous episodes. General: Appears in no apparent distress. uncomfortable, Behavior is calm, cooperative. Pain: Complains of pain in head Pain currently is 9 out of 10 on a pain scale. Pain began gradually, Also complains of no other associated symptoms. Neuro: Level of Consciousness is awake, alert, obeys commands, Oriented to person, place, time, situation. Respiratory: Airway is patent Respiratory effort is even, unlabored, Respiratory pattern is regular, symmetrical. 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 - Social history:: Smoking status: Patient denies any tobacco usage or history of. Screenin:[address] [facility] ED Fall Risk Assessment (Adult) History of falling in the last 3 months, tl4 including since admission No falls in past 3 months (0 pts) Confusion or Disorientation No (0 pts) Intoxicated or Sedated No (0 pts) Impaired Gait No (0 pts) Mobility Assist Device Used No (0 pt) Altered Elimination No (0 pt) Score/Fall Risk Level 0 - 2 = Low Risk Oriented to surroundings, Maintained a safe environment, Educated pt \T\ family on fall prevention, incl call for assistance when getting out of bed, Assessed \T\ reinforced patient's understanding of fall precautions, Provided non-skid footwear. Abuse screen: Denies threats or abuse. Denies injuries from another. Nutritional screening: No deficits noted. Tuberculosis screening: No symptoms or risk factors identified. Assessment: 12:02 Reassessment: SEE TRIAGE FOR INITIAL ASSESSMENT. db 12:08 Reassessment: REPORT GIVEN TO [place]. db 13:55 General: Appears uncomfortable, Behavior is crying. Pain: Complains of pain in head. tl4 Neuro: Reports headache. Cardiovascular: No deficits noted. Denies chest pain, shortness of breath. Respiratory: No deficits noted. Denies cough, shortness of breath. GI: Reports nausea. : No deficits noted. No signs and/or symptoms were reported regarding the genitourinary system. Vital Signs: 11:48 BP 125 / 73; Pulse 106; Resp 18; Temp 100.3; Pulse Ox 99% ; Weight 79.38 kg; Height 5 db ft. 11 in. ; Pain 9/10; 12:00 BP 136 / 79; Pulse 102; Resp 18; Pulse Ox 99% on R/A; Pain 4/10; tl4 12:30 BP 135 / 86; Pulse 86; Resp 18; Pulse Ox 99% on R/A; tl4 13:30 BP 140 / 86; Pulse 105; Resp 17; Pulse Ox 99% on R/A; tl4 14:30 BP 135 / 88; Pulse 88; Resp 17; Pulse Ox 99% on R/A; tl4 14:30 BP 131 / 88; Pulse 87; Resp 18; Pulse Ox 99% on R/A; Pain 5/10; tl4 11:48 Body Mass Index 24.41 (79.38 kg, 180.34 cm) db 11:48 Pain Scale: Adult db 12:00 Pain Scale: Adult tl4 14:30 Pain Scale: Adult tl4 ED Course: 11:58 Patient arrived in ED. db 11:59 Raza Ocasio MD is Attending Physician. sp3 12:01 Triage completed. db 12:01 Arm band placed on Patient placed in an exam room. db 12:14 Prem Chiang is Primary Nurse. tl4 12:23 CT Head Brain wo Cont In Process Unspecified. EDMS 12:33 XRAY Chest (1 view) In Process Unspecified. EDMS 12:47 Strep Sent. tl4 12:48 Flu Sent. tl4 12:48 SARS RAPID Sent. tl4 13:35 Inserted saline lock: 20 gauge in left antecubital area, using aseptic technique. nj1 ,using aseptic technique. Ultrasound guided. Catheter tip well visualized within vasculature during placement. Blood collected. 13:54 Basic Metabolic Panel Sent. tl4 13:54 CBC with Diff Sent. tl4 13:55 Throat Culture Sent. tl4 13:56 Patient has correct armband on for positive identification. Placed in gown. Bed in low tl4 position. Call light in reach. Side rails up X2. Provided Education on: ED process. Door closed. Noise minimized. Lights dimmed. Moved to private room. Warm blanket given. 13:58 No provider procedures requiring assistance completed. tl4 15:34 IV discontinued, intact, bleeding controlled, No redness/swelling at site. Pressure tl4 dressing applied. Administered Medications: 12:47 Drug: Acetaminophen PO 1000 mg PO once Route: PO; tl4 13:54 Follow up: Response: No adverse reaction; Temperature is decreased tl4 13:54 Drug: morphine IVP or IV 4 mg IVP once over 4 mins Route: IVP; Infused Over: 4 mins; tl4 Site: left antecubital; 15:25 Follow up: Response: Pain is decreased tl4 13:54 Drug: Ondansetron IVP 4 mg IVP once; over 2 minutes Route: IVP; Site: left antecubital; tl4 15:25 Follow up: Response: Nausea is decreased tl4 13:54 Drug: NS 0.9% IV 500 ml IV at bolus once Route: IV; Rate: bolus; Site: left antecubital;tl4 15:24 Follow up: Response: No adverse reaction; IV Status: Completed infusion; IV Intake: tl4 500ml Medication: 13:58 VIS not applicable for this client. tl4 Intake: 15:24 IV: 500ml; Total: 500ml. tl4 Outcome: 14:36 Discharge ordered by sp3 15:34 Discharged to home ambulatory, tl4 15:34 Condition: stable 15:34 Discharge instructions given to patient, Instructed on discharge instructions, follow up and referral plans. Demonstrated understanding of instructions, follow-up care, 15:51 Patient left the ED. tl4 Signatures: Dispatcher [employer] Raza Rogers MD MD sp3 Halle Mensah RN RN Bridgette Bowen RN RN nj1 Prem Chiang tl4
[2023-08-10 16:35] VITALS: BP 131/88; O2SAT 99
== END ==
LOC: ER 11:52
DX: U07.1 COVID-19 (principal); E86.0 Dehydration; Z88.0 Allergy status to penicillin; Z88.1 Allergy status to other antibiotic agents; Z88.2 Allergy status to sulfonamides; Z88.5 Allergy status to narcotic agent
CPT/HCPCS: 96361; 87070; 85025; 80048; 36415; 87081; 87804 ×2; 70450; 71045; 96375; 96374; 99284; 87811; J2405; J7030

== ENCOUNTER 2023-11-19 19:48 | Inpatient (IN) | payer OTHER ==
[2023-11-19 21:29] LABS: Absolute Basophils 0.1 K/uL (0-0.5); Absolute Eosinophils 0.1 K/uL (0-0.5); Absolute Lymphocytes (CBC) 2.1 K/uL (0.7-4.9); Absolute Monocytes 0.9 K/uL (0.1-1.3); Absolute Neutrophil 5.5 K/uL (1.8-8.0); Basophils % 0.9 % (0-1.3); Eosinophils % 0.8 % (0-4.4); Hematocrit 36.5 % (36.0-45.0); Hemoglobin 12.5 g/dL (12.0-15.0); Lymphocytes % 24.1 % (15.3-44.8); MCH 29.3 pg (27.0-35.0); MCHC 34.2 g/dL (32.0-36.0); MCV 85.6 fL (80-100); MPV 7.3 fL (7.6-11.3); Monocytes % 10.1 % (3.3-12.3); Neutrophils % 64.1 % (41.7-73.7); Nucleated Red Blood Cells % 0.2 % (0-0); Platelets 320 thou/uL (152-406); RBC Red Blood Cell Count 4.26 M/uL (3.86-4.86); Red Cell Distribution Width 13.3 % (12.1-15.2)
[2023-11-19 21:33] LABS: PT Prothrombin Time 11.1 SECONDS (9.5-12.5); PTT, Activated Partial Thromb 36.9 SECONDS (24.3-36.9); Protime INR 1.01
[2023-11-19 21:47] LABS: Albumin 3.6 g/dL (3.4-5.0); Albumin/Globulin Ratio 1.1 (1.1-1.8); Anion Gap 9.3 mEq/L (5.0-15.0); Bilirubin Total 0.3 mg/dL (0.2-1.0); Globulin 3.3 g/dL (2.3-3.5); Potassium 3.3 mEq/L (3.5-5.1); Protein, Total 6.9 g/dL (6.4-8.2)
--- NOTE | 2023-11-19 21:48 | RAD REPORT ---
[facility] CLINICAL HISTORY: Cough;Swelling COMPARISON: Chest Single View dated 08/10/2023; Chest Single View dated 02/11/2022; Chest Single View dated 10/26/2021; Chest Single View dated 08/18/2020 TECHNIQUE: Portable AP view of the chest. FINDINGS: The lungs are clear. No pneumothorax or effusion. The cardiomediastinal contours are unre markable. IMPRESSION: No acute cardiopulmonary process.
[2023-11-19] MEDS ORDERED: VANCOMYCIN 1 GM/VIAL ONE (22:40)
--- NOTE | 2023-11-19 22:40 | ER ---
Nurse's Notes [facility] Name: Suzette Judge Age: 48 yrs Sex: Female : 1975 Arrival Date: 11/19/2023 Time: 19:48 Bed 20 Private MD: Diagnosis: Cellulitis of left lower limb;Cellulitis of right lower limb Presentation: 11/18 20:18 Chief complaint: Patient states: swelling to legs hands and face. Coronavirus screen: vc1 Client denies travel out of the [place] in the last 14 days. At this time, the client does not indicate any symptoms associated with coronavirus-19. Ebola Screen: Patient negative for fever greater than or equal to 101.5 degrees Fahrenheit, and additional compatible Ebola Virus Disease symptoms Patient denies exposure to infectious person. Patient denies travel to an Ebola-affected area in the 21 days before illness onset. No symptoms or risks identified at this time. Initial Sepsis Screen: Does the patient meet any 2 criteria? HR > 90 bpm. No. Patient's initial sepsis screen is negative. Does the patient have a suspected source of infection? No. Patient's initial sepsis screen is negative. Risk Assessment: Do you want to hurt yourself or someone else? Patient reports no desire to harm self or others. Onset of symptoms was November 15, 2019. 20:18 Method Of Arrival: Ambulatory vc1 20:18 Acuity: LORI 3 vc1 Triage Assessment: 20:20 General: Appears in no apparent distress. uncomfortable, Behavior is calm, cooperative, vc1 appropriate for age. Pain: Complains of pain in legs, hands, face swelling. EENT: Reports raspy voice. Neuro: Level of Consciousness is awake, alert, obeys commands, Oriented to person, place, time, situation, Appropriate for age. Cardiovascular: Edema bilateral hands and legs. Respiratory: Airway is patent Respiratory effort is even, unlabored, Respiratory pattern is regular, symmetrical. Derm: Skin is red, Skin temperature is hot. 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 Flu vaccine is not up to date. - Infectious Disease History:: Denies. - Social history:: Smoking status: Reported history of juuling and/or vaping. Patient uses street drugs, marijuana, Methamphetamine (Meth). Screenin:09 [facility] ED Fall Risk Assessment (Adult) History of falling in the last 3 months, tl4 including since admission No falls in past 3 months (0 pts) Confusion or Disorientation No (0 pts) Intoxicated or Sedated No (0 pts) Impaired Gait No (0 pts) Mobility Assist Device Used No (0 pt) Altered Elimination No (0 pt) Score/Fall Risk Level 0 - 2 = Low Risk Oriented to surroundings, Maintained a safe environment, Educated pt \T\ family on fall prevention, incl call for assistance when getting out of bed, Assessed \T\ reinforced patient's understanding of fall precautions, Hourly rounding (assess needs \T\ fall precautionary measures) done, Used ambulatory aids as needed (educated on \T\ assisted with). Abuse screen: Denies threats or abuse. Denies injuries from another. Nutritional screening: No deficits noted. Tuberculosis screening: No symptoms or risk factors identified. Assessment: 21:00 General: Appears in no apparent distress. Behavior is calm, cooperative. Pain: tl4 Complains of pain in right leg and left leg. Neuro: Level of Consciousness is awake, alert, obeys commands, Oriented to person, place, time, situation, Moves all extremities. Gait is steady, Speech is normal, Facial symmetry appears normal. Cardiovascular: Capillary refill < 3 seconds Patient's skin is warm and dry. Rhythm is sinus tachycardia. Respiratory: Airway is patent Respiratory effort is even, unlabored, Respiratory pattern is regular, symmetrical, Breath sounds are clear bilaterally. Respiratory: Reports cough that is. GI: No signs and/or symptoms were reported involving the gastrointestinal system. : No signs and/or symptoms were reported regarding the genitourinary system. EENT: No signs and/or symptoms were reported regarding the EENT system. Derm: No signs and/or symptoms reported regarding the dermatologic system. Musculoskeletal: Redness to lower extremities. 22:21 Reassessment: Patient and/or family updated on plan of care and expected duration. Pain tl4 level reassessed. Patient is alert, oriented x 3, equal unlabored respirations, skin warm/dry/pink. Pt resting quietly, no needs identified. 23:04 Reassessment: Patient and/or family updated on plan of care and expected duration. Pain tl4 level reassessed. Patient is alert, oriented x 3, equal unlabored respirations, skin warm/dry/pink. Vital Signs: 20:18 BP 121 / 82; Pulse 92; Resp 20; Temp 97.4; Pulse Ox 100% ; Weight 77.11 kg; Height 5 vc1 ft. 11 in. ; Pain 5/10; 21:05 BP 122 / 72; Pulse 97; Resp 16; Pulse Ox 100% on R/A; tl4 22:00 BP 118 / 67; Pulse 102; Resp 16; Pulse Ox 100% on R/A; tl4 23:05 BP 112 / 65; Pulse 99; Resp 15; Pulse Ox 100% on R/A; tl4 20:18 Body Mass Index 23.71 (77.11 kg, 180.34 cm) vc1 20:18 Pain Scale: Adult vc1 ED Course: 19:50 Patient arrived in ED. [id number] 19:54 [facility]C [facility] kb 19:54 Alvarado Peter MD is Attending Physician. kb 20:19 Triage completed. vc1 20:20 Arm band placed on right wrist. vc1 20:47 Chest Single View XRAY In Process Unspecified. EDMS 21:06 Prem Chiang, RN is Primary Nurse. tl4 21:19 Blood Culture Adult (2) Sent. tl4 21:19 CBC with Diff Sent. tl4 21:19 CMP Sent. tl4 21:19 Lactate w/ 2H reflex if indic. Sent. tl4 21:19 Protime (+inr) Sent. tl4 21:19 Ptt, Activated Sent. tl4 21:20 Troponin High Sensitivity Sent. tl4 21:20 BNP Sent. tl4 22:18 Patient has correct armband on for positive identification. Placed in gown. Bed in low tl4 position. Call light in reach. Side rails up X 1. Adult w/ patient. Provided Education on: ED process. Client placed on continuous cardiac and pulse oximetry monitoring. NIBP monitoring applied. personnel monitor on. Door closed. Noise minimized. Lights dimmed. Moved to private room. Warm blanket given. 22:19 No provider procedures requiring assistance completed. tl4 22:39 Klever Palacio MD is Hospitalizing Provider. kb 22:56 Inserted saline lock: 20 gauge in left EJ, using aseptic technique. ,using aseptic tl4 technique. placed by Dr Peter Blood collected. Administered Medications: 22:56 Drug: vancoMYCIN IVPB 1 grams IVPB once over 2 hrs Route: IVPB; Infused Over: 2 hrs; tl4 Site: right jugular; 22:57 Drug: NS 0.9% IV 1000 ml IV at 1000 ml once Route: IV; Rate: 1000 ml; Site: right tl4 jugular; Delivery: Primary tubing; Medication: 22:18 VIS not applicable for this client. tl4 Outcome: 22:39 Decision to Hospitalize by Provider. kb 11/19 01:06 Patient left the ED. vc1 Signatures: Dispatcher [employer] EDMS Ileana Leyva, MINH HERRERA-Erin Aly [id number] Nirali Akers, RN RN vc1 Prem Chiang RN RN tl4
--- NOTE | 2023-11-19 22:40 | EDPHYS ---
Physician Documentation [facility] Name: Suzette Judge Age: 48 yrs Sex: Female : 1975 Arrival Date: 11/19/2023 Time: 19:48 Bed 20 Private MD: ED Physician Alvardao Peter HPI: 11/18 22:34 This 48 yrs old Female presents to ER via Ambulatory with complaints of Fever, Leg kb Pain, Leg Swelling, Cough, REDNESS-LOW EXT. 22:34 Pt is a 48 year old female who presents for bilateral lower extremity swelling, redness kb and pain, as well as fever for 4 days. States she has had this in the past and had sepsis. Denies shortness of breath, chest pain. . 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 Flu vaccine is not up to date. - Infectious Disease History:: Denies. - Social history:: Smoking status: Reported history of juuling and/or vaping. Patient uses street drugs, marijuana, Methamphetamine (Meth). ROS: 22:34 Constitutional: As per HPI kb Exam: 21:07 ECG was reviewed by the Attending Physician. kb 22:34 Constitutional: This is a well developed, well nourished patient who is awake, alert, kb and in no acute distress. Head/Face: Normocephalic, atraumatic. ENT: Moist Mucous membranes Cardiovascular: Regular rate Respiratory: Respirations even and unlabored. No increased work of breathing. Talking in full sentences MS/ Extremity: Pulses equal, no cyanosis. Neurovascular intact. Full, normal range of motion. Neuro: Awake and alert, GCS 15, oriented to person, place, time, and situation. Moves all extremities. Normal gait. 22:34 Skin: cellulitis, that is moderate, on the right leg and left leg, Vital Signs: 20:18 BP 121 / 82; Pulse 92; Resp 20; Temp 97.4; Pulse Ox 100% ; Weight 77.11 kg; Height 5 vc1 ft. 11 in. ; Pain 5/10; 21:05 BP 122 / 72; Pulse 97; Resp 16; Pulse Ox 100% on R/A; tl4 22:00 BP 118 / 67; Pulse 102; Resp 16; Pulse Ox 100% on R/A; tl4 23:05 BP 112 / 65; Pulse 99; Resp 15; Pulse Ox 100% on R/A; tl4 20:18 Body Mass Index 23.71 (77.11 kg, 180.34 cm) vc1 20:18 Pain Scale: Adult vc1 MDM: 19:54 Patient medically screened. kb 22:36 Differential diagnosis: cellulitis, CHF. Data reviewed: vital signs, nurses notes. kb Consideration of Admission/Observation Patient was admitted/placed on observation. Escalation of care including admission/observation considered. Management of patient was discussed with the following: Hospitalist: Dr Palacio accepts pt for admission. Counseling: I had a detailed discussion with the patient and/or guardian regarding the historical points, exam findings, and any diagnostic results supporting the discharge/admit diagnosis, lab results, radiology results, the need for further work-up and treatment in the hospital. 11/18 20:16 Order name: Blood Culture Adult (2) kb 11/18 20:16 Order name: CBC with Diff; Complete Time: 21:32 kb 11/18 20:16 Order name: CMP; Complete Time: 21:59 kb 11/18 20:16 Order name: Lactate w/ 2H reflex if indic.; Complete Time: 21:59 kb 11/18 20:16 Order name: Protime (+inr); Complete Time: 21:33 kb 11/18 20:16 Order name: Ptt, Activated; Complete Time: 21:33 kb 11/18 20:38 Order name: BNP; Complete Time: 23:25 kb 11/18 20:38 Order name: Troponin High Sensitivity; Complete Time: 23:25 kb 11/18 21:48 Order name: Glucose, Ancillary Testing; Complete Time: 21:59 EDMS 11/18 23:22 Order name: Lactate w/ 2H reflex if indic. EDMS 11/18 23:22 Order name: Urinalysis w/ reflexes EDMS 04/20 23:22 Order name: CBC with Automated Diff EDMS 11/18 23:22 Order name: CBC with Automated Diff EDMS 11/18 23:22 Order name: Comprehensive Metabolic Panel EDMS 11/18 23:22 Order name: Comprehensive Metabolic Panel EDMS 11/18 23:24 Order name: Vancomycin Level Trough EDMS 11/18 20:38 Order name: Chest Single View XRAY; Complete Time: 21:59 kb 11/18 20:16 Order name: EKG; Complete Time: 20:17 kb 11/18 20:16 Order name: Accucheck; Complete Time: 21:44 kb 11/18 20:16 Order name: Cardiac monitoring; Complete Time: 21:06 kb 11/18 20:16 Order name: EKG - Nurse/Tech; Complete Time: 21:19 kb 11/18 20:16 Order name: IV Saline Lock - Large Bore; Complete Time: 21:08 kb 11/18 20:16 Order name: Labs collected and sent; Complete Time: 21:08 kb 11/18 20:16 Order name: O2 Per Protocol; Complete Time: 21:06 kb 11/18 20:16 Order name: O2 Sat Monitoring; Complete Time: 21:06 kb 11/18 20:16 Order name: Vital Signs; Complete Time: 21:06 kb EC:07 Rate is 81 beats/min. Rhythm is regular. QRS [place] is Normal. IA interval is normal at kb 154 msec. QRS interval is normal at 100 msec. QT interval is normal at 446 msec. Administered Medications: 22:56 Drug: vancoMYCIN IVPB 1 grams IVPB once over 2 hrs Route: IVPB; Infused Over: 2 hrs; tl4 Site: right jugular; 22:57 Drug: NS 0.9% IV 1000 ml IV at 1000 ml once Route: IV; Rate: 1000 ml; Site: right tl4 jugular; Delivery: Primary tubing; Disposition: 11/19 22:10 Co-signature as Attending Physician, Alvarado Peter MD I agree with the assessment sp4 and plan of care. I reviewed the patient's care provided by Advanced Practice Provider \T\ agree w/ the diagnosis \T\ care plan. I personally saw the pt \T\ performed a substantive portion of the visit, incldng all aspects of the (History/Exam/Medical Decision Making). Disposition Summary: 11/19/23 22:39 Hospitalization Ordered Notes: Hospitalization Status: Inpatient Admission kb Provider: Klever Palacio Location: Telemetry/MedSurg (Inpatient) kb Condition: Stable kb Problem: new kb Symptoms: are unchanged kb Bed/Room Type: Standard kb Room Assignment: 205(11/19/23 23:48) rv1 Diagnosis - Cellulitis of left lower limb kb - Cellulitis of right lower limb kb Forms: - Medication Reconciliation Form kb - SBAR form kb - Leadership Thank You Letter kb Signatures: Dispatcher [employer] EDIleana Redmond, NEWSCAST PRODUCER-C NEWSCAST PRODUCER-Nirali Slade RN RN vc1 Patricia Miller rv1 Alvarado Peter MD MD sp4 Prem Chiang RN RN tl4 Corrections: (The following items were deleted from the chart) 11/18 23:48 22:39 kb rv1
[2023-11-19] MEDS ORDERED: NA CHLORIDE 0.9% 1,000 ML ONE (22:41)
[2023-11-19] MEDS ORDERED: NA CHLORIDE 0.9% 250 ML ONE (22:41)
--- NOTE | 2023-11-19 22:44 | P.HP ---
Certification for Inpatient Patient admitted to: Inpatient With expected LOS: >2 Midnights Practitioner: I am a practitioner with admitting privileges, knowledge of patient current condition, hospital course, and medical plan of care. Services: Services provided to patient in accordance with Admission requirements found in Title 42 Section 412.3 of the Code of Federal Regulations Patient History Date of Service: 11/20/23 Reason for admission: Bilateral lower extremity cellulitis History of Present Illness: 48 yrs old Female with past medical history of anxiety, bipolar disorder, history of Crohn's disease, depression, schizophrenia who came to ER with fever pain and swelling of the legs which has been going on for the last 4 days and has been progressively worsening and was brought to ER Had multiple similar episodes before and had history of sepsis as well due to cellulitis She presents for bilateral lower extremity swelling, redness and pain, as well as fever for 4 days. Denies shortness of breath, chest pain. Denies any trauma Patient was assessed in the ER and was admitted for further management of bilateral lower extremity cellulitis Allergies haloperidol [From Haldol] Allergy (Verified 12/09/13 20:26) Unknown haloperidol lactate [From Haldol] Allergy (Verified 12/09/13 20:26) Unknown prochlorperazine [From Compazine] Allergy (Verified 11/03/18 09:36) Unknown prochlorperazine edisylate [From Compazine] Allergy (Verified 12/09/13 20:28) Unknown prochlorperazine maleate [From Compazine] Allergy (Verified 12/09/13 20:28) Unknown Sulfa (Sulfonamide Antibiotics) Allergy (Verified 12/09/13 20:25) Unknown SULFA (SULFONAMIDES) Allergy (Uncoded 12/16/13 05:25) Unknown Home medications list reviewed: Yes Home Medications: Fluoxetine HCl [Prozac*] 20 mg PO BID 11/03/18 clonazePAM [Klonopin*] 2 tab PO TID 11/03/18 Famotidine [Pepcid*] 20 mg PO BID #60 tab 11/04/18 Simethicone [Mylicon*] 80 mg PO TID #30 tab 11/04/18 Amoxicillin/Potassium Clav [Augmentin 500-125 Tablet] 1 each PO TID 7 Days #21 tablet 10/28/21 Doxycycline [Vibramycin IV*] 100 mg PO BID 7 Days #14 cap 10/28/21 - Past Medical/Surgical History Diabetic: No Past Medical History: Reviewed- Non-Contributory -: Crohn's colitis -: Depression with anxiety -: Right ovarian cyst -: Chrons Past Surgical History: Reviewed- Non-Contributory -: Tubal Ligation -: Appy -: chrons sx -: Hemhrroid removal -: tonsillectomy -: bilateral knee sx Psychosocial/ Personal History: Patient is . She has 3 children. She does not work. She collects disability - Family History Father -: Other (see notes) Notes: MSA Mother -: Heart disease - Social History Smoking Status: Never smoker Alcohol use: No CD- Drugs: Yes Caffeine use: Yes Review of Systems 10-point ROS is otherwise unremarkable Physical Examination - Vital Signs Temperature: 98.2 F Blood Pressure: 122/76 Pulse: 92 Respirations: 18 Pulse Ox (%): 95 - Physical Exam General: Alert, In no apparent distress, Oriented x3 HEENT: Atraumatic, Normocephalic Neck: Supple, 2+ carotid pulse no bruit Respiratory: Clear to auscultation bilaterally, Normal air movement Cardiovascular: Regular rate/rhythm, Normal S1 S2 Capillary refill: <2 Seconds Gastrointestinal: Soft and benign, W/out hepatosplenomegaly, No tenderness Musculoskeletal: Erythema, Tenderness, Warmth Integumentary: Tenderness/swelling, Erythema, Warmth Neurological: Normal speech, Normal strength at 5/5 x4 extr, Cranial nerves 3-12 intact, Normal reflexes 2+ Lymphatics: No axilla or inguinal lymphadenopathy - Studies Laboratory Data (last 24 hrs) 11/19/23 11/19/23 11/19/23 21:00 21:00 21:00 WBC 8.60 Hgb 12.5 Hct 36.5 Plt Count 320 PT 11.1 INR 1.01 APTT 36.9 Sodium 139 Potassium 3.3 L BUN 24 H Creatinine 0.89 Glucose 95 Total Bilirubin 0.3 AST 16 ALT 17 Alkaline Phosphatase 98 Assessment and Plan - Problems (Diagnosis) (1) Bilateral lower leg cellulitis Current Visit: Yes Status: Acute Plan: Bilateral lower extremity cellulitis Started on IV antibiotic Pain control Will obtain cultures Change antibiotic as per sensitivity Keep limbs elevated Will get a Doppler bilateral lower extremities Anxiety Continue home medications and titrate as needed Hypokalemia Potassium supplementation Monitor electrolytes and replace accordingly GI/DVT prophylaxis Full code Discharge Plan: Home Plan to discharge in: 48 Hours - Advance Directives Does patient have a Living Will: No Does patient have a Durable POA for Healthcare: No - Code Status/Comfort Care Code Status: Full Code Time Spent Managing Pts Care (In Minutes): 48
[2023-11-19] MEDS ORDERED: ONDANSETRON 4 MG/2 ML VIAL IV PRN (23:17)
[2023-11-19] MEDS ORDERED: ACETAMINOPHEN 325 MG TABLET PO PRN (23:17)
[2023-11-19 23:23] LABS: Troponin High Sensitivity 3.5 pg/mL (<58.9)
[2023-11-19] MEDS ORDERED: VANCOMYCIN 1 GM in NA CHLORIDE 0.9% 250 ML IVPB SCH (23:45)
[2023-11-20 01:15] VITALS: O2SAT 100
[2023-11-20] MEDS: ZOLPIDEM TARTRATE 5 MG TABLET PO PRN (01:35)
[2023-11-20] MEDS: NA CHLORIDE 0.9% 1,000 ML IV SCH (01:35)
[2023-11-20] MEDS: HYDROCODONE/APAP 7.5/325 MG TAB PO PRN (01:35)
[2023-11-20] MEDS: POTASSIUM CL SA 10 MEQ TAB PO ONE (01:35)
[2023-11-20 03:03] LABS: Absolute Basophils 0.1 K/uL (0-0.5); Absolute Eosinophils 0.1 K/uL (0-0.5); Absolute Lymphocytes (CBC) 2.2 K/uL (0.7-4.9); Absolute Monocytes 0.7 K/uL (0.1-1.3); Absolute Neutrophil 3.5 K/uL (1.8-8.0); Basophils % 1.4 % (0-1.3); Eosinophils % 1.7 % (0-4.4); Hematocrit 36.6 % (36.0-45.0); Hemoglobin 12.3 g/dL (12.0-15.0); Lymphocytes % 33.1 % (15.3-44.8); MCH 28.9 pg (27.0-35.0); MCHC 33.5 g/dL (32.0-36.0); MCV 86.2 fL (80-100); MPV 7.6 fL (7.6-11.3); Monocytes % 10.9 % (3.3-12.3); Neutrophils % 52.9 % (41.7-73.7); Platelets 292 thou/uL (152-406); RBC Red Blood Cell Count 4.25 M/uL (3.86-4.86); Red Cell Distribution Width 13.5 % (12.1-15.2)
[2023-11-20 03:21] LABS: Anion Gap 8.1 mEq/L (5.0-15.0); Bilirubin Total 0.3 mg/dL (0.2-1.0); Globulin 3.1 g/dL (2.3-3.5); Potassium 4.1 mEq/L (3.5-5.1); Protein, Total 6.1 g/dL (6.4-8.2)
[2023-11-20] MEDS: MORPHINE 2 MG/ML SYR IV PRN (05:38)
--- NOTE | 2023-11-20 06:48 | RAD REPORT ---
EXAM DESCRIPTION: US - Extrem Venous W Compress Asher - 11/20/2023 5:46 am CLINICAL HISTORY: Cellulitis COMPARISON: Extrem Venous W Compress Asher dated 12/23/2022 TECHNIQUE: Real-time sonographic evaluation of the lower extremity deep venous systems was performed using color Doppler, grayscale, and compression. FINDINGS: Bilateral lower extremities. Normal compressibility, flow augmentation, phasic flow and spontaneous flow is identified in both the left and right lower extremity deep venous systems. No intraluminal filling defects seen. IMPRESSION: No DVT in either lower extremity.
[2023-11-20] MEDS: CEFTRIAXONE 1,000 MG in NA CHLORIDE 0.9% 50 ML IVPB SCH (08:30)
[2023-11-20] MEDS: ENOXAPARIN 40 MG/0.4 ML SQ SCH (08:31)
[2023-11-20] MEDS: VANCOMYCIN 1.5 GM in NA CHLORIDE 0.9% 500 ML IVPB SCH (09:23)
--- NOTE | 2023-11-20 11:15 | P.PN ---
Date of Service: 11/20/23 Subjective Awake sitting up in bed with legs dangling over the side. Instructed her legs need to be elevated Reports having episodes of fluid retention in the past Reports getting her rings off her fingers prior to arrival at the ER States she does not know if she has a heart condition ROS 10 point ROS as noted above, otherwise negative Physical Exam General: Alert and Oriented x3, NAD, uncomfortable HEENT: Atraumatic, Normocephalic Neck: Supple, 2+ carotid pulse no bruit Respiratory: Clear to auscultation bilaterally, Normal air movement Cardiovascular: RRR, Normal S1 S2, no murmur noted Capillary refill: <2 Seconds Gastrointestinal: Soft and benign on palpation, W/out hepatosplenomegaly, No tenderness Musculoskeletal: Bilateral lower extremity with erythema, Tenderness, Warmth, swelling to bilateral upper extremities Integumentary: Tenderness/swelling, Erythema, Warmth Neurological: Normal speech, Normal strength at 5/5 x4 extr, Cranial nerves 3-12 intact, Normal reflexes 2+ Vitals Reviewed Problem list Bilateral lower extremity edema likely chronic venous stasis Bilateral upper extremity edema Hypokalemia History of anxiety Assessment and Plan Bilateral lower extremity edema likely chronic venous stasis Bilateral upper extremity edema Continue Rocephin and vancomycin Pain control Follow cultures Elevate bilateral lower extremities Venous Doppler study reports "No DVT in either lower extremity" ECHO for evaluation of heart valves TSH/Free T4, lipid panel pending Hypokalemia Initial potassium 3.3 K 4.1- improved Replace as needed Monitor in a.m. labs History of anxiety Continue home medications DVT ppx Lovenox Code status LOS 2 days <Kendra Edwards - Last Filed: 11/20/23 10:59> Patient seen and examined. Plan of care discussed with Ms. Edwards. Anasarca Bilateral lower extremity erythema. Patient reported subjective fever. No fever recorded since admission. She reports facial swelling, hand swelling and bilateral lower extremity swelling. History is not consistent with cellulitis. Tried urinalysis reviewed and noted normal proteinuria Albumin is moderately low at 3.0. Check urine analysis for proteinuria, lipid profile. Obtain echocardiogram to rule out cardiomyopathy, right heart failure and to assess cardiac valves. Continue antibiotics for now, follow cultures. <diamante simon - Last Filed: 11/20/23 12:23>
[2023-11-20] MEDS: DIPHENHYDRAMINE 25 MG TAB/CAP PO PRN (13:33)
[2023-11-21 06:28] LABS: Thyroid Stimulating Hormone 3.2 uIU/mL (0.358-3.740)
--- NOTE | 2023-11-21 06:40 | P.PN ---
Date of Service: 11/21/23 Subjective Feeling well this morning, visiting her emotional support dog this afternoon Restarted anxiety medications Edema decreasing ROS 10 point ROS as noted above, otherwise negative Physical Exam General: Alert and Oriented x3, NAD, comfortable HEENT: Atraumatic, Normocephalic Neck: Supple, 2+ carotid pulse no bruit Respiratory: Clear to auscultation bilaterally, Normal air movement Cardiovascular: RRR, S1 S2 present, no murmur noted Capillary refill: <2 Seconds Gastrointestinal: Soft and benign on palpation, W/out hepatosplenomegaly, No tenderness Musculoskeletal: Bilateral lower extremity with erythema, Tenderness, Warmth, swelling to bilateral upper extremities Integumentary: Tenderness/swelling, Erythema, Warmth Neurological: Normal speech, Normal strength at 5/5 x4 extr, Cranial nerves 3-12 intact, Normal reflexes 2+ Vitals Reviewed Problem list Bacteremia Bilateral lower extremity edema likely chronic venous stasis Bilateral upper extremity edema Hypokalemia History of anxiety Assessment and Plan Bacteremia Bilateral lower extremity edema likely chronic venous stasis Bilateral upper extremity edema Continue Rocephin and vancomycin (started 11/19) Pain control Follow cultures- Gram positive cocci in clusters Elevate bilateral lower extremities Venous Doppler study reports "No DVT in either lower extremity" ECHO for evaluation of heart valves- pending TSH/Free T4 normal range, lipid panel HDL mildly elevated Hypokalemia Initial potassium 3.3 K 4.1- improved Replace as needed Monitor in a.m. labs History of anxiety Continue home medications DVT ppx Lovenox Code status LOS 2 days <JerryKendra - Last Filed: 11/21/23 10:15> Patient seen and examined. Plan of care discussed with Ms. Edwards. She has no fever, she has no leukocytosis. Bilateral lower extremity swelling and redness have resolved. 1 blood culture bottle growing gram-positive cocci. Continue IV antibiotics Repeat blood culture to confirm bacteremia and blood culture growth is not a skin contaminant. Awaiting echocardiogram to rule out cardiomyopathy. <diamante simon - Last Filed: 11/21/23 11:54>
[2023-11-21 08:12] LABS: Absolute Basophils 0.1 K/uL (0-0.5); Absolute Eosinophils 0.1 K/uL (0-0.5); Absolute Lymphocytes (CBC) 1.7 K/uL (0.7-4.9); Absolute Monocytes 0.5 K/uL (0.1-1.3); Absolute Neutrophil 3.2 K/uL (1.8-8.0); Basophils % 1.3 % (0-1.3); Eosinophils % 2.4 % (0-4.4); Hematocrit 39.4 % (36.0-45.0); Hemoglobin 13.2 g/dL (12.0-15.0); Lymphocytes % 29.7 % (15.3-44.8); MCH 29.3 pg (27.0-35.0); MCHC 33.5 g/dL (32.0-36.0); MCV 87.4 fL (80-100); MPV 7.6 fL (7.6-11.3); Monocytes % 9.7 % (3.3-12.3); Neutrophils % 56.9 % (41.7-73.7); Platelets 293 thou/uL (152-406); Red Cell Distribution Width 13.3 % (12.1-15.2)
[2023-11-21 08:27] LABS: Magnesium 1.9 mg/dL (1.6-2.4); Phosphorus 4.4 mg/dL (2.5-4.9)
[2023-11-21] MEDS: clonazePAM 1 MG TAB PO PRN (08:37)
[2023-11-21] MEDS: ZOLPIDEM TARTRATE 10 MG TABLET PO SCH (20:16)
[2023-11-21] MEDS: VENLAFAXINE HCL XR 75 MG CAP PO SCH (20:17)
[2023-11-21] MEDS: FLUOXETINE 20 MG CAP PO SCH (20:18)
[2023-11-22] MEDS: VANCOMYCIN 1.5 GM in NA CHLORIDE 0.9% 500 ML IVPB SCH (04:47)
[2023-11-22 06:54] LABS: Absolute Basophils 0.1 K/uL (0-0.5); Absolute Eosinophils 0.2 K/uL (0-0.5); Absolute Lymphocytes (CBC) 1.6 K/uL (0.7-4.9); Absolute Monocytes 0.5 K/uL (0.1-1.3); Absolute Neutrophil 3.3 K/uL (1.8-8.0); Basophils % 1.2 % (0-1.3); Eosinophils % 2.8 % (0-4.4); Hematocrit 40.2 % (36.0-45.0); Hemoglobin 13.5 g/dL (12.0-15.0); Lymphocytes % 28.7 % (15.3-44.8); MCH 29.2 pg (27.0-35.0); MCHC 33.6 g/dL (32.0-36.0); MCV 86.9 fL (80-100); MPV 7.7 fL (7.6-11.3); Monocytes % 9.4 % (3.3-12.3); Neutrophils % 57.9 % (41.7-73.7); Nucleated Red Blood Cells % 0.1 % (0-0); Platelets 306 thou/uL (152-406); RBC Red Blood Cell Count 4.63 M/uL (3.86-4.86); Red Cell Distribution Width 13.2 % (12.1-15.2)
[2023-11-22 07:16] LABS: Anion Gap 6.1 mEq/L (5.0-15.0)
[2023-11-22 07:18] LABS: Magnesium 2.3 mg/dL (1.6-2.4); Potassium 5.1 mEq/L (3.5-5.1)
--- NOTE | 2023-11-22 08:40 | ECHO ---
HEIGHT: 5 ft 11 in WEIGHT: 170 lb 0 oz DATE OF STUDY: 11/21/[address]: Kendra Edwards NP 2-DIMENSIONAL: YES M.MODE: YES DOPPLER: YES COLOR FLOW: YES TDS: PORTABLE: YES DEFINITY: BUBBLE STUDY: DIAGNOSIS: FLUID RETENTION CARDIAC HISTORY: CATHERIZATION: NO SURGERY: NO PROSTHETIC VALVE: NO PACEMAKER: NO MEASUREMENTS (cm) DIASTOLIC (NORMALS) SYSTOLIC (NORMALS) IVSd 0.9 (0.6-1.2) LA Diam 3.3 (1.9-4.0) LVEF 68% LVIDd 4.8 (3.5-5.7) LVIDs 3.0 (2.0-3.5) %FS 38% LVPWd 1.0 (0.6-1.2) Ao Diam 3.0 (2.0-3.7) 2 DIMENSIONAL ASSESSMENT: RIGHT ATRIUM: NORMAL LEFT ATRIUM: NORMAL RIGHT VENTRICLE: NORMAL LEFT VENTRICLE: NORMAL TRICUSPID VALVE: NORMAL MITRAL VALVE: NORMAL PULMONIC VALVE: NORMAL AORTIC VALVE: NORMAL PERICARDIAL EFFUSION: NONE AORTIC ROOT: NORMAL LEFT VENTRICULAR WALL MOTION: NORMAL DOPPLER/COLOR FLOW: NORMAL COMMENTS: 1. NORMAL LEFT VENTRICULAR SYSTOLIC AND DIASTOLIC FUNCTION, EJECTION FRACTION 60-65% 2. NORMAL WALL MOTION TECHNOLOGIST: CECIL CHILDERS
--- NOTE | 2023-11-22 09:17 | P.CNS ---
Date of Consult: 11/22/23 Reason for Consult: possible bacteremia Chief Complaint: Bilateral lower extremity cellulitis History of Present Illness: 48yo F with a PMH as listed below who presented to the ED with complaints of bilateral lower extremity swelling and subjective fever, which she reports has been worsening over the past few days. She was admitted for bilateral lower extremity cellulitis. infectious disease consulted for possible bacteremia. Allergies haloperidol [From Haldol] Allergy (Verified 12/09/13 20:26) Unknown haloperidol lactate [From Haldol] Allergy (Verified 12/09/13 20:26) Unknown prochlorperazine [From Compazine] Allergy (Verified 11/03/18 09:36) Unknown prochlorperazine edisylate [From Compazine] Allergy (Verified 12/09/13 20:28) Unknown prochlorperazine maleate [From Compazine] Allergy (Verified 12/09/13 20:28) Unknown Sulfa (Sulfonamide Antibiotics) Allergy (Verified 12/09/13 20:25) Unknown SULFA (SULFONAMIDES) Allergy (Uncoded 12/16/13 05:25) Unknown Home medications list reviewed: Yes Home Medications: Fluoxetine HCl [Prozac*] 20 mg PO BID 11/03/18 clonazePAM [Klonopin*] 2 tab PO TID PRN 11/03/18 Venlafaxine HCl *Xr* [Effexor XR] 1 cap PO BID 11/20/23 Zolpidem Tartrate [Ambien] 10 mg PO BEDTIME 11/20/23 - Past Medical/Surgical History Diabetic: No -: Crohn's colitis -: Depression with anxiety -: Right ovarian cyst -: Chrons -: Schizophrenia -: Tubal Ligation -: Appy -: chrons sx -: Hemhrroid removal -: tonsillectomy -: bilateral knee sx Psychosocial/ Personal History: Patient is . She has 3 children. She does not work. She collects disability - Family History Father Medical History: Other (see notes) Notes: MSA Mother Medical History: Heart disease - Social History Smoking Status: Current every day smoker Alcohol use: No CD- Drugs: Yes Caffeine use: Yes Review of Systems 10-point ROS is otherwise unremarkable Cardiovascular: Edema (BLE) Physical Examination Temp Pulse Resp BP Pulse Ox 97.5 F 73 12 151/75 H 97 11/22/23 07:51 11/22/23 07:51 11/22/23 07:51 11/22/23 07:51 11/22/23 07:51 General: In no apparent distress, Other (drowsy) HEENT: Atraumatic, Normocephalic Respiratory: Other (unlabored respirations on room air) Cardiovascular: Edema (BLE 1+) Integumentary: No rashes, No significant lesion Laboratory Data - Reviewed Microbiology Data - Reviewed Imagings Data: - Reviewed Conclusions/Impression: Problem List Cellulitis/Edema of Bilateral Lower Extremities Depression Anxiety Cellulitis/Edema of Bilateral Lower Extremities - Blood cultures 11/18: coagulase-negative staph in 1 of 4 bottles - likely a contaminant - repeat blood culture 11/20: pending - echocardiogram no vegetation seen. normal EF. - Currently on Rocephin and Vancomycin - Bilateral lower extremity venous US: No DVT - urinalysis 11/21: not suggestive of UTI. Recommendations - Blood cultures with Coag-negative staph in 1/4 bottles likely a contamninant. repeat blood culture pending. Recommend discontinuing Rocephin and Vancomycin. Consider switch to Ciprofloxacin and Doxycycline PO. [place] the [place] when developed BLE edema. - continue antibiotic therapy for 7-10 days. - Keep legs elevated. - Continue supportive care. - follow up with PCP as outpatient Case discussed with Ranid Meraz
[2023-11-22 09:27] LABS: Specific Gravity 1.021 (1.005-1.030); Sqamous Epithelial <5 /HPF (None Seen); Urine Bacteria None Seen /HPF (<20); Urine Bilirubin NEGATIVE (Negative); Urine Blood 1+ (Negative); Urine Clarity Clear (Clear); Urine Color Colorless (Yellow); Urine Culture Reflex Order NOT NEEDED; Urine Glucose NEGATIVE (Negative); Urine Ketones NEGATIVE (Negative); Urine Microscopic Reflex YN ORDER UMIC; Urine Nitrite NEGATIVE (Negative); Urine Protein NEGATIVE (Negative); Urine RBC <5 /HPF (None Seen); Urine Urobilinogen Normal (Normal); Urine WBC <5 /HPF (<5); Urine pH 5.5 (5.0-7.0)
--- NOTE | 2023-11-22 12:11 | P.PN ---
Date of Service: 11/22/23 Subjective Patient somnolent this morning Able to wake up to say 1-2 words but falls back asleep ROS 10 point ROS as noted above, otherwise negative Physical Exam General: Alert and Oriented x3, NAD, comfortable HEENT: Atraumatic, Normocephalic Neck: Supple, 2+ carotid pulse no bruit Respiratory: Clear to auscultation bilaterally, Normal air movement Cardiovascular: RRR, S1 S2 present, no murmur noted Capillary refill: <2 Seconds Gastrointestinal: Soft and benign on palpation, No tenderness Musculoskeletal: Bilateral lower extremity with erythema, compression stockings in place Integumentary: Tenderness/swelling, Erythema, Warmth to bilateral lower extremities Neurological: Normal speech, Normal strength at 5/5 x4 extr, Cranial nerves 3-12 intact, Normal reflexes 2+ Vitals Reviewed Problem list Bilateral lower extremity cellulitis/edema Bilateral upper extremity edema Hypokalemia History of anxiety Plan Bilateral lower extremity cellulitis/edema Bilateral upper extremity edema Continue Rocephin and vancomycin (started 11/19) 1 out of 3 blood cultures positive for Coagulase-negative staph 11/18 Repeat blood culture obtained [id number] for result Suspect blood cultures contaminant-will transition to oral antibiotics doxycycline/Levaquin Elevate bilateral lower extremities/compression stockings in place Venous Doppler study reports "No DVT in either lower extremity" Echocardiogram without signs of vegetations, normal ejection fraction TSH/Free T4 normal range, lipid panel HDL mildly elevated Discontinue IV fluids Hypokalemia Monitor chemistry daily, protocol in place History of anxiety Continue home medications DVT ppx Lovenox Code status LOS 1 to 2 days
[2023-11-22] MEDS: levoFLOXacin 750 MG TAB PO SCH (12:57)
[2023-11-22] MEDS: FUROSEMIDE 40 MG/4 ML VIAL IV ONE (12:57)
[2023-11-22] MEDS ORDERED: HYDROCODONE/APAP 7.5/325 MG TAB PO PRN (17:19)
[2023-11-22] MEDS: DOXYCYCLINE 100 MG CAP PO SCH (21:00)
[2023-11-23 07:27] LABS: Absolute Basophils 0.1 K/uL (0-0.5); Absolute Eosinophils 0.3 K/uL (0-0.5); Absolute Lymphocytes (CBC) 1.9 K/uL (0.7-4.9); Absolute Monocytes 0.6 K/uL (0.1-1.3); Absolute Neutrophil 3.4 K/uL (1.8-8.0); Basophils % 1.5 % (0-1.3); Eosinophils % 4.1 % (0-4.4); Hematocrit 41.4 % (36.0-45.0); Hemoglobin 13.6 g/dL (12.0-15.0); Lymphocytes % 30.1 % (15.3-44.8); MCH 28.5 pg (27.0-35.0); MCHC 32.8 g/dL (32.0-36.0); MCV 86.9 fL (80-100); MPV 7.7 fL (7.6-11.3); Monocytes % 9.3 % (3.3-12.3); Platelets 314 thou/uL (152-406); RBC Red Blood Cell Count 4.77 M/uL (3.86-4.86); Red Cell Distribution Width 13.5 % (12.1-15.2)
[2023-11-23 08:03] VITALS: BMI 23.8
[2023-11-23 09:18] VITALS: BP 112/66; TEMP 97.6
--- NOTE | 2023-11-23 09:41 | P.PN ---
Infectious Disease Progress Note Chief Complaint: Bilateral lower extremity cellulitis Subjective: Physical Examination Temp Pulse Resp BP Pulse Ox 97.6 F 81 15 112/66 99 11/23/23 08:00 11/23/23 08:00 11/23/23 08:00 11/23/23 08:00 11/23/23 08:00 General: In no apparent distress, Other (drowsy) HEENT: Atraumatic, Normocephalic Respiratory: Other (unlabored respirations on room air) Cardiovascular: Edema (BLE 1+) Integumentary: No rashes, No significant lesion Laboratory Data - Reviewed Microbiology Data - Reviewed Imagings Data: - Reviewed Assessment and Plan Problem List Cellulitis/Edema of Bilateral Lower Extremities Depression Anxiety Cellulitis/Edema of Bilateral Lower Extremities - Blood cultures 11/18: coagulase-negative staph in 1 of 4 bottles - likely a contaminant - repeat blood culture 11/20: pending - echocardiogram no vegetation seen. normal EF. - Currently on Rocephin and Vancomycin - Bilateral lower extremity venous US: No DVT - urinalysis 11/21: not suggestive of UTI. Recommendations - Blood cultures with Coag-negative staph in 1/4 bottles likely a contamninant. repeat blood culture pending. Recommend discontinuing Rocephin and Vancomycin. Consider switch to Ciprofloxacin and Doxycycline PO. Patient was reportedly at the beach last weekend when developed BLE edema. - continue antibiotic therapy for 7-10 days. - Keep legs elevated. - Continue supportive care. - follow up with PCP as outpatient Case discussed with Randi Meraz
[2023-11-23 10:08] LABS: Anion Gap 8.3 mEq/L (5.0-15.0); Phosphorus 4.2 mg/dL (2.5-4.9); Potassium 4.3 mEq/L (3.5-5.1)
--- NOTE | 2023-11-23 11:39 | P.DS ---
Admission Date: 11/19/23 Discharge Date: 11/23/23 Reason for Admission: Bilateral lower extremity cellulitis Brief History of Present Illness: 48 yrs old Female with past medical history of anxiety, bipolar disorder, history of Crohn's disease, depression, schizophrenia who came to ER with fever pain and swelling of the legs which has been going on for the last 4 days and has been progressively worsening and was brought to ER Had multiple similar episodes before and had history of sepsis as well due to cellulitis She presents for bilateral lower extremity swelling, redness and pain, as well as fever for 4 days. Denies shortness of breath, chest pain. Denies any trauma Patient was assessed in the ER and was admitted for further management of bilateral lower extremity cellulitis Hospital Course: Problem list Bilateral lower extremity cellulitis/edema Bilateral upper extremity edema Hypokalemia History of anxiety Patient was admitted to the hospital for generalized edema, suspected cellulitis of the lower extremities. Blood cultures were obtained and 1/3 were positive for coagulase negative staph, likely contaminant. Repeat blood culture with no growth in 24 hours. Swelling has improved, patient stable for discharge at this time to follow up with PCP in around 2 weeks. Continue taking the new antibiotics levaquin and doxycycline for seven days Given this episodes of swelling you have been experiencing we encourage you to keep track of the context of these events and what may be contributing. Your thyroid (TSH,T4) numbers were normal and you had an echocardiogram which was also normal. Kidney function was normal as well. Please establish with/follow up with a primary care doctor in 2 weeks <Raul Gimenez - Last Filed: 11/23/23 11:38> Admission Date: 11/19/23 Discharge Date: 11/23/23 <Jerry Underwood - Last Filed: 11/23/23 21:11> Disposition: ROUTINE DISCHARGE Discharge Condition: GOOD Vital Signs/Physical Exam: Temp Pulse Resp BP Pulse Ox 97.6 F 81 15 112/66 99 11/23/23 08:00 11/23/23 08:00 11/23/23 08:00 11/23/23 08:00 11/23/23 08:00 General: Alert, In no apparent distress, Oriented x3 HEENT: Atraumatic, PERRLA Neck: Supple, JVD not distended Respiratory: Clear to auscultation bilaterally, Normal air movement Cardiovascular: Regular rate/rhythm, Normal S1 S2, Edema (1+ edema RAJENDRA LE) Gastrointestinal: Normal bowel sounds Musculoskeletal: No tenderness Integumentary: No rashes Neurological: Normal speech, Normal tone, Normal affect Lymphatics: No axilla or inguinal lymphadenopathy Laboratory Data at Discharge: WBC 6.20 thou/uL (4.3-10.9) 11/23/23 07:13 Hgb 13.6 g/dL (12.0-15.0) 11/23/23 07:13 Hct 41.4 % (36.0-45.0) 11/23/23 07:13 Plt Count 314 thou/uL (152-406) 11/23/23 07:13 PT 11.1 SECONDS (9.5-12.5) 11/19/23 21:00 INR 1.01 11/19/23 21:00 APTT 36.9 SECONDS (24.3-36.9) 11/19/23 21:00 Sodium 137 mEq/L (136-145) 11/23/23 09:43 Potassium 4.3 mEq/L (3.5-5.1) D 11/23/23 09:43 BUN 19 mg/dL (7-18) H 11/23/23 09:43 Creatinine 0.89 mg/dL (0.55-1.02) 11/23/23 09:43 Glucose 87 mg/dL (74-106) 11/23/23 09:43 Phosphorus 4.2 mg/dL (2.5-4.9) 11/23/23 09:43 Magnesium 2.0 mg/dL (1.6-2.4) 11/23/23 09:43 Total Bilirubin 0.3 mg/dL (0.2-1.0) 11/20/23 02:37 AST 14 U/L (15-37) L 11/20/23 02:37 ALT 14 U/L (13-56) 11/20/23 02:37 Alkaline Phosphatase 90 U/L (45-117) 11/20/23 02:37 Triglycerides 57 mg/dL (<150) 11/21/23 05:54 Cholesterol 159 mg/dL (<200) 11/21/23 05:54 HDL Cholesterol 74 mg/dL (40-60) H 11/21/23 05:54 Cholesterol/HDL Ratio 2.15 11/21/23 05:54 <Raul Gimenez Thomas Dioni - Last Filed: 11/23/23 11:38> Vital Signs/Physical Exam: Temp Pulse Resp BP Pulse Ox 97.6 F 81 15 112/66 99 11/23/23 08:00 11/23/23 08:00 11/23/23 08:00 11/23/23 08:00 11/23/23 08:00 Laboratory Data at Discharge: WBC 6.20 thou/uL (4.3-10.9) 11/23/23 07:13 Hgb 13.6 g/dL (12.0-15.0) 11/23/23 07:13 Hct 41.4 % (36.0-45.0) 11/23/23 07:13 Plt Count 314 thou/uL (152-406) 11/23/23 07:13 PT 11.1 SECONDS (9.5-12.5) 11/19/23 21:00 INR 1.01 11/19/23 21:00 APTT 36.9 SECONDS (24.3-36.9) 11/19/23 21:00 Sodium 137 mEq/L (136-145) 11/23/23 09:43 Potassium 4.3 mEq/L (3.5-5.1) D 11/23/23 09:43 BUN 19 mg/dL (7-18) H 11/23/23 09:43 Creatinine 0.89 mg/dL (0.55-1.02) 11/23/23 09:43 Glucose 87 mg/dL (74-106) 11/23/23 09:43 Phosphorus 4.2 mg/dL (2.5-4.9) 11/23/23 09:43 Magnesium 2.0 mg/dL (1.6-2.4) 11/23/23 09:43 Total Bilirubin 0.3 mg/dL (0.2-1.0) 11/20/23 02:37 AST 14 U/L (15-37) L 11/20/23 02:37 ALT 14 U/L (13-56) 11/20/23 02:37 Alkaline Phosphatase 90 U/L (45-117) 11/20/23 02:37 Triglycerides 57 mg/dL (<150) 11/21/23 05:54 Cholesterol 159 mg/dL (<200) 11/21/23 05:54 HDL Cholesterol 74 mg/dL (40-60) H 11/21/23 05:54 Cholesterol/HDL Ratio 2.15 11/21/23 05:54 <Jerry Underwood - Last Filed: 11/23/23 21:11> Diet: Regular Activity: Ad gianni Time spent managing pt's care (in minutes): 35 <Raul Gimenez - Last Filed: 11/23/23 11:38> Physician Review: Patient Assessed, Agree with Above Assessment and Plan (Pt seen / examined this morning with LOCATOR SPECIALIST Ammy. I performed a substantial part of the MDM during this patient's care today. Improved, stable for discharge. This is ~ 4th episode of edema in last 2-3 yrs - some involving hands/legs/face. High suspicion secondary to meth use. Counselled on cessation) <Jerry Underwood - Last Filed: 11/23/23 21:11> Home Medications: Fluoxetine HCl [Prozac*] 20 mg PO BID 11/03/18 clonazePAM [Klonopin*] 2 tab PO TID PRN 11/03/18 Venlafaxine HCl *Xr* [Effexor XR] 1 cap PO BID 11/20/23 Zolpidem Tartrate [Ambien] 10 mg PO BEDTIME 11/20/23 Doxycycline Monohydrate 100 mg PO BID 7 Days #14 cap 11/23/23 levoFLOXacin [Levaquin] 750 mg PO DAILY #7 tab 11/23/23 New Medications: Doxycycline Monohydrate 100 mg PO BID 7 Days #14 cap levoFLOXacin [Levaquin] 750 mg PO DAILY #7 tab Physician Discharge Instructions: Patient was admitted to the hospital for generalized edema, suspected cellulitis of the lower extremities. Blood cultures were obtained and 1/3 were positive for coagulase negative staph, likely contaminant. Repeat blood culture with no growth in 24 hours. Swelling has improved, patient stable for discharge at this time to follow up with PCP in around 2 weeks. Continue taking the new antibiotics levaquin and doxycycline for seven days Given this episodes of swelling you have been experiencing we encourage you to keep track of the context of these events and what may be contributing. Your thyroid (TSH,T4) numbers were normal and you had an echocardiogram which was also normal. Kidney function was normal as well. Please establish with/follow up with a primary care doctor in 2 weeks Followup: NONE,NONE [Primary Care Provider] - 1-2 Weeks
--- NOTE | 2023-11-24 17:06 | EKG ---
Test Date: 2023-11-19 Test Time: 20:59:26 [employer] Wildlife W[employer]: JACEY MEASUREMENT RESULTS: Intervals: Rate: 81 IL: 154 QRSD: 100 QT: 384 QTc: 446 [place]: P: 80 IL: 154 QRS: 68 T: 100 INTERPRETIVE STATEMENTS: Normal sinus rhythm Nonspecific ST abnormality Abnormal ECG Compared to ECG 12/23/2022 16:50:29 ST (T wave) deviation now present Electronically Signed On 11-24-23 16:48:29 CDT by Cesar Davis
== END 2023-11-23 11:32 | disposition home or self-care (01) | DRG 603 ==
LOC: ER 19:48 → ERHOLD 23:17 → 2ND 11-20 00:09
PROVIDERS: ADMIT Family Medicine; ATTEND Hospitalist
DX: L03.116 Cellulitis of left lower limb (principal); R78.81 Bacteremia; L03.115 Cellulitis of right lower limb; F41.9 Anxiety disorder, unspecified; F32.A Depression, unspecified; E87.6 Hypokalemia; F17.200 Nicotine dependence, unspecified, uncomplicated; Z88.0 Allergy status to penicillin; Z88.2 Allergy status to sulfonamides; Z88.5 Allergy status to narcotic agent; Z88.1 Allergy status to other antibiotic agents; Z98.51 Tubal ligation status; Z90.49 Acquired absence of other specified parts of digestive tract; Z28.310 Unvaccinated for COVID-19; Z79.899 Other long term (current) drug therapy
CPT/HCPCS: 36415; 71045; 80048; 80053; 80061; 80202; 81001; 82947; 83605; 83735; 83880; 84100; 84439; 84443; 84484; 85025; 85610; 85730; 87040; 87205; 93005; 93306; 93970; 96374; 99284; J0696; J1650; J1940; J2270; J7030; J7040; J7050

== ENCOUNTER 2024-06-29 04:18 | Emergency (ER) | payer OTHER ==
[2024-06-29] MEDS ORDERED: KETOROLAC 30 MG/ML INJ ONE (05:33)
[2024-06-29] MEDS ORDERED: methocarbamoL 750 MG TAB ONE (05:33)
--- NOTE | 2024-06-29 05:45 | EDPHYS ---
Physician Documentation [facility] Name: Suzette Judge Age: 48 yrs Sex: Female : 1975 Arrival Date: 06/29/2024 Time: 04:18 Bed 12 Private MD: ED Physician Alvarado Peter HPI: 06/29 04:25 This 48 yrs old Other Race Female presents to ER via Unassigned with complaints of Foot sp4 Injury, Foot Pain. 04:45 Positive for right foot pain , patient reports that she has dropped a heavy heater onto sp4 her right foot great toe.. Historical: - Allergies: 04:30 Compazine; ha1 04:30 Haldol; ha1 04:30 PENICILLINS; ha1 04:30 Sulfa; ha1 - PMHx: 04:30 Anxiety; Bipolar disorder; Crohn's; Depression; PTSD; Schizophrenia; ha1 - PSHx: 04:30 knee; ha1 - Immunization history:: Adult Immunizations not up to date. - Infectious Disease History:: Denies. - Social history:: Smoking status: Patient reports the use of cigarette tobacco products. - Family history:: not pertinent. ROS: 06/30 03:43 Constitutional: Negative for fever, chills, and weight loss, positive for right great sp4 toe pain All other systems are negative, Exam: 03:43 Constitutional: This is a well developed, well nourished patient who is awake, alert, sp4 and in no acute distress. Head/Face: Normocephalic, atraumatic. Eyes: Pupils equal round and reactive to light, extra-ocular motions intact. Lids and lashes normal. Conjunctiva and sclera are not injected. Cornea within normal limits. Periorbital areas with no swelling, redness, or edema. ENT: Nares patent. No nasal discharge, no septal abnormalities noted. Tympanic membranes are normal and external auditory canals are clear. Oropharynx with no redness, swelling, or masses, exudates, or evidence of obstruction, uvula midline. Mucous membranes moist. Neck: Trachea midline, no thyromegaly or masses palpated, and no cervical lymphadenopathy. Supple, full range of motion without nuchal rigidity, or vertebral point tenderness. Chest/axilla: Normal chest wall appearance and motion. Nontender with no deformity. No lesions are appreciated. Cardiovascular: Regular rate and rhythm with a normal S1 and S2. No gallops, murmurs, or rubs. Normal PMI, no JVD. No pulse deficits. Respiratory: Lungs have equal breath sounds bilaterally, clear to auscultation and percussion. No rales, rhonchi or wheezes noted. No increased work of breathing, no retractions or nasal flaring. Abdomen/GI: Soft, with normal bowel sounds. No distension or tympany. No guarding or rebound. No evidence of tenderness throughout. Back: No spinal tenderness. No costovertebral tenderness. Skin: Warm, dry with normal turgor. Normal color with no rashes, no lesions, and no evidence of cellulitis. MS/ Extremity: Pulses equal, no cyanosis. Neurovascular intact. Full, normal range of motion. Neuro: Awake and alert, GCS 15, oriented to person, place, time, and situation. Cranial nerves II-XII grossly intact. Motor strength 5/5 in all extremities. Sensory grossly intact. Psych: Awake, alert, with orientation to person, place and time. Behavior, mood, and affect are within normal limits Vital Signs: 06/29 04:30 BP 113 / 77; Pulse 95; Resp 18 S; Temp 97.7(O); Pulse Ox 100% on R/A; Weight 90.72 kg; ha1 Height 5 ft. 11 in. ; Pain 8/10; 05:30 BP 108 / 71; Pulse 91; Resp 18 S; Pulse Ox 100% on R/A; ha1 04:30 Body Mass Index 27.89 (90.72 kg, 180.34 cm) ha1 04:30 Pain Scale: Adult ha1 Henrique Coma Score: 06/30 03:43 Eye Response: spontaneous(4). Motor Response: obeys commands(6). Verbal Response: sp4 oriented(5). Total: 15. MDM: 06/29 04:27 Medical Screening Exam initiated sp4 06/30 03:45 Differential diagnosis: fracture, sprain, arthritis, gout, cellulitis. Data reviewed: sp4 vital signs, nurses notes, radiologic studies, plain films. 03:46 ED course: PROCEDURE: XR Right Foot Complete, 3 Views CLINICAL INDICATION: The patient sp4 is 48 years old and is Female; Right foot pain. TECHNIQUE: Frontal, lateral and oblique views of the right foot. COMPARISON: None. FINDINGS: BONES/JOINTS: No acute fracture. No suspicious lytic or blastic bone lesions. No subluxation or dislocation. SOFT TISSUES: Mild diffuse subcutaneous edema demonstrated within the partially visualized soft tissues of the right leg. No radiopaque foreign body. IMPRESSION: No acute osseous findings in the right foot.. 06/29 04:45 Order name: Foot Right 3 View XRAY sp4 Administered Medications: 06/29 05:30 Drug: Methocarbamol PO 750 mg PO once Route: PO; ha1 05:50 Follow up: Response: No adverse reaction ha1 05:41 Not Given (Physician Discretion): [id number] mg IM once ha1 Disposition: 06/30 03:46 Chart complete. sp4 Disposition Summary: 06/29/24 05:45 Discharge Ordered Notes: Location: Home sp4 Problem: new sp4 Symptoms: have improved sp4 Condition: Stable sp4 Diagnosis - Contusion of right foot sp4 - Right Great Toe contusion sp4 Followup: sp4 - With: Private Physician - When: As needed - Reason: Discharge Instructions: - Discharge Summary Sheet sp4 - Contusion, Abun-on-Tsfe sp4 Forms: - Patient Portal Instructions sp4 Signatures: Dispatcher [employer] Smiley Dneton RN RN ha1 Alvarado Peter MD MD sp4 Corrections: (The following items were deleted from the chart) 06/29 04:45 04:45 Foot Right 3 View+RAD.RAD.BRZ ordered. EDMS EDMS
--- NOTE | 2024-06-29 05:45 | ER ---
Nurse's Notes [facility] Name: Suzette Judge Age: 48 yrs Sex: Female : 1975 Arrival Date: 06/29/2024 Time: 04:18 Bed 12 Private MD: Diagnosis: Contusion of right foot;Right Great Toe contusion Presentation: 06/29 04:30 Chief complaint: Patient states: I DROPPED A HEATER ON MY RIGHT FOOT AND MY BIG TOE ha1 HURST A LOT. 04:30 Coronavirus screen: Vaccine status: Patient reports being unvaccinated. Ebola Screen: ha1 No symptoms or risks identified at this time. Initial Sepsis Screen: Does the patient meet any 2 criteria? No. Patient's initial sepsis screen is negative. Does the patient have a suspected source of infection? No. Patient's initial sepsis screen is negative. Risk Assessment: Do you want to hurt yourself or someone else? Patient reports no desire to harm self or others. Onset of symptoms was June 29, 2024. 04:30 Method Of Arrival: Wheelchair ha1 04:30 Acuity: LORI 4 ha1 Triage Assessment: 04:30 General: Appears uncomfortable, Behavior is cooperative. Pain: Complains of pain in ha1 right foot Pain does not radiate. Pain currently is 9 out of 10 on a pain scale. Quality of pain is described as aching, Pain began 1 hour ago. Neuro: Level of Consciousness is awake, alert, obeys commands, Oriented to person, place, time, situation. Cardiovascular: Capillary refill < 3 seconds Patient's skin is warm and dry. Respiratory: Airway is patent Respiratory effort is even, unlabored, Respiratory pattern is regular, symmetrical. GI: Abdomen is round non-distended. Musculoskeletal: Circulation, motion, and sensation intact. Reports pain in right foot. Historical: - Allergies: 04:30 Compazine; ha1 04:30 Haldol; ha1 04:30 PENICILLINS; ha1 04:30 Sulfa; ha1 - PMHx: 04:30 Anxiety; Bipolar disorder; Crohn's; Depression; PTSD; Schizophrenia; ha1 - PSHx: 04:30 knee; ha1 - Immunization history:: Adult Immunizations not up to date. - Infectious Disease History:: Denies. - Social history:: Smoking status: Patient reports the use of cigarette tobacco products. - Family history:: not pertinent. Screenin:30 [facility] ED Fall Risk Assessment (Adult) History of falling in the last 3 months, ha1 including since admission No falls in past 3 months (0 pts) Confusion or Disorientation No (0 pts) Intoxicated or Sedated No (0 pts) Impaired Gait Yes (1 pt) Mobility Assist Device Used Yes (1 pt) Altered Elimination No (0 pt) Score/Fall Risk Level 3 or more points = High Risk Oriented to surroundings, Maintained a safe environment, Educated pt \T\ family on fall prevention, incl call for assistance when getting out of bed, Hourly rounding (assess needs \T\ fall precautionary measures) done. Abuse screen: Denies threats or abuse. Denies injuries from another. Nutritional screening: No deficits noted. Tuberculosis screening: No symptoms or risk factors identified. Assessment: 04:30 Reassessment: SEE TRIAGE ASSESSMENT. ha1 05:30 Reassessment: EYES CLOSED. Respiratory: Airway is patent Respiratory effort is even, ha1 unlabored, Respiratory pattern is regular, symmetrical. Vital Signs: 04:30 BP 113 / 77; Pulse 95; Resp 18 S; Temp 97.7(O); Pulse Ox 100% on R/A; Weight 90.72 kg; ha1 Height 5 ft. 11 in. ; Pain 8/10; 05:30 BP 108 / 71; Pulse 91; Resp 18 S; Pulse Ox 100% on R/A; ha1 04:30 Body Mass Index 27.89 (90.72 kg, 180.34 cm) ha1 04:30 Pain Scale: Adult ha1 Henrique Coma Score: 06/30 03:43 Eye Response: spontaneous(4). Motor Response: obeys commands(6). Verbal Response: sp4 oriented(5). Total: 15. ED Course: 06/29 04:22 Patient arrived in ED. gm2 04:25 Alvarado Peter MD is Attending Physician. sp4 04:30 Patient has correct armband on for positive identification. Bed in low position. Call ha1 light in reach. Side rails up X 1. Adult w/ patient. 04:30 Provided Education on: PLAN OF CARE . ha1 04:30 Arm band placed on right wrist. ha1 04:52 Oliveros, Smiley, RN is Primary Nurse. ha1 05:01 Triage completed. ha1 05:40 Foot Right 3 View XRAY In Process Unspecified. EDMS 06:00 No provider procedures requiring assistance completed. Patient did not have IV access ha1 during this emergency room visit. Administered Medications: 05:30 Drug: Methocarbamol PO 750 mg PO once Route: PO; ha1 05:50 Follow up: Response: No adverse reaction ha1 05:41 Not Given (Physician Discretion): [id number] mg IM once ha1 Medication: 05:04 VIS not applicable for this client. ha1 Outcome: 05:45 Discharge ordered by MD. clements 06:00 Discharged to home via wheelchair, ha1 06:00 Condition: stable 06:00 Discharge instructions given to patient, Instructed on discharge instructions, follow up and referral plans. Demonstrated understanding of instructions, follow-up care, 06:00 Patient left the ED. ha1 Signatures: Dispatcher [employer] EDOK Smiley Oliveros RN RN ha1 Alvarado Peter MD MD sp4 Portia Roland 2
--- NOTE | 2024-06-29 06:13 | RAD REPORT ---
PROCEDURE: XR Right Foot Complete, 3 Views CLINICAL INDICATION: The patient is 48 years old and is Female; Right foot pain. TECHNIQUE: Frontal, lateral and oblique views of the right foot. COMPARISON: None. FINDINGS: BONES/JOINTS: No acute fracture. No suspicious lytic or blastic bone lesions. No subluxation or dis location. SOFT TISSUES: Mild diffuse subcutaneous edema demonstrated within the partially visualized soft tissu es of the right leg. No radiopaque foreign body. IMPRESSION: No acute osseous findings in the right foot. Electronically signed by: Diego Araujo MD 06/29/2024 06:10 AM [facility] Due to temporary technical issues with the PACS/[employer] reporting system, reports are being lien d by the in-house radiologist without review as a courtesy to ensure prompt reporting the interpreting radiologist is fully responsible for the content of the report. Transcribed Date/Time: 06/29/2024 6:13 AM
[2024-06-29 06:24] VITALS: TEMP 97.7; O2SAT 100
[2024-06-29 06:25] VITALS: BP 108/71
== END 2024-06-29 06:00 | disposition home or self-care (01) ==
LOC: ER 04:18
DX: S90.31XA Contusion of right foot, initial encounter (principal); S90.111A Contusion of right great toe without damage to nail, initial encounter
CPT/HCPCS: 99283